=== PATIENT | male | born 1935 | race Caucasian/White ===

== ENCOUNTER 2017-11-02 14:44 | Emergency (ER) | payer MEDICARE, OTHER, SELFPAY ==
[2017-11-02 14:49] VITALS: BP 133/55; PULSE 70; RESP 16; TEMP 36.7; O2SAT 100
--- NOTE | 2017-11-02 15:00 | ED.UPPEXIN ---
HPI - Extremity Injury (Upper) <GONZALEZ Dubois - Last Filed: 11/02/17 22:31> General Chief Complaint: Extremity Injury, Upper Stated Complaint: SPLINTER IN FINGER Time Seen by Provider: 11/02/17 15:00 Source: patient Mode of arrival: ambulatory Limitations: no limitations History of Present Illness HPI narrative: Patient was brushing off a wooden step with his hand and states he got a splinter in his left pinky finger. He thinks his tetanus was about 10 years ago. He states he has full range of motion of his finger. He states he cannot take out the splinter by himself. Related Data Home Medications Medication Instructions Recorded Confirmed ASPIRIN (Aspirin EC) 81 mg PO Q DAY #0 09/05/11 diltiazem HCl 120 mg PO QDAY #0 09/05/11 colchicine 0.6 mg PO PRN #0 05/16/12 Previous Rx's Medication Instructions Recorded Loratadine (#ALLERGY RELIEF) 10 mg PO Q DAY #90 12/03/11 Allergies Allergy/AdvReac Type Severity Reaction Status Date / Time No Known Drug Allergies Allergy Verified 11/02/17 14:49 Review of Systems <GONZALEZ Dubois - Last Filed: 11/02/17 22:31> Review of Systems GENERAL: Denies chills, fatigue, malaise, fever, sweats. HEENT: Denies sinus pain, ear pain, sore throat, difficulty swallowing, dizziness. RESPIRATORY: Denies dyspnea, cough, wheezing, hemoptysis, sputum. CARDIOVASCULAR: Denies chest pain, palpitations, orthopnea, edema, GASTROINTESTINAL: Denies nausea, vomiting, abdominal pain, diarrhea, constipation, melena. : Denies dysuria, frequency, incontinence, hematuria, urinary retention. MUSCULOSKELETAL: denies weakness, joint pain, or bony pain SKIN: See HPI NEUROLOGIC: Denies weakness, headache, numbness, change in speech, confusion, seizures, incoordination. PSYCHIATRIC: No concerning psychosocial issues. 12 point review of systems is negative except for those stated above Exam <GONZALEZ Dubois - Last Filed: 11/02/17 22:31> Narrative Exam Narrative: GENERAL: This is a well-nourished patient in no distress. HEAD: Atraumatic. Normocephalic. EYES: Pupils equal round and reactive. Extraocular motions intact. No scleral icterus. No injection or drainage. ENT: Nose without bleeding, purulent drainage or septal hematoma. Throat without erythema, tonsillar hypertrophy or exudate. Uvula midline. Airway patent. NECK: Trachea midline. No JVD or lymphadenopathy. Supple, nontender, no meningeal signs. CARDIOVASCULAR: Regular rate and rhythm without murmurs, gallops, or rubs. RESPIRATORY: Clear to auscultation. Breath sounds equal bilaterally. No wheezes, rales, or rhonchi. GASTROINTESTINAL: Abdomen soft, non-tender, nondistended. No hepato-splenomegaly, or palpable masses. No guarding. NEURO: AOx3. SKIN: Noted 3 cm splinter in 5th digit of left hand. Located distal phalanx. Initial Vital Signs Initial Vital Signs: Vital Signs Temperature 98.1 F 11/02/17 14:49 Pulse Rate 70 11/02/17 14:49 Respiratory Rate 16 11/02/17 14:49 Blood Pressure 133/55 H 11/02/17 14:49 Pulse Oximetry 100 11/02/17 14:49 <Gautam Larose DO - Last Filed: 11/03/17 07:12> Initial Vital Signs Initial Vital Signs: Vital Signs Temperature 98.1 F 11/02/17 14:49 Pulse Rate 70 11/02/17 14:49 Respiratory Rate 16 11/02/17 14:49 Blood Pressure 133/55 H 11/02/17 14:49 Pulse Oximetry 100 11/02/17 14:49 Course <CLAIRE Dubois-BC - Last Filed: 11/02/17 22:31> Hospital Course: Patient presented with chief complaint of splinter and 5th left digit. His finger was numbed with lidocaine cream. A 3 mm splinter was removed with splinter forceps. Patient tolerated well. Discussed signs and symptoms of infection with patient. Patient declined x-ray. Patient had no questions or concerns upon discharge and had a full range of motion with no signs or symptoms of infection. Orders Ordered: Discontinued Medications Diphtheria/Tetanus/Acell Pertussis (Adacel) 0.5 ml IM .ONCE ONE Stop: 11/02/17 15:30 Last Admin: 11/02/17 15:10 Dose: 0.5 ml Tetanus/Diphtheria Toxoids (Td) 0.5 ml IM .ONCE ONE Stop: 11/02/17 15:02 Last Admin: 11/02/17 15:35 Dose: Reevaluation(s) Reevaluation #1: Prior to splinter removal, patient's skin was cleansed with chlorhexidine. Patient's wound was copiously irrigated with sterile water. It was dressed with bacitracin and a sterile dressing. Vital Signs - 8 hr 11/02/17 14:49 11/02/17 16:18 Temperature 98.1 F Pulse Rate 70 65 Respiratory Rate 16 16 Blood Pressure 133/55 H 126/75 H Pulse Oximetry 100 100 <Gautam Larose DO - Last Filed: 11/03/17 07:12> Orders Ordered: Discontinued Medications Diphtheria/Tetanus/Acell Pertussis (Adacel) 0.5 ml IM .ONCE ONE Stop: 11/02/17 15:30 Last Admin: 11/02/17 15:10 Dose: 0.5 ml Tetanus/Diphtheria Toxoids (Td) 0.5 ml IM .ONCE ONE Stop: 11/02/17 15:02 Last Admin: 11/02/17 15:35 Dose: Vital Signs - 8 hr 11/02/17 14:49 11/02/17 16:18 Temperature 98.1 F Pulse Rate 70 65 Respiratory Rate 16 16 Blood Pressure 133/55 H 126/75 H Pulse Oximetry 100 100 MDM - Extremity Injury (Upper) <CLAIRE Dubois-BC - Last Filed: 11/02/17 22:31> [facility] Narrative Medical decision making narrative: Patient presents with splinter. Splinter was removed without incident. Patient had full range of motion but denied x-ray to check for further foreign body. I discussed at length with patient to follow up if he has any signs or symptoms of infection or concerns regarding range of motion. Patient had no questions or concerns upon discharge. Discharge Plan Departure Patient Disposition: Home, Self-Care Clinical Impression: Splinter Discharge Date/Time: 11/02/17 16:19 Interventions: ED Discharge Assessment Last Done: 11/02/17 16:18 Instructions: Skin Wound, DI for Splinter Removal Activity Restrictions/Additional Instructions: Today is splinter was removed from your finger. Monitor the site for signs and symptoms of infection including redness, discharge, fevers, nausea, vomiting, diarrhea. Follow up with your primary care if you notice any of these. Keep the site clean, dry, intact and do not submerge your finger to dirty water until it is healed. Prescriptions: No Action ASPIRIN (Aspirin EC) 81 mg PO Q DAY Qty: 0 RF: 0 diltiazem HCl 180 MG capsule,extended release 24hr 120 mg PO QDAY Qty: 0 RF: 0 Loratadine (#ALLERGY RELIEF) 10 mg PO Q DAY Qty: 90 RF: 0 colchicine 0.6 MG tablet 0.6 mg PO PRN Qty: 0 RF: 0 Referrals: Gordy Shabazz MD [Primary Care Provider] - <Gautam Larose DO - Last Filed: 11/03/17 07:12> Cosign ED Attending Cosoralature Attestation: I was available for consultation during this patient's emergency department encounter
--- NOTE | 2017-11-02 15:04 | ED_ITS ---
HPI - Extremity Injury (Upper) <GONZALEZ Dubois - Last Filed: 11/02/17 22:31> General Chief Complaint: Extremity Injury, Upper Stated Complaint: SPLINTER IN FINGER Time Seen by Provider: 11/02/17 15:00 Source: patient Mode of arrival: ambulatory Limitations: no limitations History of Present Illness HPI narrative: Patient was brushing off a wooden step with his hand and states he got a splinter in his left pinky finger. He thinks his tetanus was about 10 years ago. He states he has full range of motion of his finger. He states he cannot take out the splinter by himself. Related Data Home Medications Medication Instructions Recorded Confirmed ASPIRIN (Aspirin EC) 81 mg PO Q DAY #0 09/05/11 diltiazem HCl 120 mg PO QDAY #0 09/05/11 colchicine 0.6 mg PO PRN #0 05/16/12 Previous Rx's Medication Instructions Recorded Loratadine (#ALLERGY RELIEF) 10 mg PO Q DAY #90 12/03/11 Allergies Allergy/AdvReac Type Severity Reaction Status Date / Time No Known Drug Allergies Allergy Verified 11/02/17 14:49 Review of Systems <GONZALEZ Dubois - Last Filed: 11/02/17 22:31> Review of Systems GENERAL: Denies chills, fatigue, malaise, fever, sweats. HEENT: Denies sinus pain, ear pain, sore throat, difficulty swallowing, dizziness. RESPIRATORY: Denies dyspnea, cough, wheezing, hemoptysis, sputum. CARDIOVASCULAR: Denies chest pain, palpitations, orthopnea, edema, GASTROINTESTINAL: Denies nausea, vomiting, abdominal pain, diarrhea, constipation, melena. : Denies dysuria, frequency, incontinence, hematuria, urinary retention. MUSCULOSKELETAL: denies weakness, joint pain, or bony pain SKIN: See HPI NEUROLOGIC: Denies weakness, headache, numbness, change in speech, confusion, seizures, incoordination. PSYCHIATRIC: No concerning psychosocial issues. 12 point review of systems is negative except for those stated above Exam <GONZALEZ Dubois - Last Filed: 11/02/17 22:31> Narrative Exam Narrative: GENERAL: This is a well-nourished patient in no distress. HEAD: Atraumatic. Normocephalic. EYES: Pupils equal round and reactive. Extraocular motions intact. No scleral icterus. No injection or drainage. ENT: Nose without bleeding, purulent drainage or septal hematoma. Throat without erythema, tonsillar hypertrophy or exudate. Uvula midline. Airway patent. NECK: Trachea midline. No JVD or lymphadenopathy. Supple, nontender, no meningeal signs. CARDIOVASCULAR: Regular rate and rhythm without murmurs, gallops, or rubs. RESPIRATORY: Clear to auscultation. Breath sounds equal bilaterally. No wheezes , rales, or rhonchi. GASTROINTESTINAL: Abdomen soft, non-tender, nondistended. No hepato-splenomegaly , or palpable masses. No guarding. NEURO: AOx3. SKIN: Noted 3 cm splinter in 5th digit of left hand. Located distal phalanx. Initial Vital Signs Initial Vital Signs: Vital Signs Temperature 98.1 F 11/02/17 14:49 Pulse Rate 70 11/02/17 14:49 Respiratory Rate 16 11/02/17 14:49 Blood Pressure 133/55 H 11/02/17 14:49 Pulse Oximetry 100 11/02/17 14:49 <Gautam Larose DO - Last Filed: 11/03/17 07:12> Initial Vital Signs Initial Vital Signs: Vital Signs Temperature 98.1 F 11/02/17 14:49 Pulse Rate 70 11/02/17 14:49 Respiratory Rate 16 11/02/17 14:49 Blood Pressure 133/55 H 11/02/17 14:49 Pulse Oximetry 100 11/02/17 14:49 Course <CLAIRE Dubois-BC - Last Filed: 11/02/17 22:31> Hospital Course: Patient presented with chief complaint of splinter and 5th left digit. His finger was numbed with lidocaine cream. A 3 mm splinter was removed with splinter forceps. Patient tolerated well. Discussed signs and symptoms of infection with patient. Patient declined x-ray. Patient had no questions or concerns upon discharge and had a full range of motion with no signs or symptoms of infection. Orders Ordered: Discontinued Medications Diphtheria/Tetanus/Acell Pertussis (Adacel) 0.5 ml IM .ONCE ONE Stop: 11/02/17 15:30 Last Admin: 11/02/17 15:10 Dose: 0.5 ml Tetanus/Diphtheria Toxoids (Td) 0.5 ml IM .ONCE ONE Stop: 11/02/17 15:02 Last Admin: 11/02/17 15:35 Dose: Reevaluation(s) Reevaluation #1: Prior to splinter removal, patient's skin was cleansed with chlorhexidine. Patient's wound was copiously irrigated with sterile water. It was dressed with bacitracin and a sterile dressing. Vital Signs - 8 hr 11/02/17 14:49 11/02/17 16:18 Temperature 98.1 F Pulse Rate 70 65 Respiratory Rate 16 16 Blood Pressure 133/55 H 126/75 H Pulse Oximetry 100 100 <Gautam Larose DO - Last Filed: 11/03/17 07:12> Orders Ordered: Discontinued Medications Diphtheria/Tetanus/Acell Pertussis (Adacel) 0.5 ml IM .ONCE ONE Stop: 11/02/17 15:30 Last Admin: 11/02/17 15:10 Dose: 0.5 ml Tetanus/Diphtheria Toxoids (Td) 0.5 ml IM .ONCE ONE Stop: 11/02/17 15:02 Last Admin: 11/02/17 15:35 Dose: Vital Signs - 8 hr 11/02/17 14:49 11/02/17 16:18 Temperature 98.1 F Pulse Rate 70 65 Respiratory Rate 16 16 Blood Pressure 133/55 H 126/75 H Pulse Oximetry 100 100 MDM - Extremity Injury (Upper) <CLAIRE Dubois-BC - Last Filed: 11/02/17 22:31> [facility] Narrative Medical decision making narrative: Patient presents with splinter. Splinter was removed without incident. Patient had full range of motion but denied x- ray to check for further foreign body. I discussed at length with patient to follow up if he has any signs or symptoms of infection or concerns regarding range of motion. Patient had no questions or concerns upon discharge. Discharge Plan Departure Patient Disposition: Home, Self-Care Clinical Impression: Splinter Discharge Date/Time: 11/02/17 16:19 Interventions: ED Discharge Assessment Last Done: 11/02/17 16:18 Instructions: Skin Wound, DI for Splinter Removal Activity Restrictions/Additional Instructions: Today is splinter was removed from your finger. Monitor the site for signs and symptoms of infection including redness, discharge, fevers, nausea, vomiting, diarrhea. Follow up with your primary care if you notice any of these. Keep the site clean, dry, intact and do not submerge your finger to dirty water until it is healed. Prescriptions: No Action ASPIRIN (Aspirin EC) 81 mg PO Q DAY Qty: 0 RF: 0 diltiazem HCl 180 MG capsule,extended release 24hr 120 mg PO QDAY Qty: 0 RF: 0 Loratadine (#ALLERGY RELIEF) 10 mg PO Q DAY Qty: 90 RF: 0 colchicine 0.6 MG tablet 0.6 mg PO PRN Qty: 0 RF: 0 Referrals: Gordy Shabazz MD [Primary Care Provider] - <Gautam Larose DO - Last Filed: 11/03/17 07:12> Cosign ED Attending Cosoralature Attestation: I was available for consultation during this patient's emergency department encounter
[2017-11-02] MEDS: TET,DIPH,PERTUSS(ACELL),VAC/PF 0.5 ML SYRINGE IM (15:10)
[2017-11-02 16:18] VITALS: BP 126/75; PULSE 65; RESP 16; O2SAT 100
== END 2017-11-02 16:19 | disposition home or self-care (01) ==
PROVIDERS: Emergency Provider Nurse Practitioner Family; Family Provider Internal Medicine; PCP Internal Medicine
DX: S60.459A Superficial foreign body of unspecified finger, initial encounter (principal); W26.9XXA Contact with unspecified sharp object(s), initial encounter
CPT/HCPCS: 90471; 99283; 90715

== ENCOUNTER → 2017-11-07 15:16 | Outpatient (CLI) | payer MEDICARE, OTHER, SELFPAY ==
[2017-11-07 16:30] LABS: Add Manual Diff / Slide Review NO; Basophils Percent Auto 0.2 % (0-2); Eosinophils Percent Auto 5.1 % (2-4); Hematocrit 40.8 % (41-53); Hemoglobin 13.9 g/dL (13.5-17.5); Lymphocytes Percent Auto 29.5 % (25-40); Mean Corpuscular HGB Conc 34.2 % (30-36); Mean Corpuscular Hemoglobin 32.8 PG (26-34); Mean Corpuscular Volume 96.1 fL (80-100); Neutrophils Absolute Auto 3700 /uL (3000-5900); Neutrophils Percent Auto 56.2 % (50-75); Platelet Count 213 X10^3/uL (150-400); Red Blood Cell Count 4.25 X10^6/uL (4.5-5.9); Red Cell Distribution Width 13.2 % (11.6-14.8); White Blood Cell Count 6.5 X10^3/uL (4.5-11.0)
[2017-11-07 16:35] LABS: Alanine Aminotransferase 28 IU/L (21-72); Albumin 4.2 g/dL (3.5-5.0); Albumin Globulin Ratio 1.4 (1.0-2.8); Alkaline Phosphatase 64 U/L (38-126); Aspartate Aminotransferase 21 IU/L (17-59); BUN Creatinine Ratio 23.6 (6-22); Bilirubin Total 0.9 mg/dL (0.2-1.3); Calcium 9.4 mg/dL (8.4-10.2); Cholesterol 117 mg/dL (140-199); Estimated Glomerular Filt Rate > 60.0 mL/min (>60); Globulin 3.1 g/dL (1.7-4.1); Glucose 83 mg/dL (80-110); HDL Cholesterol 71 mg/dL (40-60); HEMOLYSIS < 15 (0-50); LDL Cholesterol Calculated 28 mg/dL (<100); Potassium 4.8 mmol/L (3.4-5.1); Sodium 141 mmol/L (137-145); Total Protein 7.3 g/dL (6.3-8.2); Triglycerides 89 mg/dL (35-150)
[2017-11-13 15:17] LABS: Abnormal Protein Band 1 0.4 g/dL (NONE DETECTED); Albumin 4.2 g/dL (3.8-4.8); Alpha 1 Globulin 0.3 g/dL (0.2-0.3); Alpha 2 Globulin 0.6 g/dL (0.5-0.9); Beta 1 Globulin 0.3 g/dL (0.4-0.6); Gamma Globulin 1.3 g/dL (0.8-1.7)
== END ==
PROVIDERS: Family Provider Internal Medicine; PCP Internal Medicine; Visit Provider Internal Medicine Hematology & Oncology
DX: E78.00 Pure hypercholesterolemia, unspecified (principal); I10 Essential (primary) hypertension; I25.10 Atherosclerotic heart disease of native coronary artery without angina pectoris
CPT/HCPCS: 36415; 80053; 80061; 84155; 84165; 85025

== ENCOUNTER 2017-12-10 17:02 | Emergency (ER) | payer MEDICARE, OTHER, SELFPAY ==
[2017-12-10] VITALS (15 sets, daily range): BP systolic 152–196; BP diastolic 64–115; PULSE 76–101; RESP 11–24; TEMP 36.4; O2SAT 100; BMI 26.4
--- NOTE | 2017-12-10 17:04 | DI.RAD.S_ITS ---
PROCEDURE: XR SHOULDER LT MIN 2V INDICATIONS: Left shoulder deformity TECHNIQUE: 2 views of the shoulder were acquired. COMPARISON: , , SHOULDER MINIMUM 2VIEW RIGHT, 04/01/2007, 11:53. FINDINGS: Bones: Anterior shoulder dislocation noted. No definite or displaced fracture Soft tissues: No suspicious soft tissue calcifications. IMPRESSION: Anterior shoulder dislocation Dictated by: Albin Posada M.D. on 12/10/2017 at 17:49 Approved by: Albin Posada M.D. on 12/10/2017 at 17:50
[2017-12-10] MEDS: fentaNYL 100 MCG/2 ML INJ 50 MCG IV ×2 (17:16→17:37)
--- NOTE | 2017-12-10 17:30 | ED.UPPEXIN ---
HPI - Extremity Injury (Upper) General Chief Complaint: Extremity Injury, Upper Stated Complaint: GLF Time Seen by Provider: 12/10/17 17:04 Source: patient, family and EMS Mode of arrival: EMS Limitations: no limitations History of Present Illness HPI narrative: Two 2 for reports given 1 from the who states that the patient slipped and fell from the porch and in doing so grabbed something and pulled his left arm causing a deformity and pain. The other was from the paramedics stating that the patient tripped around the mailbox and grabbed to support himself and hurt his left arm. No reports of loss of consciousness. Patient states he did not hit his head. No other injuries reported from the event. Paramedics state that he received 6 mg morphine and round to the hospital. No prior shoulder dislocations Related Data Home Medications Medication Instructions Recorded Confirmed aspirin 81 mg PO DAILY #0 09/05/11 12/10/17 allopurinol 300 mg PO DAILY 12/10/17 12/10/17 atorvastatin 40 mg PO DAILY 12/10/17 12/10/17 diltiazem HCl [DILT-XR] 1 cap PO QAM 12/10/17 12/10/17 loratadine 10 mg PO DAILY 12/10/17 12/10/17 losartan 50 mg PO DAILY 12/10/17 12/10/17 terazosin 1 cap PO DAILY 12/10/17 12/10/17 zolpidem 5 mg PO BEDTIME 12/10/17 12/10/17 Previous Rx's Medication Instructions Recorded acetaminophen-codeine 1 tab PO Q4-6H PRN #14 tab 12/10/17 Allergies Allergy/AdvReac Type Severity Reaction Status Date / Time No Known Drug Allergies Allergy Verified 11/02/17 14:49 Review of Systems Constitutional Denies fever(s) Cardiovascular Denies chest pain and Denies dyspnea Respiratory Denies dyspnea Musculoskeletal Comments: Left shoulder deformity and pain Integumentary/Breasts Denies lesions and Denies rash Neurologic Comments: No numbness and tingling left upper extremity Hematologic/Lymphatic Denies easy bleeding and Denies easy bruising [facility] Surgical History Status post breast biopsy Exam Initial Vital Signs Initial Vital Signs: Vital Signs Temperature 97.5 F L 06/27/18 17:05 Pulse Rate 85 12/10/17 17:05 Respiratory Rate 24 12/10/17 17:05 Blood Pressure 185/70 H 12/10/17 17:05 Pulse Oximetry 100 12/10/17 17:05 Const General: cooperative, healthy appearing and No comfortable (Pain in left shoulder) [facility] Head: normal to inspection, normocephalic and atraumatic Ears: hearing grossly normal bilaterally Chest Chest: normal inspection of the chest and normal palpation of entire chest wall Resp Effort & Inspection: normal respiratory effort Auscultation: clear to auscultation bilaterally and no crackles Cardio Rate: regular rate Rhythm: regular rhythm Pulses: radial pulses present on the left Back/Spine/Pelvis Cervical Spine: No pain with cervical ROM, No cervical spinal tenderness and No step off deformity Skin Lesions: no lesions Rashes: no rashes Neuro Other: Sensation intact over the lateral deltoid and distal left upper extremity Extrem Other: Obvious deformity to left upper extremity Procedures Orthopedic Joint Reduction Joint #1: Time Out Performed: Yes Side: left Joint Reduction Location: shoulder Analgesia: procedural sedation Shoulder Technique Used (if applicable): scapula manipulation and Milch Technique used: direct manipulation Post-reduction neuro exam: intact and no change Post-reduction vascular: intact and no change Post Reduction X-Ray Obtained: Yes Post Reduction X-Ray Results: reduced Splint Applied: Yes (Sling) Patient Tolerated Procedure: Well and No complications Procedural Sedation Indication: fracture/dislocation reduction ASA Class: III Mallampati Airway Classification: Class II Preparation: ekg monitor tech applied, pulse oximeter, capnometry used and supplemental O2 applied Fentanyl: IV Fentanyl dose (mcg): 15 Midazolam: IV Midazolam dose (mg): 5 ED Sedation Level: Moderate (Concious) Patient Tolerated Procedure: Well and No complications Complications: none Course Orders Ordered: ED Orders 12/10/17 17:04 XR shoulder LT min 2V Stat 12/10/17 18:02 XR shoulder LT min 2V Stat Discontinued Medications Fentanyl (Sublimaze) 50 mcg IV NOW ONE Stop: 12/10/17 17:06 Last Admin: 12/10/17 17:16 Dose: 50 mcg Fentanyl (Sublimaze) 100 mcg IV NOW ONE Stop: 12/10/17 17:29 Last Admin: 12/10/17 17:34 Dose: 100 mcg Midazolam HCl (Versed) 3 mg IV NOW ONE Stop: 12/10/17 17:29 Last Admin: 12/10/17 17:34 Dose: 3 mg Vital Signs - 8 hr 12/10/17 17:05 12/10/17 17:38 12/10/17 17:46 Temperature 97.5 F L Pulse Rate 85 101 H 88 Respiratory Rate 24 20 15 Blood Pressure 185/70 H Blood Pressure [Right Arm] 196/77 H 184/115 H Pulse Oximetry 100 100 100 12/10/17 17:51 12/10/17 17:56 12/10/17 18:00 Temperature Pulse Rate 94 H 88 80 Respiratory Rate 17 15 19 Blood Pressure Blood Pressure [Right Arm] 187/81 H 185/82 H 180/65 H Pulse Oximetry 100 100 100 12/10/17 18:05 12/10/17 18:10 12/10/17 18:15 Temperature Pulse Rate 76 78 83 Respiratory Rate 11 L 17 21 Blood Pressure Blood Pressure [Right Arm] 155/65 H 160/69 H 165/81 H Pulse Oximetry 100 100 100 12/10/17 18:25 12/10/17 18:47 Temperature Pulse Rate 78 90 Respiratory Rate 12 16 Blood Pressure Blood Pressure [Right Arm] 171/73 H Pulse Oximetry 100 [facility] - Extremity Injury (Upper) Imaging Data Shoulder x-ray post reduction: Radiologist's impression: PROCEDURE: XR SHOULDER LT MIN 2V INDICATIONS: Post reduction TECHNIQUE: Single views of the shoulder were acquired. COMPARISON: [facility], XR SHOULDER LT MIN 2V, 12/10/2017, 17:20. FINDINGS: Bones: Improved alignment following reduction of anterior shoulder dislocation. No fracture is identified. Soft tissues: No suspicious soft tissue calcifications. IMPRESSION: Improved alignment, status post reduction of left shoulder dislocation. Dictated by: Albin Posada M.D. on 12/10/2017 at 18:34 Shoulder x-ray: Radiologist's impression: PROCEDURE: XR SHOULDER LT MIN 2V INDICATIONS: Left shoulder deformity TECHNIQUE: 2 views of the shoulder were acquired. COMPARISON: [facility], SHOULDER MINIMUM 2VIEW RIGHT, 04/01/2007, 11:53. FINDINGS: Bones: Anterior shoulder dislocation noted. No definite or displaced fracture Soft tissues: No suspicious soft tissue calcifications. IMPRESSION: Anterior shoulder dislocation Dictated by: Albin Posada M.D. on 12/10/2017 at 17:49 [facility] Narrative Medical decision making narrative: Patient was neurovascularly intact upon arrival. Had an obvious left shoulder deformity. X-ray show anterior dislocation without fractures. Patient was sedated with fentanyl and Versed as described above. Had no complications with sedation. Shoulder was reduced. Had some difficulty with reduction of the shoulder. No fractures on post reduction films. Patient with intact neurovascular status after reduction. Patient was placed in shoulder immobilizer. Patient is recovering. Care turned over to night provider to re-evaluate after recovered from sedation. Discharge Plan Departure Patient Disposition: Home, Self-Care Clinical Impression: Anterior dislocation of left shoulder Instructions: How to Use a Sling, Shoulder Dislocation Activity Restrictions/Additional Instructions: Contact the [facility] group at [phone] for a follow-up. Also contact your primary care doctor for follow-up. You can remove the sling to shower however I would wear it for the rest of the day even while sleeping into you follow-up with your primary doctor or Orthopedics. Return to the emergency department for any new or worsening symptoms. Prescriptions: New acetaminophen-codeine 300-15 mg tablet 1 tab PO Q4-6H PRN (Reason: pain) Qty: 14 RF: 0 No Action aspirin 81 mg Tablet,Delayed Release (Dr/Ec) 81 mg PO DAILY Qty: 0 RF: 0 losartan 50 mg tablet 50 mg PO DAILY RF: 0 atorvastatin 40 mg tablet 40 mg PO DAILY RF: 0 terazosin 2 mg capsule 1 cap PO DAILY RF: 0 diltiazem HCl [DILT-XR] 120 mg capsule,ext.rel 24h degradable 1 cap PO QAM RF: 0 allopurinol 300 mg tablet 300 mg PO DAILY RF: 0 zolpidem 5 mg tablet 5 mg PO BEDTIME RF: 0 loratadine 10 mg Tablet 10 mg PO DAILY RF: 0
--- NOTE | 2017-12-10 17:33 | ED_ITS ---
HPI - Extremity Injury (Upper) General Chief Complaint: Extremity Injury, Upper Stated Complaint: GLF Time Seen by Provider: 12/10/17 17:04 Source: patient, family and EMS Mode of arrival: EMS Limitations: no limitations History of Present Illness HPI narrative: Two 2 for reports given 1 from the who states that the patient slipped and fell from the porch and in doing so grabbed something and pulled his left arm causing a deformity and pain. The other was from the paramedics stating that the patient tripped around the mailbox and grabbed to support himself and hurt his left arm. No reports of loss of consciousness. Patient states he did not hit his head. No other injuries reported from the event. Paramedics state that he received 6 mg morphine and round to the hospital. No prior shoulder dislocations Related Data Home Medications Medication Instructions Recorded Confirmed aspirin 81 mg PO DAILY #0 09/05/11 12/10/17 allopurinol 300 mg PO DAILY 12/10/17 12/10/17 atorvastatin 40 mg PO DAILY 12/10/17 12/10/17 diltiazem HCl [DILT-XR] 1 cap PO QAM 12/10/17 12/10/17 loratadine 10 mg PO DAILY 12/10/17 12/10/17 losartan 50 mg PO DAILY 12/10/17 12/10/17 terazosin 1 cap PO DAILY 12/10/17 12/10/17 zolpidem 5 mg PO BEDTIME 12/10/17 12/10/17 Previous Rx's Medication Instructions Recorded acetaminophen-codeine 1 tab PO Q4-6H PRN #14 tab 12/10/17 Allergies Allergy/AdvReac Type Severity Reaction Status Date / Time No Known Drug Allergies Allergy Verified 11/02/17 14:49 Review of Systems Constitutional Denies fever(s) Cardiovascular Denies chest pain and Denies dyspnea Respiratory Denies dyspnea Musculoskeletal Comments: Left shoulder deformity and pain Integumentary/Breasts Denies lesions and Denies rash Neurologic Comments: No numbness and tingling left upper extremity Hematologic/Lymphatic Denies easy bleeding and Denies easy bruising [facility] Surgical History Status post breast biopsy Exam Initial Vital Signs Initial Vital Signs: Vital Signs Temperature 97.5 F L 06/27/18 17:05 Pulse Rate 85 12/10/17 17:05 Respiratory Rate 24 12/10/17 17:05 Blood Pressure 185/70 H 12/10/17 17:05 Pulse Oximetry 100 12/10/17 17:05 Const General: cooperative, healthy appearing and No comfortable (Pain in left shoulder) [facility] Head: normal to inspection, normocephalic and atraumatic Ears: hearing grossly normal bilaterally Chest Chest: normal inspection of the chest and normal palpation of entire chest wall Resp Effort & Inspection: normal respiratory effort Auscultation: clear to auscultation bilaterally and no crackles Cardio Rate: regular rate Rhythm: regular rhythm Pulses: radial pulses present on the left Back/Spine/Pelvis Cervical Spine: No pain with cervical ROM, No cervical spinal tenderness and No step off deformity Skin Lesions: no lesions Rashes: no rashes Neuro Other: Sensation intact over the lateral deltoid and distal left upper extremity Extrem Other: Obvious deformity to left upper extremity Procedures Orthopedic Joint Reduction Joint #1: Time Out Performed: Yes Side: left Joint Reduction Location: shoulder Analgesia: procedural sedation Shoulder Technique Used (if applicable): scapula manipulation and Milch Technique used: direct manipulation Post-reduction neuro exam: intact and no change Post-reduction vascular: intact and no change Post Reduction X-Ray Obtained: Yes Post Reduction X-Ray Results: reduced Splint Applied: Yes (Sling) Patient Tolerated Procedure: Well and No complications Procedural Sedation Indication: fracture/dislocation reduction ASA Class: III Mallampati Airway Classification: Class II Preparation: pvc monitor applied, pulse oximeter, capnometry used and supplemental O2 applied Fentanyl: IV Fentanyl dose (mcg): 15 Midazolam: IV Midazolam dose (mg): 5 ED Sedation Level: Moderate (Concious) Patient Tolerated Procedure: Well and No complications Complications: none Course Orders Ordered: ED Orders 12/10/17 17:04 XR shoulder LT min 2V Stat 12/10/17 18:02 XR shoulder LT min 2V Stat Discontinued Medications Fentanyl (Sublimaze) 50 mcg IV NOW ONE Stop: 12/10/17 17:06 Last Admin: 12/10/17 17:16 Dose: 50 mcg Fentanyl (Sublimaze) 100 mcg IV NOW ONE Stop: 12/10/17 17:29 Last Admin: 12/10/17 17:34 Dose: 100 mcg Midazolam HCl (Versed) 3 mg IV NOW ONE Stop: 12/10/17 17:29 Last Admin: 12/10/17 17:34 Dose: 3 mg Vital Signs - 8 hr 12/10/17 17:05 12/10/17 17:38 12/10/17 17:46 Temperature 97.5 F L Pulse Rate 85 101 H 88 Respiratory Rate 24 20 15 Blood Pressure 185/70 H Blood Pressure [Right Arm] 196/77 H 184/115 H Pulse Oximetry 100 100 100 12/10/17 17:51 12/10/17 17:56 12/10/17 18:00 Temperature Pulse Rate 94 H 88 80 Respiratory Rate 17 15 19 Blood Pressure Blood Pressure [Right Arm] 187/81 H 185/82 H 180/65 H Pulse Oximetry 100 100 100 12/10/17 18:05 12/10/17 18:10 12/10/17 18:15 Temperature Pulse Rate 76 78 83 Respiratory Rate 11 L 17 21 Blood Pressure Blood Pressure [Right Arm] 155/65 H 160/69 H 165/81 H Pulse Oximetry 100 100 100 12/10/17 18:25 12/10/17 18:47 Temperature Pulse Rate 78 90 Respiratory Rate 12 16 Blood Pressure Blood Pressure [Right Arm] 171/73 H Pulse Oximetry 100 [facility] - Extremity Injury (Upper) Imaging Data Shoulder x-ray post reduction: Radiologist's impression: PROCEDURE: XR SHOULDER LT MIN 2V INDICATIONS: Post reduction TECHNIQUE: Single views of the shoulder were acquired. COMPARISON: [facility], XR SHOULDER LT MIN 2V, 12/10/2017, 17:20. FINDINGS: Bones: Improved alignment following reduction of anterior shoulder dislocation. No fracture is identified. Soft tissues: No suspicious soft tissue calcifications. IMPRESSION: Improved alignment, status post reduction of left shoulder dislocation. Dictated by: Albin Posada M.D. on 12/10/2017 at 18:34 Shoulder x-ray: Radiologist's impression: PROCEDURE: XR SHOULDER LT MIN 2V INDICATIONS: Left shoulder deformity TECHNIQUE: 2 views of the shoulder were acquired. COMPARISON: [facility], SHOULDER MINIMUM 2VIEW RIGHT, 04/01/2007, 11: 53. FINDINGS: Bones: Anterior shoulder dislocation noted. No definite or displaced fracture Soft tissues: No suspicious soft tissue calcifications. IMPRESSION: Anterior shoulder dislocation Dictated by: Albin Posada M.D. on 12/10/2017 at 17:49 [facility] Narrative Medical decision making narrative: Patient was neurovascularly intact upon arrival. Had an obvious left shoulder deformity. X-ray show anterior dislocation without fractures. Patient was sedated with fentanyl and Versed as described above. Had no complications with sedation. Shoulder was reduced. Had some difficulty with reduction of the shoulder. No fractures on post reduction films. Patient with intact neurovascular status after reduction. Patient was placed in shoulder immobilizer. Patient is recovering. Care turned over to night provider to re-evaluate after recovered from sedation. Discharge Plan Departure Patient Disposition: Home, Self-Care Clinical Impression: Anterior dislocation of left shoulder Instructions: How to Use a Sling, Shoulder Dislocation Activity Restrictions/Additional Instructions: Contact the [facility] group at [phone] for a follow-up. Also contact your primary care doctor for follow-up. You can remove the sling to shower however I would wear it for the rest of the day even while sleeping into you follow-up with your primary doctor or Orthopedics. Return to the emergency department for any new or worsening symptoms. Prescriptions: New acetaminophen-codeine 300-15 mg tablet 1 tab PO Q4-6H PRN (Reason: pain) Qty: 14 RF: 0 No Action aspirin 81 mg Tablet,Delayed Release (Dr/Ec) 81 mg PO DAILY Qty: 0 RF: 0 losartan 50 mg tablet 50 mg PO DAILY RF: 0 atorvastatin 40 mg tablet 40 mg PO DAILY RF: 0 terazosin 2 mg capsule 1 cap PO DAILY RF: 0 diltiazem HCl [DILT-XR] 120 mg capsule,ext.rel 24h degradable 1 cap PO QAM RF: 0 allopurinol 300 mg tablet 300 mg PO DAILY RF: 0 zolpidem 5 mg tablet 5 mg PO BEDTIME RF: 0 loratadine 10 mg Tablet 10 mg PO DAILY RF: 0
[2017-12-10] MEDS: fentaNYL 100 MCG/2 ML INJ IV (17:34)
[2017-12-10] MEDS: MIDAZOLAM 2 MG/2 ML VIAL 3 MG IV (17:34)
[2017-12-10] MEDS: MIDAZOLAM 5 MG/ML VIAL 2 MG IV (17:37)
--- NOTE | 2017-12-10 18:02 | DI.RAD.S_ITS ---
PROCEDURE: XR SHOULDER LT MIN 2V INDICATIONS: Post reduction TECHNIQUE: Single views of the shoulder were acquired. COMPARISON: [facility], , XR SHOULDER LT MIN 2V, 12/10/2017, 17:20. FINDINGS: Bones: Improved alignment following reduction of anterior shoulder dislocation. No fracture is identified. Soft tissues: No suspicious soft tissue calcifications. IMPRESSION: Improved alignment, status post reduction of left shoulder dislocation. Dictated by: Albin Posada M.D. on 12/10/2017 at 18:34 Approved by: Albin Posada M.D. on 12/10/2017 at 18:34
--- NOTE | 2017-12-10 20:11 | PC.NURSE ---
Attempted to assist patient to bathroom, patient stated that he could not get out of bed. aware.
[2017-12-10] MEDS: HYDROCODONE/ACET 5/325 PREPACK 1 BOTTLE MISC (21:25)
== END 2017-12-10 21:45 | disposition home or self-care (01) ==
PROVIDERS: Emergency Provider Emergency Medicine; Family Provider Internal Medicine; PCP Internal Medicine
DX: S43.015A Anterior dislocation of left humerus, initial encounter (principal)
CPT/HCPCS: 23655; 73030; 94770; 96374; 96375; 99152; 99284; 99285; 99291; J2250; J3010

== ENCOUNTER → 2017-12-23 14:03 | Outpatient (CLI) | payer MEDICARE, OTHER, SELFPAY ==
--- NOTE | 2017-12-23 | DI.MRI.S_ITS ---
PROCEDURE: MR SHOULDER LT WO CON INDICATIONS: LEFT SHOULDER PAIN. ANTERIOR DISLOCATION OF LEFT HUMERUS TECHNIQUE: Noncontrast oblique coronal T2 fast spin echo with fat saturation, oblique sagittal T1 spin echo and T2 fast spin echo with fat saturation, axial T1 spin echo and T2 fast spin echo with fat saturation through the shoulder. COMPARISON: [facility], CR, XR SHOULDER LT MIN 2V, 12/10/2017, 17:20. [facility], CR, XR SHOULDER LT MIN 2V, 12/10/2017, 18:07. [facility], CR, XR SHOULDER 2+ VIEWS LEFT, 12/16/2017, 10:13. FINDINGS: Image quality: Excellent. Rotator cuff: There is massive tear of the supraspinatus and infraspinatus tendons with tendon retractions to the musculotendinous junction. The subscapularis tendon is thickened and irregular consistent with partial tear and tendinosis. No rotator muscle atrophy. Bones and bursae: Inferior glenoid fracture (see the next paragraph for detail). There is a small Hill-Sachs deformity of the humeral head. Moderate glenohumeral and acromioclavicular joint degeneration. The acromion demonstrates conventional anatomy, without an os acromiale. Moderate joint effusion is present. Capsule and soft tissues: There is tear of the anterior-inferior labrum with a large Bankart lesion. A slightly displaced fracture fragment is noted involving the inferior glenoid. The superior, middle and inferior glenohumeral ligaments are torn. There is degenerative tear involving the superior labrum. The long head of the biceps tendon demonstrates normal location with mild irregular secondary to tendinitis. IMPRESSION: 1. Massive rotator cuff tear involving the supraspinatus and infraspinatus tendons with tendon retraction. 2. Anterior inferior labral tear with a large Bankart lesion and a fracture fragment adjacent to the anterior inferior glenoid. 3. Small Hill-Sachs deformity. 4. Moderate joint effusion. Dictated by: Huy Lennon M.D. on 12/23/2017 at 16:30 Transcribed by: ROHAN on 12/23/2017 at 16:47 Approved by: Huy Lennon M.D. on 12/23/2017 at 17:29
== END ==
PROVIDERS: PCP Internal Medicine; Visit Provider Orthopaedic Surgery
DX: M75.122 Complete rotator cuff tear or rupture of left shoulder, not specified as traumatic (principal); S43.432A Superior glenoid labrum lesion of left shoulder, initial encounter; M25.412 Effusion, left shoulder
CPT/HCPCS: 73221

== ENCOUNTER → 2017-12-29 14:35 | Outpatient (CLI) | payer MEDICARE, OTHER, SELFPAY ==
[2017-12-29 15:05] LABS: Add Manual Diff / Slide Review NO; Basophils Percent Auto 0.5 % (0-2); Eosinophils Percent Auto 2.8 % (2-4); Hematocrit 39.4 % (41-53); Hemoglobin 13.1 g/dL (13.5-17.5); Lymphocytes Percent Auto 23.4 % (25-40); Mean Corpuscular HGB Conc 33.2 % (30-36); Mean Corpuscular Hemoglobin 32.6 PG (26-34); Monocytes Percent Auto 6.3 % (3-14); Neutrophils Absolute Auto 4400 /uL (3000-5900); Platelet Count 288 X10^3/uL (150-400); Red Blood Cell Count 4.03 X10^6/uL (4.5-5.9); Red Cell Distribution Width 13.1 % (11.6-14.8); White Blood Cell Count 6.5 X10^3/uL (4.5-11.0)
[2017-12-29 15:36] LABS: BUN Creatinine Ratio 16.4 (6-22); Blood Urea Nitrogen 18 mg/dL (9-20); Calcium 9.6 mg/dL (8.4-10.2); Carbon Dioxide 29 mmol/L (22-32); Chloride 101 mmol/L (98-107); Estimated Glomerular Filt Rate > 60.0 mL/min (>60); Glucose 96 mg/dL (80-110); HEMOLYSIS < 15 (0-50); Potassium 4.9 mmol/L (3.4-5.1); Sodium 140 mmol/L (137-145)
== END ==
PROVIDERS: PCP Internal Medicine; Visit Provider Orthopaedic Surgery
DX: Z01.812 Encounter for preprocedural laboratory examination (principal); Z01.818 Encounter for other preprocedural examination
CPT/HCPCS: 36415; 80048; 85025; 93005

== ENCOUNTER 2018-01-15 12:18 | Day surgery (SDC) | payer MEDICARE, OTHER, SELFPAY ==
[2018-01-15] VITALS (7 sets, daily range): BP systolic 134–147; BP diastolic 60–76; PULSE 72–77; RESP 10–20; TEMP 36–36.8; O2SAT 95–99; BMI 26.2
--- NOTE | 2018-01-15 13:03 | PM.PREOP ---
Pre-operative Note Interval Note Pre-op Check: Yes History & Physical Reviewed by Physician and Yes Exam Performed Changes: No
[2018-01-15] MEDS: LACTATED RINGERS 1,000 ML 42 ML IV ×2 (13:37→16:21)
[2018-01-15] MEDS: MIDAZOLAM 2 MG/2 ML VIAL IV (13:44)
--- NOTE | 2018-01-15 13:56 | SUR.PREOP ---
Block start time [1348] . Monitoring initiated and maintained throughout procedure. Oxygen and medications given per anesthesiologist instructions. Patient remained stable throughout procedure, no adverse reactions noted. Block end time []1352.
[2018-01-15] MEDS: CEFAZOLIN 2 GM/100 ML FROZ.PIGGY IV (14:03)
--- NOTE | 2018-01-15 14:36 | SUR.OPER ---
Lateral on padded OR bed with torres bag positioner, head on pillow, gel axillary roll in place, bottom leg bent with gel pad under knee to foot, upper leg straight and supported with pillows. Operative arm secured in shoulder positioning suspension device. non-operative arm secured on padded arm board. Safety belt at hip, tape over blanket securing lower legs.
[2018-01-15] MEDS: SODIUM CHLORIDE IRR (15:56)
[2018-01-15] MEDS: EPINEPHRINE IRR (15:56)
--- NOTE | 2018-01-15 16:21 | P.OP_ITS ---
Operative Date/Time/Diagnoses Date of procedure: 01/15/18 Time of procedure: 16:11 Pre-op diagnosis: Full-thickness rotator cuff tear left shoulder Status post left shoulder dislocation Post-op diagnosis: same Procedure & Clinicians Procedure: Arthroscopic rotator cuff repair left shoulder Repair supplementation with Mimedx EpiFix Same procedure as scheduled: Yes Indications: The patient presents today for rotator cuff repair. Patient sustained the tear after traumatic dislocation approximately 5 weeks ago. The nature of the procedure including the risks and benefits, alternatives, postoperative course and expected outcome were discussed and all questions answered. Consent was obtained. Operative site confirmed and marked. Surgeon: Choco Ellis Category Development Manager: Jorge Wasserman Anesthesia Type: General, Peripheral nerve block and Local Operative Notes Findings: Examination glenohumeral joint revealed the joint to be tight. There is mild chondromalacia and some degenerative type labral tearing. The biceps was intact. The patient had a full-thickness retracted rotator cuff tear involving the entire supraspinatus and good portion of the anterior infraspinatus tendon. However, the tear was mobile and could be repaired back to the tuberosity. A speed bridge technique was used with 4 Arthrex swivel lock anchors in 2 Arthrex FiberWire sutures. A nice repair was obtained without significant tension. The repair site was injected with Mimedx EpiFix for supplemental healing. There was a large anterior acromial spur which was removed with standard acromioplasty. The subacromial space was well decompressed at the end the procedure. Closure Type: primary Specimen(s): none sent Applied: device(s) (EpiFix Mimedx) and other Estimated Blood Loss (mL): 15 Blood products transfused: none Procedure in detail: The patient was taken the operative suite and placed under general anesthesia with a scalene block and given prophylactic antibodies prior to surgery. The patient was then positioned in the lateral decubitus position on a beanbag and with an axillary roll. The arm was suspended with 10 pounds of weight. The acromion and coracoid as well as the expected portal sites were all marked. The shoulder was then injected with 20 mL of 1% lidocaine with epinephrine. The arm was then prepped and draped in usual sterile fashion. The joint was then filled with 20 mL of saline through the proposed posterior portal site. The posterior portal was then established and the scope placed bluntly into the glenohumeral joint. An anterior portal was then established from an outside in technique with a spinal needle. The glenohumeral joint was then inspected (see findings above). The scope was then switched to the subacromial space. A standard bursectomy and anterior/lateral chondroplasty was performed with a shaver and bur. The subacromial space was well decompressed. The patient had a full-thickness retracted rotator cuff tear involving the entire supraspinatus and good portion of the anterior infraspinatus tendon. However, the tear was mobile and could be repaired back to the tuberosity. A speed bridge technique was used with 4 Arthrex swivel lock anchors in 2 Arthrex FiberWire sutures. A nice repair was obtained without significant tension. The repair site was injected with Mimedx EpiFix for supplemental healing. There was a large anterior acromial spur which was removed with standard acromioplasty. The subacromial space was well decompressed at the end the procedure. The arthroscopy was then completed and the shoulder drained. The portal sites were closed with interrupted 3-0 nylon suture. Subacromial space was filled with [20 mL of 0.5% ropivacaine and 4 of morphine]. Sterile gauze dressings were then applied. The shoulder was placed into a sling. The patient tolerated the procedure well and was returned recovery room in good condition. Complications: none Condition: stable Disposition: same day surgery Plan for aftercare: Shoulder mobilizer. No active shoulder range of motion for 6 weeks. Daily pendulum exercises as well as elbow and wrist range of motion. Physical therapy to start next week for passive range of motion. Clinic follow- up in 2 weeks.
--- NOTE | 2018-01-15 17:53 | SUR.PHASEII ---
Spent extra time with patient, spouse and son prior to discharge discussing block and use of sling, use of analgesic medications post op- don't mix Zolpidem & Oxycodone, use of ice & why, use of sling, activity, eating and resuming meds in the am. Onset of some shivering once ready to dress and after helping dress applied warm blankets for trip [place] car. Suggestion to son on how to make similar blanket at home if needed.
== END 2018-01-15 17:50 | disposition home or self-care (01) ==
PROVIDERS: PCP Internal Medicine; Visit Provider Orthopaedic Surgery
PROC: (CPT 29827; principal; 2018-01-15 13:45)
DX: M75.122 Complete rotator cuff tear or rupture of left shoulder, not specified as traumatic (principal); S43.015D Anterior dislocation of left humerus, subsequent encounter; M94.212 Chondromalacia, left shoulder; G89.18 Other acute postprocedural pain
CPT/HCPCS: 29827; 29826; 64415; J0171; J0690; J1100; J2250; J2405; J2704; J2795; J3010

== ENCOUNTER → 2018-02-25 15:59 | Outpatient (CLI) | payer MEDICARE, OTHER, SELFPAY ==
[2018-02-25 16:23] LABS: Add Manual Diff / Slide Review NO; Basophils Percent Auto 0.4 % (0-2); Eosinophils Percent Auto 3.3 % (2-4); Hematocrit 39.3 % (41-53); Hemoglobin 13.3 g/dL (13.5-17.5); Mean Corpuscular HGB Conc 33.9 % (30-36); Mean Corpuscular Hemoglobin 32.3 PG (26-34); Mean Corpuscular Volume 95.3 fL (80-100); Monocytes Percent Auto 7.4 % (3-14); Neutrophils Absolute Auto 4300 /uL (3000-5900); Neutrophils Percent Auto 61.9 % (50-75); Platelet Count 248 X10^3/uL (150-400); Red Blood Cell Count 4.12 X10^6/uL (4.5-5.9); Red Cell Distribution Width 13.8 % (11.6-14.8)
[2018-02-25 17:01] LABS: Alanine Aminotransferase 33 IU/L (21-72); Albumin 4.4 g/dL (3.5-5.0); Albumin Globulin Ratio 1.6 (1.0-2.8); Alkaline Phosphatase 73 U/L (38-126); Aspartate Aminotransferase 28 IU/L (17-59); Bilirubin Total 0.9 mg/dL (0.2-1.3); Blood Urea Nitrogen 18 mg/dL (9-20); Calcium 9.7 mg/dL (8.4-10.2); Carbon Dioxide 30 mmol/L (22-32); Chloride 103 mmol/L (98-107); Estimated Glomerular Filt Rate > 60.0 mL/min (>60); Globulin 2.7 g/dL (1.7-4.1); Glucose 98 mg/dL (80-110); HEMOLYSIS < 15 (0-50); Potassium 5.1 mmol/L (3.4-5.1); Sodium 142 mmol/L (137-145); Total Protein 7.1 g/dL (6.3-8.2)
[2018-02-25 17:31] LABS: Thyroid Stimulating Hormone 1.09 uIU/mL (0.47-4.68)
[2018-02-28 13:43] LABS: Abnormal Protein Band 1 0.5 g/dL (NONE DETECTED); Albumin 4.1 g/dL (3.8-4.8); Alpha 1 Globulin 0.3 g/dL (0.2-0.3); Alpha 2 Globulin 0.6 g/dL (0.5-0.9); Beta 1 Globulin 0.3 g/dL (0.4-0.6); Gamma Globulin 1.2 g/dL (0.8-1.7); Protein, Total 6.8 g/dL (6.1-8.1)
== END ==
PROVIDERS: Family Provider Internal Medicine Cardiovascular Disease; PCP Internal Medicine; Visit Provider Nurse Practitioner Gerontology
DX: I10 Essential (primary) hypertension (principal); D47.2 Monoclonal gammopathy
CPT/HCPCS: 36415; 80053; 84155; 84165; 84443; 85025

== ENCOUNTER 2018-03-11 15:26 | Oncology outpatient (ONC) | payer MEDICARE, OTHER, SELFPAY ==
[2018-03-11 16:06] VITALS: BP 124/60; PULSE 71; RESP 15; O2SAT 99
--- NOTE | 2018-03-11 16:17 | P.PNONC_ITS ---
PN -Subjective Interval history: Diagnosis: MGUS Previous treatment: None Interval history: Patient is an 82-year-old man who returns today for follow-up for history of monoclonal gammopathy. He was diagnosed initially in 2011. He is feeling generally well today. His biggest complaint has been shoulder pain. He did have some recent she surgery for a rotator cuff. He has been doing physical therapy twice a week. He has an appointment pending later this week with his surgeon. He denies any unusual bleeding or bruising. No shortness of breath or cough. Appetite and energy level have been stable. He has not noted any adenopathy. He denies any other changes in his health. His past medical history is otherwise notable for hypertension hypercholesterolemia. He had a recent rotator cuff repair. His medications include aspirin diltiazem loratadine allopurinol terazosin Ambien Lipitor and Cozaar. - Patient Self-Reported Symptoms SR Musculoskeletal issues: Joint pain or swelling Home Medications and Allergies Home Medications Medication Instructions Recorded Confirmed Type aspirin 81 mg PO DAILY #0 09/05/11 01/15/18 History allopurinol 300 mg PO DAILY 12/10/17 01/15/18 History atorvastatin 40 mg PO DAILY 12/10/17 01/15/18 History diltiazem HCl 1 cap PO QAM 12/10/17 01/15/18 History loratadine 10 mg PO DAILY 12/10/17 01/15/18 History losartan 50 mg PO DAILY 12/10/17 01/15/18 History zolpidem 5 mg PO BEDTIME 12/10/17 01/15/18 History cholecalciferol (vitamin D3) 2,000 unit PO DAILY 01/12/18 01/12/18 History [Vitamin D3] terazosin 2 mg PO BEDTIME 03/11/18 03/11/18 History zolpidem [Ambien] 5 mg PO BEDTIME PRN 03/11/18 03/11/18 History Allergies Allergy/AdvReac Type Severity Reaction Status Date / Time No Known Drug Allergies Allergy Verified 01/12/18 14:33 Exam Vital signs: Last Vital Signs Pulse 71 03/11/18 16:06 Resp 15 03/11/18 16:06 BP 124/60 03/11/18 16:06 Pulse Ox 99 03/11/18 16:06 - Constitutional positive no acute distress, positive average body habitus - Routine HEENT Exam Head: Present: normocephalic, atraumatic Eye: Present: EOMI, PERRL. Absent: conjunctival icterus, scleral injection ENT: Present: mucous membranes moist, oropharynx clear - Routine Neck Exam Present: supple. Absent: lymphadenopathy, thyromegaly - Routine Respiratory Exam Present: Clear to auscultation bilaterally. Absent: rales, wheezes - Routine Cardiovascular Exam Present: RRR, S1, S2. Absent: murmur - Routine Abdominal Exam Present: soft, normoactive bowel sounds. Absent: tenderness, organomegaly Palpation/Percussion: Absent: splenomegaly - Routine Extremities Exam Absent: cyanosis, clubbing, edema Comments: He has decreased range of motion in the left shoulder. - Routine Back/Spine Exam Back/Spine: Absent: paraspinal tenderness, vertebral tenderness - Routine Skin Exam Present: intact. Absent: petechiae, rash - Routine Neurological Exam Present: alert, oriented X3 - Routine Psychiatric Exam Present: normal affect, normal thought process Results - Labs CBC showed a white count of 7000 hemoglobin 13.3 hematocrit 39.3 platelets [id number] %period% creatinine was 1.0 calcium was 9.7. SPEP showed a paraprotein at 0.5 grams/deciliter. - Imaging Additional studies: Procedures Insertion of intraocular lens prosthesis at time of cataract extraction, one- stage (12/29/13) Other appendectomy (11/21/14) Phacoemulsification and aspiration of cataract (12/29/13) Assessment and Plan (1) MGUS (monoclonal gammopathy of unknown significance) Problem details: 82-year-old man with a history of MGUS. He has no evidence of progression. He has a very mild anemia that I think is probably related to his recent surgery. He will return to clinic here in 1 year for follow-up. Current visit: Yes Status: Acute
== END 2018-03-12 12:00 ==
PROVIDERS: Family Provider Internal Medicine Cardiovascular Disease; PCP Internal Medicine; Visit Provider Internal Medicine Hematology & Oncology
DX: Z79.82 Long term (current) use of aspirin (principal)
CPT/HCPCS: 99214

== ENCOUNTER → 2018-04-16 13:05 | Outpatient (CLI) | payer MEDICARE, OTHER, SELFPAY ==
--- NOTE | 2018-04-16 | DI.MRI.S_ITS ---
PROCEDURE: MR SHOULDER LT WO CON INDICATIONS: ROTATOR CUFF TEAR TECHNIQUE: Noncontrast oblique coronal T2 fast spin echo with fat saturation, oblique sagittal T1 spin echo and T2 fast spin echo with fat saturation, axial T1 spin echo and T2 fast spin echo with fat saturation through the shoulder. COMPARISON: [facility], MR, MR SHOULDER LT WO CON, 12/23/2017, 14:12. FINDINGS: Image quality: Excellent. Rotator cuff: Postsurgical changes are seen within the proximal humerus presumably related to previous rotator cuff repair. There is full thickness (presumed recurrent) large tear involving the supraspinatus and infraspinatus tendons measuring approximately 3.0 cm in the AP dimension as seen on sagittal image 16 series 10. This measures approximately 2.6 cm in the transverse dimension as seen on coronal image 11 series 8. Infraspinatus tendinopathy and interstitial tearing extends to the musculotendinous junction. Teres minor grossly intact. There is subscapularis tendinopathy and intrasubstance change. Borderline atrophy of the supraspinatus muscle. There is fatty infiltration of the infraspinatus muscle. Bones and bursae: No bone marrow contusions or fractures. No acromioclavicular joint degeneration. The acromion demonstrates conventional anatomy, without an os acromiale. Capsule and soft tissues: Superior labrum appears grossly intact. There is ill-defined irregularity in substance signal change involving the posterior labrum, presumably tear which is new since the prior study. There is also posterior subluxation of the humeral head relative to the glenoid. The long head of the biceps tendon demonstrates normal location and morphology. The rotator interval appears normal, without fibrosis. The coracohumeral ligament is normal in thickness. IMPRESSION: Presumed recurrent, large full thickness tear of the supraspinatus and infraspinatus muscles as above. Borderline atrophy of the supraspinatus muscle. Posterior labral tear which appears new since the prior study. There is associated posterior subluxation of the humeral head relative to the glenoid suggesting microinstability. Dictated by: Albin Posada M.D. on 04/16/2018 at 14:50 Approved by: Albin Posada M.D. on 04/16/2018 at 15:02
== END ==
PROVIDERS: Family Provider Internal Medicine Cardiovascular Disease; PCP Internal Medicine; Visit Provider Orthopaedic Surgery
DX: M75.122 Complete rotator cuff tear or rupture of left shoulder, not specified as traumatic (principal); S43.402A Unspecified sprain of left shoulder joint, initial encounter
CPT/HCPCS: 73221

== ENCOUNTER → 2018-05-19 09:52 | Outpatient (CLI) | payer MEDICARE, OTHER, SELFPAY ==
--- NOTE | 2018-05-19 | DI.US.S_ITS ---
PROCEDURE: US CAROTID DOPPLER BI INDICATIONS: BILATERAL CAROTID ARTERY DISEASE TECHNIQUE: Color and pulse Doppler interrogation was performed of both carotid systems, with image documentation and velocity measurements. COMPARISON: Formerly [facility], [place], CAROTID ARTERY DOPPLER BILAT, 01/19/2015, 11:34. FINDINGS: Stenosis calculations are based on SRU (Society of Radiologists in Ultrasound) criteria. Right side: Brachial blood pressure: 94/53 mm Hg. Common carotid artery peak systolic velocity: 102 cm/sec. Internal carotid artery peak systolic velocity: 99 cm/sec. Internal carotid artery end diastolic velocity: 21 cm/sec. External carotid artery peak systolic velocity: 104 cm/sec. ICA/CCA peak systolic ratio: 1.0. Tafoya scale imaging description: Mild plaque. Percent internal carotid artery stenosis: Left. Vertebral artery: Flow direction is antegrade. Left side: Brachial blood pressure: 95/57 mm Hg. Common carotid artery peak systolic velocity: 113 cm/sec. Internal carotid artery peak systolic velocity: 99 cm/sec. Internal carotid artery end diastolic velocity: 23 cm/sec. External carotid artery peak systolic velocity: 108 cm/sec. ICA/CCA peak systolic ratio: 0.9. Tafoya scale imaging description: Moderate scattered plaque. Percent internal carotid artery stenosis: Less than 50%. Vertebral artery: Flow direction is antegrade. IMPRESSION: Less than 50% bilateral internal carotid artery stenoses which is unchanged from prior exam. Dictated by: Gold Patterson [facility] Interpreted: Albin Posada MD on 05/19/2018 at 11:49 Approved by: Albin Posada M.D. on 05/19/2018 at 16:36
== END ==
PROVIDERS: PCP Internal Medicine; Visit Provider Internal Medicine Cardiovascular Disease
DX: I65.23 Occlusion and stenosis of bilateral carotid arteries (principal)
CPT/HCPCS: 93880

== ENCOUNTER → 2018-06-22 13:16 | Outpatient (CLI) | payer MEDICARE, OTHER, SELFPAY ==
[2018-06-22 14:31] LABS: Prostate Specific Antigen < 0.064 ng/mL (0.10-4.00)
== END ==
PROVIDERS: Family Provider Internal Medicine; PCP Internal Medicine; Visit Provider Urology
DX: Z12.5 Encounter for screening for malignant neoplasm of prostate (principal); R97.20 Elevated prostate specific antigen [PSA]
CPT/HCPCS: 36415; 84153

== ENCOUNTER → 2018-08-15 10:07 | Outpatient (CLI) | payer MEDICARE, OTHER, SELFPAY ==
[2018-08-15 11:12] LABS: BUN Creatinine Ratio 18.5 (6-22); Blood Urea Nitrogen 24 mg/dL (9-20); Calcium 9.7 mg/dL (8.4-10.2); Carbon Dioxide 29 mmol/L (22-32); Chloride 102 mmol/L (98-107); Estimated Glomerular Filt Rate 52.7 mL/min (>60); Glucose 82 mg/dL (80-110); HEMOLYSIS < 15 (0-50); Potassium 4.8 mmol/L (3.4-5.1); Sodium 139 mmol/L (137-145); Uric Acid 3.5 mg/dL (3.5-8.5)
== END ==
PROVIDERS: PCP Internal Medicine; Visit Provider Internal Medicine
DX: I25.10 Atherosclerotic heart disease of native coronary artery without angina pectoris (principal); M10.00 Idiopathic gout, unspecified site
CPT/HCPCS: 36415; 80048; 84550

== ENCOUNTER → 2019-01-19 09:17 | Outpatient (CLI) | payer MEDICARE, OTHER, SELFPAY ==
[2019-01-19 10:10] LABS: Add Manual Diff / Slide Review NO; Basophils Absolute Auto 0 /uL (0-100); Basophils Percent Auto 0.6 % (0-2); Eosinophils Absolute Auto 200 /uL (0-450); Eosinophils Percent Auto 4.5 % (2-4); Hematocrit 38.6 % (41-53); Lymphocytes Absolute Auto 1800 /uL (1100-4500); Mean Corpuscular HGB Conc 33.8 % (30-36); Mean Corpuscular Hemoglobin 32.7 PG (26-34); Mean Corpuscular Volume 96.6 fL (80-100); Monocytes Absolute Auto 400 /uL (0-900); Monocytes Percent Auto 6.7 % (3-14); Neutrophils Absolute Auto 2900 /uL (1500-7000); Neutrophils Percent Auto 54.2 % (50-75); Platelet Count 211 X10^3/uL (150-400); Red Blood Cell Count 3.99 X10^6/uL (4.5-5.9); Red Cell Distribution Width 13.6 % (11.6-14.8); White Blood Cell Count 5.3 X10^3/uL (4.5-11.0)
[2019-01-19 10:22] LABS: Hemoglobin A1C% w Est Avg Glu 4.8 % (4.0-6.0)
[2019-01-19 10:47] LABS: Alanine Aminotransferase 25 IU/L (21-72); Albumin 4.1 g/dL (3.5-5.0); Albumin Globulin Ratio 1.3 (1.0-2.8); Alkaline Phosphatase 82 U/L (38-126); Aspartate Aminotransferase 27 IU/L (17-59); Bilirubin Total 1.3 mg/dL (0.2-1.3); Blood Urea Nitrogen 24 mg/dL (9-20); Calcium 9.2 mg/dL (8.4-10.2); Carbon Dioxide 28 mmol/L (22-32); Chloride 104 mmol/L (98-107); Cholesterol 101 mg/dL (140-199); Estimated Glomerular Filt Rate 57.8 mL/min (>60); Globulin 3.1 g/dL (1.7-4.1); Glucose 83 mg/dL (80-110); HDL Cholesterol 48 mg/dL (40-60); HEMOLYSIS < 15 (0-50); LDL Cholesterol Calculated 38 mg/dL (<100); Potassium 4.2 mmol/L (3.4-5.1); Sodium 139 mmol/L (137-145); Total Protein 7.2 g/dL (6.3-8.2); Triglycerides 73 mg/dL (35-150)
[2019-01-19 11:11] LABS: Thyroid Stimulating Hormone 1.23 uIU/mL (0.47-4.68)
== END ==
PROVIDERS: PCP Internal Medicine; Visit Provider Internal Medicine Cardiovascular Disease
DX: I25.10 Atherosclerotic heart disease of native coronary artery without angina pectoris (principal); E78.5 Hyperlipidemia, unspecified; R63.4 Abnormal weight loss; R73.03 Prediabetes
CPT/HCPCS: 36415; 80053; 80061; 83036; 84443; 85025

== ENCOUNTER → 2019-01-28 16:56 | Outpatient (CLI) | payer MEDICARE, OTHER, SELFPAY ==
[2019-01-28 17:25] LABS: Add Manual Diff / Slide Review NO; Basophils Absolute Auto 0 /uL (0-100); Basophils Percent Auto 0.5 % (0-2); Eosinophils Absolute Auto 200 /uL (0-450); Hematocrit 36.5 % (41-53); Hemoglobin 12.2 g/dL (13.5-17.5); Lymphocytes Absolute Auto 2000 /uL (1100-4500); Lymphocytes Percent Auto 32.1 % (25-40); Mean Corpuscular HGB Conc 33.4 % (30-36); Mean Corpuscular Hemoglobin 32.6 PG (26-34); Mean Corpuscular Volume 97.7 fL (80-100); Monocytes Absolute Auto 400 /uL (0-900); Monocytes Percent Auto 6.3 % (3-14); Neutrophils Absolute Auto 3500 /uL (1500-7000); Neutrophils Percent Auto 58.1 % (50-75); Platelet Count 218 X10^3/uL (150-400); Red Blood Cell Count 3.73 X10^6/uL (4.5-5.9); Red Cell Distribution Width 13.8 % (11.6-14.8); White Blood Cell Count 6.1 X10^3/uL (4.5-11.0)
[2019-01-28 17:57] LABS: Alanine Aminotransferase 21 IU/L (21-72); Albumin 4.1 g/dL (3.5-5.0); Albumin Globulin Ratio 1.4 (1.0-2.8); Alkaline Phosphatase 72 U/L (38-126); Aspartate Aminotransferase 22 IU/L (17-59); BUN Creatinine Ratio 19.2 (6-22); Bilirubin Total 1.1 mg/dL (0.2-1.3); Blood Urea Nitrogen 23 mg/dL (9-20); Calcium 9.5 mg/dL (8.4-10.2); Carbon Dioxide 28 mmol/L (22-32); Chloride 101 mmol/L (98-107); Cholesterol 95 mg/dL (140-199); Estimated Glomerular Filt Rate 57.8 mL/min (>60); Glucose 86 mg/dL (80-110); HDL Cholesterol 53 mg/dL (40-60); HEMOLYSIS < 15 (0-50); LDL Cholesterol Calculated 33 mg/dL (<100); Potassium 4.6 mmol/L (3.4-5.1); Sodium 137 mmol/L (137-145); Total Protein 7.1 g/dL (6.3-8.2); Triglycerides 43 mg/dL (35-150)
== END ==
PROVIDERS: PCP Internal Medicine; Visit Provider Internal Medicine
DX: I10 Essential (primary) hypertension (principal); N18.9 Chronic kidney disease, unspecified; E78.00 Pure hypercholesterolemia, unspecified
CPT/HCPCS: 36415; 80053; 80061; 85025

== ENCOUNTER → 2019-02-01 16:28 | Outpatient (CLI) | payer MEDICARE, OTHER, SELFPAY ==
[2019-02-01 17:33] LABS: HEMOLYSIS < 15 (0-50); Iron 72 ug/dL (49-181); Uric Acid 3.5 mg/dL (3.5-8.5)
[2019-02-01 17:44] LABS: Percent Iron Saturation 29 % (20-50); Total Iron Binding Capacity 246 ug/dL (261-462); Transferrin 188 mg/dL (206-381)
[2019-02-01 18:06] LABS: Prostate Specific Antigen 0.066 ng/mL (0.10-4.00)
== END ==
PROVIDERS: PCP Internal Medicine; Visit Provider Internal Medicine
DX: M10.00 Idiopathic gout, unspecified site (principal); R63.4 Abnormal weight loss; C61 Malignant neoplasm of prostate; D64.9 Anemia, unspecified
CPT/HCPCS: 36415; 83540; 83550; 84153; 84550

== ENCOUNTER → 2019-02-02 13:19 | Outpatient (CLI) | payer MEDICARE, OTHER, SELFPAY ==
--- NOTE | 2019-02-02 14:08 | DI.CT.S_ITS ---
PROCEDURE: CT ABDOMEN PELVIS W CON INDICATIONS: abnormal weight loss TECHNIQUE: After the administration of oral and intravenous contrast, 5 mm thick sections acquired from the diaphragms to the symphysis. 5 mm thick coronal and sagittal reformats were performed. For radiation dose reduction, the following was used: automated exposure control, adjustment of mA and/or kV according to patient size. COMPARISON: [facility], CT, ABDOMEN/PELVIS WITH CONTRAST, 11/21/2014, 10:25. FINDINGS: Image quality: Excellent. ABDOMEN: Lung bases: Lung bases are clear. Heart size is normal. Solid organs: Hepatic steatosis. Possible subcentimeter flash filling hemangioma image 14 series 2 adjacent to the IVC, however technically indeterminate. Unclear if this is present on the prior study dated 11/21/14. Gallbladder contracted otherwise unremarkable. Biliary system is non-dilated. Pancreas enhances normally. Spleen is normal in size and enhancement. Left adrenal nodule measuring 3 cm grossly unchanged since 11/21/14. Right adrenal gland unremarkable. Kidneys are normal in size and enhancement, without hydronephrosis. 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 Peritoneum and bowel: Stomach, small bowel, and colon loops are normal in caliber and wall thickness. No free fluid or air. Moderate amount of diffuse stool. Nodes and vessels: No retroperitoneal or mesenteric adenopathy. Aorta and inferior vena cava are normal in caliber. Scattered vascular calcifications seen in the aorta. Miscellaneous: No ventral hernias. PELVIS: Genitourinary: Bladder decompressed otherwise unremarkable. Prostate brachytherapy seeds. Small fat-containing left inguinal hernia. Bones: No suspicious bony lesions. Multilevel spondylosis. No vertebral body compression fractures. IMPRESSION: Hepatic steatosis. Unchanged left adrenal nodule as above. No acute process. No specific evidence of malignancy identified. Small fat-containing left inguinal hernia. This appears decreased in size since the prior study. Dictated by: Albin Posada M.D. on 02/02/2019 at 17:38 Approved by: Albin Posada M.D. on 02/02/2019 at 18:30
== END ==
PROVIDERS: PCP Internal Medicine; Visit Provider Internal Medicine
DX: K76.0 Fatty (change of) liver, not elsewhere classified (principal); E27.9 Disorder of adrenal gland, unspecified; K40.90 Unilateral inguinal hernia, without obstruction or gangrene, not specified as recurrent
CPT/HCPCS: 74177; Q9967

== ENCOUNTER 2019-04-15 16:00 | Outpatient (RCR) | payer MEDICARE, OTHER, SELFPAY ==
--- NOTE | 2018-07-30 12:00 | PT.OIE ---
Current Diagnoses Stiffness of left shoulder, not elsewhere classified (07/30/18) Muscle weakness (generalized) (07/30/18) Unspecified rotator cuff tear or rupture of left shoulder, not specified as traumatic (07/30/18) Past Medical History (Last Updated 01/12/18 @ 14:56 by Karis Nielsen, RN) Allergic rhinitis (Acute) BPH (benign prostatic hyperplasia) (Acute) Dislocation of left shoulder joint (Acute) Gout (Acute) Hypercholesterolemia (Acute) Hypertension (Acute) Impaired vision (Acute) Left shoulder pain (Acute) MGUS (monoclonal gammopathy of unknown significance) (Acute) Myocardial infarction (Acute ~1992) Peripheral vascular disease (Acute) Prostate CA (Acute) Past Surgical History (Last Updated 01/12/18 @ 14:37 by Karis Nilesen, RN) History of appendectomy (Acute) History of breast biopsy (Acute) Status post bilateral cataract extraction (Acute) Status post breast biopsy Provider Visit Care Team Role Provider Type Gordy Shabazz MD Primary Care Provider Physician Specialty: Internal Medicine Address: [address] [place] [address], [facility] Email: Darius Henderson MD Attending Provider Non-Staff Specialty: Orthopedic Surgery Address: [address] [place] [address], [facility] Email: Physical Therapy Initial Evaluation PT-OP-A Visit Information Start: 07/30/18 13:32 Freq: Status: Active Protocol: Document 07/30/18 12:00 RCC (Rec: 07/31/18 09:38 [facility] [email or web address]) Out-Patient Physical Therapy Visit Information Visit Information Visit Type Initial Evaluation Visit Start Time 12:00 Visit Stop Time 12:45 Total Visit Minutes 45 Visit Number 1 Number of MERCHANDISE MANAGER Visits 0 Evaluation Information Evaluation Date 06/29/18 PT-OP-B Current Condition Start: 07/30/18 13:32 Freq: Status: Active Protocol: Document 07/30/18 12:00 RCC (Rec: 07/31/18 09:38 [facility] [id number]) Current Condition History of Current Condition Onset Date December 2017 Current Complaints L shoulder weakness, impaired ROM, pain History of Current Condition Pt is an 83 y/o male presenting to physical therapy with a c/o L shoulder pain, weakness, and limited ROM. Pt sustained infraspinatus and supraspinatus tears /sp traumatic dislocation in November/ December of 2017. He had arthroscopic surgery on 01/15/18 . MRI done in April of 2018 showed that the pt had full thickness tearing of supraspinatus and infraspinatus, as well as posterior labral tear. He was consulted for a TSA, but seeked a second opinion which suggested pain management and physical therapy. 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 He admits to being primarily a L sided sleeper until this L shoulder injury, now very uncomfortable sleeping on his back or his R side. Pt has not done any formal PT since re-tearing, but did participate in PT s/p rotator cuff surgery. He is R hand dominant. Prior Treatments and Tests MRI as noted above Treatment Goals Patient/Caregiver Goals improve ROM, strength, and decrease pain Current Functional Impairments (Reported) Functional Limitations- Other unable to perform any activities with arm away from body Personal Factors Other Personal Factors That May Effect blood condition which Therapy/Recovery requires annual follow up with oncology (denies any current CA of any kind, does have past h/o prostate CA 10 yrs ago), [place] 1992 PT-OP-C Subjective Start: 07/30/18 13:32 Freq: Status: Active Protocol: Document 07/30/18 12:00 [facility] (Rec: 07/31/18 09:38 [facility] [id number]) Patient Questionnaires Quick Dash- Upper Extremity Quick Dash UE Score 50 Quick Dash UE Impairment 40 to 59% Impaired (Score 40- 59) OP-PT Pain Assessment Location L shoulder Intensity 3 Scale Used Numeric (1 - 10) Home Pain Medication Use Pain Medications Used No PT-OP-F Manual Assessment Start: 07/30/18 13:32 Freq: Status: Active Protocol: Document 07/30/18 12:00 [facility] (Rec: 07/31/18 15:47 [facility] [email or web address]) Manual Assessments Soft Tissue Assessment Soft Tissue Mobility Assessment tenderness to palpation: L parascapular mm and posterior shoulder Joint Mobility Assessment Joint Mobility Assessment hypomobility: L shoulder with posterior and inferior glides PT-OP-K Range of Motion Start: 07/30/18 13:32 Freq: Status: Active Protocol: Document 07/30/18 12:00 RCC (Rec: 07/31/18 15:47 [facility] [email or web address]) Shoulder Goniometric Range of Motion Shoulder Measured in Degrees Right Active Testing Position Supine Flexion 170 Abduction 165 External Rotation at 90 degrees 75 Abduction Internal Rotation 80 Left Passive Testing Position Supine Flexion 95 Abduction 85 External Rotation at 0 degrees Abduction 22 Left Active Testing Position Supine Flexion 20 Abduction 35 External Rotation at 0 degrees Abduction 16 Internal Rotation 65 PT-OP-L Special Tests Start: 07/30/18 13:32 Freq: Status: Active Protocol: Document 07/30/18 12:00 RCC (Rec: 07/31/18 15:47 [facility] [email or web address]) Special Tests Shoulder Special Tests Apprehension Test Test Results negative Belly Press Test Results negative Lift-Off Rotator Cuff Test Results negative Load and Shift Test Results negative Other Special Tests Special Tests unable to assess further due to pain and limitations of ROM PT-OP-M Strength Start: 07/30/18 13:32 Freq: Status: Active Protocol: Document 07/30/18 12:00 RCC (Rec: 07/31/18 15:52 [facility] [email or web address]) Shoulder Strength Shoulder Manual Muscle Testing Left Flexion 2- Poor- Abduction (C5) 2- Poor- External Rotation 3 Fair Internal Rotation 4 Good Right Flexion 5 Normal Adduction 5 Normal External Rotation 5 Normal Internal Rotation 5 Normal Elbow/Forearm Strength Elbow and Forearm Manual Muscle Testing Left Flexion (C6) 4 Good Extension (C7) 4 Good Right Flexion (C6) 5 Normal Extension (C7) 5 Normal PT-OP-Q Treatments Start: 07/30/18 13:32 Freq: Status: Active Protocol: Document 07/30/18 12:00 RCC (Rec: 07/31/18 09:39 [facility] [email or web address]) Therapeutic Exercises Supine Exercises T-bar Supine Exercise Name flexion, abduction, ER Side bilateral Reps/Minutes 5 each Comments 5 sec hold Sitting Exercises scapular retraction Side bilateral Reps/Minutes x10 Comments tactile cuing for UT inhibition PT-OP-T Assessment and Plan Start: 07/30/18 13:32 Freq: Status: Active Protocol: Document 07/30/18 12:00 RCC (Rec: 08/02/18 12:36 [facility] [email or web address]) Physical Therapy Assessment Rehab Potential Rehabilitation Potential Good Evaluation Complexity Number of Personal Factors/Comorbidities 1-2 Number of Body Systems Impaired 3 Clinical Presentation at Evaluation Evolving Impairments Impairments Functional Activities Pain ROM Strength Goals pain Impairment rated 3/10 pain in L shoulder Care Home Goal (LTG) Pain rated 1/10 or less prior to d/c. LTG Duration 12 weeks Quick DASH Impairment Quick DASH impairment score of 50 Short Term Goal (STG) Quick DASH score of 40 or less . STG Duration 6 weeks Care Home Goal (LTG) Quick DASH score of 30 or less to demonstrate improvements with functional use of LUE with daily activities. LTG Duration 12 weeks weakness Impairment L UE weakness Short Term Goal (STG) L shoulder 3+/5 or greater with manual muscle testing with flexion, abduction, and ER. STG Duration 6 weeks Care Home Goal (LTG) L shoulder 4/5 or greater with manual muscle testing with flexion, abduction, ER and L elbow flexion and extension to 5/5 with manual muscle testing to demonstrate improved L shoulder stability. LTG Duration 12 weeks L shoulder ROM Impairment L shoulder ROM Short Term Goal (STG) L shoulder AROM: flexion to 90 deg, abduction to 90 deg, ER to 35 deg STG Duration 6 weeks Care Home Goal (LTG) L shoulder AROM: flexion to 150 deg, abduction to 150 deg, ER to 60 deg prior to d/c, with pt able reporting being able to perform light activities with LUE above 90 degree neutral position. LTG Duration 12 weeks Assessment Summary Assessment Pt presents with significantly impaired L shoulder ROM and strength, s/p rotator cuff tear. Pt did not tolerate special testing well, with inability to get ROM into appropriate positioning for true testing including the labrum. Pt has opted for non- surgical approach for recovery (this new tear is after previous rotator cuff repair), therefore, along with the amount of time since re-tear to this evaluation, it will require a prolonged amount of time in order for pt to regain functional independence and use of the LUE. Pt would greatly benefit from skilled physical therapy to progress his L UE strength, ROM, decrease pain and overall function including usage of the LUE away from his body. Physical Therapy Plan Frequency and Duration Frequency of Treatment 2x/Week Duration of Treatment 12 weeks Plan of Care Start Date 07/30/18 Plan of Care End Date 10/22/18 Therapeutic Interventions Therapeutic Interventions Aquatic Therapy Coordination Training Home Exercise Program Joint Mobilizations Manual Therapy Neuromuscular Re-education Patient/Caregiver Education Self-Care/Home Management Soft Tissue Mobilization Taping Therapeutic Activities Therapeutic Exercises Modalities Cold Pack/Ice Massage Electric Stimulation Hot Packs Ultrasound Next Visit Focus/Plan Next Note Type Treatment Note Next Visit Plan review HEP (T-bar ROM and scapular retraction), manual therapy- joint mobilizations, isometric L shoulder activities.
--- NOTE | 2018-08-03 15:31 | PT.OTN ---
Current Diagnoses Unspecified rotator cuff tear or rupture of left shoulder, not specified as traumatic (08/03/18) Physical Therapy Treatment Note PT-OP-A Visit Information Start: 07/30/18 13:32 Freq: Status: Active Protocol: Document 08/03/18 15:16 EA (Rec: 08/03/18 15:31 EA [id number]) Out-Patient Physical Therapy Visit Information Visit Information Visit Type Treatment Note Visit Start Time 14:30 Visit Stop Time 15:10 Total Visit Minutes 40 Visit Number 2 PT-OP-B Current Condition Start: 07/30/18 13:32 Freq: Status: Active Protocol: Document 07/30/18 12:00 RCC (Rec: 07/31/18 09:38 RCC [email or web address]) Current Condition History of Current Condition Onset Date December 2017 Current Complaints L shoulder weakness, impaired ROM, pain History of Current Condition Pt is an 83 y/o male presenting to physical therapy with a c/o L shoulder pain, weakness, and limited ROM. Pt sustained infraspinatus and supraspinatus tears /sp traumatic dislocation in December. He had arthroscopic surgery on 01/15/18 . MRI done in April of 2018 showed that the pt had full thickness tearing of supraspinatus and infraspinatus, as well as posterior labral tear. He was consulted for a TSA, but seeked a second opinion which suggested pain management and physical therapy. 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 He admits to being primarily a L sided sleeper until this L shoulder injury, now very uncomfortable sleeping on his back or his R side. Pt has not done any formal PT since re-tearing, but did participate in PT s/p rotator cuff surgery. He is R hand dominant. Prior Treatments and Tests MRI as noted above Treatment Goals Patient/Caregiver Goals improve ROM, strength, and decrease pain Current Functional Impairments (Reported) Functional Limitations- Other unable to perform any activities with arm away from body Personal Factors Other Personal Factors That May Effect blood condition which Therapy/Recovery requires annual follow up with oncology (denies any current CA of any kind, does have past h/o prostate CA 10 yrs ago), [place] 1992 PT-OP-C Subjective Start: 07/30/18 13:32 Freq: Status: Active Protocol: Document 08/03/18 15:16 EA (Rec: 08/03/18 15:31 EA [id number]) OP-PT Subjective Patient Comments Patient Comments Pt reports performed HEP; pain to left shoulder still limit range. PT-OP-F Manual Assessment Start: 07/30/18 13:32 Freq: Status: Active Protocol: Document 07/30/18 12:00 RCC (Rec: 07/31/18 15:47 RCC [email or web address]) Manual Assessments Soft Tissue Assessment Soft Tissue Mobility Assessment tenderness to palpation: L parascapular mm and posterior shoulder Joint Mobility Assessment Joint Mobility Assessment hypomobility: L shoulder with posterior and inferior glides PT-OP-K Range of Motion Start: 07/30/18 13:32 Freq: Status: Active Protocol: Document 07/30/18 12:00 RCC (Rec: 07/31/18 15:47 RCC [email or web address]) Shoulder Goniometric Range of Motion Shoulder Measured in Degrees Right Active Testing Position Supine Flexion 170 Abduction 165 External Rotation at 90 degrees 75 Abduction Internal Rotation 80 Left Passive Testing Position Supine Flexion 95 Abduction 85 External Rotation at 0 degrees Abduction 22 Left Active Testing Position Supine Flexion 20 Abduction 35 External Rotation at 0 degrees Abduction 16 Internal Rotation 65 PT-OP-L Special Tests Start: 07/30/18 13:32 Freq: Status: Active Protocol: Document 07/30/18 12:00 RCC (Rec: 07/31/18 15:47 RCC [email or web address]) Special Tests Shoulder Special Tests Apprehension Test Test Results negative Belly Press Test Results negative Lift-Off Rotator Cuff Test Results negative Load and Shift Test Results negative Other Special Tests Special Tests unable to assess further due to pain and limitations of ROM PT-OP-M Strength Start: 07/30/18 13:32 Freq: Status: Active Protocol: Document 07/30/18 12:00 RCC (Rec: 07/31/18 15:52 RCC [email or web address]) Shoulder Strength Shoulder Manual Muscle Testing Left Flexion 2- Poor- Abduction (C5) 2- Poor- External Rotation 3 Fair Internal Rotation 4 Good Right Flexion 5 Normal Adduction 5 Normal External Rotation 5 Normal Internal Rotation 5 Normal Elbow/Forearm Strength Elbow and Forearm Manual Muscle Testing Left Flexion (C6) 4 Good Extension (C7) 4 Good Right Flexion (C6) 5 Normal Extension (C7) 5 Normal PT-OP-Q Treatments Start: 07/30/18 13:32 Freq: Status: Active Protocol: Document 08/03/18 15:16 EA (Rec: 08/03/18 15:31 EA [id number]) Therapeutic Exercises Supine Exercises 1 Supine Exercise Name PNF: contract-relax Passive stretch to ABD/ER/IR Reps/Minutes x 5 sh x 10 reps each T-bar Supine Exercise Name flexion, abduction, ER Side bilateral Reps/Minutes 5 each Comments 5 sec hold Sitting Exercises 1 Sitting Exercise Name Gisela: Flex/ABD pain free range Reps/Minutes x 5SH x 10 reps each scapular retraction Side bilateral Reps/Minutes x10 Comments tactile cuing for UT inhibition Standing Exercises 1 Standing Exercise Name Pendulum Reps/Minutes x 20 reps each direction Comments uses wrist weights Manual Therapy Treatment Soft Tissue Mobilization 1 Body Location left deltoid/scapular Mobilization Type Rolling Sustained Pressure Body Position Supine Joint Mobilizations 1 Joint GH Direction Post/inf Grade II Body Position Supine Reps/Duration x 10 mins Self-Care/Home Management Treatment Education Patient Education Home Exercise Program Joint Protection Pain Management PT-OP-T Assessment and Plan Start: 07/30/18 13:32 Freq: Status: Active Protocol: Document 08/03/18 15:16 EA (Rec: 08/03/18 15:31 EA [id number]) Physical Therapy Assessment Assessment Summary Assessment Noted tightness, guarding, LOM toward ABD/ER/IR which capsular pattern. Patient advise to perform pulleys and pendulum exercises. Physical Therapy Plan Next Visit Focus/Plan Next Note Type Treatment Note Next Visit Plan Consider Deep heating first prior to mobilization and exercises.
--- NOTE | 2018-08-05 17:02 | PT.OTN ---
Current Diagnoses Unspecified rotator cuff tear or rupture of left shoulder, not specified as traumatic (08/05/18) Physical Therapy Treatment Note PT-OP-A Visit Information Start: 07/30/18 13:32 Freq: Status: Active Protocol: Document 08/05/18 14:27 EA (Rec: 08/05/18 14:33 EA [id number]) Out-Patient Physical Therapy Visit Information Visit Information Visit Type Treatment Note Visit Start Time 14:30 Visit Stop Time 15:10 Total Visit Minutes 55 Visit Number 2 PT-OP-B Current Condition Start: 07/30/18 13:32 Freq: Status: Active Protocol: Document 07/30/18 12:00 RCC (Rec: 07/31/18 09:38 RCC [email or web address]) Current Condition History of Current Condition Onset Date December 2017 Current Complaints L shoulder weakness, impaired ROM, pain History of Current Condition Pt is an 83 y/o male presenting to physical therapy with a c/o L shoulder pain, weakness, and limited ROM. Pt sustained infraspinatus and supraspinatus tears /sp traumatic dislocation in December. He had arthroscopic surgery on 01/15/18 . MRI done in April of 2018 showed that the pt had full thickness tearing of supraspinatus and infraspinatus, as well as posterior labral tear. He was consulted for a TSA, but seeked a second opinion which suggested pain management and physical therapy. 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 He admits to being primarily a L sided sleeper until this L shoulder injury, now very uncomfortable sleeping on his back or his R side. Pt has not done any formal PT since re-tearing, but did participate in PT s/p rotator cuff surgery. He is R hand dominant. Prior Treatments and Tests MRI as noted above Treatment Goals Patient/Caregiver Goals improve ROM, strength, and decrease pain Current Functional Impairments (Reported) Functional Limitations- Other unable to perform any activities with arm away from body Personal Factors Other Personal Factors That May Effect blood condition which Therapy/Recovery requires annual follow up with oncology (denies any current CA of any kind, does have past h/o prostate CA 10 yrs ago), [place] 1992 PT-OP-C Subjective Start: 07/30/18 13:32 Freq: Status: Active Protocol: Document 08/05/18 14:27 EA (Rec: 08/05/18 14:33 EA [id number]) OP-PT Subjective Patient Comments Patient Comments Pt reports he has been using wrist weight for pendulum exercises and feels works well to his shoulder. PT-OP-F Manual Assessment Start: 07/30/18 13:32 Freq: Status: Active Protocol: Document 07/30/18 12:00 RCC (Rec: 07/31/18 15:47 RCC [email or web address]) Manual Assessments Soft Tissue Assessment Soft Tissue Mobility Assessment tenderness to palpation: L parascapular mm and posterior shoulder Joint Mobility Assessment Joint Mobility Assessment hypomobility: L shoulder with posterior and inferior glides PT-OP-K Range of Motion Start: 07/30/18 13:32 Freq: Status: Active Protocol: Document 07/30/18 12:00 RCC (Rec: 07/31/18 15:47 RCC [email or web address]) Shoulder Goniometric Range of Motion Shoulder Measured in Degrees Right Active Testing Position Supine Flexion 170 Abduction 165 External Rotation at 90 degrees 75 Abduction Internal Rotation 80 Left Passive Testing Position Supine Flexion 95 Abduction 85 External Rotation at 0 degrees Abduction 22 Left Active Testing Position Supine Flexion 20 Abduction 35 External Rotation at 0 degrees Abduction 16 Internal Rotation 65 PT-OP-L Special Tests Start: 07/30/18 13:32 Freq: Status: Active Protocol: Document 07/30/18 12:00 RCC (Rec: 07/31/18 15:47 RCC [email or web address]) Special Tests Shoulder Special Tests Apprehension Test Test Results negative Belly Press Test Results negative Lift-Off Rotator Cuff Test Results negative Load and Shift Test Results negative Other Special Tests Special Tests unable to assess further due to pain and limitations of ROM PT-OP-M Strength Start: 07/30/18 13:32 Freq: Status: Active Protocol: Document 07/30/18 12:00 RCC (Rec: 07/31/18 15:52 RCC [email or web address]) Shoulder Strength Shoulder Manual Muscle Testing Left Flexion 2- Poor- Abduction (C5) 2- Poor- External Rotation 3 Fair Internal Rotation 4 Good Right Flexion 5 Normal Adduction 5 Normal External Rotation 5 Normal Internal Rotation 5 Normal Elbow/Forearm Strength Elbow and Forearm Manual Muscle Testing Left Flexion (C6) 4 Good Extension (C7) 4 Good Right Flexion (C6) 5 Normal Extension (C7) 5 Normal PT-OP-Q Treatments Start: 07/30/18 13:32 Freq: Status: Active Protocol: Document 08/05/18 14:27 EA (Rec: 08/05/18 14:33 EA [id number]) Therapeutic Exercises Supine Exercises 2 Supine Exercise Name T-bars flexion, ABD, rotation, press Reps/Minutes x 12 reps each 1 Supine Exercise Name PNF: contract-relax Passive stretch to ABD/ER/IR Reps/Minutes x 5 sh x 10 reps each T-bar Supine Exercise Name flexion, abduction, ER Side bilateral Reps/Minutes 5 each Comments 5 sec hold Sitting Exercises 1 Sitting Exercise Name Gisela: Flex/ABD pain free range Reps/Minutes x 5SH x 10 reps each Manual Therapy Treatment Soft Tissue Mobilization 1 Body Location left deltoid/scapular Mobilization Type Rolling Sustained Pressure Body Position Supine Joint Mobilizations 1 Joint GH Direction Post/inf Grade II Body Position Supine Reps/Duration x 10 mins PT-OP-R Modalities Start: 07/30/18 13:32 Freq: Status: Active Protocol: Document 08/05/18 14:27 EA (Rec: 08/05/18 14:33 EA [id number]) Ultrasound Therapy Treatment Left Anterior Shoulder Patient Position Supine Frequency Setting (mHz) 1 Intensity Setting (w/cm2) 1.2 PT-OP-T Assessment and Plan Start: 07/30/18 13:32 Freq: Status: Active Protocol: Document 08/05/18 14:27 EA (Rec: 08/05/18 14:33 EA [id number]) Physical Therapy Assessment Assessment Summary Assessment Tolerated treatment well today with less discomfort with same range as the last time. Physical Therapy Plan Next Visit Focus/Plan Next Note Type Treatment Note Next Visit Plan Start with arm cycle for warm up
--- NOTE | 2018-08-10 17:59 | PT.OTN ---
Current Diagnoses Unspecified rotator cuff tear or rupture of left shoulder, not specified as traumatic (08/10/18) Physical Therapy Treatment Note PT-OP-A Visit Information Start: 07/30/18 13:32 Freq: Status: Active Protocol: Document 08/10/18 16:46 EA (Rec: 08/10/18 16:49 EA [id number]) Out-Patient Physical Therapy Visit Information Visit Information Visit Type Treatment Note Visit Start Time 14:30 Visit Stop Time 15:10 Total Visit Minutes 55 Visit Number 4 PT-OP-B Current Condition Start: 07/30/18 13:32 Freq: Status: Active Protocol: Document 07/30/18 12:00 RCC (Rec: 07/31/18 09:38 RCC [email or web address]) Current Condition History of Current Condition Onset Date December 2017 Current Complaints L shoulder weakness, impaired ROM, pain History of Current Condition Pt is an 83 y/o male presenting to physical therapy with a c/o L shoulder pain, weakness, and limited ROM. Pt sustained infraspinatus and supraspinatus tears /sp traumatic dislocation in December. He had arthroscopic surgery on 01/15/18 . MRI done in April of 2018 showed that the pt had full thickness tearing of supraspinatus and infraspinatus, as well as posterior labral tear. He was consulted for a TSA, but seeked a second opinion which suggested pain management and physical therapy. 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 He admits to being primarily a L sided sleeper until this L shoulder injury, now very uncomfortable sleeping on his back or his R side. Pt has not done any formal PT since re-tearing, but did participate in PT s/p rotator cuff surgery. He is R hand dominant. Prior Treatments and Tests MRI as noted above Treatment Goals Patient/Caregiver Goals improve ROM, strength, and decrease pain Current Functional Impairments (Reported) Functional Limitations- Other unable to perform any activities with arm away from body Personal Factors Other Personal Factors That May Effect blood condition which Therapy/Recovery requires annual follow up with oncology (denies any current CA of any kind, does have past h/o prostate CA 10 yrs ago), [place] 1992 PT-OP-C Subjective Start: 07/30/18 13:32 Freq: Status: Active Protocol: Document 08/10/18 16:46 EA (Rec: 08/10/18 16:49 EA [id number]) OP-PT Subjective Patient Comments Patient Comments Pt reports he has been doing HEP regulalry. PT-OP-F Manual Assessment Start: 07/30/18 13:32 Freq: Status: Active Protocol: Document 07/30/18 12:00 RCC (Rec: 07/31/18 15:47 RCC [email or web address]) Manual Assessments Soft Tissue Assessment Soft Tissue Mobility Assessment tenderness to palpation: L parascapular mm and posterior shoulder Joint Mobility Assessment Joint Mobility Assessment hypomobility: L shoulder with posterior and inferior glides PT-OP-K Range of Motion Start: 07/30/18 13:32 Freq: Status: Active Protocol: Document 07/30/18 12:00 RCC (Rec: 07/31/18 15:47 RCC [email or web address]) Shoulder Goniometric Range of Motion Shoulder Measured in Degrees Right Active Testing Position Supine Flexion 170 Abduction 165 External Rotation at 90 degrees 75 Abduction Internal Rotation 80 Left Passive Testing Position Supine Flexion 95 Abduction 85 External Rotation at 0 degrees Abduction 22 Left Active Testing Position Supine Flexion 20 Abduction 35 External Rotation at 0 degrees Abduction 16 Internal Rotation 65 PT-OP-L Special Tests Start: 07/30/18 13:32 Freq: Status: Active Protocol: Document 07/30/18 12:00 RCC (Rec: 07/31/18 15:47 RCC [email or web address]) Special Tests Shoulder Special Tests Apprehension Test Test Results negative Belly Press Test Results negative Lift-Off Rotator Cuff Test Results negative Load and Shift Test Results negative Other Special Tests Special Tests unable to assess further due to pain and limitations of ROM PT-OP-M Strength Start: 07/30/18 13:32 Freq: Status: Active Protocol: Document 07/30/18 12:00 RCC (Rec: 07/31/18 15:52 RCC [email or web address]) Shoulder Strength Shoulder Manual Muscle Testing Left Flexion 2- Poor- Abduction (C5) 2- Poor- External Rotation 3 Fair Internal Rotation 4 Good Right Flexion 5 Normal Adduction 5 Normal External Rotation 5 Normal Internal Rotation 5 Normal Elbow/Forearm Strength Elbow and Forearm Manual Muscle Testing Left Flexion (C6) 4 Good Extension (C7) 4 Good Right Flexion (C6) 5 Normal Extension (C7) 5 Normal PT-OP-Q Treatments Start: 07/30/18 13:32 Freq: Status: Active Protocol: Document 08/10/18 16:46 EA (Rec: 08/10/18 16:49 EA [id number]) Therapeutic Exercises Supine Exercises 2 Supine Exercise Name T-bars flexion, ABD, rotation, press Reps/Minutes x 12 reps each 1 Supine Exercise Name PNF: contract-relax Passive stretch to ABD/ER/IR Reps/Minutes x 5 sh x 10 reps each Sitting Exercises 1 Sitting Exercise Name Gisela: Flex/ABD pain free range Reps/Minutes x 5SH x 10 reps each Standing Exercises 1 Standing Exercise Name Pendulum Reps/Minutes x 20 reps each direction Comments uses wrist weights PT-OP-R Modalities Start: 07/30/18 13:32 Freq: Status: Active Protocol: Document 08/10/18 16:46 EA (Rec: 08/10/18 16:49 EA [id number]) Hot Pack/Cold Pack Treatment Cold Pack Location left shoulder Patient Position Hooklying Treatment Duration (minutes) 10 Patient Tolerance Good Ultrasound Therapy Treatment Left Anterior Shoulder Patient Position Supine Frequency Setting (mHz) 1 Intensity Setting (w/cm2) 1.2 PT-OP-T Assessment and Plan Start: 07/30/18 13:32 Freq: Status: Active Protocol: Document 08/10/18 16:46 EA (Rec: 08/10/18 16:49 EA [id number]) Physical Therapy Assessment Assessment Summary Assessment Improved shoulder ROM range at this time with less discomfort and less muscle guarding. Physical Therapy Plan Next Visit Focus/Plan Next Note Type Treatment Note Next Visit Plan Start with cycle recumbent
--- NOTE | 2018-08-12 16:44 | PT.OTN ---
Current Diagnoses Unspecified rotator cuff tear or rupture of left shoulder, not specified as traumatic (08/12/18) Physical Therapy Treatment Note PT-OP-A Visit Information Start: 07/30/18 13:32 Freq: Status: Active Protocol: Document 08/12/18 16:01 EA (Rec: 08/12/18 16:02 EA [id number]) Out-Patient Physical Therapy Visit Information Visit Information Visit Type Treatment Note Visit Start Time 14:30 Visit Stop Time 15:10 Total Visit Minutes 53 Visit Number 5 PT-OP-B Current Condition Start: 07/30/18 13:32 Freq: Status: Active Protocol: Document 07/30/18 12:00 RCC (Rec: 07/31/18 09:38 RCC [email or web address]) Current Condition History of Current Condition Onset Date December 2017 Current Complaints L shoulder weakness, impaired ROM, pain History of Current Condition Pt is an 83 y/o male presenting to physical therapy with a c/o L shoulder pain, weakness, and limited ROM. Pt sustained infraspinatus and supraspinatus tears /sp traumatic dislocation in December. He had arthroscopic surgery on 01/15/18 . MRI done in April of 2018 showed that the pt had full thickness tearing of supraspinatus and infraspinatus, as well as posterior labral tear. He was consulted for a TSA, but seeked a second opinion which suggested pain management and physical therapy. 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 He admits to being primarily a L sided sleeper until this L shoulder injury, now very uncomfortable sleeping on his back or his R side. Pt has not done any formal PT since re-tearing, but did participate in PT s/p rotator cuff surgery. He is R hand dominant. Prior Treatments and Tests MRI as noted above Treatment Goals Patient/Caregiver Goals improve ROM, strength, and decrease pain Current Functional Impairments (Reported) Functional Limitations- Other unable to perform any activities with arm away from body Personal Factors Other Personal Factors That May Effect blood condition which Therapy/Recovery requires annual follow up with oncology (denies any current CA of any kind, does have past h/o prostate CA 10 yrs ago), [place] 1992 PT-OP-C Subjective Start: 07/30/18 13:32 Freq: Status: Active Protocol: Document 08/12/18 16:01 EA (Rec: 08/12/18 16:02 EA [email or web address]) OP-PT Subjective Patient Comments Patient Comments Pt reports compliant with HEP; states pain is much improving . PT-OP-F Manual Assessment Start: 07/30/18 13:32 Freq: Status: Active Protocol: Document 07/30/18 12:00 RCC (Rec: 07/31/18 15:47 RCC [email or web address]) Manual Assessments Soft Tissue Assessment Soft Tissue Mobility Assessment tenderness to palpation: L parascapular mm and posterior shoulder Joint Mobility Assessment Joint Mobility Assessment hypomobility: L shoulder with posterior and inferior glides PT-OP-K Range of Motion Start: 07/30/18 13:32 Freq: Status: Active Protocol: Document 07/30/18 12:00 RCC (Rec: 07/31/18 15:47 RCC [email or web address]) Shoulder Goniometric Range of Motion Shoulder Measured in Degrees Right Active Testing Position Supine Flexion 170 Abduction 165 External Rotation at 90 degrees 75 Abduction Internal Rotation 80 Left Passive Testing Position Supine Flexion 95 Abduction 85 External Rotation at 0 degrees Abduction 22 Left Active Testing Position Supine Flexion 20 Abduction 35 External Rotation at 0 degrees Abduction 16 Internal Rotation 65 PT-OP-L Special Tests Start: 07/30/18 13:32 Freq: Status: Active Protocol: Document 07/30/18 12:00 RCC (Rec: 07/31/18 15:47 RCC [email or web address]) Special Tests Shoulder Special Tests Apprehension Test Test Results negative Belly Press Test Results negative Lift-Off Rotator Cuff Test Results negative Load and Shift Test Results negative Other Special Tests Special Tests unable to assess further due to pain and limitations of ROM PT-OP-M Strength Start: 07/30/18 13:32 Freq: Status: Active Protocol: Document 07/30/18 12:00 RCC (Rec: 07/31/18 15:52 RCC [email or web address]) Shoulder Strength Shoulder Manual Muscle Testing Left Flexion 2- Poor- Abduction (C5) 2- Poor- External Rotation 3 Fair Internal Rotation 4 Good Right Flexion 5 Normal Adduction 5 Normal External Rotation 5 Normal Internal Rotation 5 Normal Elbow/Forearm Strength Elbow and Forearm Manual Muscle Testing Left Flexion (C6) 4 Good Extension (C7) 4 Good Right Flexion (C6) 5 Normal Extension (C7) 5 Normal PT-OP-Q Treatments Start: 07/30/18 13:32 Freq: Status: Active Protocol: Document 08/12/18 16:01 EA (Rec: 08/12/18 16:02 EA [id number]) Cardio Equipment Upper Body Ergometer (UBE) Duration (Minutes) 6 Seat Position 12 Height 2.5 Therapeutic Exercises Supine Exercises 2 Supine Exercise Name T-bars flexion, ABD, rotation, press Reps/Minutes x 12 reps each 1 Supine Exercise Name PNF: contract-relax Passive stretch to ABD/ER/IR Reps/Minutes x 5 sh x 10 reps each T-bar Supine Exercise Name flexion, abduction, ER Side bilateral Reps/Minutes 5 each Comments 5 sec hold Sitting Exercises 1 Sitting Exercise Name Gisela: Flex/ABD pain free range Reps/Minutes x 5SH x 10 reps each scapular retraction Side bilateral Reps/Minutes x10 Comments tactile cuing for UT inhibition Standing Exercises 1 Standing Exercise Name Pendulum Reps/Minutes x 20 reps each direction Comments uses wrist weights PT-OP-R Modalities Start: 07/30/18 13:32 Freq: Status: Active Protocol: Document 08/12/18 16:01 EA (Rec: 08/12/18 16:02 EA [id number]) Hot Pack/Cold Pack Treatment Cold Pack Location left shoulder Patient Position Hooklying Treatment Duration (minutes) 10 Patient Tolerance Good PT-OP-T Assessment and Plan Start: 07/30/18 13:32 Freq: Status: Active Protocol: Document 08/12/18 16:43 EA (Rec: 08/12/18 16:44 EA [id number]) Physical Therapy Assessment Assessment Summary Assessment Improved range with less discomfort at this time. Patient cont. to progress Physical Therapy Plan Next Visit Focus/Plan Next Note Type Treatment Note Next Visit Plan Begin strengthening to available range
--- NOTE | 2018-08-17 16:43 | PT.OTN ---
Current Diagnoses Unspecified rotator cuff tear or rupture of left shoulder, not specified as traumatic (08/17/18) Physical Therapy Treatment Note PT-OP-A Visit Information Start: 07/30/18 13:32 Freq: Status: Active Protocol: Document 08/17/18 16:42 EA (Rec: 08/17/18 16:43 EA [id number]) Out-Patient Physical Therapy Visit Information Visit Information Visit Type Treatment Note Visit Start Time 15:15 Visit Stop Time 16:03 Total Visit Minutes 48 Visit Number 6 PT-OP-B Current Condition Start: 07/30/18 13:32 Freq: Status: Active Protocol: Document 07/30/18 12:00 RCC (Rec: 07/31/18 09:38 RCC [email or web address]) Current Condition History of Current Condition Onset Date December 2017 Current Complaints L shoulder weakness, impaired ROM, pain History of Current Condition Pt is an 83 y/o male presenting to physical therapy with a c/o L shoulder pain, weakness, and limited ROM. Pt sustained infraspinatus and supraspinatus tears /sp traumatic dislocation in December. He had arthroscopic surgery on 01/15/18 . MRI done in April of 2018 showed that the pt had full thickness tearing of supraspinatus and infraspinatus, as well as posterior labral tear. He was consulted for a TSA, but seeked a second opinion which suggested pain management and physical therapy. 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 He admits to being primarily a L sided sleeper until this L shoulder injury, now very uncomfortable sleeping on his back or his R side. Pt has not done any formal PT since re-tearing, but did participate in PT s/p rotator cuff surgery. He is R hand dominant. Prior Treatments and Tests MRI as noted above Treatment Goals Patient/Caregiver Goals improve ROM, strength, and decrease pain Current Functional Impairments (Reported) Functional Limitations- Other unable to perform any activities with arm away from body Personal Factors Other Personal Factors That May Effect blood condition which Therapy/Recovery requires annual follow up with oncology (denies any current CA of any kind, does have past h/o prostate CA 10 yrs ago), [place] 1992 PT-OP-C Subjective Start: 07/30/18 13:32 Freq: Status: Active Protocol: Document 08/17/18 16:35 EA (Rec: 08/17/18 16:42 EA [id number]) OP-PT Subjective Patient Comments Patient Comments Pt reports unable to perform HEp in the few days due to busy schedule PT-OP-F Manual Assessment Start: 07/30/18 13:32 Freq: Status: Active Protocol: Document 07/30/18 12:00 RCC (Rec: 07/31/18 15:47 RCC [email or web address]) Manual Assessments Soft Tissue Assessment Soft Tissue Mobility Assessment tenderness to palpation: L parascapular mm and posterior shoulder Joint Mobility Assessment Joint Mobility Assessment hypomobility: L shoulder with posterior and inferior glides PT-OP-K Range of Motion Start: 07/30/18 13:32 Freq: Status: Active Protocol: Document 07/30/18 12:00 RCC (Rec: 07/31/18 15:47 RCC [email or web address]) Shoulder Goniometric Range of Motion Shoulder Measured in Degrees Right Active Testing Position Supine Flexion 170 Abduction 165 External Rotation at 90 degrees 75 Abduction Internal Rotation 80 Left Passive Testing Position Supine Flexion 95 Abduction 85 External Rotation at 0 degrees Abduction 22 Left Active Testing Position Supine Flexion 20 Abduction 35 External Rotation at 0 degrees Abduction 16 Internal Rotation 65 PT-OP-L Special Tests Start: 07/30/18 13:32 Freq: Status: Active Protocol: Document 07/30/18 12:00 RCC (Rec: 07/31/18 15:47 RCC [email or web address]) Special Tests Shoulder Special Tests Apprehension Test Test Results negative Belly Press Test Results negative Lift-Off Rotator Cuff Test Results negative Load and Shift Test Results negative Other Special Tests Special Tests unable to assess further due to pain and limitations of ROM PT-OP-M Strength Start: 07/30/18 13:32 Freq: Status: Active Protocol: Document 07/30/18 12:00 RCC (Rec: 07/31/18 15:52 RCC [email or web address]) Shoulder Strength Shoulder Manual Muscle Testing Left Flexion 2- Poor- Abduction (C5) 2- Poor- External Rotation 3 Fair Internal Rotation 4 Good Right Flexion 5 Normal Adduction 5 Normal External Rotation 5 Normal Internal Rotation 5 Normal Elbow/Forearm Strength Elbow and Forearm Manual Muscle Testing Left Flexion (C6) 4 Good Extension (C7) 4 Good Right Flexion (C6) 5 Normal Extension (C7) 5 Normal PT-OP-Q Treatments Start: 07/30/18 13:32 Freq: Status: Active Protocol: Document 08/17/18 16:35 EA (Rec: 08/17/18 16:42 EA [id number]) Cardio Equipment Upper Body Ergometer (UBE) Duration (Minutes) 6 Seat Position 12 Height 3.0 Therapeutic Exercises Supine Exercises 2 Supine Exercise Name T-bars flexion, ABD, rotation, press Reps/Minutes x 12 reps each 1 Supine Exercise Name PNF: contract-relax Passive stretch to ABD/ER/IR Reps/Minutes x 5 sh x 10 reps each T-bar Supine Exercise Name flexion, abduction, ER Side bilateral Reps/Minutes 5 each Comments 5 sec hold Sitting Exercises 1 Sitting Exercise Name Gisela: Flex/ABD pain free range Reps/Minutes x 5SH x 10 reps each scapular retraction Side bilateral Reps/Minutes x10 Comments tactile cuing for UT inhibition Standing Exercises 2 Standing Exercise Name T-bar shoulder ext Resistance 2lbs Reps/Minutes x 15 reps x 2 1 Standing Exercise Name Pendulum Reps/Minutes x 20 reps each direction Comments uses wrist weights Manual Therapy Treatment Soft Tissue Mobilization 1 Body Location left deltoid/scapular Mobilization Type Rolling Sustained Pressure Body Position Supine Joint Mobilizations 1 Joint GH Direction Post/inf Grade II Body Position Supine Reps/Duration x 10 mins Manual Techniques 1 Type Gentle passive stretch: flexion/ABD/ER Reps/Duration x 20SH x 3 reps Comments Pain free range/prior to pain PT-OP-R Modalities Start: 07/30/18 13:32 Freq: Status: Active Protocol: Document 08/17/18 16:35 EA (Rec: 08/17/18 16:42 EA [id number]) Hot Pack/Cold Pack Treatment Hot Pack Location left shoulder Patient Position Hooklying Treatment Duration (minutes) 10 Patient Tolerance Good PT-OP-T Assessment and Plan Start: 07/30/18 13:32 Freq: Status: Active Protocol: Document 08/17/18 16:35 EA (Rec: 08/17/18 16:42 EA [id number]) Physical Therapy Assessment Assessment Summary Assessment Tolerated treatment well with still noted discomfort ER more than flexion. Physical Therapy Plan Next Visit Focus/Plan Next Note Type Treatment Note Next Visit Plan Begin strengthening to available range
--- NOTE | 2018-08-19 16:51 | PT.OTN ---
Current Diagnoses Unspecified rotator cuff tear or rupture of left shoulder, not specified as traumatic (08/19/18) Physical Therapy Treatment Note PT-OP-A Visit Information Start: 07/30/18 13:32 Freq: Status: Active Protocol: Document 08/19/18 15:13 EA (Rec: 08/19/18 15:17 EA [id number]) Out-Patient Physical Therapy Visit Information Visit Information Visit Type Treatment Note Visit Start Time 14:30 Visit Stop Time 15:10 Total Visit Minutes 53 Visit Number 5 PT-OP-B Current Condition Start: 07/30/18 13:32 Freq: Status: Active Protocol: Document 07/30/18 12:00 RCC (Rec: 07/31/18 09:38 RCC [email or web address]) Current Condition History of Current Condition Onset Date December 2017 Current Complaints L shoulder weakness, impaired ROM, pain History of Current Condition Pt is an 83 y/o male presenting to physical therapy with a c/o L shoulder pain, weakness, and limited ROM. Pt sustained infraspinatus and supraspinatus tears /sp traumatic dislocation in December. He had arthroscopic surgery on 01/15/18 . MRI done in April of 2018 showed that the pt had full thickness tearing of supraspinatus and infraspinatus, as well as posterior labral tear. He was consulted for a TSA, but seeked a second opinion which suggested pain management and physical therapy. 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 He admits to being primarily a L sided sleeper until this L shoulder injury, now very uncomfortable sleeping on his back or his R side. Pt has not done any formal PT since re-tearing, but did participate in PT s/p rotator cuff surgery. He is R hand dominant. Prior Treatments and Tests MRI as noted above Treatment Goals Patient/Caregiver Goals improve ROM, strength, and decrease pain Current Functional Impairments (Reported) Functional Limitations- Other unable to perform any activities with arm away from body Personal Factors Other Personal Factors That May Effect blood condition which Therapy/Recovery requires annual follow up with oncology (denies any current CA of any kind, does have past h/o prostate CA 10 yrs ago), [place] 1992 PT-OP-C Subjective Start: 07/30/18 13:32 Freq: Status: Active Protocol: Document 08/19/18 15:13 EA (Rec: 08/19/18 15:17 EA [id number]) OP-PT Subjective Patient Comments Patient Comments Pt reports compliant with HEP at this week. Patient Reported Progress Improving PT-OP-F Manual Assessment Start: 07/30/18 13:32 Freq: Status: Active Protocol: Document 07/30/18 12:00 RCC (Rec: 07/31/18 15:47 RCC [email or web address]) Manual Assessments Soft Tissue Assessment Soft Tissue Mobility Assessment tenderness to palpation: L parascapular mm and posterior shoulder Joint Mobility Assessment Joint Mobility Assessment hypomobility: L shoulder with posterior and inferior glides PT-OP-K Range of Motion Start: 07/30/18 13:32 Freq: Status: Active Protocol: Document 07/30/18 12:00 RCC (Rec: 07/31/18 15:47 RCC [email or web address]) Shoulder Goniometric Range of Motion Shoulder Measured in Degrees Right Active Testing Position Supine Flexion 170 Abduction 165 External Rotation at 90 degrees 75 Abduction Internal Rotation 80 Left Passive Testing Position Supine Flexion 95 Abduction 85 External Rotation at 0 degrees Abduction 22 Left Active Testing Position Supine Flexion 20 Abduction 35 External Rotation at 0 degrees Abduction 16 Internal Rotation 65 PT-OP-L Special Tests Start: 07/30/18 13:32 Freq: Status: Active Protocol: Document 07/30/18 12:00 RCC (Rec: 07/31/18 15:47 RCC [email or web address]) Special Tests Shoulder Special Tests Apprehension Test Test Results negative Belly Press Test Results negative Lift-Off Rotator Cuff Test Results negative Load and Shift Test Results negative Other Special Tests Special Tests unable to assess further due to pain and limitations of ROM PT-OP-M Strength Start: 07/30/18 13:32 Freq: Status: Active Protocol: Document 07/30/18 12:00 RCC (Rec: 07/31/18 15:52 RCC [email or web address]) Shoulder Strength Shoulder Manual Muscle Testing Left Flexion 2- Poor- Abduction (C5) 2- Poor- External Rotation 3 Fair Internal Rotation 4 Good Right Flexion 5 Normal Adduction 5 Normal External Rotation 5 Normal Internal Rotation 5 Normal Elbow/Forearm Strength Elbow and Forearm Manual Muscle Testing Left Flexion (C6) 4 Good Extension (C7) 4 Good Right Flexion (C6) 5 Normal Extension (C7) 5 Normal PT-OP-Q Treatments Start: 07/30/18 13:32 Freq: Status: Active Protocol: Document 08/19/18 15:13 EA (Rec: 08/19/18 15:17 EA [id number]) Cardio Equipment Upper Body Ergometer (UBE) Duration (Minutes) 6 Seat Position 12 Height 3.0-3.7 Therapeutic Exercises Supine Exercises 2 Supine Exercise Name T-bars flexion, ABD, rotation, press Reps/Minutes x 12 reps each 1 Supine Exercise Name PNF: contract-relax Passive stretch to ABD/ER/IR Reps/Minutes x 5 sh x 10 reps each T-bar Supine Exercise Name flexion, abduction, ER Side bilateral Reps/Minutes 5 each Comments 5 sec hold Sitting Exercises 1 Sitting Exercise Name Gisela: Flex/ABD pain free range Reps/Minutes x 5SH x 10 reps each scapular retraction Sitting Exercise Name Prone Side bilateral Reps/Minutes x10 x 2 Comments tactile cuing for UT inhibition Standing Exercises 2 Standing Exercise Name T-bar shoulder ext Resistance 2lbs Reps/Minutes x 15 reps x 2 1 Standing Exercise Name Pendulum Reps/Minutes x 20 reps each direction Comments uses wrist weights Manual Therapy Treatment Soft Tissue Mobilization 1 Body Location left deltoid/scapular Mobilization Type Rolling Sustained Pressure Body Position Supine Joint Mobilizations 1 Joint GH Direction Post/inf Grade II Body Position Supine Reps/Duration x 10 mins Manual Techniques 1 Type Gentle passive stretch: flexion/ABD/ER Reps/Duration x 20SH x 3 reps Comments Pain free range/prior to pain PT-OP-R Modalities Start: 07/30/18 13:32 Freq: Status: Active Protocol: Document 08/17/18 16:35 EA (Rec: 08/17/18 16:42 EA [id number]) Hot Pack/Cold Pack Treatment Hot Pack Location left shoulder Patient Position Hooklying Treatment Duration (minutes) 10 Patient Tolerance Good Cold Pack Location left shoulder Patient Position Hooklying Treatment Duration (minutes) 10 Patient Tolerance Good PT-OP-T Assessment and Plan Start: 07/30/18 13:32 Freq: Status: Active Protocol: Document 08/19/18 15:13 EA (Rec: 08/19/18 15:17 EA [id number]) Physical Therapy Assessment Assessment Summary Assessment Improved shoulder scaption and flexion AROM noted at this time. Patient is progressing . Physical Therapy Plan Next Visit Focus/Plan Next Note Type Treatment Note Next Visit Plan Begin strengthening to available range
--- NOTE | 2018-08-24 16:11 | PT.OTN ---
Current Diagnoses Unspecified rotator cuff tear or rupture of left shoulder, not specified as traumatic (08/24/18) Physical Therapy Treatment Note PT-OP-A Visit Information Start: 07/30/18 13:32 Freq: Status: Active Protocol: Document 08/24/18 14:36 EA (Rec: 08/24/18 14:38 EA [id number]) Out-Patient Physical Therapy Visit Information Visit Information Visit Type Treatment Note Visit Start Time 14:30 Visit Stop Time 15:10 Total Visit Minutes 53 Visit Number 6 PT-OP-B Current Condition Start: 07/30/18 13:32 Freq: Status: Active Protocol: Document 07/30/18 12:00 RCC (Rec: 07/31/18 09:38 RCC [email or web address]) Current Condition History of Current Condition Onset Date December 2017 Current Complaints L shoulder weakness, impaired ROM, pain History of Current Condition Pt is an 83 y/o male presenting to physical therapy with a c/o L shoulder pain, weakness, and limited ROM. Pt sustained infraspinatus and supraspinatus tears /sp traumatic dislocation in December. He had arthroscopic surgery on 01/15/18 . MRI done in April of 2018 showed that the pt had full thickness tearing of supraspinatus and infraspinatus, as well as posterior labral tear. He was consulted for a TSA, but seeked a second opinion which suggested pain management and physical therapy. 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 He admits to being primarily a L sided sleeper until this L shoulder injury, now very uncomfortable sleeping on his back or his R side. Pt has not done any formal PT since re-tearing, but did participate in PT s/p rotator cuff surgery. He is R hand dominant. Prior Treatments and Tests MRI as noted above Treatment Goals Patient/Caregiver Goals improve ROM, strength, and decrease pain Current Functional Impairments (Reported) Functional Limitations- Other unable to perform any activities with arm away from body Personal Factors Other Personal Factors That May Effect blood condition which Therapy/Recovery requires annual follow up with oncology (denies any current CA of any kind, does have past h/o prostate CA 10 yrs ago), [place] 1992 PT-OP-C Subjective Start: 07/30/18 13:32 Freq: Status: Active Protocol: Document 08/24/18 14:36 EA (Rec: 08/24/18 14:38 EA [id number]) OP-PT Subjective Patient Comments Patient Comments Pt reports lateral arm quite hurts; states feels there is lump. PT-OP-F Manual Assessment Start: 07/30/18 13:32 Freq: Status: Active Protocol: Document 07/30/18 12:00 RCC (Rec: 07/31/18 15:47 RCC [email or web address]) Manual Assessments Soft Tissue Assessment Soft Tissue Mobility Assessment tenderness to palpation: L parascapular mm and posterior shoulder Joint Mobility Assessment Joint Mobility Assessment hypomobility: L shoulder with posterior and inferior glides PT-OP-K Range of Motion Start: 07/30/18 13:32 Freq: Status: Active Protocol: Document 07/30/18 12:00 RCC (Rec: 07/31/18 15:47 RCC [email or web address]) Shoulder Goniometric Range of Motion Shoulder Measured in Degrees Right Active Testing Position Supine Flexion 170 Abduction 165 External Rotation at 90 degrees 75 Abduction Internal Rotation 80 Left Passive Testing Position Supine Flexion 95 Abduction 85 External Rotation at 0 degrees Abduction 22 Left Active Testing Position Supine Flexion 20 Abduction 35 External Rotation at 0 degrees Abduction 16 Internal Rotation 65 PT-OP-L Special Tests Start: 07/30/18 13:32 Freq: Status: Active Protocol: Document 07/30/18 12:00 RCC (Rec: 07/31/18 15:47 RCC [email or web address]) Special Tests Shoulder Special Tests Apprehension Test Test Results negative Belly Press Test Results negative Lift-Off Rotator Cuff Test Results negative Load and Shift Test Results negative Other Special Tests Special Tests unable to assess further due to pain and limitations of ROM PT-OP-M Strength Start: 07/30/18 13:32 Freq: Status: Active Protocol: Document 07/30/18 12:00 RCC (Rec: 07/31/18 15:52 RCC [email or web address]) Shoulder Strength Shoulder Manual Muscle Testing Left Flexion 2- Poor- Abduction (C5) 2- Poor- External Rotation 3 Fair Internal Rotation 4 Good Right Flexion 5 Normal Adduction 5 Normal External Rotation 5 Normal Internal Rotation 5 Normal Elbow/Forearm Strength Elbow and Forearm Manual Muscle Testing Left Flexion (C6) 4 Good Extension (C7) 4 Good Right Flexion (C6) 5 Normal Extension (C7) 5 Normal PT-OP-Q Treatments Start: 07/30/18 13:32 Freq: Status: Active Protocol: Document 08/24/18 14:36 EA (Rec: 08/24/18 14:38 EA [id number]) Cardio Equipment Upper Body Ergometer (UBE) Duration (Minutes) 6 Seat Position 12 Height 3.0-3.7 Therapeutic Exercises Supine Exercises 3 Supine Exercise Name Multi-angle isomet Side left Resistance manual Reps/Minutes x 5SH x 5 reps each direction Comments Pain free range 2 Supine Exercise Name T-bars flexion, ABD, rotation, press Reps/Minutes x 12 reps each 1 Supine Exercise Name PNF: contract-relax Passive stretch to ABD/ER/IR Reps/Minutes x 5 sh x 10 reps each T-bar Supine Exercise Name flexion, abduction, ER Side bilateral Reps/Minutes 5 each Comments 5 sec hold Sitting Exercises 1 Sitting Exercise Name Gislea: Flex/ABD pain free range Reps/Minutes x 5SH x 10 reps each Standing Exercises 3 Standing Exercise Name Wall T-bar shoulder press Resistance 2 lbs Reps/Minutes x 10 reps x 2 Comments pain free range and no shoulder elevation 2 Standing Exercise Name T-bar shoulder ext Resistance 2lbs Reps/Minutes x 15 reps x 2 Manual Therapy Treatment Soft Tissue Mobilization 2 Body Location Left mid lateral FRA Intensity/Depth Superficial Body Position Sitting Comments Effleurage to gentle kneading 1 Body Location left deltoid/scapular Mobilization Type Rolling Sustained Pressure Body Position Supine Joint Mobilizations 1 Joint GH Direction Post/inf Grade II Body Position Supine Reps/Duration x 10 mins Manual Techniques 1 Type Gentle passive stretch: flexion/ABD/ER Reps/Duration x 20SH x 3 reps Comments Pain free range/prior to pain PT-OP-R Modalities Start: 07/30/18 13:32 Freq: Status: Active Protocol: Document 08/24/18 15:13 EA (Rec: 08/24/18 15:15 EA [id number]) Hot Pack/Cold Pack Treatment Hot Pack Location left shoulder Patient Position Hooklying Treatment Duration (minutes) 10 Patient Tolerance Good PT-OP-T Assessment and Plan Start: 07/30/18 13:32 Freq: Status: Active Protocol: Document 08/24/18 15:13 EA (Rec: 08/24/18 15:15 EA [id number]) Physical Therapy Assessment Assessment Summary Assessment Quick assessment performed to mid lateral FRA and reveals no provocation with muscular contx but tender to touch and lump is palpated; manual therapy lessen tenderness. Advised patient to seek his physician for further evaluation. Physical Therapy Plan Next Visit Focus/Plan Next Note Type Treatment Note Next Visit Plan Follow up with mid lateral FRA tenderness.
--- NOTE | 2018-08-26 16:08 | PT.OTN ---
Current Diagnoses Unspecified rotator cuff tear or rupture of left shoulder, not specified as traumatic (08/26/18) Physical Therapy Treatment Note PT-OP-A Visit Information Start: 07/30/18 13:32 Freq: Status: Active Protocol: Document 08/26/18 15:53 EA (Rec: 08/26/18 16:03 EA [id number]) Out-Patient Physical Therapy Visit Information Visit Information Visit Type Treatment Note Visit Start Time 14:30 Visit Stop Time 15:20 Total Visit Minutes 50 Visit Number 9 PT-OP-B Current Condition Start: 07/30/18 13:32 Freq: Status: Active Protocol: Document 07/30/18 12:00 RCC (Rec: 07/31/18 09:38 RCC [email or web address]) Current Condition History of Current Condition Onset Date December 2017 Current Complaints L shoulder weakness, impaired ROM, pain History of Current Condition Pt is an 83 y/o male presenting to physical therapy with a c/o L shoulder pain, weakness, and limited ROM. Pt sustained infraspinatus and supraspinatus tears /sp traumatic dislocation in December. He had arthroscopic surgery on 01/15/18 . MRI done in April of 2018 showed that the pt had full thickness tearing of supraspinatus and infraspinatus, as well as posterior labral tear. He was consulted for a TSA, but seeked a second opinion which suggested pain management and physical therapy. 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 He admits to being primarily a L sided sleeper until this L shoulder injury, now very uncomfortable sleeping on his back or his R side. Pt has not done any formal PT since re-tearing, but did participate in PT s/p rotator cuff surgery. He is R hand dominant. Prior Treatments and Tests MRI as noted above Treatment Goals Patient/Caregiver Goals improve ROM, strength, and decrease pain Current Functional Impairments (Reported) Functional Limitations- Other unable to perform any activities with arm away from body Personal Factors Other Personal Factors That May Effect blood condition which Therapy/Recovery requires annual follow up with oncology (denies any current CA of any kind, does have past h/o prostate CA 10 yrs ago), [place] 1992 PT-OP-C Subjective Start: 07/30/18 13:32 Freq: Status: Active Protocol: Document 08/26/18 15:53 EA (Rec: 08/26/18 16:03 EA [id number]) OP-PT Subjective Patient Comments Patient Comments Patient reports mid lateral pain is improving well; states arm function still diffculty though have seen ROM improvemnt. Pt feels arm still weak. PT-OP-F Manual Assessment Start: 07/30/18 13:32 Freq: Status: Active Protocol: Document 07/30/18 12:00 RCC (Rec: 07/31/18 15:47 RCC [email or web address]) Manual Assessments Soft Tissue Assessment Soft Tissue Mobility Assessment tenderness to palpation: L parascapular mm and posterior shoulder Joint Mobility Assessment Joint Mobility Assessment hypomobility: L shoulder with posterior and inferior glides PT-OP-K Range of Motion Start: 07/30/18 13:32 Freq: Status: Active Protocol: Document 07/30/18 12:00 RCC (Rec: 07/31/18 15:47 RCC [email or web address]) Shoulder Goniometric Range of Motion Shoulder Measured in Degrees Right Active Testing Position Supine Flexion 170 Abduction 165 External Rotation at 90 degrees 75 Abduction Internal Rotation 80 Left Passive Testing Position Supine Flexion 95 Abduction 85 External Rotation at 0 degrees Abduction 22 Left Active Testing Position Supine Flexion 20 Abduction 35 External Rotation at 0 degrees Abduction 16 Internal Rotation 65 PT-OP-L Special Tests Start: 07/30/18 13:32 Freq: Status: Active Protocol: Document 07/30/18 12:00 RCC (Rec: 07/31/18 15:47 RCC [email or web address]) Special Tests Shoulder Special Tests Apprehension Test Test Results negative Belly Press Test Results negative Lift-Off Rotator Cuff Test Results negative Load and Shift Test Results negative Other Special Tests Special Tests unable to assess further due to pain and limitations of ROM PT-OP-M Strength Start: 07/30/18 13:32 Freq: Status: Active Protocol: Document 07/30/18 12:00 RCC (Rec: 07/31/18 15:52 RCC [email or web address]) Shoulder Strength Shoulder Manual Muscle Testing Left Flexion 2- Poor- Abduction (C5) 2- Poor- External Rotation 3 Fair Internal Rotation 4 Good Right Flexion 5 Normal Adduction 5 Normal External Rotation 5 Normal Internal Rotation 5 Normal Elbow/Forearm Strength Elbow and Forearm Manual Muscle Testing Left Flexion (C6) 4 Good Extension (C7) 4 Good Right Flexion (C6) 5 Normal Extension (C7) 5 Normal PT-OP-Q Treatments Start: 07/30/18 13:32 Freq: Status: Active Protocol: Document 08/26/18 15:53 EA (Rec: 08/26/18 16:03 EA [id number]) Cardio Equipment Upper Body Ergometer (UBE) Duration (Minutes) 6 Seat Position 12 Height 3.0-3.7 Other unable to tolerate more than 4 height Therapeutic Exercises Sidelying Exercises 3 Sidelying Exercise Name ssacp retraction Reps/Minutes x 10 reps Comments AAROM 2 Sidelying Exercise Name ER Reps/Minutes x 15 reps 1 Sidelying Exercise Name shoulder abduction Reps/Minutes x 12 reps Comments AAROM Sitting Exercises 1 Sitting Exercise Name Gisela: Flex/ABD pain free range Reps/Minutes x 5SH x 10 reps each scapular retraction Sitting Exercise Name Prone Side bilateral Reps/Minutes x10 x 2 Comments tactile cuing for UT inhibition Standing Exercises 3 Standing Exercise Name Wall T-bar shoulder press Resistance 2 lbs Reps/Minutes x 10 reps x 2 Comments pain free range and no shoulder elevation 2 Standing Exercise Name T-bar shoulder ext Resistance 2lbs Reps/Minutes x 15 reps x 2 Manual Therapy Treatment Soft Tissue Mobilization 1 Body Location left deltoid/scapular Mobilization Type Rolling Sustained Pressure Body Position Supine Joint Mobilizations 1 Joint GH Direction Post/inf Grade II Body Position Supine Reps/Duration x 10 mins Manual Techniques 1 Type Gentle passive stretch: flexion/ABD/ER Reps/Duration x 20SH x 3 reps Comments Pain free range/prior to pain PT-OP-R Modalities Start: 07/30/18 13:32 Freq: Status: Active Protocol: Document 08/26/18 15:53 EA (Rec: 08/26/18 16:03 EA [id number]) Hot Pack/Cold Pack Treatment Hot Pack Location left shoulder Patient Position Hooklying Treatment Duration (minutes) 10 Patient Tolerance Good PT-OP-T Assessment and Plan Start: 07/30/18 13:32 Freq: Status: Active Protocol: Document 08/26/18 15:53 EA (Rec: 08/26/18 16:03 EA [id number]) Physical Therapy Assessment Assessment Summary Assessment Weakness to deltoid and scapular retractors still evident but much improved since eval. Patient received new HEP and understands safety . Physical Therapy Plan Next Visit Focus/Plan Next Note Type Treatment Note
--- NOTE | 2018-08-31 15:29 | PT.OTN ---
Current Diagnoses Unspecified rotator cuff tear or rupture of left shoulder, not specified as traumatic (08/31/18) Physical Therapy Treatment Note PT-OP-A Visit Information Start: 07/30/18 13:32 Freq: Status: Active Protocol: Document 08/31/18 15:18 EA (Rec: 08/31/18 15:27 EA [id number]) Out-Patient Physical Therapy Visit Information Visit Information Visit Type Treatment Note Visit Start Time 14:30 Visit Stop Time 15:20 Total Visit Minutes 50 Visit Number 10 PT-OP-B Current Condition Start: 07/30/18 13:32 Freq: Status: Active Protocol: Document 07/30/18 12:00 RCC (Rec: 07/31/18 09:38 RCC [email or web address]) Current Condition History of Current Condition Onset Date December 2017 Current Complaints L shoulder weakness, impaired ROM, pain History of Current Condition Pt is an 83 y/o male presenting to physical therapy with a c/o L shoulder pain, weakness, and limited ROM. Pt sustained infraspinatus and supraspinatus tears /sp traumatic dislocation in December. He had arthroscopic surgery on 01/15/18 . MRI done in April of 2018 showed that the pt had full thickness tearing of supraspinatus and infraspinatus, as well as posterior labral tear. He was consulted for a TSA, but seeked a second opinion which suggested pain management and physical therapy. 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 He admits to being primarily a L sided sleeper until this L shoulder injury, now very uncomfortable sleeping on his back or his R side. Pt has not done any formal PT since re-tearing, but did participate in PT s/p rotator cuff surgery. He is R hand dominant. Prior Treatments and Tests MRI as noted above Treatment Goals Patient/Caregiver Goals improve ROM, strength, and decrease pain Current Functional Impairments (Reported) Functional Limitations- Other unable to perform any activities with arm away from body Personal Factors Other Personal Factors That May Effect blood condition which Therapy/Recovery requires annual follow up with oncology (denies any current CA of any kind, does have past h/o prostate CA 10 yrs ago), [place] 1992 PT-OP-C Subjective Start: 07/30/18 13:32 Freq: Status: Active Protocol: Document 08/31/18 15:18 EA (Rec: 08/31/18 15:27 EA [id number]) OP-PT Subjective Patient Comments Patient Comments Pt reports complaint with HEP; states pian is less but mobility still hard; patient states he still does not want to have a shoulder replacement . PT-OP-F Manual Assessment Start: 07/30/18 13:32 Freq: Status: Active Protocol: Document 07/30/18 12:00 RCC (Rec: 07/31/18 15:47 RCC [email or web address]) Manual Assessments Soft Tissue Assessment Soft Tissue Mobility Assessment tenderness to palpation: L parascapular mm and posterior shoulder Joint Mobility Assessment Joint Mobility Assessment hypomobility: L shoulder with posterior and inferior glides PT-OP-K Range of Motion Start: 07/30/18 13:32 Freq: Status: Active Protocol: Document 07/30/18 12:00 RCC (Rec: 07/31/18 15:47 RCC [email or web address]) Shoulder Goniometric Range of Motion Shoulder Measured in Degrees Right Active Testing Position Supine Flexion 170 Abduction 165 External Rotation at 90 degrees 75 Abduction Internal Rotation 80 Left Passive Testing Position Supine Flexion 95 Abduction 85 External Rotation at 0 degrees Abduction 22 Left Active Testing Position Supine Flexion 20 Abduction 35 External Rotation at 0 degrees Abduction 16 Internal Rotation 65 PT-OP-L Special Tests Start: 07/30/18 13:32 Freq: Status: Active Protocol: Document 07/30/18 12:00 RCC (Rec: 07/31/18 15:47 RCC [email or web address]) Special Tests Shoulder Special Tests Apprehension Test Test Results negative Belly Press Test Results negative Lift-Off Rotator Cuff Test Results negative Load and Shift Test Results negative Other Special Tests Special Tests unable to assess further due to pain and limitations of ROM PT-OP-M Strength Start: 07/30/18 13:32 Freq: Status: Active Protocol: Document 07/30/18 12:00 RCC (Rec: 07/31/18 15:52 RCC [email or web address]) Shoulder Strength Shoulder Manual Muscle Testing Left Flexion 2- Poor- Abduction (C5) 2- Poor- External Rotation 3 Fair Internal Rotation 4 Good Right Flexion 5 Normal Adduction 5 Normal External Rotation 5 Normal Internal Rotation 5 Normal Elbow/Forearm Strength Elbow and Forearm Manual Muscle Testing Left Flexion (C6) 4 Good Extension (C7) 4 Good Right Flexion (C6) 5 Normal Extension (C7) 5 Normal PT-OP-Q Treatments Start: 07/30/18 13:32 Freq: Status: Active Protocol: Document 08/31/18 15:18 EA (Rec: 08/31/18 15:27 EA [id number]) Cardio Equipment Upper Body Ergometer (UBE) Duration (Minutes) 6 Seat Position 12 Height 3.0-3.7 Other unable to tolerate more than 4 height Therapeutic Exercises Prone Exercises 3 Prone Exercise Name Shoulder ABD at available rannge Reps/Minutes x 10 reps x 2 2 Prone Exercise Name Shoulder ext w/ palms facing down Reps/Minutes x 15 reps 1 Prone Exercise Name Retraction: multiple angle Reps/Minutes x 10 reps each angle Sidelying Exercises 3 Sidelying Exercise Name scap retraction Reps/Minutes x 10 reps Comments AAROM 2 Sidelying Exercise Name ER Resistance gentle manual resistance Reps/Minutes x 15 reps 1 Sidelying Exercise Name shoulder abduction Reps/Minutes x 12 reps Comments AAROM, Isolate supra and deltoid only Sitting Exercises 1 Sitting Exercise Name Gisela: Flex/ABD pain free range Reps/Minutes x 5SH x 10 reps each Standing Exercises 3 Standing Exercise Name Wall T-bar shoulder press Resistance 2 lbs Reps/Minutes x 10 reps x 2 Comments pain free range and no shoulder elevation Manual Therapy Treatment Joint Mobilizations 1 Joint GH Direction Post/inf Grade II Body Position Supine Reps/Duration x 10 mins Manual Techniques 1 Type Gentle passive stretch: flexion/ABD/ER Reps/Duration x 20SH x 3 reps Comments PNF: Pain free range/prior to pain, increased ROM PT-OP-R Modalities Start: 07/30/18 13:32 Freq: Status: Active Protocol: Document 08/31/18 15:18 EA (Rec: 08/31/18 15:27 EA [id number]) Hot Pack/Cold Pack Treatment Cold Pack Location left shoulder Patient Position Hooklying Treatment Duration (minutes) 10 Patient Tolerance Good PT-OP-T Assessment and Plan Start: 07/30/18 13:32 Freq: Status: Active Protocol: Document 08/31/18 15:18 EA (Rec: 08/31/18 15:27 EA [id number]) Physical Therapy Assessment Assessment Summary Assessment Tolerated treatment well; slight increased AAROM in abduction, but still requires manual stabilization as scap elevation compensate with the strength lost. Physical Therapy Plan Next Visit Focus/Plan Next Note Type Treatment Note Next Visit Plan Increased PNF focus on ROM
--- NOTE | 2018-09-02 17:33 | PT.OTN ---
Current Diagnoses Unspecified rotator cuff tear or rupture of left shoulder, not specified as traumatic (09/02/18) Physical Therapy Treatment Note PT-OP-A Visit Information Start: 07/30/18 13:32 Freq: Status: Active Protocol: Document 09/02/18 17:24 EA (Rec: 09/02/18 17:32 EA [id number]) Out-Patient Physical Therapy Visit Information Visit Information Visit Type Treatment Note Visit Start Time 14:30 Visit Stop Time 15:20 Total Visit Minutes 50 Visit Number 11 PT-OP-B Current Condition Start: 07/30/18 13:32 Freq: Status: Active Protocol: Document 07/30/18 12:00 RCC (Rec: 07/31/18 09:38 RCC [email or web address]) Current Condition History of Current Condition Onset Date December 2017 Current Complaints L shoulder weakness, impaired ROM, pain History of Current Condition Pt is an 83 y/o male presenting to physical therapy with a c/o L shoulder pain, weakness, and limited ROM. Pt sustained infraspinatus and supraspinatus tears /sp traumatic dislocation in December. He had arthroscopic surgery on 01/15/18 . MRI done in April of 2018 showed that the pt had full thickness tearing of supraspinatus and infraspinatus, as well as posterior labral tear. He was consulted for a TSA, but seeked a second opinion which suggested pain management and physical therapy. 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 He admits to being primarily a L sided sleeper until this L shoulder injury, now very uncomfortable sleeping on his back or his R side. Pt has not done any formal PT since re-tearing, but did participate in PT s/p rotator cuff surgery. He is R hand dominant. Prior Treatments and Tests MRI as noted above Treatment Goals Patient/Caregiver Goals improve ROM, strength, and decrease pain Current Functional Impairments (Reported) Functional Limitations- Other unable to perform any activities with arm away from body Personal Factors Other Personal Factors That May Effect blood condition which Therapy/Recovery requires annual follow up with oncology (denies any current CA of any kind, does have past h/o prostate CA 10 yrs ago), [place] 1992 PT-OP-C Subjective Start: 07/30/18 13:32 Freq: Status: Active Protocol: Document 09/02/18 17:24 EA (Rec: 09/02/18 17:32 EA [id number]) OP-PT Subjective Patient Comments Patient Comments Pt reports Pt reports compliant with HEP; states pain is quite less but still stiff and weak. PT-OP-F Manual Assessment Start: 07/30/18 13:32 Freq: Status: Active Protocol: Document 07/30/18 12:00 RCC (Rec: 07/31/18 15:47 RCC [email or web address]) Manual Assessments Soft Tissue Assessment Soft Tissue Mobility Assessment tenderness to palpation: L parascapular mm and posterior shoulder Joint Mobility Assessment Joint Mobility Assessment hypomobility: L shoulder with posterior and inferior glides PT-OP-K Range of Motion Start: 07/30/18 13:32 Freq: Status: Active Protocol: Document 07/30/18 12:00 RCC (Rec: 07/31/18 15:47 RCC [email or web address]) Shoulder Goniometric Range of Motion Shoulder Measured in Degrees Right Active Testing Position Supine Flexion 170 Abduction 165 External Rotation at 90 degrees 75 Abduction Internal Rotation 80 Left Passive Testing Position Supine Flexion 95 Abduction 85 External Rotation at 0 degrees Abduction 22 Left Active Testing Position Supine Flexion 20 Abduction 35 External Rotation at 0 degrees Abduction 16 Internal Rotation 65 PT-OP-L Special Tests Start: 07/30/18 13:32 Freq: Status: Active Protocol: Document 07/30/18 12:00 RCC (Rec: 07/31/18 15:47 RCC [email or web address]) Special Tests Shoulder Special Tests Apprehension Test Test Results negative Belly Press Test Results negative Lift-Off Rotator Cuff Test Results negative Load and Shift Test Results negative Other Special Tests Special Tests unable to assess further due to pain and limitations of ROM PT-OP-M Strength Start: 07/30/18 13:32 Freq: Status: Active Protocol: Document 07/30/18 12:00 RCC (Rec: 07/31/18 15:52 RCC [email or web address]) Shoulder Strength Shoulder Manual Muscle Testing Left Flexion 2- Poor- Abduction (C5) 2- Poor- External Rotation 3 Fair Internal Rotation 4 Good Right Flexion 5 Normal Adduction 5 Normal External Rotation 5 Normal Internal Rotation 5 Normal Elbow/Forearm Strength Elbow and Forearm Manual Muscle Testing Left Flexion (C6) 4 Good Extension (C7) 4 Good Right Flexion (C6) 5 Normal Extension (C7) 5 Normal PT-OP-Q Treatments Start: 07/30/18 13:32 Freq: Status: Active Protocol: Document 09/02/18 17:24 EA (Rec: 09/02/18 17:32 EA [id number]) Cardio Equipment Upper Body Ergometer (UBE) Duration (Minutes) 6 Seat Position 12 Height 3.0-3.8 Other unable to tolerate more than 4 height Therapeutic Exercises Supine Exercises 3 Supine Exercise Name Multi-angle isomet Side left Resistance manual Reps/Minutes x 5SH x 5 reps each direction Comments Pain free range 2 Supine Exercise Name T-bars flexion, ABD, rotation, press Reps/Minutes x 12 reps each 1 Supine Exercise Name D1, D2 Resistance manual Reps/Minutes x 10 reps each x 2 sets T-bar Supine Exercise Name flexion, abduction, ER Side bilateral Reps/Minutes 5 each Comments 5 sec hold Prone Exercises 3 Prone Exercise Name Shoulder ABD at available rannge Reps/Minutes x 10 reps x 2 2 Prone Exercise Name Shoulder ext w/ palms facing down Reps/Minutes x 15 reps 1 Prone Exercise Name Retraction: multiple angle Reps/Minutes x 10 reps each angle Sidelying Exercises 3 Sidelying Exercise Name scap retraction Reps/Minutes x 10 reps Comments AAROM 2 Sidelying Exercise Name ER Resistance gentle manual resistance Reps/Minutes x 15 reps 1 Sidelying Exercise Name shoulder abduction Reps/Minutes x 12 reps Comments AAROM, Isolate supra and deltoid only Sitting Exercises 1 Sitting Exercise Name Gisela: Flex/ABD pain free range Reps/Minutes x 5SH x 10 reps each scapular retraction Sitting Exercise Name Prone Side bilateral Reps/Minutes x10 x 2 Comments tactile cuing for UT inhibition Manual Therapy Treatment Joint Mobilizations 1 Joint GH Direction Post/inf Grade II Body Position Supine Reps/Duration x 10 mins Manual Techniques 1 Type Gentle passive stretch: flexion/ABD/ER Reps/Duration x 20SH x 3 reps Comments PNF: Pain free range/prior to pain, increased ROM PT-OP-R Modalities Start: 07/30/18 13:32 Freq: Status: Active Protocol: Document 09/02/18 17:24 EA (Rec: 09/02/18 17:32 EA [id number]) Hot Pack/Cold Pack Treatment Hot Pack Location left shoulder Patient Position Hooklying Treatment Duration (minutes) 10 Patient Tolerance Good PT-OP-T Assessment and Plan Start: 07/30/18 13:32 Freq: Status: Active Protocol: Document 09/02/18 17:24 EA (Rec: 09/02/18 17:32 EA [id number]) Physical Therapy Assessment Assessment Summary Assessment Very minimal increased in shoulder ABD in supine with slight decreased of guarding noted at this time. Substitution with shoulder movement in gravity resisted still evident. Physical Therapy Plan Next Visit Focus/Plan Next Note Type Treatment Note Next Visit Plan Increased PNF focus on ROM and strength
--- NOTE | 2018-09-07 16:02 | PT.OTN ---
Current Diagnoses Unspecified rotator cuff tear or rupture of left shoulder, not specified as traumatic (09/07/18) Physical Therapy Treatment Note PT-OP-A Visit Information Start: 07/30/18 13:32 Freq: Status: Active Protocol: Document 09/07/18 15:57 EA (Rec: 09/07/18 16:01 EA [id number]) Out-Patient Physical Therapy Visit Information Visit Information Visit Type Treatment Note Visit Start Time 14:30 Visit Stop Time 15:20 Total Visit Minutes 48 Visit Number 12 PT-OP-B Current Condition Start: 07/30/18 13:32 Freq: Status: Active Protocol: Document 07/30/18 12:00 RCC (Rec: 07/31/18 09:38 RCC [email or web address]) Current Condition History of Current Condition Onset Date December 2017 Current Complaints L shoulder weakness, impaired ROM, pain History of Current Condition Pt is an 83 y/o male presenting to physical therapy with a c/o L shoulder pain, weakness, and limited ROM. Pt sustained infraspinatus and supraspinatus tears /sp traumatic dislocation in December. He had arthroscopic surgery on 01/15/18 . MRI done in April of 2018 showed that the pt had full thickness tearing of supraspinatus and infraspinatus, as well as posterior labral tear. He was consulted for a TSA, but seeked a second opinion which suggested pain management and physical therapy. 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 He admits to being primarily a L sided sleeper until this L shoulder injury, now very uncomfortable sleeping on his back or his R side. Pt has not done any formal PT since re-tearing, but did participate in PT s/p rotator cuff surgery. He is R hand dominant. Prior Treatments and Tests MRI as noted above Treatment Goals Patient/Caregiver Goals improve ROM, strength, and decrease pain Current Functional Impairments (Reported) Functional Limitations- Other unable to perform any activities with arm away from body Personal Factors Other Personal Factors That May Effect blood condition which Therapy/Recovery requires annual follow up with oncology (denies any current CA of any kind, does have past h/o prostate CA 10 yrs ago), [place] 1992 PT-OP-C Subjective Start: 07/30/18 13:32 Freq: Status: Active Protocol: Document 09/07/18 16:01 EA (Rec: 09/07/18 16:02 EA [id number]) OP-PT Subjective Patient Comments Patient Comments Pt reports left shoulder feels improving and pain is much less at this time. Patient Reported Progress Improving PT-OP-F Manual Assessment Start: 07/30/18 13:32 Freq: Status: Active Protocol: Document 07/30/18 12:00 RCC (Rec: 07/31/18 15:47 RCC [email or web address]) Manual Assessments Soft Tissue Assessment Soft Tissue Mobility Assessment tenderness to palpation: L parascapular mm and posterior shoulder Joint Mobility Assessment Joint Mobility Assessment hypomobility: L shoulder with posterior and inferior glides PT-OP-K Range of Motion Start: 07/30/18 13:32 Freq: Status: Active Protocol: Document 07/30/18 12:00 RCC (Rec: 07/31/18 15:47 RCC [email or web address]) Shoulder Goniometric Range of Motion Shoulder Measured in Degrees Right Active Testing Position Supine Flexion 170 Abduction 165 External Rotation at 90 degrees 75 Abduction Internal Rotation 80 Left Passive Testing Position Supine Flexion 95 Abduction 85 External Rotation at 0 degrees Abduction 22 Left Active Testing Position Supine Flexion 20 Abduction 35 External Rotation at 0 degrees Abduction 16 Internal Rotation 65 PT-OP-L Special Tests Start: 07/30/18 13:32 Freq: Status: Active Protocol: Document 07/30/18 12:00 RCC (Rec: 07/31/18 15:47 RCC [email or web address]) Special Tests Shoulder Special Tests Apprehension Test Test Results negative Belly Press Test Results negative Lift-Off Rotator Cuff Test Results negative Load and Shift Test Results negative Other Special Tests Special Tests unable to assess further due to pain and limitations of ROM PT-OP-M Strength Start: 07/30/18 13:32 Freq: Status: Active Protocol: Document 07/30/18 12:00 RCC (Rec: 07/31/18 15:52 RCC [email or web address]) Shoulder Strength Shoulder Manual Muscle Testing Left Flexion 2- Poor- Abduction (C5) 2- Poor- External Rotation 3 Fair Internal Rotation 4 Good Right Flexion 5 Normal Adduction 5 Normal External Rotation 5 Normal Internal Rotation 5 Normal Elbow/Forearm Strength Elbow and Forearm Manual Muscle Testing Left Flexion (C6) 4 Good Extension (C7) 4 Good Right Flexion (C6) 5 Normal Extension (C7) 5 Normal PT-OP-Q Treatments Start: 07/30/18 13:32 Freq: Status: Active Protocol: Document 09/07/18 15:57 EA (Rec: 09/07/18 16:01 EA [id number]) Cardio Equipment Upper Body Ergometer (UBE) Duration (Minutes) 6 Seat Position 12 Height 4.0 Other unable to tolerate more than 4 height Therapeutic Exercises Supine Exercises 3 Supine Exercise Name Multi-angle isomet Side left Resistance manual Reps/Minutes x 5SH x 5 reps each direction Comments Pain free range 2 Supine Exercise Name T-bars flexion, ABD, rotation, press Reps/Minutes x 12 reps each 1 Supine Exercise Name D1, D2 Resistance manual/mod intensity Reps/Minutes x 10 reps each x 2 sets T-bar Supine Exercise Name flexion, abduction, ER Side bilateral Reps/Minutes 5 each Comments 5 sec hold Sidelying Exercises 3 Sidelying Exercise Name scap retraction Reps/Minutes x 10 reps Comments AAROM 2 Sidelying Exercise Name ER Resistance gentle manual resistance Reps/Minutes x 15 reps 1 Sidelying Exercise Name shoulder abduction Reps/Minutes x 12 reps Comments AAROM, Isolate supra and deltoid only Manual Therapy Treatment Joint Mobilizations 1 Joint GH Direction Post/inf Grade II Body Position Supine Reps/Duration x 10 mins Manual Techniques 1 Type Gentle passive stretch: flexion/ABD/ER Reps/Duration x 20SH x 3 reps Comments PNF: Pain free range/prior to pain, increased ROM PT-OP-R Modalities Start: 07/30/18 13:32 Freq: Status: Active Protocol: Document 09/07/18 15:57 EA (Rec: 09/07/18 16:01 EA [id number]) Hot Pack/Cold Pack Treatment Cold Pack Location left shoulder Patient Position Hooklying Treatment Duration (minutes) 8 Patient Tolerance Good PT-OP-T Assessment and Plan Start: 07/30/18 13:32 Freq: Status: Active Protocol: Document 09/07/18 15:57 EA (Rec: 09/07/18 16:01 EA [id number]) Physical Therapy Assessment Assessment Summary Assessment Patient has improved AROM but very slight in strength. Physical Therapy Plan Next Visit Focus/Plan Next Note Type Treatment Note Next Visit Plan Increased PNF focus on ROM and strength
--- NOTE | 2018-09-09 15:53 | PT.OTN ---
Current Diagnoses Unspecified rotator cuff tear or rupture of left shoulder, not specified as traumatic (09/09/18) Physical Therapy Treatment Note PT-OP-A Visit Information Start: 07/30/18 13:32 Freq: Status: Active Protocol: Document 09/09/18 14:37 EA (Rec: 09/09/18 14:39 EA [id number]) Out-Patient Physical Therapy Visit Information Visit Information Visit Type Treatment Note Visit Start Time 14:30 Visit Stop Time 15:20 Total Visit Minutes 48 Visit Number 13 PT-OP-B Current Condition Start: 07/30/18 13:32 Freq: Status: Active Protocol: Document 07/30/18 12:00 RCC (Rec: 07/31/18 09:38 RCC [email or web address]) Current Condition History of Current Condition Onset Date December 2017 Current Complaints L shoulder weakness, impaired ROM, pain History of Current Condition Pt is an 83 y/o male presenting to physical therapy with a c/o L shoulder pain, weakness, and limited ROM. Pt sustained infraspinatus and supraspinatus tears /sp traumatic dislocation in December. He had arthroscopic surgery on 01/15/18 . MRI done in April of 2018 showed that the pt had full thickness tearing of supraspinatus and infraspinatus, as well as posterior labral tear. He was consulted for a TSA, but seeked a second opinion which suggested pain management and physical therapy. 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 He admits to being primarily a L sided sleeper until this L shoulder injury, now very uncomfortable sleeping on his back or his R side. Pt has not done any formal PT since re-tearing, but did participate in PT s/p rotator cuff surgery. He is R hand dominant. Prior Treatments and Tests MRI as noted above Treatment Goals Patient/Caregiver Goals improve ROM, strength, and decrease pain Current Functional Impairments (Reported) Functional Limitations- Other unable to perform any activities with arm away from body Personal Factors Other Personal Factors That May Effect blood condition which Therapy/Recovery requires annual follow up with oncology (denies any current CA of any kind, does have past h/o prostate CA 10 yrs ago), [place] 1992 PT-OP-C Subjective Start: 07/30/18 13:32 Freq: Status: Active Protocol: Document 09/09/18 14:37 EA (Rec: 09/09/18 14:39 EA [id number]) OP-PT Subjective Patient Comments Patient Comments Pt reports shoisaiahkder feeling muchj better but still weak and tight. PT-OP-F Manual Assessment Start: 07/30/18 13:32 Freq: Status: Active Protocol: Document 07/30/18 12:00 RCC (Rec: 07/31/18 15:47 RCC [email or web address]) Manual Assessments Soft Tissue Assessment Soft Tissue Mobility Assessment tenderness to palpation: L parascapular mm and posterior shoulder Joint Mobility Assessment Joint Mobility Assessment hypomobility: L shoulder with posterior and inferior glides PT-OP-K Range of Motion Start: 07/30/18 13:32 Freq: Status: Active Protocol: Document 07/30/18 12:00 RCC (Rec: 07/31/18 15:47 RCC [email or web address]) Shoulder Goniometric Range of Motion Shoulder Measured in Degrees Right Active Testing Position Supine Flexion 170 Abduction 165 External Rotation at 90 degrees 75 Abduction Internal Rotation 80 Left Passive Testing Position Supine Flexion 95 Abduction 85 External Rotation at 0 degrees Abduction 22 Left Active Testing Position Supine Flexion 20 Abduction 35 External Rotation at 0 degrees Abduction 16 Internal Rotation 65 PT-OP-L Special Tests Start: 07/30/18 13:32 Freq: Status: Active Protocol: Document 07/30/18 12:00 RCC (Rec: 07/31/18 15:47 RCC [email or web address]) Special Tests Shoulder Special Tests Apprehension Test Test Results negative Belly Press Test Results negative Lift-Off Rotator Cuff Test Results negative Load and Shift Test Results negative Other Special Tests Special Tests unable to assess further due to pain and limitations of ROM PT-OP-M Strength Start: 07/30/18 13:32 Freq: Status: Active Protocol: Document 07/30/18 12:00 RCC (Rec: 07/31/18 15:52 RCC [email or web address]) Shoulder Strength Shoulder Manual Muscle Testing Left Flexion 2- Poor- Abduction (C5) 2- Poor- External Rotation 3 Fair Internal Rotation 4 Good Right Flexion 5 Normal Adduction 5 Normal External Rotation 5 Normal Internal Rotation 5 Normal Elbow/Forearm Strength Elbow and Forearm Manual Muscle Testing Left Flexion (C6) 4 Good Extension (C7) 4 Good Right Flexion (C6) 5 Normal Extension (C7) 5 Normal PT-OP-Q Treatments Start: 07/30/18 13:32 Freq: Status: Active Protocol: Document 09/09/18 15:51 EA (Rec: 09/09/18 15:52 EA [id number]) Manual Therapy Treatment Soft Tissue Mobilization 2 Body Location Left mid lateral FRA Intensity/Depth Superficial Body Position Sitting Comments Effleurage to gentle kneading 1 Body Location left deltoid/scapular Mobilization Type Myofascial Release Rolling Sustained Pressure Body Position Supine Joint Mobilizations 1 Joint GH Direction Post/inf Grade II Body Position Supine Reps/Duration x 10 mins Manual Techniques 1 Type Gentle passive stretch: flexion/ABD/ER Reps/Duration x 20SH x 3 reps Comments PNF: Pain free range/prior to pain, increased ROM with manual resistance PT-OP-R Modalities Start: 07/30/18 13:32 Freq: Status: Active Protocol: Document 09/09/18 15:52 EA (Rec: 09/09/18 15:52 EA [id number]) Hot Pack/Cold Pack Treatment Hot Pack Location left shoulder Patient Position Hooklying Treatment Duration (minutes) 10 Patient Tolerance Good PT-OP-T Assessment and Plan Start: 07/30/18 13:32 Freq: Status: Active Protocol: Document 09/09/18 15:51 EA (Rec: 09/09/18 15:52 EA [id number]) Physical Therapy Assessment Assessment Summary Assessment Pt has improved strength noted with SL exercises. Pt is progressing well. Physical Therapy Plan Next Visit Focus/Plan Next Note Type Treatment Note
--- NOTE | 2018-09-16 13:06 | PT.OTN ---
Current Diagnoses Unspecified rotator cuff tear or rupture of left shoulder, not specified as traumatic (09/16/18) Physical Therapy Treatment Note PT-OP-A Visit Information Start: 07/30/18 13:32 Freq: Status: Active Protocol: Document 09/16/18 12:59 EA (Rec: 09/16/18 13:06 EA [id number]) Out-Patient Physical Therapy Visit Information Visit Information Visit Type Treatment Note Visit Start Time 12:15 Visit Stop Time 13:05 Total Visit Minutes 50 Visit Number 14 PT-OP-B Current Condition Start: 07/30/18 13:32 Freq: Status: Active Protocol: Document 07/30/18 12:00 RCC (Rec: 07/31/18 09:38 RCC [email or web address]) Current Condition History of Current Condition Onset Date December 2017 Current Complaints L shoulder weakness, impaired ROM, pain History of Current Condition Pt is an 83 y/o male presenting to physical therapy with a c/o L shoulder pain, weakness, and limited ROM. Pt sustained infraspinatus and supraspinatus tears /sp traumatic dislocation in December. He had arthroscopic surgery on 01/15/18 . MRI done in April of 2018 showed that the pt had full thickness tearing of supraspinatus and infraspinatus, as well as posterior labral tear. He was consulted for a TSA, but seeked a second opinion which suggested pain management and physical therapy. 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 He admits to being primarily a L sided sleeper until this L shoulder injury, now very uncomfortable sleeping on his back or his R side. Pt has not done any formal PT since re-tearing, but did participate in PT s/p rotator cuff surgery. He is R hand dominant. Prior Treatments and Tests MRI as noted above Treatment Goals Patient/Caregiver Goals improve ROM, strength, and decrease pain Current Functional Impairments (Reported) Functional Limitations- Other unable to perform any activities with arm away from body Personal Factors Other Personal Factors That May Effect blood condition which Therapy/Recovery requires annual follow up with oncology (denies any current CA of any kind, does have past h/o prostate CA 10 yrs ago), [place] 1992 PT-OP-C Subjective Start: 07/30/18 13:32 Freq: Status: Active Protocol: Document 09/16/18 12:59 EA (Rec: 09/16/18 13:06 EA [id number]) OP-PT Subjective Patient Comments Patient Comments States no pain but tight. Patient reports unable to remember sched last Friday. PT-OP-F Manual Assessment Start: 07/30/18 13:32 Freq: Status: Active Protocol: Document 07/30/18 12:00 RCC (Rec: 07/31/18 15:47 RCC [email or web address]) Manual Assessments Soft Tissue Assessment Soft Tissue Mobility Assessment tenderness to palpation: L parascapular mm and posterior shoulder Joint Mobility Assessment Joint Mobility Assessment hypomobility: L shoulder with posterior and inferior glides PT-OP-K Range of Motion Start: 07/30/18 13:32 Freq: Status: Active Protocol: Document 07/30/18 12:00 RCC (Rec: 07/31/18 15:47 RCC [email or web address]) Shoulder Goniometric Range of Motion Shoulder Measured in Degrees Right Active Testing Position Supine Flexion 170 Abduction 165 External Rotation at 90 degrees 75 Abduction Internal Rotation 80 Left Passive Testing Position Supine Flexion 95 Abduction 85 External Rotation at 0 degrees Abduction 22 Left Active Testing Position Supine Flexion 20 Abduction 35 External Rotation at 0 degrees Abduction 16 Internal Rotation 65 PT-OP-L Special Tests Start: 07/30/18 13:32 Freq: Status: Active Protocol: Document 07/30/18 12:00 RCC (Rec: 07/31/18 15:47 RCC [email or web address]) Special Tests Shoulder Special Tests Apprehension Test Test Results negative Belly Press Test Results negative Lift-Off Rotator Cuff Test Results negative Load and Shift Test Results negative Other Special Tests Special Tests unable to assess further due to pain and limitations of ROM PT-OP-M Strength Start: 07/30/18 13:32 Freq: Status: Active Protocol: Document 07/30/18 12:00 RCC (Rec: 07/31/18 15:52 RCC [email or web address]) Shoulder Strength Shoulder Manual Muscle Testing Left Flexion 2- Poor- Abduction (C5) 2- Poor- External Rotation 3 Fair Internal Rotation 4 Good Right Flexion 5 Normal Adduction 5 Normal External Rotation 5 Normal Internal Rotation 5 Normal Elbow/Forearm Strength Elbow and Forearm Manual Muscle Testing Left Flexion (C6) 4 Good Extension (C7) 4 Good Right Flexion (C6) 5 Normal Extension (C7) 5 Normal PT-OP-Q Treatments Start: 07/30/18 13:32 Freq: Status: Active Protocol: Document 09/16/18 12:59 EA (Rec: 09/16/18 13:06 EA [id number]) Cardio Equipment Upper Body Ergometer (UBE) Duration (Minutes) 6 Seat Position 12 Height 4.8 Other unable to tolerate more than 4 height Therapeutic Exercises Supine Exercises 3 Supine Exercise Name Multi-angle isomet Side left Resistance manual Reps/Minutes x 5SH x 5 reps each direction Comments Pain free range 2 Supine Exercise Name T-bars flexion, ABD, rotation, press Reps/Minutes x 12 reps each 1 Supine Exercise Name D1, D2 Resistance manual/mod intensity Reps/Minutes x 10 reps each x 2 sets T-bar Supine Exercise Name flexion, abduction, ER Side bilateral Reps/Minutes 5 each Comments 5 sec hold Sidelying Exercises 3 Sidelying Exercise Name scap retraction Reps/Minutes x 10 reps Comments AAROM 2 Sidelying Exercise Name ER Resistance gentle manual resistance Reps/Minutes x 15 reps 1 Sidelying Exercise Name shoulder abduction Reps/Minutes x 12 reps Comments AAROM, Isolate supra and deltoid only Standing Exercises 3 Standing Exercise Name Wall T-bar shoulder press Resistance 2 lbs Reps/Minutes x 10 reps x 2 Comments pain free range and no shoulder elevation 2 Standing Exercise Name T-bar shoulder ext Resistance 2lbs Reps/Minutes x 15 reps x 2 Manual Therapy Treatment Soft Tissue Mobilization 1 Body Location left deltoid/scapular Mobilization Type Myofascial Release Rolling Sustained Pressure Body Position Supine Joint Mobilizations 1 Joint GH Direction Post/inf Grade II Body Position Supine Reps/Duration x 10 mins Manual Techniques 1 Type Gentle passive stretch: flexion/ABD/ER Reps/Duration x 20SH x 3 reps Comments PNF: Pain free range/prior to pain, increased ROM with manual resistance PT-OP-R Modalities Start: 07/30/18 13:32 Freq: Status: Active Protocol: Document 09/16/18 12:59 EA (Rec: 09/16/18 13:06 EA [id number]) Hot Pack/Cold Pack Treatment Cold Pack Location left shoulder Patient Position Hooklying Treatment Duration (minutes) 10 Patient Tolerance Good PT-OP-T Assessment and Plan Start: 07/30/18 13:32 Freq: Status: Active Protocol: Document 04/03/19 12:59 EA (Rec: 09/16/18 13:06 EA [id number]) Physical Therapy Assessment Assessment Summary Assessment Much improved shoulder flexion/abduction noted after manual joint mobilization; muscle guarding cont. to show improvement. Physical Therapy Plan Next Visit Focus/Plan Next Note Type Treatment Note Next Visit Plan Cont joint mob and manual resistance exercises
--- NOTE | 2018-09-21 13:33 | PT.OTN ---
Current Diagnoses Unspecified rotator cuff tear or rupture of left shoulder, not specified as traumatic (09/21/18) Physical Therapy Treatment Note PT-OP-A Visit Information Start: 07/30/18 13:32 Freq: Status: Active Protocol: Document 09/21/18 13:25 EA (Rec: 09/21/18 13:33 EA [id number]) Out-Patient Physical Therapy Visit Information Visit Information Visit Type Treatment Note Visit Start Time 12:15 Visit Stop Time 13:05 Total Visit Minutes 49 Visit Number 15 PT-OP-B Current Condition Start: 07/30/18 13:32 Freq: Status: Active Protocol: Document 07/30/18 12:00 RCC (Rec: 07/31/18 09:38 RCC [email or web address]) Current Condition History of Current Condition Onset Date December 2017 Current Complaints L shoulder weakness, impaired ROM, pain History of Current Condition Pt is an 83 y/o male presenting to physical therapy with a c/o L shoulder pain, weakness, and limited ROM. Pt sustained infraspinatus and supraspinatus tears /sp traumatic dislocation in December. He had arthroscopic surgery on 01/15/18 . MRI done in April of 2018 showed that the pt had full thickness tearing of supraspinatus and infraspinatus, as well as posterior labral tear. He was consulted for a TSA, but seeked a second opinion which suggested pain management and physical therapy. 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 He admits to being primarily a L sided sleeper until this L shoulder injury, now very uncomfortable sleeping on his back or his R side. Pt has not done any formal PT since re-tearing, but did participate in PT s/p rotator cuff surgery. He is R hand dominant. Prior Treatments and Tests MRI as noted above Treatment Goals Patient/Caregiver Goals improve ROM, strength, and decrease pain Current Functional Impairments (Reported) Functional Limitations- Other unable to perform any activities with arm away from body Personal Factors Other Personal Factors That May Effect blood condition which Therapy/Recovery requires annual follow up with oncology (denies any current CA of any kind, does have past h/o prostate CA 10 yrs ago), [place] 1992 PT-OP-C Subjective Start: 07/30/18 13:32 Freq: Status: Active Protocol: Document 09/21/18 13:25 EA (Rec: 09/21/18 13:33 EA [id number]) OP-PT Subjective Patient Comments Patient Comments Pt reports compliant with HEP. PT-OP-F Manual Assessment Start: 07/30/18 13:32 Freq: Status: Active Protocol: Document 07/30/18 12:00 RCC (Rec: 07/31/18 15:47 RCC [email or web address]) Manual Assessments Soft Tissue Assessment Soft Tissue Mobility Assessment tenderness to palpation: L parascapular mm and posterior shoulder Joint Mobility Assessment Joint Mobility Assessment hypomobility: L shoulder with posterior and inferior glides PT-OP-K Range of Motion Start: 07/30/18 13:32 Freq: Status: Active Protocol: Document 07/30/18 12:00 RCC (Rec: 07/31/18 15:47 RCC [email or web address]) Shoulder Goniometric Range of Motion Shoulder Measured in Degrees Right Active Testing Position Supine Flexion 170 Abduction 165 External Rotation at 90 degrees 75 Abduction Internal Rotation 80 Left Passive Testing Position Supine Flexion 95 Abduction 85 External Rotation at 0 degrees Abduction 22 Left Active Testing Position Supine Flexion 20 Abduction 35 External Rotation at 0 degrees Abduction 16 Internal Rotation 65 PT-OP-L Special Tests Start: 07/30/18 13:32 Freq: Status: Active Protocol: Document 07/30/18 12:00 RCC (Rec: 07/31/18 15:47 RCC [email or web address]) Special Tests Shoulder Special Tests Apprehension Test Test Results negative Belly Press Test Results negative Lift-Off Rotator Cuff Test Results negative Load and Shift Test Results negative Other Special Tests Special Tests unable to assess further due to pain and limitations of ROM PT-OP-M Strength Start: 07/30/18 13:32 Freq: Status: Active Protocol: Document 07/30/18 12:00 RCC (Rec: 07/31/18 15:52 RCC [email or web address]) Shoulder Strength Shoulder Manual Muscle Testing Left Flexion 2- Poor- Abduction (C5) 2- Poor- External Rotation 3 Fair Internal Rotation 4 Good Right Flexion 5 Normal Adduction 5 Normal External Rotation 5 Normal Internal Rotation 5 Normal Elbow/Forearm Strength Elbow and Forearm Manual Muscle Testing Left Flexion (C6) 4 Good Extension (C7) 4 Good Right Flexion (C6) 5 Normal Extension (C7) 5 Normal PT-OP-Q Treatments Start: 02/14/19 13:32 Freq: Status: Active Protocol: Document 09/21/18 13:25 EA (Rec: 09/21/18 13:33 EA [id number]) Cardio Equipment Upper Body Ergometer (UBE) Duration (Minutes) 6 Seat Position 12 Height 4.8 Other unabel to tolerate > 4.8 height Gym Equipment Cable Column (Body Solid) Rows Resistance 20# Reps/Time x 15 reps Therapeutic Exercises Supine Exercises 3 Supine Exercise Name Multi-angle isomet Side left Resistance manual Reps/Minutes x 5SH x 5 reps each direction Comments Pain free range 2 Supine Exercise Name T-bars flexion, ABD, rotation, press Reps/Minutes x 12 reps each 1 Supine Exercise Name D1, D2 Resistance manual/mod intensity Reps/Minutes x 10 reps each x 2 sets T-bar Supine Exercise Name flexion, abduction, ER Side bilateral Reps/Minutes 5 each Comments 5 sec hold Sidelying Exercises 3 Sidelying Exercise Name scap retraction Reps/Minutes x 10 reps Comments AAROM 2 Sidelying Exercise Name ER Resistance gentle manual resistance Reps/Minutes x 15 reps 1 Sidelying Exercise Name shoulder abduction Reps/Minutes x 12 reps Comments AAROM, Isolate supra and deltoid only Sitting Exercises 1 Sitting Exercise Name Biceps flexion Resistance 4 lbs Reps/Minutes x15 reps Standing Exercises 2 Standing Exercise Name T-bar shoulder ext Resistance 2lbs Reps/Minutes x 15 reps x 2 1 Standing Exercise Name Pendulum: flex/Ext., clock and couter clock Reps/Minutes x 5 mins Manual Therapy Treatment Soft Tissue Mobilization 2 Body Location Left mid lateral FRA Intensity/Depth Superficial Body Position Sitting Comments Effleurage to gentle kneading Joint Mobilizations 1 Joint GH Direction Post/inf Grade II Body Position Supine Reps/Duration x 10 mins Manual Techniques 1 Type Gentle passive stretch: flexion/ABD/ER Reps/Duration x 20SH x 3 reps Comments PNF: Pain free range/prior to pain, increased ROM with manual resistance PT-OP-R Modalities Start: 07/30/18 13:32 Freq: Status: Active Protocol: Document 09/21/18 13:25 EA (Rec: 09/21/18 13:33 EA [id number]) Hot Pack/Cold Pack Treatment Cold Pack Location left shoulder Patient Position Hooklying Treatment Duration (minutes) 10 Patient Tolerance Good PT-OP-T Assessment and Plan Start: 07/30/18 13:32 Freq: Status: Active Protocol: Document 09/21/18 13:25 EA (Rec: 09/21/18 13:33 EA [email or web address]) Physical Therapy Assessment Assessment Summary Assessment Patient continued to showed ROM improvement but very slow strength. Advised patient to comply with HEP. Physical Therapy Plan Next Visit Focus/Plan Next Note Type Treatment Note Next Visit Plan Cont joint mob and manual resistance exercises
--- NOTE | 2018-09-23 15:38 | PT.OTN ---
Current Diagnoses Unspecified rotator cuff tear or rupture of left shoulder, not specified as traumatic (09/23/18) Physical Therapy Treatment Note PT-OP-A Visit Information Start: 07/30/18 13:32 Freq: Status: Active Protocol: Document 09/23/18 12:57 EA (Rec: 09/23/18 13:02 EA [id number]) Out-Patient Physical Therapy Visit Information Visit Information Visit Type Treatment Note Visit Start Time 12:15 Visit Stop Time 13:05 Total Visit Minutes 48 Visit Number 16 PT-OP-B Current Condition Start: 07/30/18 13:32 Freq: Status: Active Protocol: Document 07/30/18 12:00 RCC (Rec: 07/31/18 09:38 RCC [email or web address]) Current Condition History of Current Condition Onset Date December 2017 Current Complaints L shoulder weakness, impaired ROM, pain History of Current Condition Pt is an 83 y/o male presenting to physical therapy with a c/o L shoulder pain, weakness, and limited ROM. Pt sustained infraspinatus and supraspinatus tears /sp traumatic dislocation in December. He had arthroscopic surgery on 01/15/18 . MRI done in April of 2018 showed that the pt had full thickness tearing of supraspinatus and infraspinatus, as well as posterior labral tear. He was consulted for a TSA, but seeked a second opinion which suggested pain management and physical therapy. 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 He admits to being primarily a L sided sleeper until this L shoulder injury, now very uncomfortable sleeping on his back or his R side. Pt has not done any formal PT since re-tearing, but did participate in PT s/p rotator cuff surgery. He is R hand dominant. Prior Treatments and Tests MRI as noted above Treatment Goals Patient/Caregiver Goals improve ROM, strength, and decrease pain Current Functional Impairments (Reported) Functional Limitations- Other unable to perform any activities with arm away from body Personal Factors Other Personal Factors That May Effect blood condition which Therapy/Recovery requires annual follow up with oncology (denies any current CA of any kind, does have past h/o prostate CA 10 yrs ago), [place] 1992 PT-OP-C Subjective Start: 07/30/18 13:32 Freq: Status: Active Protocol: Document 09/23/18 12:57 EA (Rec: 09/23/18 13:02 EA [id number]) OP-PT Subjective Patient Comments Patient Comments Pt reports pain is getting less and less; states weakness still evident. PT-OP-F Manual Assessment Start: 07/30/18 13:32 Freq: Status: Active Protocol: Document 07/30/18 12:00 RCC (Rec: 07/31/18 15:47 RCC [email or web address]) Manual Assessments Soft Tissue Assessment Soft Tissue Mobility Assessment tenderness to palpation: L parascapular mm and posterior shoulder Joint Mobility Assessment Joint Mobility Assessment hypomobility: L shoulder with posterior and inferior glides PT-OP-K Range of Motion Start: 07/30/18 13:32 Freq: Status: Active Protocol: Document 07/30/18 12:00 RCC (Rec: 07/31/18 15:47 RCC [email or web address]) Shoulder Goniometric Range of Motion Shoulder Measured in Degrees Right Active Testing Position Supine Flexion 170 Abduction 165 External Rotation at 90 degrees 75 Abduction Internal Rotation 80 Left Passive Testing Position Supine Flexion 95 Abduction 85 External Rotation at 0 degrees Abduction 22 Left Active Testing Position Supine Flexion 20 Abduction 35 External Rotation at 0 degrees Abduction 16 Internal Rotation 65 PT-OP-L Special Tests Start: 07/30/18 13:32 Freq: Status: Active Protocol: Document 07/30/18 12:00 RCC (Rec: 07/31/18 15:47 RCC [email or web address]) Special Tests Shoulder Special Tests Apprehension Test Test Results negative Belly Press Test Results negative Lift-Off Rotator Cuff Test Results negative Load and Shift Test Results negative Other Special Tests Special Tests unable to assess further due to pain and limitations of ROM PT-OP-M Strength Start: 07/30/18 13:32 Freq: Status: Active Protocol: Document 07/30/18 12:00 RCC (Rec: 07/31/18 15:52 RCC [email or web address]) Shoulder Strength Shoulder Manual Muscle Testing Left Flexion 2- Poor- Abduction (C5) 2- Poor- External Rotation 3 Fair Internal Rotation 4 Good Right Flexion 5 Normal Adduction 5 Normal External Rotation 5 Normal Internal Rotation 5 Normal Elbow/Forearm Strength Elbow and Forearm Manual Muscle Testing Left Flexion (C6) 4 Good Extension (C7) 4 Good Right Flexion (C6) 5 Normal Extension (C7) 5 Normal PT-OP-Q Treatments Start: 07/30/18 13:32 Freq: Status: Active Protocol: Document 09/23/18 12:57 EA (Rec: 09/23/18 13:02 EA [id number]) Cardio Equipment Upper Body Ergometer (UBE) Duration (Minutes) 5 Seat Position 12 Height 4.8 Other unabel to tolerate > 4.8 height Gym Equipment Cable Column (Body Solid) Rows Resistance 20-30# Reps/Time x 15 repsx2 Therapeutic Exercises Supine Exercises 3 Supine Exercise Name Multi-angle isomet Side left Resistance manual Reps/Minutes x 5SH x 5 reps each direction Comments Pain free range 2 Supine Exercise Name T-bars flexion,rotation, press Resistance 2 lbs Reps/Minutes x 12 reps eachx2 1 Supine Exercise Name D1, D2 Resistance manual/mod intensity Reps/Minutes x 10 reps each x 2 sets T-bar Supine Exercise Name flexion, abduction, ER Side bilateral Reps/Minutes 5 each Comments 5 sec hold Sidelying Exercises 3 Sidelying Exercise Name scap retraction Reps/Minutes x 10 reps Comments AAROM 2 Sidelying Exercise Name ER Resistance gentle manual resistance Reps/Minutes x 15 reps 1 Sidelying Exercise Name shoulder abduction Reps/Minutes x 12 reps Comments AAROM, Isolate supra and deltoid only Standing Exercises 4 Standing Exercise Name Bod blade in low arm position Reps/Minutes x 3 mins 2 Standing Exercise Name T-bar shoulder ext Resistance 2lbs Reps/Minutes x 15 reps x 2 1 Standing Exercise Name Pendulum: flex/Ext., clock and couter clock Reps/Minutes x 5 mins Manual Therapy Treatment Joint Mobilizations 1 Joint GH Direction Post/inf Grade II Body Position Supine Reps/Duration x 10 mins Manual Techniques 1 Type Gentle passive stretch: flexion/ABD/ER Reps/Duration x 20SH x 3 reps Comments PNF: Pain free range/prior to pain, increased ROM with manual resistance PT-OP-R Modalities Start: 07/30/18 13:32 Freq: Status: Active Protocol: Document 09/23/18 12:57 EA (Rec: 09/23/18 13:02 EA [id number]) Hot Pack/Cold Pack Treatment Cold Pack Location left shoulder Patient Position Hooklying Treatment Duration (minutes) 10 Patient Tolerance Good PT-OP-T Assessment and Plan Start: 07/30/18 13:32 Freq: Status: Active Protocol: Document 09/23/18 12:57 EA (Rec: 09/23/18 13:02 EA [id number]) Physical Therapy Assessment Assessment Summary Assessment Improved PNF control; patient is low progressing; however, abduction still weak at this time. Physical Therapy Plan Next Visit Focus/Plan Next Note Type Treatment Note Next Visit Plan Cont joint mob and manual resistance exercises
--- NOTE | 2018-09-28 14:06 | PT.OTN ---
Current Diagnoses Unspecified rotator cuff tear or rupture of left shoulder, not specified as traumatic (09/28/18) Physical Therapy Treatment Note PT-OP-A Visit Information Start: 07/30/18 13:32 Freq: Status: Active Protocol: Document 09/28/18 13:00 EA (Rec: 09/28/18 13:45 EA [id number]) Out-Patient Physical Therapy Visit Information Visit Information Visit Type Treatment Note Visit Start Time 12:15 Visit Stop Time 13:05 Total Visit Minutes 48 Visit Number 17 PT-OP-B Current Condition Start: 07/30/18 13:32 Freq: Status: Active Protocol: Document 07/30/18 12:00 RCC (Rec: 07/31/18 09:38 RCC [email or web address]) Current Condition History of Current Condition Onset Date December 2017 Current Complaints L shoulder weakness, impaired ROM, pain History of Current Condition Pt is an 83 y/o male presenting to physical therapy with a c/o L shoulder pain, weakness, and limited ROM. Pt sustained infraspinatus and supraspinatus tears /sp traumatic dislocation in December. He had arthroscopic surgery on 01/15/18 . MRI done in April of 2018 showed that the pt had full thickness tearing of supraspinatus and infraspinatus, as well as posterior labral tear. He was consulted for a TSA, but seeked a second opinion which suggested pain management and physical therapy. 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 He admits to being primarily a L sided sleeper until this L shoulder injury, now very uncomfortable sleeping on his back or his R side. Pt has not done any formal PT since re-tearing, but did participate in PT s/p rotator cuff surgery. He is R hand dominant. Prior Treatments and Tests MRI as noted above Treatment Goals Patient/Caregiver Goals improve ROM, strength, and decrease pain Current Functional Impairments (Reported) Functional Limitations- Other unable to perform any activities with arm away from body Personal Factors Other Personal Factors That May Effect blood condition which Therapy/Recovery requires annual follow up with oncology (denies any current CA of any kind, does have past h/o prostate CA 10 yrs ago), [place] 1992 PT-OP-C Subjective Start: 07/30/18 13:32 Freq: Status: Active Protocol: Document 09/28/18 13:00 EA (Rec: 09/28/18 13:45 EA [id number]) OP-PT Subjective Patient Comments Patient Comments Pt reports compliant with HEP; states he feels improving. PT-OP-F Manual Assessment Start: 07/30/18 13:32 Freq: Status: Active Protocol: Document 07/30/18 12:00 RCC (Rec: 07/31/18 15:47 RCC [email or web address]) Manual Assessments Soft Tissue Assessment Soft Tissue Mobility Assessment tenderness to palpation: L parascapular mm and posterior shoulder Joint Mobility Assessment Joint Mobility Assessment hypomobility: L shoulder with posterior and inferior glides PT-OP-K Range of Motion Start: 07/30/18 13:32 Freq: Status: Active Protocol: Document 07/30/18 12:00 RCC (Rec: 07/31/18 15:47 RCC [email or web address]) Shoulder Goniometric Range of Motion Shoulder Measured in Degrees Right Active Testing Position Supine Flexion 170 Abduction 165 External Rotation at 90 degrees 75 Abduction Internal Rotation 80 Left Passive Testing Position Supine Flexion 95 Abduction 85 External Rotation at 0 degrees Abduction 22 Left Active Testing Position Supine Flexion 20 Abduction 35 External Rotation at 0 degrees Abduction 16 Internal Rotation 65 PT-OP-L Special Tests Start: 07/30/18 13:32 Freq: Status: Active Protocol: Document 07/30/18 12:00 RCC (Rec: 07/31/18 15:47 RCC [email or web address]) Special Tests Shoulder Special Tests Apprehension Test Test Results negative Belly Press Test Results negative Lift-Off Rotator Cuff Test Results negative Load and Shift Test Results negative Other Special Tests Special Tests unable to assess further due to pain and limitations of ROM PT-OP-M Strength Start: 07/30/18 13:32 Freq: Status: Active Protocol: Document 07/30/18 12:00 RCC (Rec: 07/31/18 15:52 RCC [email or web address]) Shoulder Strength Shoulder Manual Muscle Testing Left Flexion 2- Poor- Abduction (C5) 2- Poor- External Rotation 3 Fair Internal Rotation 4 Good Right Flexion 5 Normal Adduction 5 Normal External Rotation 5 Normal Internal Rotation 5 Normal Elbow/Forearm Strength Elbow and Forearm Manual Muscle Testing Left Flexion (C6) 4 Good Extension (C7) 4 Good Right Flexion (C6) 5 Normal Extension (C7) 5 Normal PT-OP-Q Treatments Start: 07/30/18 13:32 Freq: Status: Active Protocol: Document 09/28/18 13:00 EA (Rec: 09/28/18 13:45 EA [id number]) Cardio Equipment Upper Body Ergometer (UBE) Duration (Minutes) 5 Seat Position 12 Height 5.5 Gym Equipment Cable Column (Body Solid) Rows Resistance 20-30# Reps/Time x 15 repsx2 Therapeutic Exercises Supine Exercises 3 Supine Exercise Name Multi-angle isomet Side left Resistance manual Reps/Minutes x 5SH x 5 reps each direction Comments HOBelev at 45 deg 2 Comments HOB elev at 45 deg 1 Supine Exercise Name D1, D2 Resistance manual/mod intensity Reps/Minutes x 10 reps each x 2 sets Comments HEB elev 45deg T-bar Supine Exercise Name flexion, abduction, ER Side bilateral Reps/Minutes 5 each Comments 5 sec hold Sidelying Exercises 3 Sidelying Exercise Name scap retraction Reps/Minutes x 10 reps Comments AAROM 2 Sidelying Exercise Name ER Resistance gentle manual resistance Reps/Minutes x 15 reps 1 Sidelying Exercise Name shoulder abduction Reps/Minutes x 12 reps Comments AAROM, Isolate supra and deltoid only Sitting Exercises 1 Sitting Exercise Name Biceps flexion Resistance 4-7 lbs Reps/Minutes x10 reps x 2 Standing Exercises 4 Standing Exercise Name Bod blade in low arm position Reps/Minutes x 3 mins 2 Standing Exercise Name T-bar shoulder ext Resistance 4lbs Reps/Minutes x 15 reps x 2 1 Standing Exercise Name Pendulum: flex/Ext., clock and couter clock Reps/Minutes x 5 mins Manual Therapy Treatment Joint Mobilizations 1 Joint GH Direction Post/inf Grade II Body Position Supine Reps/Duration x 10 mins Manual Techniques 1 Type Gentle passive stretch: flexion/ABD/ER Reps/Duration x 20SH x 3 reps Comments PNF: Pain free range/prior to pain, increased ROM with manual resistance PT-OP-R Modalities Start: 07/30/18 13:32 Freq: Status: Active Protocol: Document 09/28/18 13:46 EA (Rec: 09/28/18 13:46 EA [id number]) Hot Pack/Cold Pack Treatment Cold Pack Location left shoulder Patient Position Hooklying Treatment Duration (minutes) 10 Patient Tolerance Good PT-OP-T Assessment and Plan Start: 07/30/18 13:32 Freq: Status: Active Protocol: Document 09/28/18 13:00 EA (Rec: 09/28/18 13:45 EA [id number]) Physical Therapy Assessment Assessment Summary Assessment Pt exhibit AROm shoulder flexion to 0-60 deg which a great improvement at this time . Eng range stretch is much tolerable at this time. Patient is progress well. Physical Therapy Plan Next Visit Focus/Plan Next Note Type Treatment Note Next Visit Plan Cont joint mob and manual resistance exercises. Slowly elev HOB in supine exercises.
--- NOTE | 2018-09-30 14:31 | PT.OTN ---
Current Diagnoses Unspecified rotator cuff tear or rupture of left shoulder, not specified as traumatic (09/30/18) Physical Therapy Treatment Note PT-OP-A Visit Information Start: 07/30/18 13:32 Freq: Status: Active Protocol: Document 09/30/18 13:42 EA (Rec: 09/30/18 13:46 EA [id number]) Out-Patient Physical Therapy Visit Information Visit Information Visit Type Treatment Note Visit Start Time 12:15 Visit Stop Time 13:05 Total Visit Minutes 50 Visit Number 18 PT-OP-B Current Condition Start: 07/30/18 13:32 Freq: Status: Active Protocol: Document 07/30/18 12:00 RCC (Rec: 07/31/18 09:38 RCC [email or web address]) Current Condition History of Current Condition Onset Date December 2017 Current Complaints L shoulder weakness, impaired ROM, pain History of Current Condition Pt is an 83 y/o male presenting to physical therapy with a c/o L shoulder pain, weakness, and limited ROM. Pt sustained infraspinatus and supraspinatus tears /sp traumatic dislocation in December. He had arthroscopic surgery on 01/15/18 . MRI done in April of 2018 showed that the pt had full thickness tearing of supraspinatus and infraspinatus, as well as posterior labral tear. He was consulted for a TSA, but seeked a second opinion which suggested pain management and physical therapy. 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 He admits to being primarily a L sided sleeper until this L shoulder injury, now very uncomfortable sleeping on his back or his R side. Pt has not done any formal PT since re-tearing, but did participate in PT s/p rotator cuff surgery. He is R hand dominant. Prior Treatments and Tests MRI as noted above Treatment Goals Patient/Caregiver Goals improve ROM, strength, and decrease pain Current Functional Impairments (Reported) Functional Limitations- Other unable to perform any activities with arm away from body Personal Factors Other Personal Factors That May Effect blood condition which Therapy/Recovery requires annual follow up with oncology (denies any current CA of any kind, does have past h/o prostate CA 10 yrs ago), [place] 1992 PT-OP-C Subjective Start: 07/30/18 13:32 Freq: Status: Active Protocol: Document 09/30/18 13:42 EA (Rec: 09/30/18 13:46 EA [id number]) OP-PT Subjective Patient Comments Patient Comments Pt denies pain but mostly weakness and stiffness. PT-OP-F Manual Assessment Start: 07/30/18 13:32 Freq: Status: Active Protocol: Document 07/30/18 12:00 RCC (Rec: 07/31/18 15:47 RCC [email or web address]) Manual Assessments Soft Tissue Assessment Soft Tissue Mobility Assessment tenderness to palpation: L parascapular mm and posterior shoulder Joint Mobility Assessment Joint Mobility Assessment hypomobility: L shoulder with posterior and inferior glides PT-OP-K Range of Motion Start: 07/30/18 13:32 Freq: Status: Active Protocol: Document 07/30/18 12:00 RCC (Rec: 07/31/18 15:47 RCC [email or web address]) Shoulder Goniometric Range of Motion Shoulder Measured in Degrees Right Active Testing Position Supine Flexion 170 Abduction 165 External Rotation at 90 degrees 75 Abduction Internal Rotation 80 Left Passive Testing Position Supine Flexion 95 Abduction 85 External Rotation at 0 degrees Abduction 22 Left Active Testing Position Supine Flexion 20 Abduction 35 External Rotation at 0 degrees Abduction 16 Internal Rotation 65 PT-OP-L Special Tests Start: 07/30/18 13:32 Freq: Status: Active Protocol: Document 07/30/18 12:00 RCC (Rec: 07/31/18 15:47 RCC [email or web address]) Special Tests Shoulder Special Tests Apprehension Test Test Results negative Belly Press Test Results negative Lift-Off Rotator Cuff Test Results negative Load and Shift Test Results negative Other Special Tests Special Tests unable to assess further due to pain and limitations of ROM PT-OP-M Strength Start: 07/30/18 13:32 Freq: Status: Active Protocol: Document 07/30/18 12:00 RCC (Rec: 07/31/18 15:52 RCC [email or web address]) Shoulder Strength Shoulder Manual Muscle Testing Left Flexion 2- Poor- Abduction (C5) 2- Poor- External Rotation 3 Fair Internal Rotation 4 Good Right Flexion 5 Normal Adduction 5 Normal External Rotation 5 Normal Internal Rotation 5 Normal Elbow/Forearm Strength Elbow and Forearm Manual Muscle Testing Left Flexion (C6) 4 Good Extension (C7) 4 Good Right Flexion (C6) 5 Normal Extension (C7) 5 Normal PT-OP-Q Treatments Start: 07/30/18 13:32 Freq: Status: Active Protocol: Document 09/30/18 13:42 EA (Rec: 09/30/18 13:46 EA [id number]) Cardio Equipment Upper Body Ergometer (UBE) Duration (Minutes) 5 Seat Position 12 Height 4 Other unable to tolerate > 4 height Gym Equipment Cable Column (Body Solid) Rows Resistance 20-30# Reps/Time x 15 repsx2 Therapeutic Exercises Supine Exercises 3 Supine Exercise Name Multi-angle triceps press Side left Resistance 2-4 lbs Reps/Minutes x 5SH x 5 reps each direction Comments HOBelev at 45 deg 2 Supine Exercise Name T-bars flexion,rotation, press Resistance 2 lbs Reps/Minutes x 12 reps eachx2 1 Supine Exercise Name D1, D2 Resistance manual/mod intensity Reps/Minutes x 10 reps each x 2 sets Comments HEB elev 45deg T-bar Supine Exercise Name flexion, abduction, ER Side bilateral Reps/Minutes 5 each Comments 5 sec hold Sidelying Exercises 3 Sidelying Exercise Name scap retraction Reps/Minutes x 10 reps Comments AAROM 2 Sidelying Exercise Name ER Resistance gentle manual resistance Reps/Minutes x 15 reps 1 Sidelying Exercise Name shoulder abduction Reps/Minutes x 12 reps Comments AAROM, Isolate supra and deltoid only Standing Exercises 4 Standing Exercise Name Bod blade in low arm position Reps/Minutes x 3 mins 2 Standing Exercise Name T-bar shoulder ext Resistance 4lbs Reps/Minutes x 15 reps x 2 1 Standing Exercise Name Pendulum: flex/Ext., clock and couter clock Reps/Minutes x 5 mins Manual Therapy Treatment Joint Mobilizations 1 Joint GH Direction Post/inf Grade II Body Position Supine Reps/Duration x 10 mins Manual Techniques 1 Type Gentle passive stretch: flexion/ABD/ER Reps/Duration x 20SH x 3 reps Comments PNF: Pain free range/prior to pain, increased ROM with manual resistance PT-OP-R Modalities Start: 07/30/18 13:32 Freq: Status: Active Protocol: Document 09/28/18 13:46 EA (Rec: 09/28/18 13:46 EA [id number]) Hot Pack/Cold Pack Treatment Cold Pack Location left shoulder Patient Position Hooklying Treatment Duration (minutes) 10 Patient Tolerance Good PT-OP-T Assessment and Plan Start: 07/30/18 13:32 Freq: Status: Active Protocol: Document 09/30/18 13:42 EA (Rec: 09/30/18 13:46 EA [id number]) Physical Therapy Assessment Assessment Summary Assessment Improved strength at this time with good stability. Physical Therapy Plan Next Visit Focus/Plan Next Note Type Treatment Note Next Visit Plan Cont joint mob and manual resistance exercises. Slowly elev HOB in supine exercises.
--- NOTE | 2018-10-05 13:08 | PT.OTN ---
Current Diagnoses Unspecified rotator cuff tear or rupture of left shoulder, not specified as traumatic (10/05/18) Physical Therapy Treatment Note PT-OP-A Visit Information Start: 07/30/18 13:32 Freq: Status: Active Protocol: Document 10/05/18 12:59 EA (Rec: 10/05/18 13:06 EA [id number]) Out-Patient Physical Therapy Visit Information Visit Information Visit Type Treatment Note Visit Start Time 12:15 Visit Stop Time 13:05 Total Visit Minutes 48 Visit Number 19 PT-OP-B Current Condition Start: 07/30/18 13:32 Freq: Status: Active Protocol: Document 07/30/18 12:00 RCC (Rec: 07/31/18 09:38 RCC [email or web address]) Current Condition History of Current Condition Onset Date December 2017 Current Complaints L shoulder weakness, impaired ROM, pain History of Current Condition Pt is an 83 y/o male presenting to physical therapy with a c/o L shoulder pain, weakness, and limited ROM. Pt sustained infraspinatus and supraspinatus tears /sp traumatic dislocation in December. He had arthroscopic surgery on 01/15/18 . MRI done in April of 2018 showed that the pt had full thickness tearing of supraspinatus and infraspinatus, as well as posterior labral tear. He was consulted for a TSA, but seeked a second opinion which suggested pain management and physical therapy. 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 He admits to being primarily a L sided sleeper until this L shoulder injury, now very uncomfortable sleeping on his back or his R side. Pt has not done any formal PT since re-tearing, but did participate in PT s/p rotator cuff surgery. He is R hand dominant. Prior Treatments and Tests MRI as noted above Treatment Goals Patient/Caregiver Goals improve ROM, strength, and decrease pain Current Functional Impairments (Reported) Functional Limitations- Other unable to perform any activities with arm away from body Personal Factors Other Personal Factors That May Effect blood condition which Therapy/Recovery requires annual follow up with oncology (denies any current CA of any kind, does have past h/o prostate CA 10 yrs ago), [place] 1992 PT-OP-C Subjective Start: 07/30/18 13:32 Freq: Status: Active Protocol: Document 10/05/18 12:59 EA (Rec: 10/05/18 13:06 EA [id number]) OP-PT Subjective Patient Comments Patient Comments Pt reports compliant with HEP. PT-OP-F Manual Assessment Start: 07/30/18 13:32 Freq: Status: Active Protocol: Document 07/30/18 12:00 RCC (Rec: 07/31/18 15:47 RCC [email or web address]) Manual Assessments Soft Tissue Assessment Soft Tissue Mobility Assessment tenderness to palpation: L parascapular mm and posterior shoulder Joint Mobility Assessment Joint Mobility Assessment hypomobility: L shoulder with posterior and inferior glides PT-OP-K Range of Motion Start: 07/30/18 13:32 Freq: Status: Active Protocol: Document 07/30/18 12:00 RCC (Rec: 07/31/18 15:47 RCC [email or web address]) Shoulder Goniometric Range of Motion Shoulder Measured in Degrees Right Active Testing Position Supine Flexion 170 Abduction 165 External Rotation at 90 degrees 75 Abduction Internal Rotation 80 Left Passive Testing Position Supine Flexion 95 Abduction 85 External Rotation at 0 degrees Abduction 22 Left Active Testing Position Supine Flexion 20 Abduction 35 External Rotation at 0 degrees Abduction 16 Internal Rotation 65 PT-OP-L Special Tests Start: 07/30/18 13:32 Freq: Status: Active Protocol: Document 07/30/18 12:00 RCC (Rec: 07/31/18 15:47 RCC [email or web address]) Special Tests Shoulder Special Tests Apprehension Test Test Results negative Belly Press Test Results negative Lift-Off Rotator Cuff Test Results negative Load and Shift Test Results negative Other Special Tests Special Tests unable to assess further due to pain and limitations of ROM PT-OP-M Strength Start: 07/30/18 13:32 Freq: Status: Active Protocol: Document 07/30/18 12:00 RCC (Rec: 07/31/18 15:52 RCC [email or web address]) Shoulder Strength Shoulder Manual Muscle Testing Left Flexion 2- Poor- Abduction (C5) 2- Poor- External Rotation 3 Fair Internal Rotation 4 Good Right Flexion 5 Normal Adduction 5 Normal External Rotation 5 Normal Internal Rotation 5 Normal Elbow/Forearm Strength Elbow and Forearm Manual Muscle Testing Left Flexion (C6) 4 Good Extension (C7) 4 Good Right Flexion (C6) 5 Normal Extension (C7) 5 Normal PT-OP-Q Treatments Start: 07/30/18 13:32 Freq: Status: Active Protocol: Document 10/05/18 12:59 EA (Rec: 10/05/18 13:06 EA [id number]) Cardio Equipment Upper Body Ergometer (UBE) Duration (Minutes) 5 Seat Position 12 Height 4 Other Fwd/Bwd Gym Equipment Cable Column (Body Solid) Rows Details Stab shoulder blade Resistance 20-30# Reps/Time x 15 repsx2 Therapeutic Exercises Supine Exercises 3 Supine Exercise Name Multi-angle triceps press Side left Resistance 2-4 lbs Reps/Minutes x 5SH x 5 reps each direction Comments HOBelev at 45 deg 2 Supine Exercise Name T-bars flexion,rotation, press Resistance 2 lbs Reps/Minutes x 12 reps eachx2 1 Supine Exercise Name D1, D2 Resistance manual/mod intensity Reps/Minutes x 10 reps each x 2 sets Comments HEB elev 45deg Sidelying Exercises 3 Sidelying Exercise Name scap retraction Reps/Minutes x 10 reps Comments AAROM 2 Sidelying Exercise Name ER Resistance gentle manual resistance Reps/Minutes x 15 reps 1 Sidelying Exercise Name shoulder abduction Reps/Minutes x 12 reps Comments AAROM, Isolate supra and deltoid only Sitting Exercises 1 Sitting Exercise Name chest level table cone stocking: multi angle Reps/Minutes X 12 cones x 4 rounds Comments AAROM Standing Exercises 4 Standing Exercise Name Body blade in low arm position Reps/Minutes x 3 mins 2 Standing Exercise Name T-bar shoulder ext Resistance 4-5lbs Reps/Minutes x 15 reps x 2 Manual Therapy Treatment Joint Mobilizations 1 Joint GH Direction Post/inf Grade II Body Position Supine Reps/Duration x 10 mins Manual Techniques 2 Type Multi angle isometrics: shoulder flexors/abd/ER/IR, Horiz ABD/ADD Reps/Duration x 3SH x 4 reps each 1 Type Gentle passive stretch: flexion/ABD/ER Reps/Duration x 20SH x 3 reps Comments PNF: Pain free range/prior to pain, increased ROM with manual resistance PT-OP-R Modalities Start: 07/30/18 13:32 Freq: Status: Active Protocol: Document 10/05/18 13:07 EA (Rec: 10/05/18 13:07 EA [id number]) Hot Pack/Cold Pack Treatment Cold Pack Location left shoulder Patient Position Hooklying Treatment Duration (minutes) 10 Patient Tolerance Good PT-OP-T Assessment and Plan Start: 07/30/18 13:32 Freq: Status: Active Protocol: Document 10/05/18 12:59 EA (Rec: 10/05/18 13:06 EA [id number]) Physical Therapy Assessment Assessment Summary Assessment Improved functional cone exercises but requires rests once fatigue. Physical Therapy Plan Next Visit Focus/Plan Next Note Type Treatment Note Next Visit Plan Cont joint mob and manual resistance exercises. Cont. Cone/functional exercises
--- NOTE | 2018-10-07 13:20 | PT.OTN ---
Current Diagnoses Unspecified rotator cuff tear or rupture of left shoulder, not specified as traumatic (10/07/18) Physical Therapy Treatment Note PT-OP-A Visit Information Start: 07/30/18 13:32 Freq: Status: Active Protocol: Document 10/07/18 13:12 EA (Rec: 10/07/18 13:19 EA [id number]) Out-Patient Physical Therapy Visit Information Visit Information Visit Type Treatment Note Visit Start Time 12:15 Visit Stop Time 13:05 Total Visit Minutes 50 Visit Number 20 PT-OP-B Current Condition Start: 07/30/18 13:32 Freq: Status: Active Protocol: Document 07/30/18 12:00 RCC (Rec: 07/31/18 09:38 RCC [email or web address]) Current Condition History of Current Condition Onset Date December 2017 Current Complaints L shoulder weakness, impaired ROM, pain History of Current Condition Pt is an 83 y/o male presenting to physical therapy with a c/o L shoulder pain, weakness, and limited ROM. Pt sustained infraspinatus and supraspinatus tears /sp traumatic dislocation in December. He had arthroscopic surgery on 01/15/18 . MRI done in April of 2018 showed that the pt had full thickness tearing of supraspinatus and infraspinatus, as well as posterior labral tear. He was consulted for a TSA, but seeked a second opinion which suggested pain management and physical therapy. 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 He admits to being primarily a L sided sleeper until this L shoulder injury, now very uncomfortable sleeping on his back or his R side. Pt has not done any formal PT since re-tearing, but did participate in PT s/p rotator cuff surgery. He is R hand dominant. Prior Treatments and Tests MRI as noted above Treatment Goals Patient/Caregiver Goals improve ROM, strength, and decrease pain Current Functional Impairments (Reported) Functional Limitations- Other unable to perform any activities with arm away from body Personal Factors Other Personal Factors That May Effect blood condition which Therapy/Recovery requires annual follow up with oncology (denies any current CA of any kind, does have past h/o prostate CA 10 yrs ago), [place] 1992 PT-OP-C Subjective Start: 07/30/18 13:32 Freq: Status: Active Protocol: Document 10/07/18 13:12 EA (Rec: 10/07/18 13:19 EA [id number]) OP-PT Subjective Patient Comments Patient Comments I have been doing my home exercises regularly. PT-OP-F Manual Assessment Start: 07/30/18 13:32 Freq: Status: Active Protocol: Document 07/30/18 12:00 RCC (Rec: 07/31/18 15:47 RCC [email or web address]) Manual Assessments Soft Tissue Assessment Soft Tissue Mobility Assessment tenderness to palpation: L parascapular mm and posterior shoulder Joint Mobility Assessment Joint Mobility Assessment hypomobility: L shoulder with posterior and inferior glides PT-OP-K Range of Motion Start: 07/30/18 13:32 Freq: Status: Active Protocol: Document 07/30/18 12:00 RCC (Rec: 07/31/18 15:47 RCC [email or web address]) Shoulder Goniometric Range of Motion Shoulder Measured in Degrees Right Active Testing Position Supine Flexion 170 Abduction 165 External Rotation at 90 degrees 75 Abduction Internal Rotation 80 Left Passive Testing Position Supine Flexion 95 Abduction 85 External Rotation at 0 degrees Abduction 22 Left Active Testing Position Supine Flexion 20 Abduction 35 External Rotation at 0 degrees Abduction 16 Internal Rotation 65 PT-OP-L Special Tests Start: 07/30/18 13:32 Freq: Status: Active Protocol: Document 07/30/18 12:00 RCC (Rec: 07/31/18 15:47 RCC [email or web address]) Special Tests Shoulder Special Tests Apprehension Test Test Results negative Belly Press Test Results negative Lift-Off Rotator Cuff Test Results negative Load and Shift Test Results negative Other Special Tests Special Tests unable to assess further due to pain and limitations of ROM PT-OP-M Strength Start: 07/30/18 13:32 Freq: Status: Active Protocol: Document 07/30/18 12:00 RCC (Rec: 07/31/18 15:52 RCC [email or web address]) Shoulder Strength Shoulder Manual Muscle Testing Left Flexion 2- Poor- Abduction (C5) 2- Poor- External Rotation 3 Fair Internal Rotation 4 Good Right Flexion 5 Normal Adduction 5 Normal External Rotation 5 Normal Internal Rotation 5 Normal Elbow/Forearm Strength Elbow and Forearm Manual Muscle Testing Left Flexion (C6) 4 Good Extension (C7) 4 Good Right Flexion (C6) 5 Normal Extension (C7) 5 Normal PT-OP-Q Treatments Start: 07/30/18 13:32 Freq: Status: Active Protocol: Document 10/07/18 13:12 EA (Rec: 10/07/18 13:19 EA [id number]) Cardio Equipment Upper Body Ergometer (UBE) Duration (Minutes) 5 Seat Position 12 Height 4 Other Fwd/Bwd Gym Equipment Cable Column (Body Solid) Other- 1 Details cable tri-press Resistance 10# Reps/Time x12 reps x 2 Rows Details Stab shoulder blade Resistance 20-30# Reps/Time x 15 repsx2 Therapeutic Exercises Supine Exercises 2 Supine Exercise Name T-bars flexion,rotation, press Resistance 2 lbs Reps/Minutes x 12 reps eachx2 1 Supine Exercise Name D1, D2 Resistance manual/mod intensity Reps/Minutes x 10 reps each x 2 sets Comments HEB elev 45deg Sidelying Exercises 4 Sidelying Exercise Name Horiz ABD at 45-90 deg keely Equipment Used x 10 reps Comments AAROM/ Hold 3 Sidelying Exercise Name scap retraction Reps/Minutes x 10 reps Comments AAROM 2 Sidelying Exercise Name ER Resistance gentle manual resistance Reps/Minutes x 15 reps 1 Sidelying Exercise Name shoulder abduction Reps/Minutes x 12 reps Comments AAROM, Isolate supra and deltoid only Sitting Exercises 1 Sitting Exercise Name chest level table cone stocking: multi angle Reps/Minutes X 12 cones x 4 rounds Comments AAROM scapular retraction Sitting Exercise Name Biceps curl Resistance 3-6 lbs Reps/Minutes x 10 x 3 sets Standing Exercises 4 Standing Exercise Name Body blade in low /mid arm position Reps/Minutes x 3 mins 2 Standing Exercise Name T-bar shoulder ext Resistance 4-5lbs Reps/Minutes x 15 reps x 2 Manual Therapy Treatment Manual Techniques 2 Type Multi angle isometrics: shoulder flexors/abd/ER/IR, Horiz ABD/ADD Reps/Duration x 3SH x 4 reps each 1 Type Gentle passive stretch: flexion/ABD/ER Reps/Duration x 20SH x 3 reps Comments PNF: Pain free range/prior to pain, increased ROM with manual resistance PT-OP-R Modalities Start: 07/30/18 13:32 Freq: Status: Active Protocol: Document 10/07/18 13:19 EA (Rec: 10/07/18 13:20 EA [id number]) Hot Pack/Cold Pack Treatment Cold Pack Location left shoulder Patient Position Hooklying Treatment Duration (minutes) 10 Patient Tolerance Good PT-OP-T Assessment and Plan Start: 07/30/18 13:32 Freq: Status: Active Protocol: Document 10/07/18 13:12 EA (Rec: 10/07/18 13:19 EA [id number]) Physical Therapy Assessment Assessment Summary Assessment Pt tolerated treatment; noted isolated muscle fatigue with repetitions. Patient cont. to show functional shoulder mobility improvement. Physical Therapy Plan Next Visit Focus/Plan Next Note Type Treatment Note Next Visit Plan Cont joint mob and manual resistance exercises. Cont. Cone/functional exercises
--- NOTE | 2018-10-12 13:07 | PT.OTN ---
Current Diagnoses Unspecified rotator cuff tear or rupture of left shoulder, not specified as traumatic (10/12/18) Physical Therapy Treatment Note PT-OP-A Visit Information Start: 07/30/18 13:32 Freq: Status: Active Protocol: Document 10/12/18 12:23 EA (Rec: 10/12/18 12:25 EA [id number]) Out-Patient Physical Therapy Visit Information Visit Information Visit Type Treatment Note Visit Start Time 12:15 Visit Stop Time 13:00 Total Visit Minutes 37 Visit Number 21 PT-OP-B Current Condition Start: 07/30/18 13:32 Freq: Status: Active Protocol: Document 07/30/18 12:00 RCC (Rec: 07/31/18 09:38 RCC [email or web address]) Current Condition History of Current Condition Onset Date December 2017 Current Complaints L shoulder weakness, impaired ROM, pain History of Current Condition Pt is an 83 y/o male presenting to physical therapy with a c/o L shoulder pain, weakness, and limited ROM. Pt sustained infraspinatus and supraspinatus tears /sp traumatic dislocation in December. He had arthroscopic surgery on 01/15/18 . MRI done in April of 2018 showed that the pt had full thickness tearing of supraspinatus and infraspinatus, as well as posterior labral tear. He was consulted for a TSA, but seeked a second opinion which suggested pain management and physical therapy. 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 He admits to being primarily a L sided sleeper until this L shoulder injury, now very uncomfortable sleeping on his back or his R side. Pt has not done any formal PT since re-tearing, but did participate in PT s/p rotator cuff surgery. He is R hand dominant. Prior Treatments and Tests MRI as noted above Treatment Goals Patient/Caregiver Goals improve ROM, strength, and decrease pain Current Functional Impairments (Reported) Functional Limitations- Other unable to perform any activities with arm away from body Personal Factors Other Personal Factors That May Effect blood condition which Therapy/Recovery requires annual follow up with oncology (denies any current CA of any kind, does have past h/o prostate CA 10 yrs ago), [place] 1992 PT-OP-C Subjective Start: 07/30/18 13:32 Freq: Status: Active Protocol: Document 10/12/18 12:23 EA (Rec: 10/12/18 12:25 EA [id number]) OP-PT Subjective Patient Comments Patient Comments Pt reports he did some of his shoulder exercises prior to coming in here. PT-OP-F Manual Assessment Start: 07/30/18 13:32 Freq: Status: Active Protocol: Document 07/30/18 12:00 RCC (Rec: 07/31/18 15:47 RCC [email or web address]) Manual Assessments Soft Tissue Assessment Soft Tissue Mobility Assessment tenderness to palpation: L parascapular mm and posterior shoulder Joint Mobility Assessment Joint Mobility Assessment hypomobility: L shoulder with posterior and inferior glides PT-OP-K Range of Motion Start: 07/30/18 13:32 Freq: Status: Active Protocol: Document 07/30/18 12:00 RCC (Rec: 07/31/18 15:47 RCC [email or web address]) Shoulder Goniometric Range of Motion Shoulder Measured in Degrees Right Active Testing Position Supine Flexion 170 Abduction 165 External Rotation at 90 degrees 75 Abduction Internal Rotation 80 Left Passive Testing Position Supine Flexion 95 Abduction 85 External Rotation at 0 degrees Abduction 22 Left Active Testing Position Supine Flexion 20 Abduction 35 External Rotation at 0 degrees Abduction 16 Internal Rotation 65 PT-OP-L Special Tests Start: 07/30/18 13:32 Freq: Status: Active Protocol: Document 07/30/18 12:00 RCC (Rec: 07/31/18 15:47 RCC [email or web address]) Special Tests Shoulder Special Tests Apprehension Test Test Results negative Belly Press Test Results negative Lift-Off Rotator Cuff Test Results negative Load and Shift Test Results negative Other Special Tests Special Tests unable to assess further due to pain and limitations of ROM PT-OP-M Strength Start: 07/30/18 13:32 Freq: Status: Active Protocol: Document 07/30/18 12:00 RCC (Rec: 07/31/18 15:52 RCC [email or web address]) Shoulder Strength Shoulder Manual Muscle Testing Left Flexion 2- Poor- Abduction (C5) 2- Poor- External Rotation 3 Fair Internal Rotation 4 Good Right Flexion 5 Normal Adduction 5 Normal External Rotation 5 Normal Internal Rotation 5 Normal Elbow/Forearm Strength Elbow and Forearm Manual Muscle Testing Left Flexion (C6) 4 Good Extension (C7) 4 Good Right Flexion (C6) 5 Normal Extension (C7) 5 Normal PT-OP-Q Treatments Start: 07/30/18 13:32 Freq: Status: Active Protocol: Document 10/12/18 12:23 EA (Rec: 10/12/18 12:25 EA [id number]) Cardio Equipment Upper Body Ergometer (UBE) Duration (Minutes) 5 Seat Position 12 Height 4 Other Fwd/Bwd Gym Equipment Cable Column (Body Solid) Other- 1 Details cable tri-press Resistance 10# Reps/Time x12 reps x 2 Rows Details Stab shoulder blade Resistance 20-30# Reps/Time x 15 repsx2 Therapeutic Exercises Supine Exercises 3 Supine Exercise Name AROM: shoulder ABD to Hori ADD Side bilateral Reps/Minutes x 12 reps 2 Supine Exercise Name T-bars flexion,rotation, press Resistance 2 lbs Reps/Minutes x 12 reps eachx2 1 Supine Exercise Name D1, D2 Resistance manual/mod intensity Reps/Minutes x 10 reps each x 2 sets Comments HEB elev 45deg T-bar Supine Exercise Name flexion, abduction, ER Side bilateral Reps/Minutes 5 each Comments 5 sec hold Sidelying Exercises 4 Sidelying Exercise Name Horiz ABD at 45-90 deg keely Equipment Used x 10 reps Comments AAROM/ Hold 3 Sidelying Exercise Name scap retraction Reps/Minutes x 10 reps Comments AAROM 2 Sidelying Exercise Name ER Resistance gentle manual resistance Reps/Minutes x 15 reps 1 Sidelying Exercise Name shoulder abduction Reps/Minutes x 12 reps Comments AAROM, Isolate supra and deltoid only Sitting Exercises 1 Sitting Exercise Name Biceps flexion Resistance 4-7 lbs Reps/Minutes x10 reps x 2 Comments with ER at end range extension Standing Exercises 2 Standing Exercise Name T-bar shoulder ext Resistance 4-5lbs Reps/Minutes x 15 reps x 2 Manual Therapy Treatment Joint Mobilizations 1 Joint GH Direction Post/inf Grade II Body Position Supine Reps/Duration x 10 mins Comments II-III Manual Techniques 2 Type Multi angle isometrics: shoulder flexors/abd/ER/IR, Horiz ABD/ADD Reps/Duration x 3SH x 4 reps each 1 Type Gentle passive stretch: flexion/ABD/ER Reps/Duration x 20SH x 3 reps Comments PNF: Pain free range/prior to pain, increased ROM with manual resistance PT-OP-R Modalities Start: 07/30/18 13:32 Freq: Status: Active Protocol: Document 10/12/18 13:05 EA (Rec: 10/12/18 13:06 EA [id number]) Hot Pack/Cold Pack Treatment Cold Pack Location left shoulder Patient Position Hooklying Treatment Duration (minutes) 10 Patient Tolerance Good PT-OP-T Assessment and Plan Start: 07/30/18 13:32 Freq: Status: Active Protocol: Document 10/12/18 13:05 LEONELA (Rec: 10/12/18 13:06 EA [id number]) Physical Therapy Assessment Assessment Summary Assessment Improved shoulder ABD in supine and DI F/E. ROM still limited at this time. Patient continue to progress slowly. Physical Therapy Plan Next Visit Focus/Plan Next Note Type Treatment Note Next Visit Plan Cont joint mob and manual resistance exercises. Cont. Cone/functional exercises
--- NOTE | 2018-10-14 14:31 | PT.OTN ---
Current Diagnoses Unspecified rotator cuff tear or rupture of left shoulder, not specified as traumatic (10/14/18) Physical Therapy Treatment Note PT-OP-A Visit Information Start: 07/30/18 13:32 Freq: Status: Active Protocol: Document 10/14/18 12:58 EA (Rec: 10/14/18 13:02 EA [id number]) Out-Patient Physical Therapy Visit Information Visit Information Visit Type Treatment Note Visit Start Time 12:15 Visit Stop Time 13:00 Total Visit Minutes 48 Visit Number 22 PT-OP-B Current Condition Start: 07/30/18 13:32 Freq: Status: Active Protocol: Document 07/30/18 12:00 RCC (Rec: 07/31/18 09:38 RCC [email or web address]) Current Condition History of Current Condition Onset Date December 2017 Current Complaints L shoulder weakness, impaired ROM, pain History of Current Condition Pt is an 83 y/o male presenting to physical therapy with a c/o L shoulder pain, weakness, and limited ROM. Pt sustained infraspinatus and supraspinatus tears /sp traumatic dislocation in December. He had arthroscopic surgery on 01/15/18 . MRI done in April of 2018 showed that the pt had full thickness tearing of supraspinatus and infraspinatus, as well as posterior labral tear. He was consulted for a TSA, but seeked a second opinion which suggested pain management and physical therapy. 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 He admits to being primarily a L sided sleeper until this L shoulder injury, now very uncomfortable sleeping on his back or his R side. Pt has not done any formal PT since re-tearing, but did participate in PT s/p rotator cuff surgery. He is R hand dominant. Prior Treatments and Tests MRI as noted above Treatment Goals Patient/Caregiver Goals improve ROM, strength, and decrease pain Current Functional Impairments (Reported) Functional Limitations- Other unable to perform any activities with arm away from body Personal Factors Other Personal Factors That May Effect blood condition which Therapy/Recovery requires annual follow up with oncology (denies any current CA of any kind, does have past h/o prostate CA 10 yrs ago), [place] 1992 PT-OP-C Subjective Start: 07/30/18 13:32 Freq: Status: Active Protocol: Document 10/14/18 12:58 EA (Rec: 10/14/18 13:02 EA [id number]) OP-PT Subjective Patient Comments Patient Comments Pt reports compliant with HEP; denies pain at night; states feels stiff and weak shoulder joint. PT-OP-F Manual Assessment Start: 07/30/18 13:32 Freq: Status: Active Protocol: Document 07/30/18 12:00 RCC (Rec: 07/31/18 15:47 RCC [email or web address]) Manual Assessments Soft Tissue Assessment Soft Tissue Mobility Assessment tenderness to palpation: L parascapular mm and posterior shoulder Joint Mobility Assessment Joint Mobility Assessment hypomobility: L shoulder with posterior and inferior glides PT-OP-K Range of Motion Start: 07/30/18 13:32 Freq: Status: Active Protocol: Document 07/30/18 12:00 RCC (Rec: 07/31/18 15:47 RCC [email or web address]) Shoulder Goniometric Range of Motion Shoulder Measured in Degrees Right Active Testing Position Supine Flexion 170 Abduction 165 External Rotation at 90 degrees 75 Abduction Internal Rotation 80 Left Passive Testing Position Supine Flexion 95 Abduction 85 External Rotation at 0 degrees Abduction 22 Left Active Testing Position Supine Flexion 20 Abduction 35 External Rotation at 0 degrees Abduction 16 Internal Rotation 65 PT-OP-L Special Tests Start: 07/30/18 13:32 Freq: Status: Active Protocol: Document 07/30/18 12:00 RCC (Rec: 07/31/18 15:47 RCC [email or web address]) Special Tests Shoulder Special Tests Apprehension Test Test Results negative Belly Press Test Results negative Lift-Off Rotator Cuff Test Results negative Load and Shift Test Results negative Other Special Tests Special Tests unable to assess further due to pain and limitations of ROM PT-OP-M Strength Start: 07/30/18 13:32 Freq: Status: Active Protocol: Document 07/30/18 12:00 RCC (Rec: 07/31/18 15:52 RCC [email or web address]) Shoulder Strength Shoulder Manual Muscle Testing Left Flexion 2- Poor- Abduction (C5) 2- Poor- External Rotation 3 Fair Internal Rotation 4 Good Right Flexion 5 Normal Adduction 5 Normal External Rotation 5 Normal Internal Rotation 5 Normal Elbow/Forearm Strength Elbow and Forearm Manual Muscle Testing Left Flexion (C6) 4 Good Extension (C7) 4 Good Right Flexion (C6) 5 Normal Extension (C7) 5 Normal PT-OP-Q Treatments Start: 07/30/18 13:32 Freq: Status: Active Protocol: Document 10/14/18 13:04 EA (Rec: 10/14/18 13:07 EA [id number]) Cardio Equipment Upper Body Ergometer (UBE) Duration (Minutes) 5 Seat Position 12 Height 4 Other Fwd/Bwd Gym Equipment Cable Column (Body Solid) Other- 1 Details cable tri-press Resistance 10# Reps/Time x12 reps x 2 Rows Details Adjustable cable: mid and low row (single arm) Resistance 20-30# Reps/Time x 15 repsx2 Therapeutic Exercises Supine Exercises 3 Supine Exercise Name AROM: shoulder ABD to Hori ADD Side bilateral Reps/Minutes x 12 reps x 2 sets 2 Supine Exercise Name T-bar press Resistance 4-8 lbs Reps/Minutes x 12 reps x 2 sets 1 Supine Exercise Name D1, D2 Resistance manual/mod intensity Reps/Minutes x 10 reps each x 2 sets Comments HEB elev 45deg Sidelying Exercises 4 Sidelying Exercise Name Horiz ABD at 45-90 deg keely Equipment Used x 10 reps Comments AAROM/ Hold 3 Sidelying Exercise Name scap retraction Reps/Minutes x 10 reps Comments AAROM 2 Sidelying Exercise Name ER Resistance gentle manual resistance Reps/Minutes x 15 reps Sitting Exercises 1 Sitting Exercise Name Biceps flexion Resistance 4-7 lbs Reps/Minutes x10 reps x 2 Comments with ER at end range extension Standing Exercises 4 Standing Exercise Name Body blade in low /mid arm position Reps/Minutes x 3 mins 2 Standing Exercise Name T-bar shoulder ext Resistance 4-8lbs Reps/Minutes x 15 reps x 2 Manual Therapy Treatment Joint Mobilizations 1 Joint GH Direction Post/inf Grade II Body Position Supine Reps/Duration x 10 mins Comments II-III PT-OP-R Modalities Start: 07/30/18 13:32 Freq: Status: Active Protocol: Document 10/14/18 12:58 EA (Rec: 10/14/18 13:02 EA [id number]) Hot Pack/Cold Pack Treatment Cold Pack Location left shoulder Patient Position Hooklying Treatment Duration (minutes) 10 Patient Tolerance Good PT-OP-T Assessment and Plan Start: 07/30/18 13:32 Freq: Status: Active Protocol: Document 10/14/18 12:58 EA (Rec: 10/14/18 13:02 LEONELA [id number]) Physical Therapy Assessment Assessment Summary Assessment Improved supine flexion with gentle passive stretch at end range. D1 -D2 flexion/Ext direction with manual resistance shows good improvement as well. Physical Therapy Plan Next Visit Focus/Plan Next Note Type Treatment Note Next Visit Plan Cont joint mob and manual resistance exercises. Cont. Cone/functional exercises
--- NOTE | 2018-10-19 13:39 | PT.OTN ---
Current Diagnoses Unspecified rotator cuff tear or rupture of left shoulder, not specified as traumatic (10/19/18) Physical Therapy Treatment Note PT-OP-A Visit Information Start: 07/30/18 13:32 Freq: Status: Active Protocol: Document 10/19/18 12:45 LRN (Rec: 10/19/18 13:38 LRN [id number]) Out-Patient Physical Therapy Visit Information Visit Information Visit Type Treatment Note Visit Start Time 12:45 Visit Stop Time 13:40 Total Visit Minutes 55 Visit Number 23 Evaluation Information Evaluation Date 06/29/18 PT-OP-B Current Condition Start: 07/30/18 13:32 Freq: Status: Active Protocol: Document 07/30/18 12:00 RCC (Rec: 07/31/18 09:38 RCC [email or web address]) Current Condition History of Current Condition Onset Date December 2017 Current Complaints L shoulder weakness, impaired ROM, pain History of Current Condition Pt is an 83 y/o male presenting to physical therapy with a c/o L shoulder pain, weakness, and limited ROM. Pt sustained infraspinatus and supraspinatus tears /sp traumatic dislocation in December. He had arthroscopic surgery on 01/15/18 . MRI done in April of 2018 showed that the pt had full thickness tearing of supraspinatus and infraspinatus, as well as posterior labral tear. He was consulted for a TSA, but seeked a second opinion which suggested pain management and physical therapy. 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 He admits to being primarily a L sided sleeper until this L shoulder injury, now very uncomfortable sleeping on his back or his R side. Pt has not done any formal PT since re-tearing, but did participate in PT s/p rotator cuff surgery. He is R hand dominant. Prior Treatments and Tests MRI as noted above Treatment Goals Patient/Caregiver Goals improve ROM, strength, and decrease pain Current Functional Impairments (Reported) Functional Limitations- Other unable to perform any activities with arm away from body Personal Factors Other Personal Factors That May Effect blood condition which Therapy/Recovery requires annual follow up with oncology (denies any current CA of any kind, does have past h/o prostate CA 10 yrs ago), [place] 1992 PT-OP-C Subjective Start: 07/30/18 13:32 Freq: Status: Active Protocol: Document 10/19/18 12:45 LRN (Rec: 10/19/18 13:38 LRN [id number]) OP-PT Subjective Patient Comments Patient Comments Slow progress. PT-OP-F Manual Assessment Start: 07/30/18 13:32 Freq: Status: Active Protocol: Document 07/30/18 12:00 RCC (Rec: 07/31/18 15:47 RCC [email or web address]) Manual Assessments Soft Tissue Assessment Soft Tissue Mobility Assessment tenderness to palpation: L parascapular mm and posterior shoulder Joint Mobility Assessment Joint Mobility Assessment hypomobility: L shoulder with posterior and inferior glides PT-OP-K Range of Motion Start: 07/30/18 13:32 Freq: Status: Active Protocol: Document 07/30/18 12:00 RCC (Rec: 07/31/18 15:47 RCC [email or web address]) Shoulder Goniometric Range of Motion Shoulder Measured in Degrees Right Active Testing Position Supine Flexion 170 Abduction 165 External Rotation at 90 degrees 75 Abduction Internal Rotation 80 Left Passive Testing Position Supine Flexion 95 Abduction 85 External Rotation at 0 degrees Abduction 22 Left Active Testing Position Supine Flexion 20 Abduction 35 External Rotation at 0 degrees Abduction 16 Internal Rotation 65 PT-OP-L Special Tests Start: 07/30/18 13:32 Freq: Status: Active Protocol: Document 07/30/18 12:00 RCC (Rec: 07/31/18 15:47 RCC [email or web address]) Special Tests Shoulder Special Tests Apprehension Test Test Results negative Belly Press Test Results negative Lift-Off Rotator Cuff Test Results negative Load and Shift Test Results negative Other Special Tests Special Tests unable to assess further due to pain and limitations of ROM PT-OP-M Strength Start: 07/30/18 13:32 Freq: Status: Active Protocol: Document 07/30/18 12:00 RCC (Rec: 07/31/18 15:52 RCC [email or web address]) Shoulder Strength Shoulder Manual Muscle Testing Left Flexion 2- Poor- Abduction (C5) 2- Poor- External Rotation 3 Fair Internal Rotation 4 Good Right Flexion 5 Normal Adduction 5 Normal External Rotation 5 Normal Internal Rotation 5 Normal Elbow/Forearm Strength Elbow and Forearm Manual Muscle Testing Left Flexion (C6) 4 Good Extension (C7) 4 Good Right Flexion (C6) 5 Normal Extension (C7) 5 Normal PT-OP-Q Treatments Start: 07/30/18 13:32 Freq: Status: Active Protocol: Document 10/19/18 12:45 LRN (Rec: 10/19/18 13:38 LRN [id number]) Cardio Equipment Upper Body Ergometer (UBE) Duration (Minutes) 5 Seat Position 12 Height 4 changed to [address] for pain relief Other Fwd/Bwd Gym Equipment Cable Column (Body Solid) Rows Details Adjustable cable: mid and low row (single arm) Resistance 20# Reps/Time x 15 repsx2 Therapeutic Exercises Supine Exercises Prolonged stretch L shoulder Supine Exercise Name Flex, ER, Horiz ADD Side left Reps/Minutes 10' 3 Supine Exercise Name AROM: shoulder ABD to Hori ADD Side bilateral Reps/Minutes x 12 reps x 2 sets 1 Supine Exercise Name D1, D2 Resistance manual/mod intensity Reps/Minutes x 10 reps each x 2 sets T-bar Supine Exercise Name flexion, abduction, ER Side bilateral Reps/Minutes 5 each Comments 5 sec hold Manual Therapy Treatment Soft Tissue Mobilization 1 Body Location left deltoid/scapular Joint Mobilizations 1 Joint GH Direction Post/inf Grade II Body Position Supine Reps/Duration x 10 mins Comments II-III Manual Techniques 1 Type Gentle passive stretch: flexion/ABD/ER Reps/Duration x 20SH x 3 reps Comments PNF: Pain free range/prior to pain, increased ROM with manual resistance Self-Care/Home Management Treatment Education Patient Education Home Exercise Program Pain Management Other Education I/S pt in prolong hold stretching and use of crotherapy after ex. I/S pt to use Codman's for pain relief. PT-OP-R Modalities Start: 07/30/18 13:32 Freq: Status: Active Protocol: Document 10/19/18 12:45 LRN (Rec: 10/19/18 13:38 LRN [id number]) Hot Pack/Cold Pack Treatment Cold Pack Location left shoulder Patient Position Hooklying Treatment Duration (minutes) 10 Patient Tolerance Good PT-OP-T Assessment and Plan Start: 07/30/18 13:32 Freq: Status: Active Protocol: Document 10/19/18 12:45 LRN (Rec: 10/19/18 13:38 LRN [id number]) Physical Therapy Assessment Assessment Summary Assessment Pt with symptoms of frozen shoulder with very restricted L GHJ mobility. Very tight Pec Minor/Major ms. Physical Therapy Plan Frequency and Duration Frequency of Treatment 2x/Week Duration of Treatment 12 weeks Plan of Care Start Date 07/30/18 Plan of Care End Date 10/22/18 Next Visit Focus/Plan Next Visit Plan Cont joint mob and L shoulder ROM. Manual resistance exercises, for focus on Deltoid and lat dorsi strengthening. Hx of tear in supraspinatus. Cont. Cone/ functional exercises
--- NOTE | 2018-10-21 17:22 | PT.OTN ---
Current Diagnoses Unspecified rotator cuff tear or rupture of left shoulder, not specified as traumatic (10/21/18) Physical Therapy Treatment Note PT-OP-A Visit Information Start: 07/30/18 13:32 Freq: Status: Active Protocol: Document 10/21/18 17:03 EA (Rec: 10/21/18 17:22 EA [id number]) Out-Patient Physical Therapy Visit Information Visit Information Visit Type Treatment Note Visit Start Time 16:00 Visit Stop Time 16:48 Total Visit Minutes 48 Visit Number 24 PT-OP-B Current Condition Start: 07/30/18 13:32 Freq: Status: Active Protocol: Document 07/30/18 12:00 RCC (Rec: 07/31/18 09:38 RCC [email or web address]) Current Condition History of Current Condition Onset Date December 2017 Current Complaints L shoulder weakness, impaired ROM, pain History of Current Condition Pt is an 83 y/o male presenting to physical therapy with a c/o L shoulder pain, weakness, and limited ROM. Pt sustained infraspinatus and supraspinatus tears /sp traumatic dislocation in December. He had arthroscopic surgery on 01/15/18 . MRI done in April of 2018 showed that the pt had full thickness tearing of supraspinatus and infraspinatus, as well as posterior labral tear. He was consulted for a TSA, but seeked a second opinion which suggested pain management and physical therapy. 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 He admits to being primarily a L sided sleeper until this L shoulder injury, now very uncomfortable sleeping on his back or his R side. Pt has not done any formal PT since re-tearing, but did participate in PT s/p rotator cuff surgery. He is R hand dominant. Prior Treatments and Tests MRI as noted above Treatment Goals Patient/Caregiver Goals improve ROM, strength, and decrease pain Current Functional Impairments (Reported) Functional Limitations- Other unable to perform any activities with arm away from body Personal Factors Other Personal Factors That May Effect blood condition which Therapy/Recovery requires annual follow up with oncology (denies any current CA of any kind, does have past h/o prostate CA 10 yrs ago), [place] 1992 PT-OP-C Subjective Start: 07/30/18 13:32 Freq: Status: Active Protocol: Document 10/21/18 17:03 EA (Rec: 10/21/18 17:22 EA [id number]) OP-PT Subjective Patient Comments Patient Comments Pt reports difficulty reaching up; states stiff and weak. PT-OP-F Manual Assessment Start: 07/30/18 13:32 Freq: Status: Active Protocol: Document 07/30/18 12:00 RCC (Rec: 07/31/18 15:47 RCC [email or web address]) Manual Assessments Soft Tissue Assessment Soft Tissue Mobility Assessment tenderness to palpation: L parascapular mm and posterior shoulder Joint Mobility Assessment Joint Mobility Assessment hypomobility: L shoulder with posterior and inferior glides PT-OP-K Range of Motion Start: 07/30/18 13:32 Freq: Status: Active Protocol: Document 10/21/18 17:03 EA (Rec: 10/21/18 17:22 EA [id number]) Shoulder Goniometric Range of Motion Shoulder Measured in Degrees Right Active Testing Position Supine Flexion 170 Abduction 165 External Rotation at 90 degrees 75 Abduction Internal Rotation 80 Left Passive Testing Position Supine Flexion 120 Abduction 110 External Rotation at 0 degrees Abduction 40 Left Active Testing Position Supine Flexion 100 Abduction 90 External Rotation at 0 degrees Abduction 40 Internal Rotation 65 PT-OP-L Special Tests Start: 07/30/18 13:32 Freq: Status: Active Protocol: Document 07/30/18 12:00 RCC (Rec: 07/31/18 15:47 RCC [email or web address]) Special Tests Shoulder Special Tests Apprehension Test Test Results negative Belly Press Test Results negative Lift-Off Rotator Cuff Test Results negative Load and Shift Test Results negative Other Special Tests Special Tests unable to assess further due to pain and limitations of ROM PT-OP-M Strength Start: 07/30/18 13:32 Freq: Status: Active Protocol: Document 07/30/18 12:00 RCC (Rec: 07/31/18 15:52 RCC [email or web address]) Shoulder Strength Shoulder Manual Muscle Testing Left Flexion 2- Poor- Abduction (C5) 2- Poor- External Rotation 3 Fair Internal Rotation 4 Good Right Flexion 5 Normal Adduction 5 Normal External Rotation 5 Normal Internal Rotation 5 Normal Elbow/Forearm Strength Elbow and Forearm Manual Muscle Testing Left Flexion (C6) 4 Good Extension (C7) 4 Good Right Flexion (C6) 5 Normal Extension (C7) 5 Normal PT-OP-Q Treatments Start: 07/30/18 13:32 Freq: Status: Active Protocol: Document 10/21/18 17:03 EA (Rec: 10/21/18 17:22 EA [id number]) Cardio Equipment Upper Body Ergometer (UBE) Duration (Minutes) 6 Seat Position 12 Height 3.5-4.5-5.5 change every two mins Other fwd/bwd Therapeutic Exercises Sitting Exercises 2 Sitting Exercise Name D1, D2 F/E Reps/Minutes to fatigue x 3 sets each with rest in between Comments active assistibve with concentric and active with exccentric Standing Exercises 6 Standing Exercise Name Wall slider: flexion Reps/Minutes to fatigue x 5 sets Comments AAROM to near end range flexion 5 Standing Exercise Name Table slider: flexion and scaption Reps/Minutes x 15 reps x 2 sets each Comments stretch at endrange 2 Standing Exercise Name T-bar shoulder ext Resistance 4-8lbs Reps/Minutes x 15 reps x 2 Manual Therapy Treatment Joint Mobilizations 1 Joint GH Direction Post/inf Grade II Body Position Supine Reps/Duration x 10 mins Comments II-III Manual Techniques 2 Type Multi angle isometrics: shoulder flexors/abd/ER/IR, Horiz ABD/ADD Reps/Duration x 3SH x 4 reps each 1 Type Gentle passive stretch: flexion/ABD/ER Reps/Duration x 20SH x 3 reps Comments PNF: Pain free range/prior to pain, increased ROM with manual resistance PT-OP-R Modalities Start: 07/30/18 13:32 Freq: Status: Active Protocol: Document 10/21/18 17:03 EA (Rec: 10/21/18 17:22 EA [id number]) Hot Pack/Cold Pack Treatment Cold Pack Location left shoulder Patient Position Hooklying Treatment Duration (minutes) 10 Patient Tolerance Good PT-OP-T Assessment and Plan Start: 07/30/18 13:32 Freq: Status: Active Protocol: Document 10/21/18 17:03 EA (Rec: 10/21/18 17:22 EA [id number]) Physical Therapy Assessment Impairments Impairments Functional Activities Pain ROM Strength Goals pain Impairment rated 3/10 pain in L shoulder Alf Goal (LTG) Pain rated 1/10 or less prior to d/c. LTG Duration 8 weeks (Improving 2/10 at end range) Quick DASH Impairment Quick DASH impairment score of 50 Short Term Goal (STG) Quick DASH score of 40 or less . STG Duration 6 weeks Alf Goal (LTG) Quick DASH score of 30 or less to demonstrate improvements with functional use of LUE with daily activities. LTG Duration 8 weeks (Improving) weakness Impairment L UE weakness Short Term Goal (STG) L shoulder 3+/5 or greater with manual muscle testing with flexion, abduction, and ER. STG Duration 6 weeks Alf Goal (LTG) L shoulder 4/5 or greater with manual muscle testing with flexion, ER and L elbow flexion and extension to 5/5 with manual muscle testing to demonstrate improved L shoulder stability. LTG Duration 8 weeks (Improving with shoulder; elbow and hand is near to full) L shoulder ROM Impairment L shoulder ROM Short Term Goal (STG) L shoulder AROM: flexion to 90 deg, abduction to 90 deg, ER to 35 deg STG Duration 6 weeks [place] Goal (LTG) L shoulder AROM: flexion to 150 deg, abduction to 150 deg, ER to 60 deg prior to d/c, with pt able reporting being able to perform light activities with LUE above 90 degree neutral position. LTG Duration 8 wks (Progressing well) Progress Towards Goals Progress Towards Goals Slow Progress due to Activity Tolerance Assessment Summary Assessment Pt exhibits improvement to left shoulder AROM in supine and minimal in sitting due to lack od shoulder control/ stability and weakness. Patient demonstrates improved AAROM in sitting in diagonal pattern with very less pain at this time. Overall patient is slowly progressing steadily and will continue to benefit with skilled PT. Physical Therapy Plan Frequency and Duration Frequency of Treatment 2x/Week Duration of Treatment 8 wks Plan of Care Start Date 10/21/18 Plan of Care End Date 12/16/18 Therapeutic Interventions Therapeutic Interventions Aquatic Therapy Coordination Training Home Exercise Program Joint Mobilizations Manual Therapy Neuromuscular Re-education Patient/Caregiver Education Self-Care/Home Management Soft Tissue Mobilization Taping Therapeutic Activities Therapeutic Exercises Modalities Cold Pack/Ice Massage Electric Stimulation Hot Packs Ultrasound Next Visit Focus/Plan Next Note Type Treatment Note Next Visit Plan cont with AAROM,PNF in sitting position.
--- NOTE | 2018-10-21 17:22 | PT.OPPOC ---
Current Diagnoses Unspecified rotator cuff tear or rupture of left shoulder, not specified as traumatic (10/21/18) Provider Visit Care Team Role Provider Type Gordy Shabazz MD Primary Care Provider Physician Specialty: Internal Medicine Address: [address] [place] [address], [id number] Email: Darius Henderson MD Attending Provider Non-Staff Specialty: Orthopedic Surgery Address: [address] [place] [address], [id number] Email: Plan Of Care PT-OP-T Assessment and Plan Start: 07/30/18 13:32 Freq: Status: Active Protocol: Document 10/21/18 17:03 LEONELA (Rec: 10/21/18 17:22 EA [id number]) Physical Therapy Assessment Impairments Impairments Functional Activities Pain ROM Strength Goals pain Impairment rated 3/10 pain in L shoulder [facility] Goal (LTG) Pain rated 1/10 or less prior to d/c. LTG Duration 8 weeks (Improving 2/10 at end range) Quick DASH Impairment Quick DASH impairment score of 50 Short Term Goal (STG) Quick DASH score of 40 or less . STG Duration 6 weeks Leather Cartridge Belt Maker Goal (LTG) Quick DASH score of 30 or less to demonstrate improvements with functional use of LUE with daily activities. LTG Duration 8 weeks (Improving) weakness Impairment L UE weakness Short Term Goal (STG) L shoulder 3+/5 or greater with manual muscle testing with flexion, abduction, and ER. STG Duration 6 weeks [facility] Goal (LTG) L shoulder 4/5 or greater with manual muscle testing with flexion, ER and L elbow flexion and extension to 5/5 with manual muscle testing to demonstrate improved L shoulder stability. LTG Duration 8 weeks (Improving with shoulder; elbow and hand is near to full) L shoulder ROM Impairment L shoulder ROM Short Term Goal (STG) L shoulder AROM: flexion to 90 deg, abduction to 90 deg, ER to 35 deg STG Duration 6 weeks [facility] Goal (LTG) L shoulder AROM: flexion to 150 deg, abduction to 150 deg, ER to 60 deg prior to d/c, with pt able reporting being able to perform light activities with LUE above 90 degree neutral position. LTG Duration 8 wks (Progressing well) Progress Towards Goals Progress Towards Goals Slow Progress due to Activity Tolerance Assessment Summary Assessment Pt exhibits improvement to left shoulder AROM in supine and minimal in sitting due to lack od shoulder control/ stability and weakness. Patient demonstrates improved AAROM in sitting in diagonal pattern with very less pain at this time. Overall patient is slowly progressing steadily and will continue to benefit with skilled PT. Physical Therapy Plan Frequency and Duration Frequency of Treatment 2x/Week Duration of Treatment 8 wks Plan of Care Start Date 10/21/18 Plan of Care End Date 12/16/18 Therapeutic Interventions Therapeutic Interventions Aquatic Therapy Coordination Training Home Exercise Program Joint Mobilizations Manual Therapy Neuromuscular Re-education Patient/Caregiver Education Self-Care/Home Management Soft Tissue Mobilization Taping Therapeutic Activities Therapeutic Exercises Modalities Cold Pack/Ice Massage Electric Stimulation Hot Packs Ultrasound Next Visit Focus/Plan Next Note Type Treatment Note Next Visit Plan cont with AAROM,PNF in sitting position. Plan of Care Dates Plan of Care Start Date 10/21/18 Plan of Care End Date 12/16/18 Please Sign and Return: I have reviewed this Plan of Care and certify that the skilled therapy services above are required to meet the patient?s needs. Physician Signature Date Printed Name and Credentials Clinical Instructor Signature Printed Name and Credentials
--- NOTE | 2018-10-26 14:33 | PT.OTN ---
Current Diagnoses Unspecified rotator cuff tear or rupture of left shoulder, not specified as traumatic (10/26/18) Physical Therapy Treatment Note PT-OP-A Visit Information Start: 07/30/18 13:32 Freq: Status: Active Protocol: Document 10/26/18 12:48 LRN (Rec: 10/26/18 13:33 LRN [id number]) Out-Patient Physical Therapy Visit Information Visit Information Visit Type Treatment Note Visit Start Time 12:48 Visit Stop Time 13:36 Total Visit Minutes 48 Visit Number 25 Evaluation Information Evaluation Date 06/29/18 PT-OP-B Current Condition Start: 07/30/18 13:32 Freq: Status: Active Protocol: Document 07/30/18 12:00 RCC (Rec: 07/31/18 09:38 RCC [email or web address]) Current Condition History of Current Condition Onset Date December 2017 Current Complaints L shoulder weakness, impaired ROM, pain History of Current Condition Pt is an 83 y/o male presenting to physical therapy with a c/o L shoulder pain, weakness, and limited ROM. Pt sustained infraspinatus and supraspinatus tears /sp traumatic dislocation in December. He had arthroscopic surgery on 01/15/18 . MRI done in April of 2018 showed that the pt had full thickness tearing of supraspinatus and infraspinatus, as well as posterior labral tear. He was consulted for a TSA, but seeked a second opinion which suggested pain management and physical therapy. 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 He admits to being primarily a L sided sleeper until this L shoulder injury, now very uncomfortable sleeping on his back or his R side. Pt has not done any formal PT since re-tearing, but did participate in PT s/p rotator cuff surgery. He is R hand dominant. Prior Treatments and Tests MRI as noted above Treatment Goals Patient/Caregiver Goals improve ROM, strength, and decrease pain Current Functional Impairments (Reported) Functional Limitations- Other unable to perform any activities with arm away from body Personal Factors Other Personal Factors That May Effect blood condition which Therapy/Recovery requires annual follow up with oncology (denies any current CA of any kind, does have past h/o prostate CA 10 yrs ago), [place] 1992 PT-OP-C Subjective Start: 07/30/18 13:32 Freq: Status: Active Protocol: Document 10/26/18 12:48 LRN (Rec: 10/26/18 13:33 LRN [id number]) OP-PT Subjective Patient Comments Patient Comments Thinks he is improving. Can raise his arm (with elbow bent ) almost to 90 deg's without pain. PT-OP-F Manual Assessment Start: 07/30/18 13:32 Freq: Status: Active Protocol: Document 07/30/18 12:00 RCC (Rec: 07/31/18 15:47 RCC [email or web address]) Manual Assessments Soft Tissue Assessment Soft Tissue Mobility Assessment tenderness to palpation: L parascapular mm and posterior shoulder Joint Mobility Assessment Joint Mobility Assessment hypomobility: L shoulder with posterior and inferior glides PT-OP-K Range of Motion Start: 07/30/18 13:32 Freq: Status: Active Protocol: Document 10/21/18 17:03 EA (Rec: 10/21/18 17:22 EA [id number]) Shoulder Goniometric Range of Motion Shoulder Measured in Degrees Right Active Testing Position Supine Flexion 170 Abduction 165 External Rotation at 90 degrees 75 Abduction Internal Rotation 80 Left Passive Testing Position Supine Flexion 120 Abduction 110 External Rotation at 0 degrees Abduction 40 Left Active Testing Position Supine Flexion 100 Abduction 90 External Rotation at 0 degrees Abduction 40 Internal Rotation 65 PT-OP-L Special Tests Start: 07/30/18 13:32 Freq: Status: Active Protocol: Document 07/30/18 12:00 RCC (Rec: 07/31/18 15:47 RCC [email or web address]) Special Tests Shoulder Special Tests Apprehension Test Test Results negative Belly Press Test Results negative Lift-Off Rotator Cuff Test Results negative Load and Shift Test Results negative Other Special Tests Special Tests unable to assess further due to pain and limitations of ROM PT-OP-M Strength Start: 07/30/18 13:32 Freq: Status: Active Protocol: Document 07/30/18 12:00 RCC (Rec: 07/31/18 15:52 RCC [email or web address]) Shoulder Strength Shoulder Manual Muscle Testing Left Flexion 2- Poor- Abduction (C5) 2- Poor- External Rotation 3 Fair Internal Rotation 4 Good Right Flexion 5 Normal Adduction 5 Normal External Rotation 5 Normal Internal Rotation 5 Normal Elbow/Forearm Strength Elbow and Forearm Manual Muscle Testing Left Flexion (C6) 4 Good Extension (C7) 4 Good Right Flexion (C6) 5 Normal Extension (C7) 5 Normal PT-OP-Q Treatments Start: 07/30/18 13:32 Freq: Status: Active Protocol: Document 10/26/18 12:48 LRN (Rec: 10/26/18 13:33 LRN [id number]) Cardio Equipment Upper Body Ergometer (UBE) Duration (Minutes) 7 Seat Position 12 Height 3.5-4.5-5.5 change every two mins Other fwd/bwd Therapeutic Exercises Supine Exercises Prolonged stretch L shoulder Supine Exercise Name Flex, ER, Horiz ADD Side left Reps/Minutes 8' 2 Supine Exercise Name Active L shoulder protraction Reps/Minutes 10 x Sitting Exercises 2 Sitting Exercise Name D1, D2 F/E Reps/Minutes to fatigue x 3 sets each with rest in between Comments active assistibve with concentric and active with exccentric scapular retraction Sitting Exercise Name Scapular depression/retraction Side bilateral Reps/Minutes 10 x Standing Exercises Lat Pull Down Standing Exercise Name Lat Pull Down with back to T- Band attached above head Side bilateral Resistance Lev 2 T-Band Reps/Minutes 10x 6 Standing Exercise Name Wall slider: flexion Reps/Minutes to fatigue x 5 sets Comments AAROM to near end range flexion 5 Standing Exercise Name Table slider: flexion and scaption Reps/Minutes x 15 reps x 2 sets each Comments stretch at endrange Manual Therapy Treatment Joint Mobilizations 1 Joint GH Direction Post/inf Grade II Body Position Supine Reps/Duration x 10 mins Comments II-III Manual Techniques 2 Type Multi angle isometrics: shoulder flexors/abd/ER/IR, Horiz ABD/ADD Reps/Duration x 3SH x 4 reps each 1 Type Gentle passive stretch: flexion/ABD/ER Reps/Duration x 20SH x 3 reps Comments PNF: Pain free range/prior to pain, increased ROM with manual resistance Self-Care/Home Management Treatment Education Patient Education Home Exercise Program Pain Management Activities Self-Care/Home Management Activities Issued White strap for T-Band. Pt I/S to do lat pull down at home. PT-OP-R Modalities Start: 07/30/18 13:32 Freq: Status: Active Protocol: Document 10/26/18 12:48 LRN (Rec: 10/26/18 13:33 LRN [id number]) Hot Pack/Cold Pack Treatment Cold Pack Location left shoulder Patient Position Hooklying Treatment Duration (minutes) 10 Patient Tolerance Good PT-OP-T Assessment and Plan Start: 07/30/18 13:32 Freq: Status: Active Protocol: Document 10/26/18 12:48 LRN (Rec: 10/26/18 13:33 LRN [id number]) Physical Therapy Assessment Assessment Summary Assessment Pt is stoic during treatments. He has poor scapular control in sitting with shoulder ROM; therefore further scapular stabilization strengthening is appropriate. Physical Therapy Plan Frequency and Duration Frequency of Treatment 2x/Week Duration of Treatment 8 wks Plan of Care Start Date 10/21/18 Plan of Care End Date 12/16/18 Next Visit Focus/Plan Next Note Type Treatment Note Next Visit Plan cont with RIMA LUJAN, scapular stabilization training in sitting position.
--- NOTE | 2018-10-28 12:03 | PT.OTN ---
Current Diagnoses Unspecified rotator cuff tear or rupture of left shoulder, not specified as traumatic (10/28/18) Physical Therapy Treatment Note PT-OP-A Visit Information Start: 07/30/18 13:32 Freq: Status: Active Protocol: Document 10/28/18 12:03 RCC (Rec: 10/28/18 13:04 RCC [email or web address]) Out-Patient Physical Therapy Visit Information Visit Information Visit Type Treatment Note Visit Start Time 12:03 Visit Stop Time 12:53 Total Visit Minutes 50 Visit Number 26 Number of COMBAT RIFLE CREWMEMBER Visits 0 Evaluation Information Evaluation Date 06/29/18 PT-OP-B Current Condition Start: 07/30/18 13:32 Freq: Status: Active Protocol: Document 07/30/18 12:00 RCC (Rec: 07/31/18 09:38 RCC [email or web address]) Current Condition History of Current Condition Onset Date December 2017 Current Complaints L shoulder weakness, impaired ROM, pain History of Current Condition Pt is an 83 y/o male presenting to physical therapy with a c/o L shoulder pain, weakness, and limited ROM. Pt sustained infraspinatus and supraspinatus tears /sp traumatic dislocation in December. He had arthroscopic surgery on 01/15/18 . MRI done in April of 2018 showed that the pt had full thickness tearing of supraspinatus and infraspinatus, as well as posterior labral tear. He was consulted for a TSA, but seeked a second opinion which suggested pain management and physical therapy. 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 He admits to being primarily a L sided sleeper until this L shoulder injury, now very uncomfortable sleeping on his back or his R side. Pt has not done any formal PT since re-tearing, but did participate in PT s/p rotator cuff surgery. He is R hand dominant. Prior Treatments and Tests MRI as noted above Treatment Goals Patient/Caregiver Goals improve ROM, strength, and decrease pain Current Functional Impairments (Reported) Functional Limitations- Other unable to perform any activities with arm away from body Personal Factors Other Personal Factors That May Effect blood condition which Therapy/Recovery requires annual follow up with oncology (denies any current CA of any kind, does have past h/o prostate CA 10 yrs ago), [place] 1992 PT-OP-C Subjective Start: 07/30/18 13:32 Freq: Status: Active Protocol: Document 10/28/18 12:03 RCC (Rec: 10/28/18 13:04 RCC [email or web address]) OP-PT Subjective Patient Comments Patient Comments Pt reports that he still feels like he is lacking significant function in the L arm due to not being able to reach to the side or above 90 degrees. PT-OP-F Manual Assessment Start: 07/30/18 13:32 Freq: Status: Active Protocol: Document 07/30/18 12:00 RCC (Rec: 07/31/18 15:47 RCC [email or web address]) Manual Assessments Soft Tissue Assessment Soft Tissue Mobility Assessment tenderness to palpation: L parascapular mm and posterior shoulder Joint Mobility Assessment Joint Mobility Assessment hypomobility: L shoulder with posterior and inferior glides PT-OP-K Range of Motion Start: 07/30/18 13:32 Freq: Status: Active Protocol: Document 10/21/18 17:03 EA (Rec: 10/21/18 17:22 EA [id number]) Shoulder Goniometric Range of Motion Shoulder Measured in Degrees Right Active Testing Position Supine Flexion 170 Abduction 165 External Rotation at 90 degrees 75 Abduction Internal Rotation 80 Left Passive Testing Position Supine Flexion 120 Abduction 110 External Rotation at 0 degrees Abduction 40 Left Active Testing Position Supine Flexion 100 Abduction 90 External Rotation at 0 degrees Abduction 40 Internal Rotation 65 PT-OP-L Special Tests Start: 07/30/18 13:32 Freq: Status: Active Protocol: Document 07/30/18 12:00 RCC (Rec: 07/31/18 15:47 RCC [email or web address]) Special Tests Shoulder Special Tests Apprehension Test Test Results negative Belly Press Test Results negative Lift-Off Rotator Cuff Test Results negative Load and Shift Test Results negative Other Special Tests Special Tests unable to assess further due to pain and limitations of ROM PT-OP-M Strength Start: 07/30/18 13:32 Freq: Status: Active Protocol: Document 07/30/18 12:00 RCC (Rec: 07/31/18 15:52 RCC [email or web address]) Shoulder Strength Shoulder Manual Muscle Testing Left Flexion 2- Poor- Abduction (C5) 2- Poor- External Rotation 3 Fair Internal Rotation 4 Good Right Flexion 5 Normal Adduction 5 Normal External Rotation 5 Normal Internal Rotation 5 Normal Elbow/Forearm Strength Elbow and Forearm Manual Muscle Testing Left Flexion (C6) 4 Good Extension (C7) 4 Good Right Flexion (C6) 5 Normal Extension (C7) 5 Normal PT-OP-Q Treatments Start: 07/30/18 13:32 Freq: Status: Active Protocol: Document 10/28/18 12:03 RCC (Rec: 10/28/18 13:04 RCC [email or web address]) Cardio Equipment Upper Body Ergometer (UBE) Duration (Minutes) 6 Seat Position 12 Height 4-5.5 change every min Other fwd/bwd Therapeutic Exercises Supine Exercises Prolonged stretch L shoulder Supine Exercise Name Flex, ER, Horiz ADD Side left Reps/Minutes 8' Sitting Exercises shoulder flexion Side left Resistance L1 Reps/Minutes x3 Comments discontinued d/t shoulder pain shoulder isometrics Sitting Exercise Name flexion, IR, ER Side left Reps/Minutes x10 Comments 5 sec hold @ variety of angles as tolerated Standing Exercises shoulder abduction Standing Exercise Name isometric Side left Reps/Minutes x10 Comments 5 sec hold; arm at 0 and 30 deg abduction Manual Therapy Treatment Joint Mobilizations 1 Joint GH Direction Post/inf Grade II Body Position Supine Reps/Duration x 10 mins Comments II-III Manual Techniques 1 Type Gentle passive stretch: flexion/ABD/ER Reps/Duration x 20SH x 3 reps Comments PNF: Pain free range/prior to pain, increased ROM with manual resistance PT-OP-R Modalities Start: 07/30/18 13:32 Freq: Status: Active Protocol: Document 10/28/18 12:03 [facility] (Rec: 10/28/18 13:04 [facility] [email or web address]) Hot Pack/Cold Pack Treatment Cold Pack Location left shoulder Patient Position Sitting Treatment Duration (minutes) 10 Patient Tolerance Good PT-OP-T Assessment and Plan Start: 07/30/18 13:32 Freq: Status: Active Protocol: Document 10/28/18 12:03 [facility] (Rec: 10/28/18 13:04 [facility] [email or web address]) Physical Therapy Assessment Assessment Summary Assessment Pt unable to tolerate resistance with shoulder flexion in seated position, which was performed at pt's request to attempt to use a band at home. Discussed with pt about doing isometrics initially at home, which was added to his HEP (pt tolerated isometrics well without c/o pain, just fatigue) and to hold-off on resistance band training this week due to weakness and potential for regression with function due to increased pain. Physical Therapy Plan Frequency and Duration Frequency of Treatment 2x/Week Duration of Treatment 8 wks Plan of Care Start Date 10/21/18 Plan of Care End Date 12/16/18 Next Visit Focus/Plan Next Note Type Treatment Note Next Visit Plan assess tolerance to isometric L shoulder activities, cont to progress AAROM and scapular stabilization.
--- NOTE | 2018-11-02 14:03 | PT.OTN ---
Current Diagnoses Unspecified rotator cuff tear or rupture of left shoulder, not specified as traumatic (11/02/18) Physical Therapy Treatment Note PT-OP-A Visit Information Start: 07/30/18 13:32 Freq: Status: Active Protocol: Document 11/02/18 12:49 LRN (Rec: 11/02/18 13:34 LRN [id number]) Out-Patient Physical Therapy Visit Information Visit Information Visit Type Treatment Note Visit Start Time 12:49 Visit Stop Time 13:32 Total Visit Minutes 57 Visit Number 27 Number of AUTOMOTIVE TECHNOLOGY INSTRUCTOR Visits 0 Evaluation Information Evaluation Date 06/29/18 PT-OP-B Current Condition Start: 07/30/18 13:32 Freq: Status: Active Protocol: Document 07/30/18 12:00 RCC (Rec: 07/31/18 09:38 RCC [email or web address]) Current Condition History of Current Condition Onset Date December 2017 Current Complaints L shoulder weakness, impaired ROM, pain History of Current Condition Pt is an 83 y/o male presenting to physical therapy with a c/o L shoulder pain, weakness, and limited ROM. Pt sustained infraspinatus and supraspinatus tears /sp traumatic dislocation in December. He had arthroscopic surgery on 01/15/18 . MRI done in April of 2018 showed that the pt had full thickness tearing of supraspinatus and infraspinatus, as well as posterior labral tear. He was consulted for a TSA, but seeked a second opinion which suggested pain management and physical therapy. 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 He admits to being primarily a L sided sleeper until this L shoulder injury, now very uncomfortable sleeping on his back or his R side. Pt has not done any formal PT since re-tearing, but did participate in PT s/p rotator cuff surgery. He is R hand dominant. Prior Treatments and Tests MRI as noted above Treatment Goals Patient/Caregiver Goals improve ROM, strength, and decrease pain Current Functional Impairments (Reported) Functional Limitations- Other unable to perform any activities with arm away from body Personal Factors Other Personal Factors That May Effect blood condition which Therapy/Recovery requires annual follow up with oncology (denies any current CA of any kind, does have past h/o prostate CA 10 yrs ago), [place] 1993 PT-OP-C Subjective Start: 07/30/18 13:32 Freq: Status: Active Protocol: Document 11/02/18 12:49 LRN (Rec: 11/02/18 13:34 LRN [id number]) OP-PT Subjective Patient Comments Patient Comments States he can lift a little higher and is using his L arm more. States he is unable to get in with any therapist for the next 10 days. Patient Questionnaires Quick Dash- Upper Extremity Quick Dash UE Score 34.09 Quick Dash UE Impairment 20 to 39% Impaired (Score 20- 39) PT-OP-F Manual Assessment Start: 07/30/18 13:32 Freq: Status: Active Protocol: Document 07/30/18 12:00 RCC (Rec: 07/31/18 15:47 RCC [email or web address]) Manual Assessments Soft Tissue Assessment Soft Tissue Mobility Assessment tenderness to palpation: L parascapular mm and posterior shoulder Joint Mobility Assessment Joint Mobility Assessment hypomobility: L shoulder with posterior and inferior glides PT-OP-K Range of Motion Start: 07/30/18 13:32 Freq: Status: Active Protocol: Document 10/21/18 17:03 EA (Rec: 10/21/18 17:22 EA [id number]) Shoulder Goniometric Range of Motion Shoulder Measured in Degrees Right Active Testing Position Supine Flexion 170 Abduction 165 External Rotation at 90 degrees 75 Abduction Internal Rotation 80 Left Passive Testing Position Supine Flexion 120 Abduction 110 External Rotation at 0 degrees Abduction 40 Left Active Testing Position Supine Flexion 100 Abduction 90 External Rotation at 0 degrees Abduction 40 Internal Rotation 65 PT-OP-L Special Tests Start: 07/30/18 13:32 Freq: Status: Active Protocol: Document 07/30/18 12:00 RCC (Rec: 07/31/18 15:47 RCC [email or web address]) Special Tests Shoulder Special Tests Apprehension Test Test Results negative Belly Press Test Results negative Lift-Off Rotator Cuff Test Results negative Load and Shift Test Results negative Other Special Tests Special Tests unable to assess further due to pain and limitations of ROM PT-OP-M Strength Start: 07/30/18 13:32 Freq: Status: Active Protocol: Document 07/30/18 12:00 RCC (Rec: 07/31/18 15:52 RCC [email or web address]) Shoulder Strength Shoulder Manual Muscle Testing Left Flexion 2- Poor- Abduction (C5) 2- Poor- External Rotation 3 Fair Internal Rotation 4 Good Right Flexion 5 Normal Adduction 5 Normal External Rotation 5 Normal Internal Rotation 5 Normal Elbow/Forearm Strength Elbow and Forearm Manual Muscle Testing Left Flexion (C6) 4 Good Extension (C7) 4 Good Right Flexion (C6) 5 Normal Extension (C7) 5 Normal PT-OP-Q Treatments Start: 07/30/18 13:32 Freq: Status: Active Protocol: Document 11/02/18 12:49 LRN (Rec: 11/02/18 13:34 LRN [id number]) Cardio Equipment Upper Body Ergometer (UBE) Duration (Minutes) 6 RPM 70 Seat Position 14 Height 4-5.5 change every min Other fwd/bwd. Total of 6.5 minutes of exercise. Therapeutic Exercises Supine Exercises Rhythmic stabilization with pt at 90 deg's flex Supine Exercise Name Rhythmic stab for flex/ext/ horiz AB & AD/diagonals Side left Reps/Minutes 3' Comments Poor stabilization unless slowly transitioning position of pressure Lat Pull Down Supine Exercise Name Lat pull down Side bilateral Resistance Lev2 T Band, 2# Reps/Minutes 20x Prolonged stretch L shoulder Supine Exercise Name Flex, ER, Horiz ADD Side left Reps/Minutes 8' 2 Supine Exercise Name Active L shoulder protraction Reps/Minutes 10 x T-bar Supine Exercise Name flexion Side left Reps/Minutes 10x Comments 5 sec hold Sitting Exercises shoulder flexion Sitting Exercise Name Flex with cane Side left Resistance Cane to assist end range Reps/Minutes 10x scapular retraction Sitting Exercise Name Row Side bilateral Resistance L 2 T-Band Reps/Minutes 15x Self-Care/Home Management Treatment Education Patient Education Home Exercise Program Activities Self-Care/Home Management Activities Issued L1 T-Band, issued & reviewed T-Band overdoor for shoulder lat pull down and in side of door for row. PT-OP-R Modalities Start: 07/30/18 13:32 Freq: Status: Active Protocol: Document 11/02/18 12:49 LRN (Rec: 11/02/18 13:34 LRN [id number]) Hot Pack/Cold Pack Treatment Cold Pack Location left shoulder Patient Position Sitting Treatment Duration (minutes) 10 Patient Tolerance Good PT-OP-T Assessment and Plan Start: 07/30/18 13:32 Freq: Status: Active Protocol: Document 11/02/18 12:49 LRN (Rec: 11/02/18 13:34 LRN [id number]) Physical Therapy Assessment Assessment Summary Assessment Pt has good tolerance to ex. AB passively appears ~110 deg' s, flex/ER is limited in mobility. Weakness of scapular stabilizers and isometric holding of L arm is present. Pain with use of infraspinatus and supraspinatus. UE QuickDASH score of 34.09. Physical Therapy Plan Frequency and Duration Frequency of Treatment 2x/Week Duration of Treatment 8 wks Plan of Care Start Date 10/21/18 Plan of Care End Date 12/16/18 Next Visit Focus/Plan Next Note Type Treatment Note Next Visit Plan Cont to progress AAROM, PNF, and scapular stabilization in sit and stand.
--- NOTE | 2018-11-04 17:35 | PT.OTN ---
Current Diagnoses Unspecified rotator cuff tear or rupture of left shoulder, not specified as traumatic (11/04/18) Physical Therapy Treatment Note PT-OP-A Visit Information Start: 07/30/18 13:32 Freq: Status: Active Protocol: Document 11/04/18 13:44 EA (Rec: 11/04/18 13:49 EA [id number]) Out-Patient Physical Therapy Visit Information Visit Information Visit Type Treatment Note Visit Start Time 13:00 Visit Stop Time 13:45 Total Visit Minutes 48 Visit Number 29 PT-OP-B Current Condition Start: 07/30/18 13:32 Freq: Status: Active Protocol: Document 07/30/18 12:00 RCC (Rec: 07/31/18 09:38 RCC [email or web address]) Current Condition History of Current Condition Onset Date December 2017 Current Complaints L shoulder weakness, impaired ROM, pain History of Current Condition Pt is an 83 y/o male presenting to physical therapy with a c/o L shoulder pain, weakness, and limited ROM. Pt sustained infraspinatus and supraspinatus tears /sp traumatic dislocation in December. He had arthroscopic surgery on 01/15/18 . MRI done in April of 2018 showed that the pt had full thickness tearing of supraspinatus and infraspinatus, as well as posterior labral tear. He was consulted for a TSA, but seeked a second opinion which suggested pain management and physical therapy. 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 He admits to being primarily a L sided sleeper until this L shoulder injury, now very uncomfortable sleeping on his back or his R side. Pt has not done any formal PT since re-tearing, but did participate in PT s/p rotator cuff surgery. He is R hand dominant. Prior Treatments and Tests MRI as noted above Treatment Goals Patient/Caregiver Goals improve ROM, strength, and decrease pain Current Functional Impairments (Reported) Functional Limitations- Other unable to perform any activities with arm away from body Personal Factors Other Personal Factors That May Effect blood condition which Therapy/Recovery requires annual follow up with oncology (denies any current CA of any kind, does have past h/o prostate CA 10 yrs ago), [place] 1992 PT-OP-C Subjective Start: 07/30/18 13:32 Freq: Status: Active Protocol: Document 11/04/18 13:44 EA (Rec: 11/04/18 13:49 EA [id number]) OP-PT Subjective Patient Comments Patient Comments Pt reports not much any changes with strength; states pain is not the problem anymore. PT-OP-F Manual Assessment Start: 07/30/18 13:32 Freq: Status: Active Protocol: Document 07/30/18 12:00 RCC (Rec: 07/31/18 15:47 RCC [email or web address]) Manual Assessments Soft Tissue Assessment Soft Tissue Mobility Assessment tenderness to palpation: L parascapular mm and posterior shoulder Joint Mobility Assessment Joint Mobility Assessment hypomobility: L shoulder with posterior and inferior glides PT-OP-K Range of Motion Start: 07/30/18 13:32 Freq: Status: Active Protocol: Document 10/21/18 17:03 EA (Rec: 10/21/18 17:22 EA [id number]) Shoulder Goniometric Range of Motion Shoulder Measured in Degrees Right Active Testing Position Supine Flexion 170 Abduction 165 External Rotation at 90 degrees 75 Abduction Internal Rotation 80 Left Passive Testing Position Supine Flexion 120 Abduction 110 External Rotation at 0 degrees Abduction 40 Left Active Testing Position Supine Flexion 100 Abduction 90 External Rotation at 0 degrees Abduction 40 Internal Rotation 65 PT-OP-L Special Tests Start: 07/30/18 13:32 Freq: Status: Active Protocol: Document 07/30/18 12:00 RCC (Rec: 07/31/18 15:47 RCC [email or web address]) Special Tests Shoulder Special Tests Apprehension Test Test Results negative Belly Press Test Results negative Lift-Off Rotator Cuff Test Results negative Load and Shift Test Results negative Other Special Tests Special Tests unable to assess further due to pain and limitations of ROM PT-OP-M Strength Start: 07/30/18 13:32 Freq: Status: Active Protocol: Document 07/30/18 12:00 RCC (Rec: 07/31/18 15:52 RCC [email or web address]) Shoulder Strength Shoulder Manual Muscle Testing Left Flexion 2- Poor- Abduction (C5) 2- Poor- External Rotation 3 Fair Internal Rotation 4 Good Right Flexion 5 Normal Adduction 5 Normal External Rotation 5 Normal Internal Rotation 5 Normal Elbow/Forearm Strength Elbow and Forearm Manual Muscle Testing Left Flexion (C6) 4 Good Extension (C7) 4 Good Right Flexion (C6) 5 Normal Extension (C7) 5 Normal PT-OP-Q Treatments Start: 07/30/18 13:32 Freq: Status: Active Protocol: Document 11/04/18 13:44 EA (Rec: 11/04/18 13:49 EA [id number]) Cardio Equipment Upper Body Ergometer (UBE) Duration (Minutes) 6 RPM 70 Seat Position 11 Height 4-5.5 change every min Other fwd/bwd. Total of 6.5 minutes of exercise. Therapeutic Exercises Supine Exercises Lat Pull Down Supine Exercise Name Lat pull down Side bilateral Resistance Lev2 T Band, 2# Reps/Minutes 20x Sidelying Exercises 4 Sidelying Exercise Name Horiz ABD at 45-90 deg keely Equipment Used x 10 reps Comments AAROM/ Hold 3 Sidelying Exercise Name scap retraction Reps/Minutes x 10 reps Comments AAROM 2 Sidelying Exercise Name ER Resistance gentle manual resistance Reps/Minutes x 15 reps Sitting Exercises 3 Sitting Exercise Name shoulder jose: flexion with no help during eccentric contraction Reps/Minutes to fatigue shoulder isometrics Sitting Exercise Name flexion, IR, ER Side left Reps/Minutes x10 Comments 5 sec hold @ variety of angles as tolerated 2 Sitting Exercise Name D1, D2 F/E Reps/Minutes to fatigue x 3 sets each with rest in between Comments active assistibve with concentric and active with exccentric 1 Sitting Exercise Name AAROM to concentric flexion; active to eccentric Reps/Minutes to fatigue Standing Exercises Lat Pull Down Standing Exercise Name Lat Pull Down with back to T- Band attached above head Side bilateral Resistance Lev 2 T-Band Reps/Minutes 10x 6 Standing Exercise Name Wall slider: flexion Reps/Minutes to fatigue x 5 sets Comments AAROM to near end range flexion 5 Standing Exercise Name Table slider: flexion and scaption Reps/Minutes x 15 reps x 2 sets each Comments stretch at endrange 2 Standing Exercise Name T-bar shoulder ext Resistance 4-8lbs Reps/Minutes x 15 reps x 2 PT-OP-R Modalities Start: 07/30/18 13:32 Freq: Status: Active Protocol: Document 11/04/18 13:53 EA (Rec: 11/04/18 13:53 EA [id number]) Hot Pack/Cold Pack Treatment Cold Pack Location left shoulder Patient Position Sitting Treatment Duration (minutes) 10 Patient Tolerance Good PT-OP-T Assessment and Plan Start: 07/30/18 13:32 Freq: Status: Active Protocol: Document 11/04/18 13:44 EA (Rec: 11/04/18 13:49 EA [id number]) Physical Therapy Assessment Assessment Summary Assessment Pt exhibits lacked of 5 degrees to table shoulder flexion with slider. Patient is currently able to control eccentric flexion with jose suggesting improvement of shoulder strength. Physical Therapy Plan Next Visit Focus/Plan Next Note Type Treatment Note Next Visit Plan Cont to progress AAROM, PNF, and scapular stabilization in sit and stand.
--- NOTE | 2018-11-10 15:15 | PT.OTN ---
Current Diagnoses Unspecified rotator cuff tear or rupture of left shoulder, not specified as traumatic (11/10/18) Physical Therapy Treatment Note PT-OP-A Visit Information Start: 07/30/18 13:32 Freq: Status: Active Protocol: Document 11/10/18 15:15 DLM (Rec: 11/10/18 16:24 DLM [id number]) Out-Patient Physical Therapy Visit Information Visit Information Visit Type Treatment Note Visit Start Time 13:15 Visit Stop Time 14:05 Total Visit Minutes 49 Visit Number 30 Number of INFECTION CONTROL NURSE Visits 0 Evaluation Information Evaluation Date 06/29/18 PT-OP-B Current Condition Start: 07/30/18 13:32 Freq: Status: Active Protocol: Document 07/30/18 12:00 RCC (Rec: 07/31/18 09:38 RCC [email or web address]) Current Condition History of Current Condition Onset Date December 2017 Current Complaints L shoulder weakness, impaired ROM, pain History of Current Condition Pt is an 83 y/o male presenting to physical therapy with a c/o L shoulder pain, weakness, and limited ROM. Pt sustained infraspinatus and supraspinatus tears /sp traumatic dislocation in December. He had arthroscopic surgery on 01/15/18 . MRI done in April of 2018 showed that the pt had full thickness tearing of supraspinatus and infraspinatus, as well as posterior labral tear. He was consulted for a TSA, but seeked a second opinion which suggested pain management and physical therapy. 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 He admits to being primarily a L sided sleeper until this L shoulder injury, now very uncomfortable sleeping on his back or his R side. Pt has not done any formal PT since re-tearing, but did participate in PT s/p rotator cuff surgery. He is R hand dominant. Prior Treatments and Tests MRI as noted above Treatment Goals Patient/Caregiver Goals improve ROM, strength, and decrease pain Current Functional Impairments (Reported) Functional Limitations- Other unable to perform any activities with arm away from body Personal Factors Other Personal Factors That May Effect blood condition which Therapy/Recovery requires annual follow up with oncology (denies any current CA of any kind, does have past h/o prostate CA 10 yrs ago), [place] 1993 PT-OP-C Subjective Start: 07/30/18 13:32 Freq: Status: Active Protocol: Document 11/10/18 15:15 DLM (Rec: 11/10/18 16:24 DLM [id number]) OP-PT Subjective Patient Comments Patient Comments He does not have much pain. He c/o stiffness that makes it hard to use his arm. He tries at home to reach up in the cabinet. Patient Reported Progress Same PT-OP-F Manual Assessment Start: 07/30/18 13:32 Freq: Status: Active Protocol: Document 07/30/18 12:00 RCC (Rec: 07/31/18 15:47 RCC [email or web address]) Manual Assessments Soft Tissue Assessment Soft Tissue Mobility Assessment tenderness to palpation: L parascapular mm and posterior shoulder Joint Mobility Assessment Joint Mobility Assessment hypomobility: L shoulder with posterior and inferior glides PT-OP-K Range of Motion Start: 07/30/18 13:32 Freq: Status: Active Protocol: Document 10/21/18 17:03 EA (Rec: 10/21/18 17:22 EA [id number]) Shoulder Goniometric Range of Motion Shoulder Measured in Degrees Right Active Testing Position Supine Flexion 170 Abduction 165 External Rotation at 90 degrees 75 Abduction Internal Rotation 80 Left Passive Testing Position Supine Flexion 120 Abduction 110 External Rotation at 0 degrees Abduction 40 Left Active Testing Position Supine Flexion 100 Abduction 90 External Rotation at 0 degrees Abduction 40 Internal Rotation 65 PT-OP-L Special Tests Start: 07/30/18 13:32 Freq: Status: Active Protocol: Document 07/30/18 12:00 RCC (Rec: 07/31/18 15:47 RCC [email or web address]) Special Tests Shoulder Special Tests Apprehension Test Test Results negative Belly Press Test Results negative Lift-Off Rotator Cuff Test Results negative Load and Shift Test Results negative Other Special Tests Special Tests unable to assess further due to pain and limitations of ROM PT-OP-M Strength Start: 07/30/18 13:32 Freq: Status: Active Protocol: Document 07/30/18 12:00 RCC (Rec: 07/31/18 15:52 RCC [email or web address]) Shoulder Strength Shoulder Manual Muscle Testing Left Flexion 2- Poor- Abduction (C5) 2- Poor- External Rotation 3 Fair Internal Rotation 4 Good Right Flexion 5 Normal Adduction 5 Normal External Rotation 5 Normal Internal Rotation 5 Normal Elbow/Forearm Strength Elbow and Forearm Manual Muscle Testing Left Flexion (C6) 4 Good Extension (C7) 4 Good Right Flexion (C6) 5 Normal Extension (C7) 5 Normal PT-OP-Q Treatments Start: 07/30/18 13:32 Freq: Status: Active Protocol: Document 11/10/18 15:15 DLM (Rec: 11/10/18 16:24 DLM [id number]) Cardio Equipment Upper Body Ergometer (UBE) Duration (Minutes) 6 RPM 70 Seat Position 14 Height 4-5.5, progressive change Other forward/backward Therapeutic Exercises Supine Exercises Prolonged stretch L shoulder Supine Exercise Name Flex, ER, Horiz ADD Side left 3 Supine Exercise Name Internal rotation/ER Side left Resistance 1# Reps/Minutes x 10 reps Comments end range ER stretch 1 Supine Exercise Name Shoulder flexion Side left Resistance active Reps/Minutes x 10 reps Sidelying Exercises 4 Sidelying Exercise Name Horiz ABD at 45-90 deg keely Equipment Used x 10 reps Comments AAROM/ Hold 3 Sidelying Exercise Name scap retraction Reps/Minutes x 10 reps 2 Sidelying Exercise Name External Rotation Reps/Minutes x 15 reps Sitting Exercises 3 Sitting Exercise Name flexion and abduction Side left Equipment Used pulleys Reps/Minutes x 20 reps each 2 Sitting Exercise Name D1, D2 F/E Side left Reps/Minutes x 10 reps each Comments supine today Standing Exercises Lat Pull Down Standing Exercise Name Lat Pull Down with back to T- Band attached above head Side bilateral Resistance Lev 2 T-Band Reps/Minutes x 10 reps 4 Standing Exercise Name shoulder ER Side bilateral Comments back to wall Manual Therapy Treatment Soft Tissue Mobilization 2 Body Location pectoralis Mobilization Type Cross-Friction Strumming Sustained Pressure Intensity/Depth Moderate Body Position Supine 1 Body Location posterior shoulder Mobilization Type Cross-Friction Strumming Sustained Pressure Intensity/Depth Moderate Body Position Supine Joint Mobilizations 1 Joint GH Direction Post/inf Grade II Body Position Supine Reps/Duration x 10 mins Comments II-III PT-OP-R Modalities Start: 07/30/18 13:32 Freq: Status: Active Protocol: Document 11/10/18 15:15 DLM (Rec: 11/10/18 16:24 DLM [id number]) Hot Pack/Cold Pack Treatment Cold Pack Location left shoulder Patient Position Hooklying Treatment Duration (minutes) 10 Patient Tolerance Good PT-OP-T Assessment and Plan Start: 07/30/18 13:32 Freq: Status: Active Protocol: Document 11/10/18 15:15 DLM (Rec: 11/10/18 16:24 DLM [id number]) Physical Therapy Assessment Assessment Summary Assessment He reports his shoulder is about he same. He tolerates his exercises well with reports of fatigue at end of treatment session. He describes limited use of his left shoulder at home. His joint tightness improved with mobilizations. His ROM gradually improves with reps of his exercises. Physical Therapy Plan Frequency and Duration Frequency of Treatment 2x/Week Duration of Treatment 8 wks Plan of Care Start Date 10/21/18 Plan of Care End Date 12/16/18 Next Visit Focus/Plan Next Note Type Treatment Note Next Visit Plan Cont to progress AAROM, PNF, and scapular stabilization in sit and stand.
--- NOTE | 2018-11-12 16:30 | PT.OTN ---
Current Diagnoses Unspecified rotator cuff tear or rupture of left shoulder, not specified as traumatic (11/12/18) Physical Therapy Treatment Note PT-OP-A Visit Information Start: 07/30/18 13:32 Freq: Status: Active Protocol: Document 11/12/18 16:20 EA (Rec: 11/12/18 16:30 EA [id number]) Out-Patient Physical Therapy Visit Information Visit Information Visit Type Treatment Note Visit Start Time 15:15 Visit Stop Time 16:00 Total Visit Minutes 48 Visit Number 31 PT-OP-B Current Condition Start: 07/30/18 13:32 Freq: Status: Active Protocol: Document 07/30/18 12:00 RCC (Rec: 07/31/18 09:38 RCC [email or web address]) Current Condition History of Current Condition Onset Date December 2017 Current Complaints L shoulder weakness, impaired ROM, pain History of Current Condition Pt is an 83 y/o male presenting to physical therapy with a c/o L shoulder pain, weakness, and limited ROM. Pt sustained infraspinatus and supraspinatus tears /sp traumatic dislocation in December. He had arthroscopic surgery on 01/15/18 . MRI done in April of 2018 showed that the pt had full thickness tearing of supraspinatus and infraspinatus, as well as posterior labral tear. He was consulted for a TSA, but seeked a second opinion which suggested pain management and physical therapy. 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 He admits to being primarily a L sided sleeper until this L shoulder injury, now very uncomfortable sleeping on his back or his R side. Pt has not done any formal PT since re-tearing, but did participate in PT s/p rotator cuff surgery. He is R hand dominant. Prior Treatments and Tests MRI as noted above Treatment Goals Patient/Caregiver Goals improve ROM, strength, and decrease pain Current Functional Impairments (Reported) Functional Limitations- Other unable to perform any activities with arm away from body Personal Factors Other Personal Factors That May Effect blood condition which Therapy/Recovery requires annual follow up with oncology (denies any current CA of any kind, does have past h/o prostate CA 10 yrs ago), [place] 1992 PT-OP-C Subjective Start: 07/30/18 13:32 Freq: Status: Active Protocol: Document 11/12/18 16:20 EA (Rec: 11/12/18 16:30 EA [id number]) OP-PT Subjective Patient Comments Patient Comments Pt reports I feel I am using my shoulder more than three months ago. I dont how do you measure my progress but I am progressing slow but steady . PT-OP-F Manual Assessment Start: 07/30/18 13:32 Freq: Status: Active Protocol: Document 07/30/18 12:00 RCC (Rec: 07/31/18 15:47 RCC [email or web address]) Manual Assessments Soft Tissue Assessment Soft Tissue Mobility Assessment tenderness to palpation: L parascapular mm and posterior shoulder Joint Mobility Assessment Joint Mobility Assessment hypomobility: L shoulder with posterior and inferior glides PT-OP-K Range of Motion Start: 07/30/18 13:32 Freq: Status: Active Protocol: Document 10/21/18 17:03 EA (Rec: 10/21/18 17:22 EA [id number]) Shoulder Goniometric Range of Motion Shoulder Measured in Degrees Right Active Testing Position Supine Flexion 170 Abduction 165 External Rotation at 90 degrees 75 Abduction Internal Rotation 80 Left Passive Testing Position Supine Flexion 120 Abduction 110 External Rotation at 0 degrees Abduction 40 Left Active Testing Position Supine Flexion 100 Abduction 90 External Rotation at 0 degrees Abduction 40 Internal Rotation 65 PT-OP-L Special Tests Start: 07/30/18 13:32 Freq: Status: Active Protocol: Document 07/30/18 12:00 RCC (Rec: 07/31/18 15:47 RCC [email or web address]) Special Tests Shoulder Special Tests Apprehension Test Test Results negative Belly Press Test Results negative Lift-Off Rotator Cuff Test Results negative Load and Shift Test Results negative Other Special Tests Special Tests unable to assess further due to pain and limitations of ROM PT-OP-M Strength Start: 07/30/18 13:32 Freq: Status: Active Protocol: Document 07/30/18 12:00 RCC (Rec: 07/31/18 15:52 RCC [email or web address]) Shoulder Strength Shoulder Manual Muscle Testing Left Flexion 2- Poor- Abduction (C5) 2- Poor- External Rotation 3 Fair Internal Rotation 4 Good Right Flexion 5 Normal Adduction 5 Normal External Rotation 5 Normal Internal Rotation 5 Normal Elbow/Forearm Strength Elbow and Forearm Manual Muscle Testing Left Flexion (C6) 4 Good Extension (C7) 4 Good Right Flexion (C6) 5 Normal Extension (C7) 5 Normal PT-OP-Q Treatments Start: 07/30/18 13:32 Freq: Status: Active Protocol: Document 11/12/18 16:20 EA (Rec: 11/12/18 16:30 EA [id number]) Cardio Equipment Upper Body Ergometer (UBE) Duration (Minutes) 6 RPM 70 Seat Position 14 Height 4-5.5, progressive change Other forward/backward Gym Equipment Cable Column (Body Solid) Rows Details Adjustable cable: mid and low row (single arm) Resistance 20-30# Reps/Time x 15 repsx2 Therapeutic Exercises Supine Exercises 1 Supine Exercise Name Shoulder flexion Side left Resistance active Reps/Minutes x 10 reps Sidelying Exercises 4 Sidelying Exercise Name Horiz ABD at 45-90 deg keely Equipment Used x 10 reps 3 Sidelying Exercise Name scap retraction Reps/Minutes x 10 reps 2 Sidelying Exercise Name External Rotation Reps/Minutes x 15 reps 1 Sidelying Exercise Name shoulder abduction Reps/Minutes x 12 reps Sitting Exercises 3 Sitting Exercise Name flexion and abduction Side left Equipment Used pulleys Reps/Minutes x 20 reps each 2 Sitting Exercise Name D1, D2 F/E Side left Reps/Minutes x 10 reps each Comments supine/sitting 1 Sitting Exercise Name AAROM to concentric flexion; active to eccentric Reps/Minutes to fatigue Standing Exercises 5 Standing Exercise Name Table slider: flexion and scaption Reps/Minutes x 15 reps x 2 sets each Comments stretch at endrange 2 Standing Exercise Name T-bar shoulder ext Resistance 4-8lbs Reps/Minutes x 15 reps x 2 PT-OP-R Modalities Start: 07/30/18 13:32 Freq: Status: Active Protocol: Document 11/12/18 16:20 EA (Rec: 11/12/18 16:30 EA [id number]) Hot Pack/Cold Pack Treatment Cold Pack Location left shoulder Patient Position Hooklying Treatment Duration (minutes) 10 Patient Tolerance Good PT-OP-T Assessment and Plan Start: 07/30/18 13:32 Freq: Status: Active Protocol: Document 11/12/18 16:20 EA (Rec: 11/12/18 16:30 EA [id number]) Physical Therapy Assessment Assessment Summary Assessment Noted improved diagonal pattern AROM in sitting and SL shoulder ABD/Scap/ and scap ADD. Progress noted at this time. Physical Therapy Plan Next Visit Focus/Plan Next Note Type Treatment Note Next Visit Plan Cont to progress AAROM, PNF, and scapular stabilization in sit and stand.
--- NOTE | 2018-11-16 16:49 | PT.OTN ---
Current Diagnoses Unspecified rotator cuff tear or rupture of left shoulder, not specified as traumatic (11/16/18) Physical Therapy Treatment Note PT-OP-A Visit Information Start: 07/30/18 13:32 Freq: Status: Active Protocol: Document 11/16/18 13:43 EA (Rec: 11/16/18 13:48 EA [id number]) Out-Patient Physical Therapy Visit Information Visit Information Visit Type Treatment Note Visit Start Time 13:00 Visit Stop Time 13:45 Total Visit Minutes 48 Visit Number 29 PT-OP-B Current Condition Start: 07/30/18 13:32 Freq: Status: Active Protocol: Document 07/30/18 12:00 RCC (Rec: 07/31/18 09:38 RCC [email or web address]) Current Condition History of Current Condition Onset Date December 2017 Current Complaints L shoulder weakness, impaired ROM, pain History of Current Condition Pt is an 83 y/o male presenting to physical therapy with a c/o L shoulder pain, weakness, and limited ROM. Pt sustained infraspinatus and supraspinatus tears /sp traumatic dislocation in December. He had arthroscopic surgery on 01/15/18 . MRI done in April of 2018 showed that the pt had full thickness tearing of supraspinatus and infraspinatus, as well as posterior labral tear. He was consulted for a TSA, but seeked a second opinion which suggested pain management and physical therapy. 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 He admits to being primarily a L sided sleeper until this L shoulder injury, now very uncomfortable sleeping on his back or his R side. Pt has not done any formal PT since re-tearing, but did participate in PT s/p rotator cuff surgery. He is R hand dominant. Prior Treatments and Tests MRI as noted above Treatment Goals Patient/Caregiver Goals improve ROM, strength, and decrease pain Current Functional Impairments (Reported) Functional Limitations- Other unable to perform any activities with arm away from body Personal Factors Other Personal Factors That May Effect blood condition which Therapy/Recovery requires annual follow up with oncology (denies any current CA of any kind, does have past h/o prostate CA 10 yrs ago), [place] 1992 PT-OP-C Subjective Start: 07/30/18 13:32 Freq: Status: Active Protocol: Document 11/16/18 13:43 EA (Rec: 11/16/18 13:48 EA [id number]) OP-PT Subjective Patient Comments Patient Comments Pt reports unable to perform some of the recommended HEP. PT-OP-F Manual Assessment Start: 07/30/18 13:32 Freq: Status: Active Protocol: Document 07/30/18 12:00 RCC (Rec: 07/31/18 15:47 RCC [email or web address]) Manual Assessments Soft Tissue Assessment Soft Tissue Mobility Assessment tenderness to palpation: L parascapular mm and posterior shoulder Joint Mobility Assessment Joint Mobility Assessment hypomobility: L shoulder with posterior and inferior glides PT-OP-K Range of Motion Start: 07/30/18 13:32 Freq: Status: Active Protocol: Document 10/21/18 17:03 EA (Rec: 10/21/18 17:22 EA [id number]) Shoulder Goniometric Range of Motion Shoulder Measured in Degrees Right Active Testing Position Supine Flexion 170 Abduction 165 External Rotation at 90 degrees 75 Abduction Internal Rotation 80 Left Passive Testing Position Supine Flexion 120 Abduction 110 External Rotation at 0 degrees Abduction 40 Left Active Testing Position Supine Flexion 100 Abduction 90 External Rotation at 0 degrees Abduction 40 Internal Rotation 65 PT-OP-L Special Tests Start: 07/30/18 13:32 Freq: Status: Active Protocol: Document 07/30/18 12:00 RCC (Rec: 07/31/18 15:47 RCC [email or web address]) Special Tests Shoulder Special Tests Apprehension Test Test Results negative Belly Press Test Results negative Lift-Off Rotator Cuff Test Results negative Load and Shift Test Results negative Other Special Tests Special Tests unable to assess further due to pain and limitations of ROM PT-OP-M Strength Start: 07/30/18 13:32 Freq: Status: Active Protocol: Document 07/30/18 12:00 RCC (Rec: 07/31/18 15:52 RCC [email or web address]) Shoulder Strength Shoulder Manual Muscle Testing Left Flexion 2- Poor- Abduction (C5) 2- Poor- External Rotation 3 Fair Internal Rotation 4 Good Right Flexion 5 Normal Adduction 5 Normal External Rotation 5 Normal Internal Rotation 5 Normal Elbow/Forearm Strength Elbow and Forearm Manual Muscle Testing Left Flexion (C6) 4 Good Extension (C7) 4 Good Right Flexion (C6) 5 Normal Extension (C7) 5 Normal PT-OP-Q Treatments Start: 07/30/18 13:32 Freq: Status: Active Protocol: Document 11/16/18 13:43 EA (Rec: 11/16/18 13:48 EA [id number]) Cardio Equipment Upper Body Ergometer (UBE) Duration (Minutes) 6 RPM 70 Seat Position 14 Height 4-5.5, progressive change Other forward/backward Gym Equipment Cable Column (Body Solid) Rows Details Adjustable cable: mid and low row (single arm) Resistance 20-30# Reps/Time x 15 repsx2 Therapeutic Exercises Supine Exercises Prolonged stretch L shoulder Supine Exercise Name Flex, ER, Horiz ADD Side left 1 Supine Exercise Name Shoulder flexion Side left Resistance active Reps/Minutes x 10 reps T-bar Supine Exercise Name flexion-ABD Side left Reps/Minutes 10x Sidelying Exercises 4 Sidelying Exercise Name Horiz ABD at 45-90 deg keely Equipment Used x 10 reps 3 Sidelying Exercise Name scap retraction Reps/Minutes x 10 reps 2 Sidelying Exercise Name External Rotation Resistance 1# Reps/Minutes x 15 reps 1 Sidelying Exercise Name shoulder abduction Reps/Minutes x 12 reps Comments x 3 SH Sitting Exercises 3 Sitting Exercise Name flexion and abduction Side left Equipment Used pulleys Reps/Minutes x 20 reps each Comments eccentric contx to left 2 Sitting Exercise Name D1, D2 F/E Side left Reps/Minutes x 10 reps each Comments supine/sitting 1 Sitting Exercise Name AAROM to concentric flexion; active to eccentric Reps/Minutes to fatigue Standing Exercises 5 Standing Exercise Name Table slider: flexion and scaption Reps/Minutes x 15 reps x 2 sets each Comments stretch at endrange 2 Standing Exercise Name T-bar shoulder ext Resistance 4-8lbs Reps/Minutes x 15 reps x 2 PT-OP-R Modalities Start: 07/30/18 13:32 Freq: Status: Active Protocol: Document 11/16/18 13:43 EA (Rec: 11/16/18 13:48 EA [id number]) Hot Pack/Cold Pack Treatment Cold Pack Location left shoulder Patient Position Hooklying Treatment Duration (minutes) 10 Patient Tolerance Good PT-OP-T Assessment and Plan Start: 07/30/18 13:32 Freq: Status: Active Protocol: Document 11/16/18 13:43 EA (Rec: 11/16/18 13:48 EA [id number]) Physical Therapy Assessment Assessment Summary Assessment Tolerated treatment well. Physical Therapy Plan Next Visit Focus/Plan Next Note Type Treatment Note Next Visit Plan Cont to progress AAROM, PNF, and scapular stabilization in sit and stand.
--- NOTE | 2018-11-19 16:13 | PT.OTN ---
Current Diagnoses Unspecified rotator cuff tear or rupture of left shoulder, not specified as traumatic (11/19/18) Physical Therapy Treatment Note PT-OP-A Visit Information Start: 07/30/18 13:32 Freq: Status: Active Protocol: Document 11/19/18 16:06 EA (Rec: 11/19/18 16:12 EA [id number]) Out-Patient Physical Therapy Visit Information Visit Information Visit Type Treatment Note Visit Start Time 14:30 Visit Stop Time 15:15 Total Visit Minutes 48 Visit Number 33 PT-OP-B Current Condition Start: 07/30/18 13:32 Freq: Status: Active Protocol: Document 07/30/18 12:00 RCC (Rec: 07/31/18 09:38 RCC [email or web address]) Current Condition History of Current Condition Onset Date December 2017 Current Complaints L shoulder weakness, impaired ROM, pain History of Current Condition Pt is an 83 y/o male presenting to physical therapy with a c/o L shoulder pain, weakness, and limited ROM. Pt sustained infraspinatus and supraspinatus tears /sp traumatic dislocation in December. He had arthroscopic surgery on 01/15/18 . MRI done in April of 2018 showed that the pt had full thickness tearing of supraspinatus and infraspinatus, as well as posterior labral tear. He was consulted for a TSA, but seeked a second opinion which suggested pain management and physical therapy. 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 He admits to being primarily a L sided sleeper until this L shoulder injury, now very uncomfortable sleeping on his back or his R side. Pt has not done any formal PT since re-tearing, but did participate in PT s/p rotator cuff surgery. He is R hand dominant. Prior Treatments and Tests MRI as noted above Treatment Goals Patient/Caregiver Goals improve ROM, strength, and decrease pain Current Functional Impairments (Reported) Functional Limitations- Other unable to perform any activities with arm away from body Personal Factors Other Personal Factors That May Effect blood condition which Therapy/Recovery requires annual follow up with oncology (denies any current CA of any kind, does have past h/o prostate CA 10 yrs ago), [place] 1992 PT-OP-C Subjective Start: 07/30/18 13:32 Freq: Status: Active Protocol: Document 11/19/18 16:06 EA (Rec: 11/19/18 16:12 EA [id number]) OP-PT Subjective Patient Comments Patient Comments Pt reports compliant with HEP; states left shoulder is stiff but less pain. PT-OP-F Manual Assessment Start: 07/30/18 13:32 Freq: Status: Active Protocol: Document 07/30/18 12:00 RCC (Rec: 07/31/18 15:47 RCC [email or web address]) Manual Assessments Soft Tissue Assessment Soft Tissue Mobility Assessment tenderness to palpation: L parascapular mm and posterior shoulder Joint Mobility Assessment Joint Mobility Assessment hypomobility: L shoulder with posterior and inferior glides PT-OP-K Range of Motion Start: 07/30/18 13:32 Freq: Status: Active Protocol: Document 10/21/18 17:03 EA (Rec: 10/21/18 17:22 EA [id number]) Shoulder Goniometric Range of Motion Shoulder Measured in Degrees Right Active Testing Position Supine Flexion 170 Abduction 165 External Rotation at 90 degrees 75 Abduction Internal Rotation 80 Left Passive Testing Position Supine Flexion 120 Abduction 110 External Rotation at 0 degrees Abduction 40 Left Active Testing Position Supine Flexion 100 Abduction 90 External Rotation at 0 degrees Abduction 40 Internal Rotation 65 PT-OP-L Special Tests Start: 07/30/18 13:32 Freq: Status: Active Protocol: Document 07/30/18 12:00 RCC (Rec: 07/31/18 15:47 RCC [email or web address]) Special Tests Shoulder Special Tests Apprehension Test Test Results negative Belly Press Test Results negative Lift-Off Rotator Cuff Test Results negative Load and Shift Test Results negative Other Special Tests Special Tests unable to assess further due to pain and limitations of ROM PT-OP-M Strength Start: 07/30/18 13:32 Freq: Status: Active Protocol: Document 07/30/18 12:00 RCC (Rec: 07/31/18 15:52 RCC [email or web address]) Shoulder Strength Shoulder Manual Muscle Testing Left Flexion 2- Poor- Abduction (C5) 2- Poor- External Rotation 3 Fair Internal Rotation 4 Good Right Flexion 5 Normal Adduction 5 Normal External Rotation 5 Normal Internal Rotation 5 Normal Elbow/Forearm Strength Elbow and Forearm Manual Muscle Testing Left Flexion (C6) 4 Good Extension (C7) 4 Good Right Flexion (C6) 5 Normal Extension (C7) 5 Normal PT-OP-Q Treatments Start: 07/30/18 13:32 Freq: Status: Active Protocol: Document 11/19/18 16:06 EA (Rec: 11/19/18 16:12 EA [id number]) Cardio Equipment Upper Body Ergometer (UBE) Duration (Minutes) 6 RPM 70 Seat Position 14 Height 4-5.5, progressive change Other forward/backward Gym Equipment Cable Column (Body Solid) Rows Details Adjustable cable: mid and low row (single arm) Resistance 20-30# Reps/Time x 15 repsx2 Therapeutic Exercises Supine Exercises 1 Supine Exercise Name Shoulder flexion Side left Resistance active Reps/Minutes x 10 reps Sidelying Exercises 4 Sidelying Exercise Name Horiz ABD at 45-90 deg keely Equipment Used x 10 reps 3 Sidelying Exercise Name scap retraction Reps/Minutes x 10 reps 2 Sidelying Exercise Name External Rotation Resistance 1# Reps/Minutes x 15 reps 1 Sidelying Exercise Name shoulder abduction Reps/Minutes x 12 reps Comments x 3 SH Sitting Exercises 3 Sitting Exercise Name flexion and abduction Side left Equipment Used pulleys Reps/Minutes x 20 reps each Comments eccentric contx to left 2 Sitting Exercise Name D1, D2 F/E Side left Reps/Minutes x 10 reps each Comments supine/sitting Standing Exercises 5 Standing Exercise Name Table slider: flexion and scaption Reps/Minutes x 15 reps x 2 sets each Comments stretch at endrange 2 Standing Exercise Name T-bar shoulder ext Resistance 4 lbs Reps/Minutes x 15 reps x 2 PT-OP-R Modalities Start: 07/30/18 13:32 Freq: Status: Active Protocol: Document 11/19/18 16:12 EA (Rec: 11/19/18 16:12 EA [id number]) Hot Pack/Cold Pack Treatment Cold Pack Location left shoulder Patient Position Hooklying Treatment Duration (minutes) 10 Patient Tolerance Good PT-OP-T Assessment and Plan Start: 07/30/18 13:32 Freq: Status: Active Protocol: Document 11/19/18 16:06 EA (Rec: 11/19/18 16:12 EA [id number]) Physical Therapy Assessment Assessment Summary Assessment Patient has improved PNF range in supine than in sitting. Cont. supine PNF with manual resistance then progress to incline supine position. Physical Therapy Plan Next Visit Focus/Plan Next Note Type Treatment Note
--- NOTE | 2018-11-24 17:11 | PT.OTN ---
Current Diagnoses Unspecified rotator cuff tear or rupture of left shoulder, not specified as traumatic (11/24/18) Physical Therapy Treatment Note PT-OP-A Visit Information Start: 07/30/18 13:32 Freq: Status: Active Protocol: Document 11/24/18 16:00 HH (Rec: 11/24/18 17:11 HH [email or web address]) Out-Patient Physical Therapy Visit Information Visit Information Visit Type Treatment Note Visit Start Time 16:00 Visit Stop Time 16:45 Total Visit Minutes 45 Visit Number 34 PT-OP-B Current Condition Start: 07/30/18 13:32 Freq: Status: Active Protocol: Document 07/30/18 12:00 RCC (Rec: 07/31/18 09:38 RCC [email or web address]) Current Condition History of Current Condition Onset Date December 2017 Current Complaints L shoulder weakness, impaired ROM, pain History of Current Condition Pt is an 83 y/o male presenting to physical therapy with a c/o L shoulder pain, weakness, and limited ROM. Pt sustained infraspinatus and supraspinatus tears /sp traumatic dislocation in December. He had arthroscopic surgery on 01/15/18 . MRI done in April of 2018 showed that the pt had full thickness tearing of supraspinatus and infraspinatus, as well as posterior labral tear. He was consulted for a TSA, but seeked a second opinion which suggested pain management and physical therapy. 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 He admits to being primarily a L sided sleeper until this L shoulder injury, now very uncomfortable sleeping on his back or his R side. Pt has not done any formal PT since re-tearing, but did participate in PT s/p rotator cuff surgery. He is R hand dominant. Prior Treatments and Tests MRI as noted above Treatment Goals Patient/Caregiver Goals improve ROM, strength, and decrease pain Current Functional Impairments (Reported) Functional Limitations- Other unable to perform any activities with arm away from body Personal Factors Other Personal Factors That May Effect blood condition which Therapy/Recovery requires annual follow up with oncology (denies any current CA of any kind, does have past h/o prostate CA 10 yrs ago), [place] 1992 PT-OP-C Subjective Start: 07/30/18 13:32 Freq: Status: Active Protocol: Document 11/24/18 16:00 HH (Rec: 11/24/18 17:11 HH [email or web address]) OP-PT Subjective Patient Comments Patient Comments cont c/o stiffness > pain. Cont to follow HEP with table slides and assisted wall slide PT-OP-F Manual Assessment Start: 07/30/18 13:32 Freq: Status: Active Protocol: Document 07/30/18 12:00 RCC (Rec: 07/31/18 15:47 RCC [email or web address]) Manual Assessments Soft Tissue Assessment Soft Tissue Mobility Assessment tenderness to palpation: L parascapular mm and posterior shoulder Joint Mobility Assessment Joint Mobility Assessment hypomobility: L shoulder with posterior and inferior glides PT-OP-K Range of Motion Start: 07/30/18 13:32 Freq: Status: Active Protocol: Document 10/21/18 17:03 EA (Rec: 10/21/18 17:22 EA [id number]) Shoulder Goniometric Range of Motion Shoulder Measured in Degrees Right Active Testing Position Supine Flexion 170 Abduction 165 External Rotation at 90 degrees 75 Abduction Internal Rotation 80 Left Passive Testing Position Supine Flexion 120 Abduction 110 External Rotation at 0 degrees Abduction 40 Left Active Testing Position Supine Flexion 100 Abduction 90 External Rotation at 0 degrees Abduction 40 Internal Rotation 65 PT-OP-L Special Tests Start: 07/30/18 13:32 Freq: Status: Active Protocol: Document 07/30/18 12:00 RCC (Rec: 07/31/18 15:47 RCC [email or web address]) Special Tests Shoulder Special Tests Apprehension Test Test Results negative Belly Press Test Results negative Lift-Off Rotator Cuff Test Results negative Load and Shift Test Results negative Other Special Tests Special Tests unable to assess further due to pain and limitations of ROM PT-OP-M Strength Start: 07/30/18 13:32 Freq: Status: Active Protocol: Document 07/30/18 12:00 RCC (Rec: 07/31/18 15:52 RCC [email or web address]) Shoulder Strength Shoulder Manual Muscle Testing Left Flexion 2- Poor- Abduction (C5) 2- Poor- External Rotation 3 Fair Internal Rotation 4 Good Right Flexion 5 Normal Adduction 5 Normal External Rotation 5 Normal Internal Rotation 5 Normal Elbow/Forearm Strength Elbow and Forearm Manual Muscle Testing Left Flexion (C6) 4 Good Extension (C7) 4 Good Right Flexion (C6) 5 Normal Extension (C7) 5 Normal PT-OP-Q Treatments Start: 07/30/18 13:32 Freq: Status: Active Protocol: Document 11/24/18 16:00 HH (Rec: 11/24/18 17:11 HH [email or web address]) Therapeutic Exercises Supine Exercises GH extension Side left Reps/Minutes 10 x 2 Comments PT assistance on end range stretch Sidelying Exercises 3 Sidelying Exercise Name scap retraction Reps/Minutes x 10 reps 2 Sidelying Exercise Name External Rotation Reps/Minutes 10 reps Comments with MET 1 Sidelying Exercise Name shoulder abduction Reps/Minutes x 12 reps Comments x 3 SH Sitting Exercises 3 Sitting Exercise Name flexion and abduction Side left Equipment Used pulleys Reps/Minutes x 20 reps each Comments eccentric contx to left shoulder isometrics Sitting Exercise Name isometrics at mid range of flexion and abd Side left Equipment Used belt Comments with belt on L trap to inhibit activation 2 Sitting Exercise Name D1, D2 F/E Side left Reps/Minutes x 10 reps each Comments supine/sitting Manual Therapy Treatment Joint Mobilizations scap upward rotation Joint L scap Direction upward rotation Grade II Body Position Sitting Reps/Duration x 5 mins Comments along with shoulder flex and abd 1 Joint GH Direction Post/inf Grade II Body Position Sitting Reps/Duration x 10 mins Comments II-III with belt on top of trap to inhibit activation. PT-OP-R Modalities Start: 07/30/18 13:32 Freq: Status: Active Protocol: Document 11/19/18 16:12 EA (Rec: 11/19/18 16:12 EA [id number]) Hot Pack/Cold Pack Treatment Cold Pack Location left shoulder Patient Position Hooklying Treatment Duration (minutes) 10 Patient Tolerance Good PT-OP-T Assessment and Plan Start: 07/30/18 13:32 Freq: Status: Active Protocol: Document 11/24/18 16:00 HH (Rec: 11/24/18 17:11 HH [email or web address]) Physical Therapy Assessment Assessment Summary Assessment Pt was able to reach 100-110 with AAROM/PROM for supine/SL shoulder flexion without pain. Focused on L upper trap inhibition with belt today. Pt maikel tx well w/o c/o increase discomfort. Physical Therapy Plan Next Visit Focus/Plan Next Note Type Treatment Note Next Visit Plan Cont to progress AAROM, PNF, and scapular stabilization in sit and stand.
--- NOTE | 2018-11-27 12:02 | PT.OTN ---
Current Diagnoses Unspecified rotator cuff tear or rupture of left shoulder, not specified as traumatic (11/27/18) Physical Therapy Treatment Note PT-OP-A Visit Information Start: 07/30/18 13:32 Freq: Status: Active Protocol: Document 11/27/18 12:02 RCC (Rec: 11/27/18 13:03 RCC [email or web address]) Out-Patient Physical Therapy Visit Information Visit Information Visit Type Treatment Note Visit Start Time 12:02 Visit Stop Time 12:52 Total Visit Minutes 50 Visit Number 35 Number of [employer] Visits 0 PT-OP-B Current Condition Start: 07/30/18 13:32 Freq: Status: Active Protocol: Document 07/30/18 12:00 RCC (Rec: 07/31/18 09:38 RCC [email or web address]) Current Condition History of Current Condition Onset Date December 2017 Current Complaints L shoulder weakness, impaired ROM, pain History of Current Condition Pt is an 83 y/o male presenting to physical therapy with a c/o L shoulder pain, weakness, and limited ROM. Pt sustained infraspinatus and supraspinatus tears /sp traumatic dislocation in December. He had arthroscopic surgery on 01/15/18 . MRI done in April of 2018 showed that the pt had full thickness tearing of supraspinatus and infraspinatus, as well as posterior labral tear. He was consulted for a TSA, but seeked a second opinion which suggested pain management and physical therapy. 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 He admits to being primarily a L sided sleeper until this L shoulder injury, now very uncomfortable sleeping on his back or his R side. Pt has not done any formal PT since re-tearing, but did participate in PT s/p rotator cuff surgery. He is R hand dominant. Prior Treatments and Tests MRI as noted above Treatment Goals Patient/Caregiver Goals improve ROM, strength, and decrease pain Current Functional Impairments (Reported) Functional Limitations- Other unable to perform any activities with arm away from body Personal Factors Other Personal Factors That May Effect blood condition which Therapy/Recovery requires annual follow up with oncology (denies any current CA of any kind, does have past h/o prostate CA 10 yrs ago), [place] 1992 PT-OP-C Subjective Start: 07/30/18 13:32 Freq: Status: Active Protocol: Document 11/27/18 12:02 RCC (Rec: 11/27/18 13:03 RCC [email or web address]) OP-PT Subjective Patient Comments Patient Comments Pt states he is making progress, but continues to be slow. He did some of his HEP this morning already. PT-OP-F Manual Assessment Start: 07/30/18 13:32 Freq: Status: Active Protocol: Document 07/30/18 12:00 RCC (Rec: 07/31/18 15:47 RCC [email or web address]) Manual Assessments Soft Tissue Assessment Soft Tissue Mobility Assessment tenderness to palpation: L parascapular mm and posterior shoulder Joint Mobility Assessment Joint Mobility Assessment hypomobility: L shoulder with posterior and inferior glides PT-OP-K Range of Motion Start: 07/30/18 13:32 Freq: Status: Active Protocol: Document 10/21/18 17:03 EA (Rec: 10/21/18 17:22 EA [id number]) Shoulder Goniometric Range of Motion Shoulder Measured in Degrees Right Active Testing Position Supine Flexion 170 Abduction 165 External Rotation at 90 degrees 75 Abduction Internal Rotation 80 Left Passive Testing Position Supine Flexion 120 Abduction 110 External Rotation at 0 degrees Abduction 40 Left Active Testing Position Supine Flexion 100 Abduction 90 External Rotation at 0 degrees Abduction 40 Internal Rotation 65 PT-OP-L Special Tests Start: 07/30/18 13:32 Freq: Status: Active Protocol: Document 07/30/18 12:00 RCC (Rec: 07/31/18 15:47 RCC [email or web address]) Special Tests Shoulder Special Tests Apprehension Test Test Results negative Belly Press Test Results negative Lift-Off Rotator Cuff Test Results negative Load and Shift Test Results negative Other Special Tests Special Tests unable to assess further due to pain and limitations of ROM PT-OP-M Strength Start: 07/30/18 13:32 Freq: Status: Active Protocol: Document 07/30/18 12:00 RCC (Rec: 07/31/18 15:52 RCC [email or web address]) Shoulder Strength Shoulder Manual Muscle Testing Left Flexion 2- Poor- Abduction (C5) 2- Poor- External Rotation 3 Fair Internal Rotation 4 Good Right Flexion 5 Normal Adduction 5 Normal External Rotation 5 Normal Internal Rotation 5 Normal Elbow/Forearm Strength Elbow and Forearm Manual Muscle Testing Left Flexion (C6) 4 Good Extension (C7) 4 Good Right Flexion (C6) 5 Normal Extension (C7) 5 Normal PT-OP-Q Treatments Start: 07/30/18 13:32 Freq: Status: Active Protocol: Document 11/27/18 12:02 RCC (Rec: 11/27/18 13:03 RCC [email or web address]) Cardio Equipment Upper Body Ergometer (UBE) Duration (Minutes) 6 RPM 70 Seat Position 14 Height 5 Other forward/backward Therapeutic Exercises Supine Exercises GH extension Side left Reps/Minutes 10 x 2 Comments PT assistance on end range stretch Sidelying Exercises 2 Sidelying Exercise Name External Rotation Resistance 1 lb Reps/Minutes 10 reps 1 Sidelying Exercise Name shoulder abduction Reps/Minutes x 12 reps Comments x 3 SH Sitting Exercises 3 Sitting Exercise Name flexion and abduction Side left Equipment Used pulleys Reps/Minutes x 20 reps each Comments eccentric contx to left 2 Sitting Exercise Name D1, D2 F/E Side left Reps/Minutes x 10 reps each Comments supine Standing Exercises body blade Side left Resistance yellow Comments IR/ER, abd/add, flex/ext with arm @ side Manual Therapy Treatment Joint Mobilizations scap upward rotation Joint L scap Direction upward rotation Grade II Body Position Sitting Reps/Duration x 5 mins Comments along with shoulder flex and abd 1 Joint GH Direction Post/inf Grade II Body Position Sitting Reps/Duration x 10 mins Comments II-III PT-OP-R Modalities Start: 07/30/18 13:32 Freq: Status: Active Protocol: Document 11/27/18 12:02 [facility] (Rec: 11/27/18 13:03 [facility] [email or web address]) Hot Pack/Cold Pack Treatment Cold Pack Location left shoulder Patient Position Hooklying Treatment Duration (minutes) 10 Patient Tolerance Good PT-OP-T Assessment and Plan Start: 07/30/18 13:32 Freq: Status: Active Protocol: Document 11/27/18 12:02 [facility] (Rec: 11/27/18 13:03 RCC [email or web address]) Physical Therapy Assessment Assessment Summary Assessment Pt requires assistance with SL abduction at 40 degress, but able to perform the rest of motion actively from 75 degrees and up to 100 degrees. Pt continues to be most limited by fatigue of the L shoulder mm. Physical Therapy Plan Next Visit Focus/Plan Next Note Type Treatment Note Next Visit Plan Cont to progress AAROM, PNF, and scapular stabilization in sit and stand.
--- NOTE | 2018-12-01 11:32 | PT.OTN ---
Current Diagnoses Unspecified rotator cuff tear or rupture of left shoulder, not specified as traumatic (12/01/18) Physical Therapy Treatment Note PT-OP-A Visit Information Start: 07/30/18 13:32 Freq: Status: Active Protocol: Document 12/01/18 11:23 SA (Rec: 12/01/18 11:32 SA [email or web address]) Out-Patient Physical Therapy Visit Information Visit Information Visit Type Treatment Note Visit Start Time 10:30 Visit Stop Time 11:48 Total Visit Minutes 48 Visit Number 36 Number of [employer] Visits 1 PT-OP-B Current Condition Start: 07/30/18 13:32 Freq: Status: Active Protocol: Document 07/30/18 12:00 RCC (Rec: 07/31/18 09:38 RCC [email or web address]) Current Condition History of Current Condition Onset Date December 2017 Current Complaints L shoulder weakness, impaired ROM, pain History of Current Condition Pt is an 83 y/o male presenting to physical therapy with a c/o L shoulder pain, weakness, and limited ROM. Pt sustained infraspinatus and supraspinatus tears /sp traumatic dislocation in December. He had arthroscopic surgery on 01/15/18 . MRI done in April of 2018 showed that the pt had full thickness tearing of supraspinatus and infraspinatus, as well as posterior labral tear. He was consulted for a TSA, but seeked a second opinion which suggested pain management and physical therapy. 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 He admits to being primarily a L sided sleeper until this L shoulder injury, now very uncomfortable sleeping on his back or his R side. Pt has not done any formal PT since re-tearing, but did participate in PT s/p rotator cuff surgery. He is R hand dominant. Prior Treatments and Tests MRI as noted above Treatment Goals Patient/Caregiver Goals improve ROM, strength, and decrease pain Current Functional Impairments (Reported) Functional Limitations- Other unable to perform any activities with arm away from body Personal Factors Other Personal Factors That May Effect blood condition which Therapy/Recovery requires annual follow up with oncology (denies any current CA of any kind, does have past h/o prostate CA 10 yrs ago), [place] 1992 PT-OP-C Subjective Start: 07/30/18 13:32 Freq: Status: Active Protocol: Document 12/01/18 11:23 SA (Rec: 12/01/18 11:32 SA [email or web address]) OP-PT Subjective Patient Comments Patient Comments Pt reports he is about the same as last visit but notes a significant improvement over the last few months. PT-OP-F Manual Assessment Start: 07/30/18 13:32 Freq: Status: Active Protocol: Document 07/30/18 12:00 RCC (Rec: 07/31/18 15:47 RCC [email or web address]) Manual Assessments Soft Tissue Assessment Soft Tissue Mobility Assessment tenderness to palpation: L parascapular mm and posterior shoulder Joint Mobility Assessment Joint Mobility Assessment hypomobility: L shoulder with posterior and inferior glides PT-OP-K Range of Motion Start: 07/30/18 13:32 Freq: Status: Active Protocol: Document 10/21/18 17:03 EA (Rec: 10/21/18 17:22 EA [id number]) Shoulder Goniometric Range of Motion Shoulder Right Active Testing Position Supine Flexion 170 Abduction 165 External Rotation at 90 degrees 75 Abduction Internal Rotation 80 Left Passive Testing Position Supine Flexion 120 Abduction 110 External Rotation at 0 degrees Abduction 40 Left Active Testing Position Supine Flexion 100 Abduction 90 External Rotation at 0 degrees Abduction 40 Internal Rotation 65 PT-OP-L Special Tests Start: 07/30/18 13:32 Freq: Status: Active Protocol: Document 07/30/18 12:00 RCC (Rec: 07/31/18 15:47 RCC [email or web address]) Special Tests Shoulder Special Tests Apprehension Test Test Results negative Belly Press Test Results negative Lift-Off Rotator Cuff Test Results negative Load and Shift Test Results negative Other Special Tests Special Tests unable to assess further due to pain and limitations of ROM PT-OP-M Strength Start: 07/30/18 13:32 Freq: Status: Active Protocol: Document 07/30/18 12:00 RCC (Rec: 07/31/18 15:52 RCC [email or web address]) Shoulder Strength Shoulder Manual Muscle Testing Left Flexion 2- Poor- Abduction (C5) 2- Poor- External Rotation 3 Fair Internal Rotation 4 Good Right Flexion 5 Normal Adduction 5 Normal External Rotation 5 Normal Internal Rotation 5 Normal Elbow/Forearm Strength Elbow and Forearm Manual Muscle Testing Left Flexion (C6) 4 Good Extension (C7) 4 Good Right Flexion (C6) 5 Normal Extension (C7) 5 Normal PT-OP-Q Treatments Start: 07/30/18 13:32 Freq: Status: Active Protocol: Document 12/01/18 11:23 SA (Rec: 12/01/18 11:32 SA [email or web address]) Cardio Equipment Upper Body Ergometer (UBE) Duration (Minutes) 6 RPM 70 Seat Position 14 Height 5 Other forward/backward Therapeutic Exercises Supine Exercises GH extension Side left Reps/Minutes 10 x 2 Comments PT assistance on end range stretch Sidelying Exercises 4 Sidelying Exercise Name Horiz ABD at 45-90 deg keely Equipment Used x 10 reps 3 Sidelying Exercise Name scap retraction Reps/Minutes x 10 reps 2 Sidelying Exercise Name External Rotation Resistance 1 lb Reps/Minutes 10 reps 1 Sidelying Exercise Name shoulder abduction Reps/Minutes x 12 reps Comments x 3 SH Sitting Exercises 3 Sitting Exercise Name flexion and abduction Side left Equipment Used pulleys Reps/Minutes 2 min Comments eccentric contx to left 2 Sitting Exercise Name D1, D2 F/E Side left Reps/Minutes x 10 reps each Comments supine Manual Therapy Treatment Joint Mobilizations scap upward rotation Joint L scap Direction upward rotation Grade II Body Position Sitting Reps/Duration x 5 mins Comments along with shoulder flex and abd 1 Joint GH Direction Post/inf Grade II Body Position Sitting Reps/Duration x 10 mins Comments II-III PT-OP-R Modalities Start: 07/30/18 13:32 Freq: Status: Active Protocol: Document 12/01/18 11:23 SA (Rec: 12/01/18 11:32 [email or web address]) Hot Pack/Cold Pack Treatment Cold Pack Location left shoulder Patient Position Hooklying Treatment Duration (minutes) 10 Patient Tolerance Good PT-OP-T Assessment and Plan Start: 07/30/18 13:32 Freq: Status: Active Protocol: Document 12/01/18 11:23 SA (Rec: 12/01/18 11:32 [email or web address]) Physical Therapy Assessment Assessment Summary Assessment Fatigue limits pt with flexion and PNF patterns especially, tolerating manual therapy well . Physical Therapy Plan Next Visit Focus/Plan Next Note Type Treatment Note Next Visit Plan Cont to progress AAROM, PNF, and scapular stabilization in sit and stand.
--- NOTE | 2018-12-04 14:30 | PT.OTN ---
Current Diagnoses Unspecified rotator cuff tear or rupture of left shoulder, not specified as traumatic (12/04/18) Physical Therapy Treatment Note PT-OP-A Visit Information Start: 07/30/18 13:32 Freq: Status: Active Protocol: Document 12/04/18 14:30 DLM (Rec: 12/04/18 18:45 DLM [email or web address]) Out-Patient Physical Therapy Visit Information Visit Information Visit Type Treatment Note Visit Start Time 14:30 Visit Stop Time 15:25 Total Visit Minutes 55 Visit Number 37 Number of SKID WRAPPER Visits 0 Evaluation Information Evaluation Date 06/29/18 PT-OP-B Current Condition Start: 07/30/18 13:32 Freq: Status: Active Protocol: Document 07/30/18 12:00 RCC (Rec: 07/31/18 09:38 RCC [email or web address]) Current Condition History of Current Condition Onset Date December 2017 Current Complaints L shoulder weakness, impaired ROM, pain History of Current Condition Pt is an 83 y/o male presenting to physical therapy with a c/o L shoulder pain, weakness, and limited ROM. Pt sustained infraspinatus and supraspinatus tears /sp traumatic dislocation in December. He had arthroscopic surgery on 01/15/18 . MRI done in April of 2018 showed that the pt had full thickness tearing of supraspinatus and infraspinatus, as well as posterior labral tear. He was consulted for a TSA, but seeked a second opinion which suggested pain management and physical therapy. 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 He admits to being primarily a L sided sleeper until this L shoulder injury, now very uncomfortable sleeping on his back or his R side. Pt has not done any formal PT since re-tearing, but did participate in PT s/p rotator cuff surgery. He is R hand dominant. Prior Treatments and Tests MRI as noted above Treatment Goals Patient/Caregiver Goals improve ROM, strength, and decrease pain Current Functional Impairments (Reported) Functional Limitations- Other unable to perform any activities with arm away from body Personal Factors Other Personal Factors That May Effect blood condition which Therapy/Recovery requires annual follow up with oncology (denies any current CA of any kind, does have past h/o prostate CA 10 yrs ago), [place] 1992 PT-OP-C Subjective Start: 07/30/18 13:32 Freq: Status: Active Protocol: Document 12/04/18 14:30 DLM (Rec: 12/04/18 18:45 DLM [email or web address]) OP-PT Subjective Patient Comments Patient Comments He reports no pain in shoulder but it is weak. PT-OP-F Manual Assessment Start: 07/30/18 13:32 Freq: Status: Active Protocol: Document 07/30/18 12:00 RCC (Rec: 07/31/18 15:47 RCC [email or web address]) Manual Assessments Soft Tissue Assessment Soft Tissue Mobility Assessment tenderness to palpation: L parascapular mm and posterior shoulder Joint Mobility Assessment Joint Mobility Assessment hypomobility: L shoulder with posterior and inferior glides PT-OP-K Range of Motion Start: 07/30/18 13:32 Freq: Status: Active Protocol: Document 10/21/18 17:03 EA (Rec: 10/21/18 17:22 EA [id number]) Shoulder Goniometric Range of Motion Shoulder Right Active Testing Position Supine Flexion 170 Abduction 165 External Rotation at 90 degrees 75 Abduction Internal Rotation 80 Left Passive Testing Position Supine Flexion 120 Abduction 110 External Rotation at 0 degrees Abduction 40 Left Active Testing Position Supine Flexion 100 Abduction 90 External Rotation at 0 degrees Abduction 40 Internal Rotation 65 PT-OP-L Special Tests Start: 07/30/18 13:32 Freq: Status: Active Protocol: Document 07/30/18 12:00 RCC (Rec: 07/31/18 15:47 RCC [email or web address]) Special Tests Shoulder Special Tests Apprehension Test Test Results negative Belly Press Test Results negative Lift-Off Rotator Cuff Test Results negative Load and Shift Test Results negative Other Special Tests Special Tests unable to assess further due to pain and limitations of ROM PT-OP-M Strength Start: 07/30/18 13:32 Freq: Status: Active Protocol: Document 07/30/18 12:00 RCC (Rec: 07/31/18 15:52 RCC [email or web address]) Shoulder Strength Shoulder Manual Muscle Testing Left Flexion 2- Poor- Abduction (C5) 2- Poor- External Rotation 3 Fair Internal Rotation 4 Good Right Flexion 5 Normal Adduction 5 Normal External Rotation 5 Normal Internal Rotation 5 Normal Elbow/Forearm Strength Elbow and Forearm Manual Muscle Testing Left Flexion (C6) 4 Good Extension (C7) 4 Good Right Flexion (C6) 5 Normal Extension (C7) 5 Normal PT-OP-Q Treatments Start: 07/30/18 13:32 Freq: Status: Active Protocol: Document 12/04/18 14:30 DLM (Rec: 12/04/18 18:45 DLM [email or web address]) Cardio Equipment Upper Body Ergometer (UBE) Duration (Minutes) 6 RPM 70 Seat Position 14 Height 5 Other forward/backward Therapeutic Exercises Sidelying Exercises 4 Sidelying Exercise Name Horiz ABD at 80 deg keely Equipment Used x 10 reps 3 Sidelying Exercise Name scap retraction Reps/Minutes x 10 reps 2 Sidelying Exercise Name External Rotation Resistance 1 lb Reps/Minutes 10 reps 1 Sidelying Exercise Name shoulder abduction Reps/Minutes x 12 reps Comments scaption with assist to manage impingement symptoms Sitting Exercises 3 Sitting Exercise Name flexion and abduction Side left Equipment Used pulleys Reps/Minutes 20 reps each Comments eccentric contx to left Manual Therapy Treatment Soft Tissue Mobilization 2 Body Location pectoralis Mobilization Type Cross-Friction Strumming Sustained Pressure Intensity/Depth Moderate Body Position Supine Joint Mobilizations 1 Joint GH Direction Post/inf Grade II Body Position Supine Comments II-III PT-OP-R Modalities Start: 07/30/18 13:32 Freq: Status: Active Protocol: Document 12/04/18 14:30 DLM (Rec: 12/04/18 18:45 DLM [email or web address]) Hot Pack/Cold Pack Treatment Cold Pack Location left shoulder Patient Position Hooklying Treatment Duration (minutes) 10 Patient Tolerance Good Comments at end of treatment PT-OP-T Assessment and Plan Start: 07/30/18 13:32 Freq: Status: Active Protocol: Document 12/04/18 14:30 DLM (Rec: 12/04/18 18:45 DLM [email or web address]) Physical Therapy Assessment Goals pain Impairment rated 3/10 pain in L shoulder Custodial Goal (LTG) Pain rated 1/10 or less prior to d/c. LTG Duration 8 weeks (Improving 2/10 at end range) Quick DASH Impairment Quick DASH impairment score of 50 Short Term Goal (STG) Quick DASH score of 40 or less . STG Duration 6 weeks Cellar Supervisor Goal (LTG) Quick DASH score of 30 or less to demonstrate improvements with functional use of LUE with daily activities. LTG Duration 8 weeks (Improving) weakness Impairment L UE weakness Short Term Goal (STG) L shoulder 3+/5 or greater with manual muscle testing with flexion, abduction, and ER. STG Duration 6 weeks Cellar Supervisor Goal (LTG) L shoulder 4/5 or greater with manual muscle testing with flexion, ER and L elbow flexion and extension to 5/5 with manual muscle testing to demonstrate improved L shoulder stability. LTG Duration 8 weeks (Improving with shoulder; elbow and hand is near to full) L shoulder ROM Impairment L shoulder ROM Short Term Goal (STG) L shoulder AROM: flexion to 90 deg, abduction to 90 deg, ER to 35 deg STG Duration 6 weeks Custodial Goal (LTG) L shoulder AROM: flexion to 150 deg, abduction to 150 deg, ER to 60 deg prior to d/c, with pt able reporting being able to perform light activities with LUE above 90 degree neutral position. LTG Duration 8 wks (Progressing well) Assessment Summary Assessment He reports good tolerance of exercises this visit. Good pain control per pt. Inferior GH glides are still decreased. He shows good effort with exercises. Physical Therapy Plan Frequency and Duration Frequency of Treatment 2x/Week Duration of Treatment 8 wks Plan of Care Start Date 10/21/18 Plan of Care End Date 12/16/18 Therapeutic Interventions Therapeutic Interventions Aquatic Therapy Coordination Training Home Exercise Program Joint Mobilizations Manual Therapy Neuromuscular Re-education Patient/Caregiver Education Self-Care/Home Management Soft Tissue Mobilization Taping Therapeutic Activities Therapeutic Exercises Modalities Cold Pack/Ice Massage Electric Stimulation Hot Packs Ultrasound Next Visit Focus/Plan Next Note Type Treatment Note Next Visit Plan progress functional shoulder elevation for reaching up
--- NOTE | 2018-12-07 15:16 | PT.OTN ---
Current Diagnoses Unspecified rotator cuff tear or rupture of left shoulder, not specified as traumatic (12/07/18) Physical Therapy Treatment Note PT-OP-A Visit Information Start: 07/30/18 13:32 Freq: Status: Active Protocol: Document 12/07/18 13:04 EA (Rec: 12/07/18 13:06 EA [id number]) Out-Patient Physical Therapy Visit Information Visit Information Visit Type Treatment Note Total Visit Minutes 50 Visit Number 38 PT-OP-B Current Condition Start: 07/30/18 13:32 Freq: Status: Active Protocol: Document 07/30/18 12:00 RCC (Rec: 07/31/18 09:38 RCC [email or web address]) Current Condition History of Current Condition Onset Date December 2017 Current Complaints L shoulder weakness, impaired ROM, pain History of Current Condition Pt is an 83 y/o male presenting to physical therapy with a c/o L shoulder pain, weakness, and limited ROM. Pt sustained infraspinatus and supraspinatus tears /sp traumatic dislocation in December. He had arthroscopic surgery on 01/15/18 . MRI done in April of 2018 showed that the pt had full thickness tearing of supraspinatus and infraspinatus, as well as posterior labral tear. He was consulted for a TSA, but seeked a second opinion which suggested pain management and physical therapy. 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 He admits to being primarily a L sided sleeper until this L shoulder injury, now very uncomfortable sleeping on his back or his R side. Pt has not done any formal PT since re-tearing, but did participate in PT s/p rotator cuff surgery. He is R hand dominant. Prior Treatments and Tests MRI as noted above Treatment Goals Patient/Caregiver Goals improve ROM, strength, and decrease pain Current Functional Impairments (Reported) Functional Limitations- Other unable to perform any activities with arm away from body Personal Factors Other Personal Factors That May Effect blood condition which Therapy/Recovery requires annual follow up with oncology (denies any current CA of any kind, does have past h/o prostate CA 10 yrs ago), [place] 1992 PT-OP-C Subjective Start: 07/30/18 13:32 Freq: Status: Active Protocol: Document 12/07/18 13:04 EA (Rec: 12/07/18 13:06 EA [id number]) OP-PT Subjective Patient Comments Patient Comments A little functional use progress at this time. PT-OP-F Manual Assessment Start: 07/30/18 13:32 Freq: Status: Active Protocol: Document 07/30/18 12:00 RCC (Rec: 07/31/18 15:47 RCC [email or web address]) Manual Assessments Soft Tissue Assessment Soft Tissue Mobility Assessment tenderness to palpation: L parascapular mm and posterior shoulder Joint Mobility Assessment Joint Mobility Assessment hypomobility: L shoulder with posterior and inferior glides PT-OP-K Range of Motion Start: 07/30/18 13:32 Freq: Status: Active Protocol: Document 10/21/18 17:03 EA (Rec: 10/21/18 17:22 EA [id number]) Shoulder Goniometric Range of Motion Shoulder Right Active Testing Position Supine Flexion 170 Abduction 165 External Rotation at 90 degrees 75 Abduction Internal Rotation 80 Left Passive Testing Position Supine Flexion 120 Abduction 110 External Rotation at 0 degrees Abduction 40 Left Active Testing Position Supine Flexion 100 Abduction 90 External Rotation at 0 degrees Abduction 40 Internal Rotation 65 PT-OP-L Special Tests Start: 07/30/18 13:32 Freq: Status: Active Protocol: Document 07/30/18 12:00 RCC (Rec: 07/31/18 15:47 RCC [email or web address]) Special Tests Shoulder Special Tests Apprehension Test Test Results negative Belly Press Test Results negative Lift-Off Rotator Cuff Test Results negative Load and Shift Test Results negative Other Special Tests Special Tests unable to assess further due to pain and limitations of ROM PT-OP-M Strength Start: 07/30/18 13:32 Freq: Status: Active Protocol: Document 07/30/18 12:00 RCC (Rec: 07/31/18 15:52 RCC [email or web address]) Shoulder Strength Shoulder Manual Muscle Testing Left Flexion 2- Poor- Abduction (C5) 2- Poor- External Rotation 3 Fair Internal Rotation 4 Good Right Flexion 5 Normal Adduction 5 Normal External Rotation 5 Normal Internal Rotation 5 Normal Elbow/Forearm Strength Elbow and Forearm Manual Muscle Testing Left Flexion (C6) 4 Good Extension (C7) 4 Good Right Flexion (C6) 5 Normal Extension (C7) 5 Normal PT-OP-Q Treatments Start: 07/30/18 13:32 Freq: Status: Active Protocol: Document 12/07/18 13:04 LEONELA (Rec: 12/07/18 13:06 EA [id number]) Cardio Equipment Upper Body Ergometer (UBE) Duration (Minutes) 6 RPM 70 Height 5.5 Other fwd/bwd Therapeutic Exercises Supine Exercises T-bar Supine Exercise Name T-bar chest press Side bilateral Resistance 4-8# Reps/Minutes 12 reps x 2 Prone Exercises 2 Prone Exercise Name Shoulder ext w/ palms facing down Reps/Minutes x 15 reps Sidelying Exercises 4 Sidelying Exercise Name Horiz ABD at 80 deg keely Equipment Used x 10 reps 3 Sidelying Exercise Name scap retraction Reps/Minutes x 10 reps 2 Sidelying Exercise Name External Rotation Resistance 1 lb Reps/Minutes 10 reps 1 Sidelying Exercise Name shoulder abduction Reps/Minutes x 12 reps Comments scaption with assist to manage impingement symptoms Sitting Exercises 2 Sitting Exercise Name D1, D2 F/E Side left Equipment Used manual Reps/Minutes x 10 reps each Comments supine Standing Exercises body blade Side left Resistance yellow Comments IR/ER, abd/add, flex/ext with arm @ side Lat Pull Down Standing Exercise Name Lat Pull Down with back to T- Band attached above head Side bilateral Resistance Lev 2 T-Band Reps/Minutes x 10 reps 6 Standing Exercise Name Wall slider: flexion Reps/Minutes to fatigue x 5 sets Comments AAROM to near end range flexion 5 Standing Exercise Name Table slider: flexion and scaption Reps/Minutes x 15 reps x 2 sets each Comments stretch at endrange 4 Standing Exercise Name shoulder ER Side bilateral Comments back to wall 3 Standing Exercise Name Wall T-bar shoulder press Resistance 2 lbs Reps/Minutes x 10 reps x 2 Comments pain free range and no shoulder elevation 2 Standing Exercise Name T-bar shoulder ext Resistance 4-6 lbs Reps/Minutes x 15 reps x 2 Manual Therapy Treatment Joint Mobilizations 1 Joint GH Direction Post/inf Grade II Body Position Sitting Reps/Duration x 10 mins Comments II-III Manual Techniques 2 Type Multi angle isometrics: shoulder flexors/abd/ER/IR, Horiz ABD/ADD Reps/Duration x 3SH x 4 reps each 1 Type Gentle passive stretch: flexion/ABD/ER Reps/Duration x 20SH x 3 reps Comments PNF: Pain free range/prior to pain, increased ROM with manual resistance PT-OP-R Modalities Start: 07/30/18 13:32 Freq: Status: Active Protocol: Document 12/07/18 13:44 EA (Rec: 12/07/18 13:44 EA [id number]) Hot Pack/Cold Pack Treatment Cold Pack Location left shoulder Patient Position Hooklying Treatment Duration (minutes) 10 Patient Tolerance Good Comments at end of treatment PT-OP-T Assessment and Plan Start: 07/30/18 13:32 Freq: Status: Active Protocol: Document 12/07/18 13:44 EA (Rec: 12/07/18 13:46 EA [id number]) Physical Therapy Assessment Assessment Summary Assessment Noted improved standing wall flexion range with slight assist at end range. Overall patient is progressing toward functional mobility. Physical Therapy Plan Next Visit Focus/Plan Next Note Type Treatment Note Next Visit Plan progress functional shoulder elevation for reaching up
--- NOTE | 2018-12-09 14:19 | PT.OTN ---
Current Diagnoses Unspecified rotator cuff tear or rupture of left shoulder, not specified as traumatic (12/09/18) Physical Therapy Treatment Note PT-OP-A Visit Information Start: 07/30/18 13:32 Freq: Status: Active Protocol: Document 12/09/18 13:43 EA (Rec: 12/09/18 13:48 EA [id number]) Out-Patient Physical Therapy Visit Information Visit Information Visit Type Treatment Note Visit Start Time 13:00 Visit Stop Time 13:45 Total Visit Minutes 48 Visit Number 39 PT-OP-B Current Condition Start: 07/30/18 13:32 Freq: Status: Active Protocol: Document 07/30/18 12:00 RCC (Rec: 07/31/18 09:38 RCC [email or web address]) Current Condition History of Current Condition Onset Date December 2017 Current Complaints L shoulder weakness, impaired ROM, pain History of Current Condition Pt is an 83 y/o male presenting to physical therapy with a c/o L shoulder pain, weakness, and limited ROM. Pt sustained infraspinatus and supraspinatus tears /sp traumatic dislocation in December. He had arthroscopic surgery on 01/15/18 . MRI done in April of 2018 showed that the pt had full thickness tearing of supraspinatus and infraspinatus, as well as posterior labral tear. He was consulted for a TSA, but seeked a second opinion which suggested pain management and physical therapy. 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 He admits to being primarily a L sided sleeper until this L shoulder injury, now very uncomfortable sleeping on his back or his R side. Pt has not done any formal PT since re-tearing, but did participate in PT s/p rotator cuff surgery. He is R hand dominant. Prior Treatments and Tests MRI as noted above Treatment Goals Patient/Caregiver Goals improve ROM, strength, and decrease pain Current Functional Impairments (Reported) Functional Limitations- Other unable to perform any activities with arm away from body Personal Factors Other Personal Factors That May Effect blood condition which Therapy/Recovery requires annual follow up with oncology (denies any current CA of any kind, does have past h/o prostate CA 10 yrs ago), [place] 1992 PT-OP-C Subjective Start: 07/30/18 13:32 Freq: Status: Active Protocol: Document 12/09/18 13:43 EA (Rec: 12/09/18 13:48 EA [id number]) OP-PT Subjective Patient Comments Patient Comments Pt reports uses left arm lifting and carrying with no discomfort noted. PT-OP-F Manual Assessment Start: 07/30/18 13:32 Freq: Status: Active Protocol: Document 07/30/18 12:00 RCC (Rec: 07/31/18 15:47 RCC [email or web address]) Manual Assessments Soft Tissue Assessment Soft Tissue Mobility Assessment tenderness to palpation: L parascapular mm and posterior shoulder Joint Mobility Assessment Joint Mobility Assessment hypomobility: L shoulder with posterior and inferior glides PT-OP-K Range of Motion Start: 07/30/18 13:32 Freq: Status: Active Protocol: Document 10/21/18 17:03 EA (Rec: 10/21/18 17:22 EA [id number]) Shoulder Goniometric Range of Motion Shoulder Right Active Testing Position Supine Flexion 170 Abduction 165 External Rotation at 90 degrees 75 Abduction Internal Rotation 80 Left Passive Testing Position Supine Flexion 120 Abduction 110 External Rotation at 0 degrees Abduction 40 Left Active Testing Position Supine Flexion 100 Abduction 90 External Rotation at 0 degrees Abduction 40 Internal Rotation 65 PT-OP-L Special Tests Start: 07/30/18 13:32 Freq: Status: Active Protocol: Document 07/30/18 12:00 RCC (Rec: 07/31/18 15:47 RCC [email or web address]) Special Tests Shoulder Special Tests Apprehension Test Test Results negative Belly Press Test Results negative Lift-Off Rotator Cuff Test Results negative Load and Shift Test Results negative Other Special Tests Special Tests unable to assess further due to pain and limitations of ROM PT-OP-M Strength Start: 07/30/18 13:32 Freq: Status: Active Protocol: Document 07/30/18 12:00 RCC (Rec: 07/31/18 15:52 RCC [email or web address]) Shoulder Strength Shoulder Manual Muscle Testing Left Flexion 2- Poor- Abduction (C5) 2- Poor- External Rotation 3 Fair Internal Rotation 4 Good Right Flexion 5 Normal Adduction 5 Normal External Rotation 5 Normal Internal Rotation 5 Normal Elbow/Forearm Strength Elbow and Forearm Manual Muscle Testing Left Flexion (C6) 4 Good Extension (C7) 4 Good Right Flexion (C6) 5 Normal Extension (C7) 5 Normal PT-OP-Q Treatments Start: 07/30/18 13:32 Freq: Status: Active Protocol: Document 12/09/18 13:43 EA (Rec: 12/09/18 13:48 EA [id number]) Cardio Equipment Upper Body Ergometer (UBE) Duration (Minutes) 6 RPM 70 Height 5.5 Other fwd/bwd Gym Equipment Cable Column (Body Solid) Other- 1 Details cable tri-press Resistance 10-30# Reps/Time x12 reps x 2 Therapeutic Exercises Supine Exercises GH extension Side left Reps/Minutes 10 x 2 Comments PT assistance on end range stretch Rhythmic stabilization with pt at 90 deg's flex Supine Exercise Name Rhythmic stab for flex/ext/ horiz AB & AD/diagonals Side left Reps/Minutes 3' Comments Poor stabilization unless slowly transitioning position of pressure Lat Pull Down Supine Exercise Name Lat pull down Side bilateral Resistance Lev2 T Band, 2# Reps/Minutes 20x Prolonged stretch L shoulder Supine Exercise Name Flex, ER, Horiz ADD Side left 3 Supine Exercise Name Internal rotation/ER Side left Resistance 1# Reps/Minutes x 10 reps Comments end range ER stretch 2 Supine Exercise Name Active L shoulder protraction Reps/Minutes 10 x 1 Supine Exercise Name Shoulder flexion Side left Resistance active Reps/Minutes x 10 reps T-bar Supine Exercise Name T-bar chest press Side bilateral Resistance 4-8# Reps/Minutes 12 reps x 2 Sidelying Exercises 4 Sidelying Exercise Name Horiz ABD at 80 deg keely Equipment Used x 10 reps 2 Sidelying Exercise Name External Rotation Resistance 1 lb Reps/Minutes 10 reps 1 Sidelying Exercise Name shoulder abduction Reps/Minutes x 12 reps Comments scaption with assist to manage impingement symptoms Sitting Exercises 4 Sitting Exercise Name above shoulder level cone stacking Reps/Minutes x 5 mins 2 Sitting Exercise Name D1, D2 F/E Side left Equipment Used manual Reps/Minutes x 10 reps each Comments supine Standing Exercises 5 Standing Exercise Name Table slider: flexion and scaption Reps/Minutes x 15 reps x 2 sets each Comments stretch at endrange 4 Standing Exercise Name shoulder ER Side bilateral Comments back to wall 3 Standing Exercise Name Wall T-bar shoulder press Resistance 2 lbs Reps/Minutes x 10 reps x 2 Comments pain free range and no shoulder elevation 2 Standing Exercise Name T-bar shoulder ext Resistance 4-6 lbs Reps/Minutes x 15 reps x 2 PT-OP-R Modalities Start: 07/30/18 13:32 Freq: Status: Active Protocol: Document 12/09/18 13:43 EA (Rec: 12/09/18 13:48 EA [id number]) Hot Pack/Cold Pack Treatment Cold Pack Location left shoulder Patient Position Hooklying Treatment Duration (minutes) 10 Patient Tolerance Good Comments at end of treatment PT-OP-T Assessment and Plan Start: 07/30/18 13:32 Freq: Status: Active Protocol: Document 12/09/18 13:43 EA (Rec: 12/09/18 13:48 EA [id number]) Physical Therapy Assessment Assessment Summary Assessment Tolerated treatment with improved functional mobility noted at this time. Physical Therapy Plan Next Visit Focus/Plan Next Note Type Re-Evaluation
--- NOTE | 2018-12-14 15:11 | PT.OTN ---
Current Diagnoses Unspecified rotator cuff tear or rupture of left shoulder, not specified as traumatic (12/14/18) Physical Therapy Treatment Note PT-OP-A Visit Information Start: 07/30/18 13:32 Freq: Status: Active Protocol: Document 12/14/18 14:37 EA (Rec: 12/14/18 14:38 EA [id number]) Out-Patient Physical Therapy Visit Information Visit Information Visit Type Treatment Note Visit Start Time 13:00 Visit Stop Time 13:45 Total Visit Minutes 48 Visit Number 40 PT-OP-B Current Condition Start: 07/30/18 13:32 Freq: Status: Active Protocol: Document 07/30/18 12:00 RCC (Rec: 07/31/18 09:38 RCC [id number]) Current Condition History of Current Condition Onset Date December 2017 Current Complaints L shoulder weakness, impaired ROM, pain History of Current Condition Pt is an 83 y/o male presenting to physical therapy with a c/o L shoulder pain, weakness, and limited ROM. Pt sustained infraspinatus and supraspinatus tears /sp traumatic dislocation in December. He had arthroscopic surgery on 01/15/18 . MRI done in April of 2018 showed that the pt had full thickness tearing of supraspinatus and infraspinatus, as well as posterior labral tear. He was consulted for a TSA, but seeked a second opinion which suggested pain management and physical therapy. 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 He admits to being primarily a L sided sleeper until this L shoulder injury, now very uncomfortable sleeping on his back or his R side. Pt has not done any formal PT since re-tearing, but did participate in PT s/p rotator cuff surgery. He is R hand dominant. Prior Treatments and Tests MRI as noted above Treatment Goals Patient/Caregiver Goals improve ROM, strength, and decrease pain Current Functional Impairments (Reported) Functional Limitations- Other unable to perform any activities with arm away from body Personal Factors Other Personal Factors That May Effect blood condition which Therapy/Recovery requires annual follow up with oncology (denies any current CA of any kind, does have past h/o prostate CA 10 yrs ago), [place] 1992 PT-OP-C Subjective Start: 07/30/18 13:32 Freq: Status: Active Protocol: Document 12/14/18 14:37 EA (Rec: 12/14/18 14:38 EA [id number]) OP-PT Subjective Patient Comments Patient Comments Pt reports compliant with HEP; states feels that he is improving. PT-OP-F Manual Assessment Start: 07/30/18 13:32 Freq: Status: Active Protocol: Document 07/30/18 12:00 RCC (Rec: 07/31/18 15:47 RCC [email or web address]) Manual Assessments Soft Tissue Assessment Soft Tissue Mobility Assessment tenderness to palpation: L parascapular mm and posterior shoulder Joint Mobility Assessment Joint Mobility Assessment hypomobility: L shoulder with posterior and inferior glides PT-OP-K Range of Motion Start: 07/30/18 13:32 Freq: Status: Active Protocol: Document 10/21/18 17:03 EA (Rec: 10/21/18 17:22 EA [id number]) Shoulder Goniometric Range of Motion Shoulder Right Active Testing Position Supine Flexion 170 Abduction 165 External Rotation at 90 degrees 75 Abduction Internal Rotation 80 Left Passive Testing Position Supine Flexion 120 Abduction 110 External Rotation at 0 degrees Abduction 40 Left Active Testing Position Supine Flexion 100 Abduction 90 External Rotation at 0 degrees Abduction 40 Internal Rotation 65 PT-OP-L Special Tests Start: 07/30/18 13:32 Freq: Status: Active Protocol: Document 07/30/18 12:00 RCC (Rec: 07/31/18 15:47 RCC [email or web address]) Special Tests Shoulder Special Tests Apprehension Test Test Results negative Belly Press Test Results negative Lift-Off Rotator Cuff Test Results negative Load and Shift Test Results negative Other Special Tests Special Tests unable to assess further due to pain and limitations of ROM PT-OP-M Strength Start: 07/30/18 13:32 Freq: Status: Active Protocol: Document 07/30/18 12:00 RCC (Rec: 07/31/18 15:52 RCC [email or web address]) Shoulder Strength Shoulder Manual Muscle Testing Left Flexion 2- Poor- Abduction (C5) 2- Poor- External Rotation 3 Fair Internal Rotation 4 Good Right Flexion 5 Normal Adduction 5 Normal External Rotation 5 Normal Internal Rotation 5 Normal Elbow/Forearm Strength Elbow and Forearm Manual Muscle Testing Left Flexion (C6) 4 Good Extension (C7) 4 Good Right Flexion (C6) 5 Normal Extension (C7) 5 Normal PT-OP-Q Treatments Start: 07/30/18 13:32 Freq: Status: Active Protocol: Document 12/14/18 15:06 EA (Rec: 12/14/18 15:10 EA [id number]) Cardio Equipment Upper Body Ergometer (UBE) Duration (Minutes) 6 RPM 70 Height 3-6 Other fwd/bwd Gym Equipment Cable Column (Body Solid) Other- 1 Details Pulldown Resistance 2-3 plates Reps/Time x 12 repsx2 Rows Details 20# Reps/Time x 12 reps x 2 sets Therapeutic Exercises Supine Exercises 3 Supine Exercise Name Internal rotation/ER Side left Resistance 1# Reps/Minutes x 10 reps Comments end range ER stretch 2 Supine Exercise Name Active L shoulder protraction Reps/Minutes 10 x 1 Supine Exercise Name Shoulder flexion Side left Resistance active Reps/Minutes x 10 reps T-bar Supine Exercise Name T-bar chest press Side bilateral Resistance 4-8# Reps/Minutes 12 reps x 2 Sidelying Exercises 4 Sidelying Exercise Name Horiz ABD at 80 deg keely Equipment Used x 10 reps 2 Sidelying Exercise Name External Rotation Resistance 1 lb Reps/Minutes 10 reps 1 Sidelying Exercise Name shoulder abduction Reps/Minutes x 12 reps Comments scaption with assist to manage impingement symptoms Sitting Exercises 4 Sitting Exercise Name above shoulder level cone stacking Reps/Minutes x 5 mins 2 Sitting Exercise Name D1, D2 F/E Side left Equipment Used manual Reps/Minutes x 10 reps each Comments supine Standing Exercises 6 Standing Exercise Name Wall slider: flexion Reps/Minutes to fatigue x 5 sets Comments AROM 5 Standing Exercise Name Table slider: flexion and scaption Reps/Minutes x 15 reps x 2 sets each Comments stretch at endrange 3 Standing Exercise Name Wall T-bar shoulder press Resistance 2 lbs Reps/Minutes x 10 reps x 2 Comments pain free range and no shoulder elevation 2 Standing Exercise Name T-bar shoulder ext Resistance 4-6 lbs Reps/Minutes x 15 reps x 2 PT-OP-R Modalities Start: 07/30/18 13:32 Freq: Status: Active Protocol: Document 12/14/18 15:06 LEONELA (Rec: 12/14/18 15:10 LEONELA [id number]) Hot Pack/Cold Pack Treatment Cold Pack Location left shoulder Patient Position Hooklying Treatment Duration (minutes) 10 Patient Tolerance Good Comments at end of treatment PT-OP-T Assessment and Plan Start: 07/30/18 13:32 Freq: Status: Active Protocol: Document 12/14/18 15:06 LEONELA (Rec: 12/14/18 15:10 EA [id number]) Physical Therapy Assessment Assessment Summary Assessment Pt able to perform shoulder wall flexion and a bit of Y form actively at end range. Overall patient is showing good progress. Physical Therapy Plan Next Visit Focus/Plan Next Note Type Re-Evaluation
--- NOTE | 2018-12-16 17:30 | PT.OPPOC ---
Current Diagnoses Unspecified rotator cuff tear or rupture of left shoulder, not specified as traumatic (12/16/18) Provider Visit Care Team Role Provider Type Gordy Shabazz MD Primary Care Provider Physician Specialty: Internal Medicine Address: [address] [place] [address], [id number] Email: Darius Henderson MD Attending Provider Non-Staff Specialty: Orthopedic Surgery Address: [address] [place] [address], [id number] Email: Plan Of Care PT-OP-T Assessment and Plan Start: 07/30/18 13:32 Freq: Status: Active Protocol: Document 12/16/18 13:39 EA (Rec: 12/16/18 13:46 EA [id number]) Physical Therapy Assessment Impairments Impairments Functional Activities Pain ROM Strength Goals pain Impairment rated 3/10 pain in L shoulder Halfway Goal (LTG) Pain rated 1/10 or less prior to d/c. LTG Duration goal reached Quick DASH Impairment Quick DASH impairment score of 50 Short Term Goal (STG) Quick DASH score of 40 or less . STG Duration 6 weeks Halfway Goal (LTG) Quick DASH score of 30 or less to demonstrate improvements with functional use of LUE with daily activities. LTG Duration 8 weeks (Improving) weakness Impairment L UE weakness Short Term Goal (STG) L shoulder 3+/5 or greater with manual muscle testing with flexion, abduction, and ER. STG Duration 6 weeks goal reached Motion Picture Director Goal (LTG) L shoulder 4/5 or greater with manual muscle testing with flexion, ER and L elbow flexion and extension to 5/5 with manual muscle testing to demonstrate improved L shoulder stability. LTG Duration 8 weeks (Improving with shoulder; elbow and hand is near to full) L shoulder ROM Impairment L shoulder ROM Short Term Goal (STG) L shoulder AROM: flexion to 90 deg, abduction to 90 deg, ER to 35 deg STG Duration goal reached Halfway Goal (LTG) L shoulder AROM: flexion to 150 deg, abduction to 150 deg, ER to 60 deg prior to d/c, with pt able reporting being able to perform light activities with LUE above 90 degree neutral position. LTG Duration 8 wks (Progressing well) Progress Towards Goals Progress Towards Goals Progressing Toward Goals Assessment Summary Assessment Patient exhibits active shoulder overhead in scaption and flexion position to 70% functional level. His shoulder strength and ROM has been improved since the initial evaluation. He is very happy and excited to gain more benefits for PT and willing to continue to PT to reach highest functional shoulder mobility. Overall patient is progressing very well and will continue to benefit with skilled PT. Physical Therapy Plan Frequency and Duration Frequency of Treatment 2x/Week Duration of Treatment 6 wks Plan of Care Start Date 12/16/18 Plan of Care End Date 01/27/19 Therapeutic Interventions Therapeutic Interventions Aquatic Therapy Coordination Training Home Exercise Program Joint Mobilizations Manual Therapy Neuromuscular Re-education Patient/Caregiver Education Self-Care/Home Management Soft Tissue Mobilization Taping Therapeutic Activities Therapeutic Exercises Modalities Cold Pack/Ice Massage Electric Stimulation Hot Packs Ultrasound Next Visit Focus/Plan Next Note Type Treatment Note Next Visit Plan Progress as tolerated Plan of Care Dates Plan of Care Start Date 12/16/18 Plan of Care End Date 01/27/19 Please Sign and Return: I have reviewed this Plan of Care and certify that the skilled therapy services above are required to meet the patient?s needs. Physician Signature Date Printed Name and Credentials Clinical Instructor Signature Printed Name and Credentials
--- NOTE | 2018-12-16 17:31 | PT.OTN ---
Current Diagnoses Unspecified rotator cuff tear or rupture of left shoulder, not specified as traumatic (12/16/18) Physical Therapy Treatment Note PT-OP-A Visit Information Start: 07/30/18 13:32 Freq: Status: Active Protocol: Document 12/16/18 13:39 EA (Rec: 12/16/18 13:46 EA [id number]) Out-Patient Physical Therapy Visit Information Visit Information Visit Type Treatment Note Visit Start Time 13:00 Visit Stop Time 13:50 Total Visit Minutes 50 Visit Number 41 PT-OP-B Current Condition Start: 07/30/18 13:32 Freq: Status: Active Protocol: Document 07/30/18 12:00 RCC (Rec: 07/31/18 09:38 RCC [email or web address]) Current Condition History of Current Condition Onset Date December 2017 Current Complaints L shoulder weakness, impaired ROM, pain History of Current Condition Pt is an 83 y/o male presenting to physical therapy with a c/o L shoulder pain, weakness, and limited ROM. Pt sustained infraspinatus and supraspinatus tears /sp traumatic dislocation in December. He had arthroscopic surgery on 01/15/18 . MRI done in April of 2018 showed that the pt had full thickness tearing of supraspinatus and infraspinatus, as well as posterior labral tear. He was consulted for a TSA, but seeked a second opinion which suggested pain management and physical therapy. 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 He admits to being primarily a L sided sleeper until this L shoulder injury, now very uncomfortable sleeping on his back or his R side. Pt has not done any formal PT since re-tearing, but did participate in PT s/p rotator cuff surgery. He is R hand dominant. Prior Treatments and Tests MRI as noted above Treatment Goals Patient/Caregiver Goals improve ROM, strength, and decrease pain Current Functional Impairments (Reported) Functional Limitations- Other unable to perform any activities with arm away from body Personal Factors Other Personal Factors That May Effect blood condition which Therapy/Recovery requires annual follow up with oncology (denies any current CA of any kind, does have past h/o prostate CA 10 yrs ago), [place] 1992 PT-OP-C Subjective Start: 07/30/18 13:32 Freq: Status: Active Protocol: Document 12/16/18 17:29 EA (Rec: 12/16/18 17:30 EA [id number]) OP-PT Subjective Patient Comments Patient Comments Pt reports that he is using his left arm overhead as mcuh as before and he has seen as lot of shoulder improvement. Pt reports pain is minimal but reports weakness and stiffness. Patient Reported Progress Improving PT-OP-F Manual Assessment Start: 07/30/18 13:32 Freq: Status: Active Protocol: Document 07/30/18 12:00 RCC (Rec: 07/31/18 15:47 RCC [email or web address]) Manual Assessments Soft Tissue Assessment Soft Tissue Mobility Assessment tenderness to palpation: L parascapular mm and posterior shoulder Joint Mobility Assessment Joint Mobility Assessment hypomobility: L shoulder with posterior and inferior glides PT-OP-K Range of Motion Start: 07/30/18 13:32 Freq: Status: Active Protocol: Document 12/16/18 13:39 EA (Rec: 12/16/18 13:46 EA [id number]) Shoulder Goniometric Range of Motion Shoulder Left Passive Testing Position Supine Flexion 125 Abduction 115 External Rotation at 90 degrees 60 Abduction External Rotation at 0 degrees Abduction 40 Left Active Testing Position Supine Flexion 105 Abduction 90 External Rotation at 0 degrees Abduction 40 Internal Rotation 65 PT-OP-L Special Tests Start: 07/30/18 13:32 Freq: Status: Active Protocol: Document 07/30/18 12:00 RCC (Rec: 07/31/18 15:47 RCC [email or web address]) Special Tests Shoulder Special Tests Apprehension Test Test Results negative Belly Press Test Results negative Lift-Off Rotator Cuff Test Results negative Load and Shift Test Results negative Other Special Tests Special Tests unable to assess further due to pain and limitations of ROM PT-OP-M Strength Start: 07/30/18 13:32 Freq: Status: Active Protocol: Document 12/16/18 13:39 EA (Rec: 12/16/18 13:46 EA [id number]) Shoulder Strength Shoulder Manual Muscle Testing Left Flexion 3+ Fair+ Extension 4+ Good+ Abduction (C5) 3+ Fair+ Adduction 4 Good External Rotation 3 Fair Internal Rotation 4 Good PT-OP-Q Treatments Start: 07/30/18 13:32 Freq: Status: Active Protocol: Document 12/14/18 15:06 EA (Rec: 12/14/18 15:10 EA [id number]) Cardio Equipment Upper Body Ergometer (UBE) Duration (Minutes) 6 RPM 70 Height 3-6 Other fwd/bwd Gym Equipment Cable Column (Body Solid) Other- 1 Details Pulldown Resistance 2-3 plates Reps/Time x 12 repsx2 Rows Details 20# Reps/Time x 12 reps x 2 sets Therapeutic Exercises Supine Exercises 3 Supine Exercise Name Internal rotation/ER Side left Resistance 1# Reps/Minutes x 10 reps Comments end range ER stretch 2 Supine Exercise Name Active L shoulder protraction Reps/Minutes 10 x 1 Supine Exercise Name Shoulder flexion Side left Resistance active Reps/Minutes x 10 reps T-bar Supine Exercise Name T-bar chest press Side bilateral Resistance 4-8# Reps/Minutes 12 reps x 2 Sidelying Exercises 4 Sidelying Exercise Name Horiz ABD at 80 deg keely Equipment Used x 10 reps 2 Sidelying Exercise Name External Rotation Resistance 1 lb Reps/Minutes 10 reps 1 Sidelying Exercise Name shoulder abduction Reps/Minutes x 12 reps Comments scaption with assist to manage impingement symptoms Sitting Exercises 4 Sitting Exercise Name above shoulder level cone stacking Reps/Minutes x 5 mins 2 Sitting Exercise Name D1, D2 F/E Side left Equipment Used manual Reps/Minutes x 10 reps each Comments supine Standing Exercises 6 Standing Exercise Name Wall slider: flexion Reps/Minutes to fatigue x 5 sets Comments AROM 5 Standing Exercise Name Table slider: flexion and scaption Reps/Minutes x 15 reps x 2 sets each Comments stretch at endrange 3 Standing Exercise Name Wall T-bar shoulder press Resistance 2 lbs Reps/Minutes x 10 reps x 2 Comments pain free range and no shoulder elevation 2 Standing Exercise Name T-bar shoulder ext Resistance 4-6 lbs Reps/Minutes x 15 reps x 2 PT-OP-R Modalities Start: 07/30/18 13:32 Freq: Status: Active Protocol: Document 12/16/18 13:39 EA (Rec: 12/16/18 13:46 EA [id number]) Hot Pack/Cold Pack Treatment Cold Pack Location left shoulder Patient Position Hooklying Treatment Duration (minutes) 10 Patient Tolerance Good Comments at end of treatment PT-OP-T Assessment and Plan Start: 07/30/18 13:32 Freq: Status: Active Protocol: Document 12/16/18 13:39 LEONELA (Rec: 12/16/18 13:46 EA [id number]) Physical Therapy Assessment Impairments Impairments Functional Activities Pain ROM Strength Goals pain Impairment rated 3/10 pain in L shoulder Fpc Goal (LTG) Pain rated 1/10 or less prior to d/c. LTG Duration goal reached Quick DASH Impairment Quick DASH impairment score of 50 Short Term Goal (STG) Quick DASH score of 40 or less . STG Duration 6 weeks Fpc Goal (LTG) Quick DASH score of 30 or less to demonstrate improvements with functional use of LUE with daily activities. LTG Duration 8 weeks (Improving) weakness Impairment L UE weakness Short Term Goal (STG) L shoulder 3+/5 or greater with manual muscle testing with flexion, abduction, and ER. STG Duration 6 weeks goal reached Fpc Goal (LTG) L shoulder 4/5 or greater with manual muscle testing with flexion, ER and L elbow flexion and extension to 5/5 with manual muscle testing to demonstrate improved L shoulder stability. LTG Duration 8 weeks (Improving with shoulder; elbow and hand is near to full) L shoulder ROM Impairment L shoulder ROM Short Term Goal (STG) L shoulder AROM: flexion to 90 deg, abduction to 90 deg, ER to 35 deg STG Duration goal reached Metal Engineering Process Worker Goal (LTG) L shoulder AROM: flexion to 150 deg, abduction to 150 deg, ER to 60 deg prior to d/c, with pt able reporting being able to perform light activities with LUE above 90 degree neutral position. LTG Duration 8 wks (Progressing well) Progress Towards Goals Progress Towards Goals Progressing Toward Goals Assessment Summary Assessment Patient exhibits active shoulder overhead in scaption and flexion position to 70% functional level. His shoulder strength and ROM has been improved since the initial evaluation. He is very happy and excited to gain more benefits for PT and willing to continue to PT to reach highest functional shoulder mobility. Overall patient is progressing very well and will continue to benefit with skilled PT. Physical Therapy Plan Frequency and Duration Frequency of Treatment 2x/Week Duration of Treatment 6 wks Plan of Care Start Date 12/16/18 Plan of Care End Date 01/27/19 Therapeutic Interventions Therapeutic Interventions Aquatic Therapy Coordination Training Home Exercise Program Joint Mobilizations Manual Therapy Neuromuscular Re-education Patient/Caregiver Education Self-Care/Home Management Soft Tissue Mobilization Taping Therapeutic Activities Therapeutic Exercises Modalities Cold Pack/Ice Massage Electric Stimulation Hot Packs Ultrasound Next Visit Focus/Plan Next Note Type Treatment Note Next Visit Plan Progress as tolerated
--- NOTE | 2018-12-21 17:17 | PT.OTN ---
Current Diagnoses Unspecified rotator cuff tear or rupture of left shoulder, not specified as traumatic (12/21/18) Physical Therapy Treatment Note PT-OP-A Visit Information Start: 07/30/18 13:32 Freq: Status: Active Protocol: Document 12/21/18 17:09 EA (Rec: 12/21/18 17:17 EA [id number]) Out-Patient Physical Therapy Visit Information Visit Information Visit Type Treatment Note Visit Start Time 13:00 Visit Stop Time 13:47 Total Visit Minutes 47 Visit Number 42 PT-OP-B Current Condition Start: 07/30/18 13:32 Freq: Status: Active Protocol: Document 07/30/18 12:00 RCC (Rec: 07/31/18 09:38 RCC [id number]) Current Condition History of Current Condition Onset Date December 2017 Current Complaints L shoulder weakness, impaired ROM, pain History of Current Condition Pt is an 83 y/o male presenting to physical therapy with a c/o L shoulder pain, weakness, and limited ROM. Pt sustained infraspinatus and supraspinatus tears /sp traumatic dislocation in December. He had arthroscopic surgery on 01/15/18 . MRI done in April of 2018 showed that the pt had full thickness tearing of supraspinatus and infraspinatus, as well as posterior labral tear. He was consulted for a TSA, but seeked a second opinion which suggested pain management and physical therapy. 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 He admits to being primarily a L sided sleeper until this L shoulder injury, now very uncomfortable sleeping on his back or his R side. Pt has not done any formal PT since re-tearing, but did participate in PT s/p rotator cuff surgery. He is R hand dominant. Prior Treatments and Tests MRI as noted above Treatment Goals Patient/Caregiver Goals improve ROM, strength, and decrease pain Current Functional Impairments (Reported) Functional Limitations- Other unable to perform any activities with arm away from body Personal Factors Other Personal Factors That May Effect blood condition which Therapy/Recovery requires annual follow up with oncology (denies any current CA of any kind, does have past h/o prostate CA 10 yrs ago), [place] 1992 PT-OP-C Subjective Start: 07/30/18 13:32 Freq: Status: Active Protocol: Document 12/21/18 17:09 EA (Rec: 12/21/18 17:17 EA [id number]) OP-PT Subjective Patient Comments Patient Comments Pt reports left arm mostly functional except reaching things over the fridge. PT-OP-F Manual Assessment Start: 07/30/18 13:32 Freq: Status: Active Protocol: Document 07/30/18 12:00 RCC (Rec: 07/31/18 15:47 RCC [email or web address]) Manual Assessments Soft Tissue Assessment Soft Tissue Mobility Assessment tenderness to palpation: L parascapular mm and posterior shoulder Joint Mobility Assessment Joint Mobility Assessment hypomobility: L shoulder with posterior and inferior glides PT-OP-K Range of Motion Start: 07/30/18 13:32 Freq: Status: Active Protocol: Document 12/16/18 13:39 EA (Rec: 12/16/18 13:46 EA [id number]) Shoulder Goniometric Range of Motion Shoulder Left Passive Testing Position Supine Flexion 125 Abduction 115 External Rotation at 90 degrees 60 Abduction External Rotation at 0 degrees Abduction 40 Left Active Testing Position Supine Flexion 105 Abduction 90 External Rotation at 0 degrees Abduction 40 Internal Rotation 65 PT-OP-L Special Tests Start: 07/30/18 13:32 Freq: Status: Active Protocol: Document 07/30/18 12:00 RCC (Rec: 07/31/18 15:47 RCC [email or web address]) Special Tests Shoulder Special Tests Apprehension Test Test Results negative Belly Press Test Results negative Lift-Off Rotator Cuff Test Results negative Load and Shift Test Results negative Other Special Tests Special Tests unable to assess further due to pain and limitations of ROM PT-OP-M Strength Start: 07/30/18 13:32 Freq: Status: Active Protocol: Document 12/16/18 13:39 EA (Rec: 12/16/18 13:46 EA [id number]) Shoulder Strength Shoulder Manual Muscle Testing Left Flexion 3+ Fair+ Extension 4+ Good+ Abduction (C5) 3+ Fair+ Adduction 4 Good External Rotation 3 Fair Internal Rotation 4 Good PT-OP-Q Treatments Start: 07/30/18 13:32 Freq: Status: Active Protocol: Document 12/21/18 17:09 EA (Rec: 12/21/18 17:17 EA [id number]) Cardio Equipment Upper Body Ergometer (UBE) Duration (Minutes) 6 RPM 70 Height 5- 7 Other fwd/bwd Gym Equipment Cable Column (Body Solid) Other- 1 Details Pulldown Resistance 2-3 plates Reps/Time x 12 repsx2 Rows Details 20# Reps/Time x 12 reps x 2 sets Therapeutic Exercises Sidelying Exercises 2 Sidelying Exercise Name External Rotation Resistance 1 lb Reps/Minutes 10 reps 1 Sidelying Exercise Name shoulder abduction Reps/Minutes x 12 reps Comments scaption with assist to manage impingement symptoms Sitting Exercises 2 Sitting Exercise Name D1, D2 F/E Side left Equipment Used manual Reps/Minutes x 10 reps each Comments supine Standing Exercises body blade Side left Resistance yellow Comments IR/ER, abd/add, flex/ext with arm @ side 6 Standing Exercise Name Wall slider: flexion Resistance 1# AW Reps/Minutes to fatigue x 5 sets Comments AROM 5 Standing Exercise Name Table slider: flexion and scaption Reps/Minutes x 15 reps x 2 sets each Comments stretch at endrange 3 Standing Exercise Name Wall T-bar shoulder press Resistance 2 lbs Reps/Minutes x 10 reps x 2 Comments pain free range and no shoulder elevation 2 Standing Exercise Name T-bar shoulder ext Resistance 4-6 lbs Reps/Minutes x 15 reps x 2 PT-OP-R Modalities Start: 07/30/18 13:32 Freq: Status: Active Protocol: Document 12/21/18 17:09 EA (Rec: 12/21/18 17:17 EA [id number]) Hot Pack/Cold Pack Treatment Cold Pack Location left shoulder Patient Position Hooklying Treatment Duration (minutes) 10 Patient Tolerance Good Comments at end of treatment PT-OP-T Assessment and Plan Start: 07/30/18 13:32 Freq: Status: Active Protocol: Document 12/21/18 17:09 EA (Rec: 12/21/18 17:17 EA [id number]) Physical Therapy Assessment Assessment Summary Assessment Pt exhibits improved past 90 deg scaption mobility with slight shoulder substitution. No discomfort noted with below shoulder exercises. Physical Therapy Plan Next Visit Focus/Plan Next Note Type Treatment Note Next Visit Plan Progress as tolerated
--- NOTE | 2018-12-23 13:55 | PT.OTN ---
Current Diagnoses Unspecified rotator cuff tear or rupture of left shoulder, not specified as traumatic (12/23/18) Physical Therapy Treatment Note PT-OP-A Visit Information Start: 07/30/18 13:32 Freq: Status: Active Protocol: Document 12/23/18 13:46 EA (Rec: 12/23/18 13:54 EA [id number]) Out-Patient Physical Therapy Visit Information Visit Information Visit Type Treatment Note Visit Start Time 13:00 Visit Stop Time 13:48 Total Visit Minutes 48 Visit Number 43 PT-OP-B Current Condition Start: 07/30/18 13:32 Freq: Status: Active Protocol: Document 07/30/18 12:00 RCC (Rec: 07/31/18 09:38 RCC [email or web address]) Current Condition History of Current Condition Onset Date December 2017 Current Complaints L shoulder weakness, impaired ROM, pain History of Current Condition Pt is an 83 y/o male presenting to physical therapy with a c/o L shoulder pain, weakness, and limited ROM. Pt sustained infraspinatus and supraspinatus tears /sp traumatic dislocation in December. He had arthroscopic surgery on 01/15/18 . MRI done in April of 2018 showed that the pt had full thickness tearing of supraspinatus and infraspinatus, as well as posterior labral tear. He was consulted for a TSA, but seeked a second opinion which suggested pain management and physical therapy. 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 He admits to being primarily a L sided sleeper until this L shoulder injury, now very uncomfortable sleeping on his back or his R side. Pt has not done any formal PT since re-tearing, but did participate in PT s/p rotator cuff surgery. He is R hand dominant. Prior Treatments and Tests MRI as noted above Treatment Goals Patient/Caregiver Goals improve ROM, strength, and decrease pain Current Functional Impairments (Reported) Functional Limitations- Other unable to perform any activities with arm away from body Personal Factors Other Personal Factors That May Effect blood condition which Therapy/Recovery requires annual follow up with oncology (denies any current CA of any kind, does have past h/o prostate CA 10 yrs ago), [place] 1992 PT-OP-C Subjective Start: 07/30/18 13:32 Freq: Status: Active Protocol: Document 12/23/18 13:54 EA (Rec: 12/23/18 13:54 EA [id number]) OP-PT Subjective Patient Comments Patient Comments Pt reports consistent with HEP and feels left arm is functioning well. Patient Reported Progress Improving PT-OP-F Manual Assessment Start: 07/30/18 13:32 Freq: Status: Active Protocol: Document 07/30/18 12:00 RCC (Rec: 07/31/18 15:47 RCC [email or web address]) Manual Assessments Soft Tissue Assessment Soft Tissue Mobility Assessment tenderness to palpation: L parascapular mm and posterior shoulder Joint Mobility Assessment Joint Mobility Assessment hypomobility: L shoulder with posterior and inferior glides PT-OP-K Range of Motion Start: 07/30/18 13:32 Freq: Status: Active Protocol: Document 12/16/18 13:39 EA (Rec: 12/16/18 13:46 EA [id number]) Shoulder Goniometric Range of Motion Shoulder Left Passive Testing Position Supine Flexion 125 Abduction 115 External Rotation at 90 degrees 60 Abduction External Rotation at 0 degrees Abduction 40 Left Active Testing Position Supine Flexion 105 Abduction 90 External Rotation at 0 degrees Abduction 40 Internal Rotation 65 PT-OP-L Special Tests Start: 07/30/18 13:32 Freq: Status: Active Protocol: Document 07/30/18 12:00 RCC (Rec: 07/31/18 15:47 RCC [email or web address]) Special Tests Shoulder Special Tests Apprehension Test Test Results negative Belly Press Test Results negative Lift-Off Rotator Cuff Test Results negative Load and Shift Test Results negative Other Special Tests Special Tests unable to assess further due to pain and limitations of ROM PT-OP-M Strength Start: 07/30/18 13:32 Freq: Status: Active Protocol: Document 12/16/18 13:39 EA (Rec: 12/16/18 13:46 EA [id number]) Shoulder Strength Shoulder Manual Muscle Testing Left Flexion 3+ Fair+ Extension 4+ Good+ Abduction (C5) 3+ Fair+ Adduction 4 Good External Rotation 3 Fair Internal Rotation 4 Good PT-OP-Q Treatments Start: 07/30/18 13:32 Freq: Status: Active Protocol: Document 12/23/18 13:46 EA (Rec: 12/23/18 13:54 EA [id number]) Cardio Equipment Upper Body Ergometer (UBE) Duration (Minutes) 10 RPM 70 Height 5- 7.5 Other fwd/bwd : 60% left effort Therapeutic Exercises Supine Exercises 1 Supine Exercise Name Flexion, press, abduction Resistance 2# AW on wrists Reps/Minutes x 10 reps each Sidelying Exercises 4 Sidelying Exercise Name Horiz ABD at 90deg keely Equipment Used x 10 reps 3 Sidelying Exercise Name scap retraction Reps/Minutes x 10 reps 2 Sidelying Exercise Name External Rotation Resistance 1 lb Reps/Minutes 10 reps 1 Sidelying Exercise Name shoulder abduction Reps/Minutes x 12 reps Comments scaption with assist to manage impingement symptoms Sitting Exercises 4 Sitting Exercise Name DB curl Reps/Minutes 5 lbs x 10 reps 3 Sitting Exercise Name Pull down: wide and close Resistance Lv2 -4 Reps/Minutes x 15 reps x 2 2 Sitting Exercise Name D1, D2 F/E Side left Resistance 1# Reps/Minutes x 10 reps each Comments supine Standing Exercises body blade Side left Resistance yellow Comments IR/ER, abd/add, flex/ext with arm @ side 6 Standing Exercise Name Wall slider: flexion Resistance 1# AW Reps/Minutes to fatigue x 5 sets Comments AROM 3 Standing Exercise Name Wall T-bar shoulder press Resistance 2 lbs Reps/Minutes x 10 reps x 2 Comments pain free range and no shoulder elevation 2 Standing Exercise Name T-bar shoulder ext Resistance 4-6 lbs Reps/Minutes x 15 reps x 2 PT-OP-R Modalities Start: 07/30/18 13:32 Freq: Status: Active Protocol: Document 12/23/18 13:46 EA (Rec: 12/23/18 13:54 EA [id number]) Hot Pack/Cold Pack Treatment Cold Pack Location left shoulder Patient Position Hooklying Treatment Duration (minutes) 10 Patient Tolerance Good Comments at end of treatment PT-OP-T Assessment and Plan Start: 07/30/18 13:32 Freq: Status: Active Protocol: Document 12/23/18 13:46 EA (Rec: 12/23/18 13:54 EA [id number]) Physical Therapy Assessment Assessment Summary Assessment Pt tolerated treatment. Noted improved SL shoulder horiz abduction. Physical Therapy Plan Next Visit Focus/Plan Next Note Type Treatment Note Next Visit Plan Progress as tolerated
--- NOTE | 2018-12-28 14:24 | PT.OTN ---
Current Diagnoses Unspecified rotator cuff tear or rupture of left shoulder, not specified as traumatic (12/28/18) Physical Therapy Treatment Note PT-OP-A Visit Information Start: 07/30/18 13:32 Freq: Status: Active Protocol: Document 12/28/18 13:43 EA (Rec: 12/28/18 13:47 EA [id number]) Out-Patient Physical Therapy Visit Information Visit Information Visit Type Treatment Note Visit Start Time 13:00 Visit Stop Time 13:48 Total Visit Minutes 48 Visit Number 43 PT-OP-B Current Condition Start: 07/30/18 13:32 Freq: Status: Active Protocol: Document 07/30/18 12:00 RCC (Rec: 07/31/18 09:38 RCC [email or web address]) Current Condition History of Current Condition Onset Date December 2017 Current Complaints L shoulder weakness, impaired ROM, pain History of Current Condition Pt is an 83 y/o male presenting to physical therapy with a c/o L shoulder pain, weakness, and limited ROM. Pt sustained infraspinatus and supraspinatus tears /sp traumatic dislocation in December. He had arthroscopic surgery on 01/15/18 . MRI done in April of 2018 showed that the pt had full thickness tearing of supraspinatus and infraspinatus, as well as posterior labral tear. He was consulted for a TSA, but seeked a second opinion which suggested pain management and physical therapy. 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 He admits to being primarily a L sided sleeper until this L shoulder injury, now very uncomfortable sleeping on his back or his R side. Pt has not done any formal PT since re-tearing, but did participate in PT s/p rotator cuff surgery. He is R hand dominant. Prior Treatments and Tests MRI as noted above Treatment Goals Patient/Caregiver Goals improve ROM, strength, and decrease pain Current Functional Impairments (Reported) Functional Limitations- Other unable to perform any activities with arm away from body Personal Factors Other Personal Factors That May Effect blood condition which Therapy/Recovery requires annual follow up with oncology (denies any current CA of any kind, does have past h/o prostate CA 10 yrs ago), [place] 1992 PT-OP-C Subjective Start: 07/30/18 13:32 Freq: Status: Active Protocol: Document 12/28/18 13:43 EA (Rec: 12/28/18 13:47 EA [id number]) OP-PT Subjective Patient Comments Patient Comments Pt reports compliant with HEP and with no complaints of pain . PT-OP-F Manual Assessment Start: 07/30/18 13:32 Freq: Status: Active Protocol: Document 07/30/18 12:00 RCC (Rec: 07/31/18 15:47 RCC [email or web address]) Manual Assessments Soft Tissue Assessment Soft Tissue Mobility Assessment tenderness to palpation: L parascapular mm and posterior shoulder Joint Mobility Assessment Joint Mobility Assessment hypomobility: L shoulder with posterior and inferior glides PT-OP-K Range of Motion Start: 07/30/18 13:32 Freq: Status: Active Protocol: Document 12/16/18 13:39 EA (Rec: 12/16/18 13:46 EA [id number]) Shoulder Goniometric Range of Motion Shoulder Left Passive Testing Position Supine Flexion 125 Abduction 115 External Rotation at 90 degrees 60 Abduction External Rotation at 0 degrees Abduction 40 Left Active Testing Position Supine Flexion 105 Abduction 90 External Rotation at 0 degrees Abduction 40 Internal Rotation 65 PT-OP-L Special Tests Start: 07/30/18 13:32 Freq: Status: Active Protocol: Document 07/30/18 12:00 RCC (Rec: 07/31/18 15:47 RCC [email or web address]) Special Tests Shoulder Special Tests Apprehension Test Test Results negative Belly Press Test Results negative Lift-Off Rotator Cuff Test Results negative Load and Shift Test Results negative Other Special Tests Special Tests unable to assess further due to pain and limitations of ROM PT-OP-M Strength Start: 07/30/18 13:32 Freq: Status: Active Protocol: Document 12/16/18 13:39 EA (Rec: 12/16/18 13:46 EA [id number]) Shoulder Strength Shoulder Manual Muscle Testing Left Flexion 3+ Fair+ Extension 4+ Good+ Abduction (C5) 3+ Fair+ Adduction 4 Good External Rotation 3 Fair Internal Rotation 4 Good PT-OP-Q Treatments Start: 07/30/18 13:32 Freq: Status: Active Protocol: Document 12/28/18 13:43 EA (Rec: 12/28/18 13:47 EA [id number]) Cardio Equipment Upper Body Ergometer (UBE) Duration (Minutes) 10 RPM 70 Height 5- 7.5 Other fwd/bwd : 70% left effort Therapeutic Exercises Sidelying Exercises 4 Sidelying Exercise Name Horiz ABD at 90deg keely Equipment Used x 10 reps 2 Sidelying Exercise Name External Rotation Resistance 1 lb Reps/Minutes 10 reps Sitting Exercises 4 Sitting Exercise Name DB curl Reps/Minutes 5 lbs x 10 reps 3 Sitting Exercise Name Pull down: wide and close Resistance Lv2 -4 Reps/Minutes x 15 reps x 2 2 Sitting Exercise Name D1, D2 F/E Side left Resistance 1# Reps/Minutes x 10 reps each Comments supine Standing Exercises 7 Standing Exercise Name 35deg inclined table push up Reps/Minutes X 10 reps x 2 6 Standing Exercise Name Wall slider: flexion Resistance 1# AW Reps/Minutes to fatigue x 5 sets Comments AROM 5 Standing Exercise Name Table slider: flexion and scaption Reps/Minutes x 15 reps x 2 sets each Comments stretch at endrange 3 Standing Exercise Name Wall T-bar shoulder press Resistance 2 lbs Reps/Minutes x 10 reps x 2 Comments pain free range and no shoulder elevation 2 Standing Exercise Name T-bar shoulder ext Resistance 4-6 lbs Reps/Minutes x 15 reps x 2 PT-OP-R Modalities Start: 07/30/18 13:32 Freq: Status: Active Protocol: Document 12/28/18 13:43 EA (Rec: 12/28/18 13:47 EA [id number]) Hot Pack/Cold Pack Treatment Cold Pack Location left shoulder Patient Position Hooklying Treatment Duration (minutes) 10 Patient Tolerance Good Comments at end of treatment PT-OP-T Assessment and Plan Start: 07/30/18 13:32 Freq: Status: Active Protocol: Document 12/28/18 13:43 EA (Rec: 12/28/18 13:47 EA [id number]) Physical Therapy Assessment Assessment Summary Assessment Improved exercises tolerance with no increased of symptoms. Ave is progressing very well. Physical Therapy Plan Next Visit Focus/Plan Next Note Type Treatment Note Next Visit Plan Progress as tolerated
--- NOTE | 2018-12-30 14:31 | PT.OTN ---
Current Diagnoses Unspecified rotator cuff tear or rupture of left shoulder, not specified as traumatic (12/30/18) Physical Therapy Treatment Note PT-OP-A Visit Information Start: 07/30/18 13:32 Freq: Status: Active Protocol: Document 12/30/18 13:40 EA (Rec: 12/30/18 13:46 EA [id number]) Out-Patient Physical Therapy Visit Information Visit Information Visit Type Treatment Note Visit Start Time 13:00 Visit Stop Time 13:45 Total Visit Minutes 49 Visit Number 43 PT-OP-B Current Condition Start: 07/30/18 13:32 Freq: Status: Active Protocol: Document 07/30/18 12:00 RCC (Rec: 07/31/18 09:38 RCC [id number]) Current Condition History of Current Condition Onset Date December 2017 Current Complaints L shoulder weakness, impaired ROM, pain History of Current Condition Pt is an 83 y/o male presenting to physical therapy with a c/o L shoulder pain, weakness, and limited ROM. Pt sustained infraspinatus and supraspinatus tears /sp traumatic dislocation in December. He had arthroscopic surgery on 01/15/18 . MRI done in April of 2018 showed that the pt had full thickness tearing of supraspinatus and infraspinatus, as well as posterior labral tear. He was consulted for a TSA, but seeked a second opinion which suggested pain management and physical therapy. 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 He admits to being primarily a L sided sleeper until this L shoulder injury, now very uncomfortable sleeping on his back or his R side. Pt has not done any formal PT since re-tearing, but did participate in PT s/p rotator cuff surgery. He is R hand dominant. Prior Treatments and Tests MRI as noted above Treatment Goals Patient/Caregiver Goals improve ROM, strength, and decrease pain Current Functional Impairments (Reported) Functional Limitations- Other unable to perform any activities with arm away from body Personal Factors Other Personal Factors That May Effect blood condition which Therapy/Recovery requires annual follow up with oncology (denies any current CA of any kind, does have past h/o prostate CA 10 yrs ago), [place] 1992 PT-OP-C Subjective Start: 07/30/18 13:32 Freq: Status: Active Protocol: Document 12/30/18 13:40 EA (Rec: 12/30/18 13:46 EA [id number]) OP-PT Subjective Patient Comments Patient Comments Pt reports he has been using his arm a lot not. PT-OP-F Manual Assessment Start: 07/30/18 13:32 Freq: Status: Active Protocol: Document 07/30/18 12:00 RCC (Rec: 07/31/18 15:47 RCC [email or web address]) Manual Assessments Soft Tissue Assessment Soft Tissue Mobility Assessment tenderness to palpation: L parascapular mm and posterior shoulder Joint Mobility Assessment Joint Mobility Assessment hypomobility: L shoulder with posterior and inferior glides PT-OP-K Range of Motion Start: 07/30/18 13:32 Freq: Status: Active Protocol: Document 12/16/18 13:39 EA (Rec: 12/16/18 13:46 EA [id number]) Shoulder Goniometric Range of Motion Shoulder Left Passive Testing Position Supine Flexion 125 Abduction 115 External Rotation at 90 degrees 60 Abduction External Rotation at 0 degrees Abduction 40 Left Active Testing Position Supine Flexion 105 Abduction 90 External Rotation at 0 degrees Abduction 40 Internal Rotation 65 PT-OP-L Special Tests Start: 07/30/18 13:32 Freq: Status: Active Protocol: Document 07/30/18 12:00 RCC (Rec: 07/31/18 15:47 RCC [email or web address]) Special Tests Shoulder Special Tests Apprehension Test Test Results negative Belly Press Test Results negative Lift-Off Rotator Cuff Test Results negative Load and Shift Test Results negative Other Special Tests Special Tests unable to assess further due to pain and limitations of ROM PT-OP-M Strength Start: 07/30/18 13:32 Freq: Status: Active Protocol: Document 12/16/18 13:39 EA (Rec: 12/16/18 13:46 EA [id number]) Shoulder Strength Shoulder Manual Muscle Testing Left Flexion 3+ Fair+ Extension 4+ Good+ Abduction (C5) 3+ Fair+ Adduction 4 Good External Rotation 3 Fair Internal Rotation 4 Good PT-OP-Q Treatments Start: 07/30/18 13:32 Freq: Status: Active Protocol: Document 12/30/18 13:40 EA (Rec: 12/30/18 13:46 EA [id number]) Cardio Equipment Upper Body Ergometer (UBE) Duration (Minutes) 10 RPM 75 Height 5- 7.5 Other fwd/bwd : 80% left effort Gym Equipment Cable Column (Body Solid) Other- 1 Details Pulldown Resistance 2-3 plates Reps/Time x 12 repsx2 Rows Details 23# Reps/Time x 12 reps x 2 sets Therapeutic Exercises Prone Exercises 3 Prone Exercise Name Shoulder push up Reps/Minutes x 10 reps Comments on elbows Sitting Exercises 4 Sitting Exercise Name DB curl Reps/Minutes 6 lbs x 10 reps 3 Sitting Exercise Name Pull down: wide and close Resistance Lv2 -4 Reps/Minutes x 15 reps x 2 2 Sitting Exercise Name D1, D2 F/E Side left Resistance 1-2# Reps/Minutes x 10 reps x 2 Comments supine Standing Exercises 8 Standing Exercise Name shoulder crossover Resistance Lv3 TB Reps/Minutes x 10 reps body blade Side left Resistance yellow Comments IR/ER, abd/add, flex/ext with arm @ side 6 Standing Exercise Name Wall slider: flexion Resistance 1-2# AW Reps/Minutes to fatigue x 5 sets Comments AROM 3 Standing Exercise Name Wall T-bar shoulder press Resistance 2-3 lbs Reps/Minutes x 10 reps x 2 Comments pain free range and no shoulder elevation 2 Standing Exercise Name T-bar shoulder ext Resistance 4-6 lbs Reps/Minutes x 15 reps x 2 PT-OP-R Modalities Start: 07/30/18 13:32 Freq: Status: Active Protocol: Document 12/28/18 13:43 EA (Rec: 12/28/18 13:47 EA [id number]) Hot Pack/Cold Pack Treatment Cold Pack Location left shoulder Patient Position Hooklying Treatment Duration (minutes) 10 Patient Tolerance Good Comments at end of treatment PT-OP-T Assessment and Plan Start: 07/30/18 13:32 Freq: Status: Active Protocol: Document 12/30/18 13:40 EA (Rec: 12/30/18 13:46 EA [id number]) Physical Therapy Assessment Assessment Summary Assessment Patient tolerated treatment very well; noted increased strength to left shoulder. Patient to see after two weeks . Physical Therapy Plan Next Visit Focus/Plan Next Note Type Treatment Note Next Visit Plan Progress as tolerated
--- NOTE | 2019-01-07 12:41 | PT.OTN ---
Current Diagnoses Unspecified rotator cuff tear or rupture of left shoulder, not specified as traumatic (01/07/19) Physical Therapy Treatment Note PT-OP-A Visit Information Start: 07/30/18 13:32 Freq: Status: Active Protocol: Document 01/07/19 12:00 DCW (Rec: 01/07/19 12:41 DCW [id number]) Out-Patient Physical Therapy Visit Information Visit Information Visit Type Treatment Note Visit Start Time 12:00 Visit Stop Time 12:50 Total Visit Minutes 50 Visit Number 46 PT-OP-B Current Condition Start: 07/30/18 13:32 Freq: Status: Active Protocol: Document 07/30/18 12:00 RCC (Rec: 07/31/18 09:38 RCC [email or web address]) Current Condition History of Current Condition Onset Date December 2017 Current Complaints L shoulder weakness, impaired ROM, pain History of Current Condition Pt is an 83 y/o male presenting to physical therapy with a c/o L shoulder pain, weakness, and limited ROM. Pt sustained infraspinatus and supraspinatus tears /sp traumatic dislocation in December. He had arthroscopic surgery on 01/15/18 . MRI done in April of 2018 showed that the pt had full thickness tearing of supraspinatus and infraspinatus, as well as posterior labral tear. He was consulted for a TSA, but seeked a second opinion which suggested pain management and physical therapy. 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 He admits to being primarily a L sided sleeper until this L shoulder injury, now very uncomfortable sleeping on his back or his R side. Pt has not done any formal PT since re-tearing, but did participate in PT s/p rotator cuff surgery. He is R hand dominant. Prior Treatments and Tests MRI as noted above Treatment Goals Patient/Caregiver Goals improve ROM, strength, and decrease pain Current Functional Impairments (Reported) Functional Limitations- Other unable to perform any activities with arm away from body Personal Factors Other Personal Factors That May Effect blood condition which Therapy/Recovery requires annual follow up with oncology (denies any current CA of any kind, does have past h/o prostate CA 10 yrs ago), [place] 1992 PT-OP-C Subjective Start: 07/30/18 13:32 Freq: Status: Active Protocol: Document 01/07/19 12:00 DCW (Rec: 01/07/19 12:41 DCW [id number]) OP-PT Subjective Patient Comments Patient Comments Still no real pain from my shoulder, just trying to improve the function of it. PT-OP-F Manual Assessment Start: 07/30/18 13:32 Freq: Status: Active Protocol: Document 07/30/18 12:00 RCC (Rec: 07/31/18 15:47 RCC [email or web address]) Manual Assessments Soft Tissue Assessment Soft Tissue Mobility Assessment tenderness to palpation: L parascapular mm and posterior shoulder Joint Mobility Assessment Joint Mobility Assessment hypomobility: L shoulder with posterior and inferior glides PT-OP-K Range of Motion Start: 07/30/18 13:32 Freq: Status: Active Protocol: Document 12/16/18 13:39 EA (Rec: 12/16/18 13:46 EA [id number]) Shoulder Goniometric Range of Motion Shoulder Left Passive Testing Position Supine Flexion 125 Abduction 115 External Rotation at 90 degrees 60 Abduction External Rotation at 0 degrees Abduction 40 Left Active Testing Position Supine Flexion 105 Abduction 90 External Rotation at 0 degrees Abduction 40 Internal Rotation 65 PT-OP-L Special Tests Start: 07/30/18 13:32 Freq: Status: Active Protocol: Document 07/30/18 12:00 RCC (Rec: 07/31/18 15:47 RCC [email or web address]) Special Tests Shoulder Special Tests Apprehension Test Test Results negative Belly Press Test Results negative Lift-Off Rotator Cuff Test Results negative Load and Shift Test Results negative Other Special Tests Special Tests unable to assess further due to pain and limitations of ROM PT-OP-M Strength Start: 07/30/18 13:32 Freq: Status: Active Protocol: Document 12/16/18 13:39 EA (Rec: 12/16/18 13:46 EA [id number]) Shoulder Strength Shoulder Manual Muscle Testing Left Flexion 3+ Fair+ Extension 4+ Good+ Abduction (C5) 3+ Fair+ Adduction 4 Good External Rotation 3 Fair Internal Rotation 4 Good PT-OP-Q Treatments Start: 07/30/18 13:32 Freq: Status: Active Protocol: Document 01/07/19 12:00 DCW (Rec: 01/07/19 12:41 DCW [id number]) Cardio Equipment Upper Body Ergometer (UBE) Duration (Minutes) 8 RPM 70 Height 5 Other fwd/bwd : 80% left effort Gym Equipment Cable Column (Body Solid) Other- 1 Details Pulldown Resistance 3 plates Reps/Time to fatigue Rows Resistance 2 plates Reps/Time to fatigue Therapeutic Exercises Supine Exercises 2 Supine Exercise Name Serratus Punch Side left Resistance 1# Sidelying Exercises 4 Sidelying Exercise Name Horiz ABD at 90deg keely Equipment Used x 10 reps 2 Sidelying Exercise Name External Rotation Resistance 1 lb Reps/Minutes 10 reps Sitting Exercises 4 Sitting Exercise Name DB curl Reps/Minutes 6 lbs x 10 reps 2 Sitting Exercise Name D1, D2 F/E Side left Resistance 1# Reps/Minutes x 10 reps x 2 Comments standing Standing Exercises body blade Side left Resistance yellow Comments IR/ER, abd/add, flex/ext with arm @ side 6 Standing Exercise Name Wall slider: flexion Resistance 1-2# AW Reps/Minutes to fatigue x 5 sets Comments AROM 2 Standing Exercise Name T-bar shoulder ext Resistance 4 lbs Reps/Minutes x 15 reps x 2 PT-OP-R Modalities Start: 07/30/18 13:32 Freq: Status: Active Protocol: Document 01/07/19 12:00 DCW (Rec: 01/07/19 12:41 [facility] [id number]) Hot Pack/Cold Pack Treatment Cold Pack Location left shoulder Patient Position Hooklying Treatment Duration (minutes) 10 Patient Tolerance Good Comments at end of treatment PT-OP-T Assessment and Plan Start: 07/30/18 13:32 Freq: Status: Active Protocol: Document 01/07/19 12:00 DCW (Rec: 01/07/19 12:41 [facility] [id number]) Physical Therapy Assessment Goals pain Impairment rated 3/10 pain in L shoulder [facility] Goal (LTG) Pain rated 1/10 or less prior to d/c. LTG Duration goal reached Quick DASH Impairment Quick DASH impairment score of 50 Short Term Goal (STG) Quick DASH score of 40 or less . STG Duration 6 weeks [facility] Goal (LTG) Quick DASH score of 30 or less to demonstrate improvements with functional use of LUE with daily activities. LTG Duration 8 weeks (Improving) weakness Impairment L UE weakness Short Term Goal (STG) L shoulder 3+/5 or greater with manual muscle testing with flexion, abduction, and ER. STG Duration 6 weeks goal reached [employer] Goal (LTG) L shoulder 4/5 or greater with manual muscle testing with flexion, ER and L elbow flexion and extension to 5/5 with manual muscle testing to demonstrate improved L shoulder stability. LTG Duration 8 weeks (Improving with shoulder; elbow and hand is near to full) L shoulder ROM Impairment L shoulder ROM Short Term Goal (STG) L shoulder AROM: flexion to 90 deg, abduction to 90 deg, ER to 35 deg STG Duration goal reached [facility] Goal (LTG) L shoulder AROM: flexion to 150 deg, abduction to 150 deg, ER to 60 deg prior to d/c, with pt able reporting being able to perform light activities with LUE above 90 degree neutral position. LTG Duration 8 wks (Progressing well) Assessment Summary Assessment Pt tolerated treatment well, reported he felt quite the workout. Pt still not reporting any real increase in pain, just difficulty raising his arm. Physical Therapy Plan Frequency and Duration Frequency of Treatment 2x/Week Duration of Treatment 6 wks Plan of Care Start Date 12/16/18 Plan of Care End Date 01/27/19 Next Visit Focus/Plan Next Note Type Treatment Note Next Visit Plan Progress as tolerated
--- NOTE | 2019-01-12 17:01 | PT.OTN ---
Current Diagnoses Unspecified rotator cuff tear or rupture of left shoulder, not specified as traumatic (01/12/19) Physical Therapy Treatment Note PT-OP-A Visit Information Start: 07/30/18 13:32 Freq: Status: Active Protocol: Document 01/12/19 16:51 EA (Rec: 01/12/19 17:01 EA [id number]) Out-Patient Physical Therapy Visit Information Visit Information Visit Type Treatment Note Visit Start Time 16:00 Visit Stop Time 16:50 Total Visit Minutes 50 Visit Number 50 PT-OP-B Current Condition Start: 07/30/18 13:32 Freq: Status: Active Protocol: Document 07/30/18 12:00 RCC (Rec: 07/31/18 09:38 RCC [email or web address]) Current Condition History of Current Condition Onset Date December 2017 Current Complaints L shoulder weakness, impaired ROM, pain History of Current Condition Pt is an 83 y/o male presenting to physical therapy with a c/o L shoulder pain, weakness, and limited ROM. Pt sustained infraspinatus and supraspinatus tears /sp traumatic dislocation in December. He had arthroscopic surgery on 01/15/18 . MRI done in April of 2018 showed that the pt had full thickness tearing of supraspinatus and infraspinatus, as well as posterior labral tear. He was consulted for a TSA, but seeked a second opinion which suggested pain management and physical therapy. 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 He admits to being primarily a L sided sleeper until this L shoulder injury, now very uncomfortable sleeping on his back or his R side. Pt has not done any formal PT since re-tearing, but did participate in PT s/p rotator cuff surgery. He is R hand dominant. Prior Treatments and Tests MRI as noted above Treatment Goals Patient/Caregiver Goals improve ROM, strength, and decrease pain Current Functional Impairments (Reported) Functional Limitations- Other unable to perform any activities with arm away from body Personal Factors Other Personal Factors That May Effect blood condition which Therapy/Recovery requires annual follow up with oncology (denies any current CA of any kind, does have past h/o prostate CA 10 yrs ago), [place] 1992 PT-OP-C Subjective Start: 07/30/18 13:32 Freq: Status: Active Protocol: Document 01/12/19 16:51 EA (Rec: 01/12/19 17:01 EA [id number]) OP-PT Subjective Patient Comments Patient Comments Pt reports compliant with HEP; states he has been using it more than before PT eval. PT-OP-F Manual Assessment Start: 07/30/18 13:32 Freq: Status: Active Protocol: Document 07/30/18 12:00 RCC (Rec: 07/31/18 15:47 RCC [email or web address]) Manual Assessments Soft Tissue Assessment Soft Tissue Mobility Assessment tenderness to palpation: L parascapular mm and posterior shoulder Joint Mobility Assessment Joint Mobility Assessment hypomobility: L shoulder with posterior and inferior glides PT-OP-K Range of Motion Start: 07/30/18 13:32 Freq: Status: Active Protocol: Document 12/16/18 13:39 EA (Rec: 12/16/18 13:46 EA [id number]) Shoulder Goniometric Range of Motion Shoulder Left Passive Testing Position Supine Flexion 125 Abduction 115 External Rotation at 90 degrees 60 Abduction External Rotation at 0 degrees Abduction 40 Left Active Testing Position Supine Flexion 105 Abduction 90 External Rotation at 0 degrees Abduction 40 Internal Rotation 65 PT-OP-L Special Tests Start: 07/30/18 13:32 Freq: Status: Active Protocol: Document 07/30/18 12:00 RCC (Rec: 07/31/18 15:47 RCC [email or web address]) Special Tests Shoulder Special Tests Apprehension Test Test Results negative Belly Press Test Results negative Lift-Off Rotator Cuff Test Results negative Load and Shift Test Results negative Other Special Tests Special Tests unable to assess further due to pain and limitations of ROM PT-OP-M Strength Start: 07/30/18 13:32 Freq: Status: Active Protocol: Document 12/16/18 13:39 EA (Rec: 12/16/18 13:46 EA [id number]) Shoulder Strength Shoulder Manual Muscle Testing Left Flexion 3+ Fair+ Extension 4+ Good+ Abduction (C5) 3+ Fair+ Adduction 4 Good External Rotation 3 Fair Internal Rotation 4 Good PT-OP-Q Treatments Start: 07/30/18 13:32 Freq: Status: Active Protocol: Document 01/12/19 16:51 EA (Rec: 01/12/19 17:01 EA [id number]) Cardio Equipment Upper Body Ergometer (UBE) Duration (Minutes) 10 RPM 75 Height 5- 7.5 Other fwd/bwd : 80% left effort Gym Equipment Cable Column (Body Solid) Other- 1 Details Pulldown Resistance 3 plates Reps/Time to fatigue Rows Resistance 2 plates Reps/Time to fatigue Therapeutic Exercises Supine Exercises 2 Supine Exercise Name Serratus Punch Side left Resistance 5# Prone Exercises 3 Prone Exercise Name Shoulder push up Reps/Minutes x 10 reps Comments on elbows 1 Prone Exercise Name Inclined push up Reps/Minutes x 8 reps Comments table Sidelying Exercises 4 Sidelying Exercise Name Horiz ABD at 90deg keely Equipment Used x 10 reps 2 Sidelying Exercise Name External Rotation Resistance 1 lb Reps/Minutes 10 reps Sitting Exercises 4 Sitting Exercise Name Cone stacking Reps/Minutes x 3 mins Comments Table overhead height 3 Sitting Exercise Name Balloon toss: overhead toss only Reps/Minutes x 2 mins Standing Exercises 6 Standing Exercise Name Wall slider: flexion Resistance 3## AW Reps/Minutes to fatigue x 5 sets Comments AROM 5 Standing Exercise Name Table slider: flexion and scaption Reps/Minutes x 15 reps x 2 sets each Comments stretch at endrange 3 Standing Exercise Name Wall T-bar shoulder press Resistance 2-3 lbs Reps/Minutes x 10 reps x 2 Comments pain free range and no shoulder elevation 2 Standing Exercise Name T-bar shoulder ext Resistance 4 lbs Reps/Minutes x 15 reps x 2 Manual Therapy Treatment Joint Mobilizations 1 Joint GH Direction Post/inf Grade II Body Position Sitting Reps/Duration x 10 mins Comments II-III Manual Techniques 2 Type Multi angle isometrics: shoulder flexors/abd/ER/IR, Horiz ABD/ADD Reps/Duration x 3SH x 4 reps each 1 Type Gentle passive stretch: flexion/ABD/ER Reps/Duration x 20SH x 3 reps Comments PNF: Pain free range/prior to pain, increased ROM with manual resistance PT-OP-R Modalities Start: 07/30/18 13:32 Freq: Status: Active Protocol: Document 01/12/19 16:51 LEONELA (Rec: 01/12/19 17:01 EA [id number]) Hot Pack/Cold Pack Treatment Cold Pack Location left shoulder Patient Position Hooklying Treatment Duration (minutes) 10 Patient Tolerance Good Comments at end of treatment PT-OP-T Assessment and Plan Start: 07/30/18 13:32 Freq: Status: Active Protocol: Document 01/12/19 16:51 EA (Rec: 01/12/19 17:01 EA [id number]) Physical Therapy Assessment Assessment Summary Assessment PT tolerated treatment well. Great strength improvement with improved functional overhead activities at this time. Physical Therapy Plan Next Visit Focus/Plan Next Note Type Treatment Note Next Visit Plan Progress as tolerated.
--- NOTE | 2019-01-14 19:10 | PT.OTN ---
Current Diagnoses Unspecified rotator cuff tear or rupture of left shoulder, not specified as traumatic (01/14/19) Physical Therapy Treatment Note PT-OP-A Visit Information Start: 07/30/18 13:32 Freq: Status: Active Protocol: Document 01/14/19 16:00 HH (Rec: 01/14/19 19:09 HH [email or web address]) Out-Patient Physical Therapy Visit Information Visit Information Visit Type Treatment Note Visit Start Time 16:00 Visit Stop Time 16:45 Total Visit Minutes 45 Visit Number 50 PT-OP-B Current Condition Start: 07/30/18 13:32 Freq: Status: Active Protocol: Document 07/30/18 12:00 RCC (Rec: 07/31/18 09:38 RCC [email or web address]) Current Condition History of Current Condition Onset Date December 2017 Current Complaints L shoulder weakness, impaired ROM, pain History of Current Condition Pt is an 83 y/o male presenting to physical therapy with a c/o L shoulder pain, weakness, and limited ROM. Pt sustained infraspinatus and supraspinatus tears /sp traumatic dislocation in December. He had arthroscopic surgery on 01/15/18 . MRI done in April of 2018 showed that the pt had full thickness tearing of supraspinatus and infraspinatus, as well as posterior labral tear. He was consulted for a TSA, but seeked a second opinion which suggested pain management and physical therapy. 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 He admits to being primarily a L sided sleeper until this L shoulder injury, now very uncomfortable sleeping on his back or his R side. Pt has not done any formal PT since re-tearing, but did participate in PT s/p rotator cuff surgery. He is R hand dominant. Prior Treatments and Tests MRI as noted above Treatment Goals Patient/Caregiver Goals improve ROM, strength, and decrease pain Current Functional Impairments (Reported) Functional Limitations- Other unable to perform any activities with arm away from body Personal Factors Other Personal Factors That May Effect blood condition which Therapy/Recovery requires annual follow up with oncology (denies any current CA of any kind, does have past h/o prostate CA 10 yrs ago), [place] 1992 PT-OP-C Subjective Start: 07/30/18 13:32 Freq: Status: Active Protocol: Document 01/14/19 16:00 HH (Rec: 01/14/19 19:10 HH [email or web address]) OP-PT Subjective Patient Comments Patient Comments my shoulder is progressing PT-OP-F Manual Assessment Start: 07/30/18 13:32 Freq: Status: Active Protocol: Document 07/30/18 12:00 RCC (Rec: 07/31/18 15:47 RCC [email or web address]) Manual Assessments Soft Tissue Assessment Soft Tissue Mobility Assessment tenderness to palpation: L parascapular mm and posterior shoulder Joint Mobility Assessment Joint Mobility Assessment hypomobility: L shoulder with posterior and inferior glides PT-OP-K Range of Motion Start: 07/30/18 13:32 Freq: Status: Active Protocol: Document 12/16/18 13:39 EA (Rec: 12/16/18 13:46 EA [id number]) Shoulder Goniometric Range of Motion Shoulder Left Passive Testing Position Supine Flexion 125 Abduction 115 External Rotation at 90 degrees 60 Abduction External Rotation at 0 degrees Abduction 40 Left Active Testing Position Supine Flexion 105 Abduction 90 External Rotation at 0 degrees Abduction 40 Internal Rotation 65 PT-OP-L Special Tests Start: 07/30/18 13:32 Freq: Status: Active Protocol: Document 07/30/18 12:00 RCC (Rec: 07/31/18 15:47 RCC [email or web address]) Special Tests Shoulder Special Tests Apprehension Test Test Results negative Belly Press Test Results negative Lift-Off Rotator Cuff Test Results negative Load and Shift Test Results negative Other Special Tests Special Tests unable to assess further due to pain and limitations of ROM PT-OP-M Strength Start: 07/30/18 13:32 Freq: Status: Active Protocol: Document 12/16/18 13:39 EA (Rec: 12/16/18 13:46 EA [id number]) Shoulder Strength Shoulder Manual Muscle Testing Left Flexion 3+ Fair+ Extension 4+ Good+ Abduction (C5) 3+ Fair+ Adduction 4 Good External Rotation 3 Fair Internal Rotation 4 Good PT-OP-Q Treatments Start: 07/30/18 13:32 Freq: Status: Active Protocol: Document 01/14/19 16:00 HH (Rec: 01/14/19 19:09 HH [email or web address]) Cardio Equipment Upper Body Ergometer (UBE) Duration (Minutes) 8 RPM 75 Height 5- 7.5 Other fwd/bwd : 80% left effort Therapeutic Exercises Supine Exercises supine passive stretch Side left Reps/Minutes 5 mins supine shoulder clock Side bilateral Equipment Used foam roll Reps/Minutes 8 x 3 Comments D1 D2 pattern. supine shoulder flexion Supine Exercise Name with foam roller Side bilateral Equipment Used foam roll Reps/Minutes 8 x 3 Comments up to 110 degrees Sitting Exercises seated thoracic extension Side bilateral Reps/Minutes 8 x2 4 Sitting Exercise Name Cone stacking Reps/Minutes x 3 mins Comments Table overhead height 2 Sitting Exercise Name D1, D2 F/E Side left Resistance 1# Reps/Minutes x 10 reps x 2 Comments standing Standing Exercises 8 Standing Exercise Name shoulder crossover Resistance Lv3 TB Reps/Minutes x 10 reps 6 Standing Exercise Name Wall slider: flexion Resistance 3## AW Reps/Minutes to fatigue x 5 sets Comments AROM Manual Therapy Treatment Joint Mobilizations 1 Joint GH Direction Post/inf Grade II Body Position Supine Reps/Duration x 10 mins Comments II-III PT-OP-R Modalities Start: 07/30/18 13:32 Freq: Status: Active Protocol: Document 01/12/19 16:51 EA (Rec: 01/12/19 17:01 EA [id number]) Hot Pack/Cold Pack Treatment Cold Pack Location left shoulder Patient Position Hooklying Treatment Duration (minutes) 10 Patient Tolerance Good Comments at end of treatment PT-OP-T Assessment and Plan Start: 07/30/18 13:32 Freq: Status: Active Protocol: Document 01/14/19 16:00 HH (Rec: 01/14/19 19:09 HH [email or web address]) Physical Therapy Assessment Assessment Summary Assessment pt maikel tx well with improved ROM and strength. Pt was able to reach ~110 degrees flexion in supine today. There's cont noticeable muscle spasm at the end range of abd and flexion. Physical Therapy Plan Next Visit Focus/Plan Next Note Type Treatment Note Next Visit Plan cont supine shd ROM ex as maikel Progress as tolerated.
--- NOTE | 2019-01-19 16:56 | PT.OTN ---
Current Diagnoses Unspecified rotator cuff tear or rupture of left shoulder, not specified as traumatic (01/19/19) Physical Therapy Treatment Note PT-OP-A Visit Information Start: 07/30/18 13:32 Freq: Status: Active Protocol: Document 01/19/19 16:43 EA (Rec: 01/19/19 16:47 EA [id number]) Out-Patient Physical Therapy Visit Information Visit Information Visit Type Treatment Note Visit Start Time 16:00 Visit Stop Time 16:48 Total Visit Minutes 48 Visit Number 51 PT-OP-B Current Condition Start: 07/30/18 13:32 Freq: Status: Active Protocol: Document 07/30/18 12:00 RCC (Rec: 07/31/18 09:38 RCC [email or web address]) Current Condition History of Current Condition Onset Date December 2017 Current Complaints L shoulder weakness, impaired ROM, pain History of Current Condition Pt is an 83 y/o male presenting to physical therapy with a c/o L shoulder pain, weakness, and limited ROM. Pt sustained infraspinatus and supraspinatus tears /sp traumatic dislocation in December. He had arthroscopic surgery on 01/15/18 . MRI done in April of 2018 showed that the pt had full thickness tearing of supraspinatus and infraspinatus, as well as posterior labral tear. He was consulted for a TSA, but seeked a second opinion which suggested pain management and physical therapy. 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 He admits to being primarily a L sided sleeper until this L shoulder injury, now very uncomfortable sleeping on his back or his R side. Pt has not done any formal PT since re-tearing, but did participate in PT s/p rotator cuff surgery. He is R hand dominant. Prior Treatments and Tests MRI as noted above Treatment Goals Patient/Caregiver Goals improve ROM, strength, and decrease pain Current Functional Impairments (Reported) Functional Limitations- Other unable to perform any activities with arm away from body Personal Factors Other Personal Factors That May Effect blood condition which Therapy/Recovery requires annual follow up with oncology (denies any current CA of any kind, does have past h/o prostate CA 10 yrs ago), [place] 1992 PT-OP-C Subjective Start: 07/30/18 13:32 Freq: Status: Active Protocol: Document 01/19/19 16:43 EA (Rec: 01/19/19 16:47 EA [id number]) OP-PT Subjective Patient Comments Patient Comments Pt reports needs abit more strengthening exercises today. PT-OP-F Manual Assessment Start: 07/30/18 13:32 Freq: Status: Active Protocol: Document 07/30/18 12:00 RCC (Rec: 07/31/18 15:47 RCC [email or web address]) Manual Assessments Soft Tissue Assessment Soft Tissue Mobility Assessment tenderness to palpation: L parascapular mm and posterior shoulder Joint Mobility Assessment Joint Mobility Assessment hypomobility: L shoulder with posterior and inferior glides PT-OP-K Range of Motion Start: 07/30/18 13:32 Freq: Status: Active Protocol: Document 12/16/18 13:39 EA (Rec: 12/16/18 13:46 EA [id number]) Shoulder Goniometric Range of Motion Shoulder Left Passive Testing Position Supine Flexion 125 Abduction 115 External Rotation at 90 degrees 60 Abduction External Rotation at 0 degrees Abduction 40 Left Active Testing Position Supine Flexion 105 Abduction 90 External Rotation at 0 degrees Abduction 40 Internal Rotation 65 PT-OP-L Special Tests Start: 07/30/18 13:32 Freq: Status: Active Protocol: Document 07/30/18 12:00 RCC (Rec: 07/31/18 15:47 RCC [email or web address]) Special Tests Shoulder Special Tests Apprehension Test Test Results negative Belly Press Test Results negative Lift-Off Rotator Cuff Test Results negative Load and Shift Test Results negative Other Special Tests Special Tests unable to assess further due to pain and limitations of ROM PT-OP-M Strength Start: 07/30/18 13:32 Freq: Status: Active Protocol: Document 12/16/18 13:39 EA (Rec: 12/16/18 13:46 EA [id number]) Shoulder Strength Shoulder Manual Muscle Testing Left Flexion 3+ Fair+ Extension 4+ Good+ Abduction (C5) 3+ Fair+ Adduction 4 Good External Rotation 3 Fair Internal Rotation 4 Good PT-OP-Q Treatments Start: 07/30/18 13:32 Freq: Status: Active Protocol: Document 01/19/19 16:43 EA (Rec: 01/19/19 16:47 EA [id number]) Cardio Equipment Upper Body Ergometer (UBE) Duration (Minutes) 8 RPM 75 Height 5- 7.5 Other fwd/bwd : 80% left effort Gym Equipment Cable Column (Body Solid) Rows Resistance 2-3plates Reps/Time to fatigue Therapeutic Exercises Supine Exercises supine passive stretch Side left Reps/Minutes 5 mins supine shoulder clock Side bilateral Equipment Used foam roll Reps/Minutes 8 x 3 Comments D1 D2 pattern. Prone Exercises 3 Prone Exercise Name Shoulder push up Reps/Minutes x 10 reps Comments on elbows 2 Prone Exercise Name T-ball: T- Y Reps/Minutes x 10 reps 1 Prone Exercise Name Inclined push up Reps/Minutes x 8 reps Comments table Sitting Exercises 4 Sitting Exercise Name Cone stacking Reps/Minutes x 3 mins Comments Table overhead height 3 Sitting Exercise Name Balloon toss: overhead toss only Reps/Minutes x 2 mins 2 Sitting Exercise Name D1, D2 F/E Side left Resistance 1# Reps/Minutes x 10 reps x 2 Comments standing Standing Exercises body blade Side left Resistance yellow Comments IR/ER, abd/add, flex/ext with arm @ side 6 Standing Exercise Name Wall slider: flexion Resistance 3## AW Reps/Minutes to fatigue x 5 sets Comments AROM 3 Standing Exercise Name Wall T-bar shoulder press Resistance 2-3 lbs Reps/Minutes x 10 reps x 2 Comments pain free range and no shoulder elevation 2 Standing Exercise Name T-bar shoulder ext Resistance 4 lbs Reps/Minutes x 15 reps x 2 PT-OP-R Modalities Start: 07/30/18 13:32 Freq: Status: Active Protocol: Document 01/19/19 16:55 EA (Rec: 01/19/19 16:56 EA [id number]) Hot Pack/Cold Pack Treatment Cold Pack Location left shoulder Patient Position Hooklying Treatment Duration (minutes) 10 Patient Tolerance Good Comments at end of treatment PT-OP-T Assessment and Plan Start: 07/30/18 13:32 Freq: Status: Active Protocol: Document 01/19/19 16:54 EA (Rec: 01/19/19 16:55 EA [id number]) Physical Therapy Assessment Assessment Summary Assessment Improved overhead movement strength in scaption position. Patient is progressing well. Physical Therapy Plan Next Visit Focus/Plan Next Note Type Treatment Note
--- NOTE | 2019-01-21 17:25 | PT.OTN ---
Current Diagnoses Unspecified rotator cuff tear or rupture of left shoulder, not specified as traumatic (01/21/19) Physical Therapy Treatment Note PT-OP-A Visit Information Start: 07/30/18 13:32 Freq: Status: Active Protocol: Document 01/21/19 17:22 EA (Rec: 01/21/19 17:23 EA [id number]) Out-Patient Physical Therapy Visit Information Visit Information Visit Type Treatment Note Visit Start Time 16:00 Visit Stop Time 16:48 Total Visit Minutes 48 Visit Number 52 PT-OP-B Current Condition Start: 07/30/18 13:32 Freq: Status: Active Protocol: Document 07/30/18 12:00 RCC (Rec: 07/31/18 09:38 RCC [email or web address]) Current Condition History of Current Condition Onset Date December 2017 Current Complaints L shoulder weakness, impaired ROM, pain History of Current Condition Pt is an 83 y/o male presenting to physical therapy with a c/o L shoulder pain, weakness, and limited ROM. Pt sustained infraspinatus and supraspinatus tears /sp traumatic dislocation in December. He had arthroscopic surgery on 01/15/18 . MRI done in April of 2018 showed that the pt had full thickness tearing of supraspinatus and infraspinatus, as well as posterior labral tear. He was consulted for a TSA, but seeked a second opinion which suggested pain management and physical therapy. 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 He admits to being primarily a L sided sleeper until this L shoulder injury, now very uncomfortable sleeping on his back or his R side. Pt has not done any formal PT since re-tearing, but did participate in PT s/p rotator cuff surgery. He is R hand dominant. Prior Treatments and Tests MRI as noted above Treatment Goals Patient/Caregiver Goals improve ROM, strength, and decrease pain Current Functional Impairments (Reported) Functional Limitations- Other unable to perform any activities with arm away from body Personal Factors Other Personal Factors That May Effect blood condition which Therapy/Recovery requires annual follow up with oncology (denies any current CA of any kind, does have past h/o prostate CA 10 yrs ago), [place] 1992 PT-OP-C Subjective Start: 07/30/18 13:32 Freq: Status: Active Protocol: Document 01/21/19 17:22 EA (Rec: 01/21/19 17:23 EA [id number]) OP-PT Subjective Patient Comments Patient Comments Pt eports compliant with HEP PT-OP-F Manual Assessment Start: 07/30/18 13:32 Freq: Status: Active Protocol: Document 07/30/18 12:00 RCC (Rec: 07/31/18 15:47 RCC [email or web address]) Manual Assessments Soft Tissue Assessment Soft Tissue Mobility Assessment tenderness to palpation: L parascapular mm and posterior shoulder Joint Mobility Assessment Joint Mobility Assessment hypomobility: L shoulder with posterior and inferior glides PT-OP-K Range of Motion Start: 07/30/18 13:32 Freq: Status: Active Protocol: Document 12/16/18 13:39 EA (Rec: 12/16/18 13:46 EA [id number]) Shoulder Goniometric Range of Motion Shoulder Left Passive Testing Position Supine Flexion 125 Abduction 115 External Rotation at 90 degrees 60 Abduction External Rotation at 0 degrees Abduction 40 Left Active Testing Position Supine Flexion 105 Abduction 90 External Rotation at 0 degrees Abduction 40 Internal Rotation 65 PT-OP-L Special Tests Start: 07/30/18 13:32 Freq: Status: Active Protocol: Document 07/30/18 12:00 RCC (Rec: 07/31/18 15:47 RCC [email or web address]) Special Tests Shoulder Special Tests Apprehension Test Test Results negative Belly Press Test Results negative Lift-Off Rotator Cuff Test Results negative Load and Shift Test Results negative Other Special Tests Special Tests unable to assess further due to pain and limitations of ROM PT-OP-M Strength Start: 07/30/18 13:32 Freq: Status: Active Protocol: Document 12/16/18 13:39 EA (Rec: 12/16/18 13:46 EA [id number]) Shoulder Strength Shoulder Manual Muscle Testing Left Flexion 3+ Fair+ Extension 4+ Good+ Abduction (C5) 3+ Fair+ Adduction 4 Good External Rotation 3 Fair Internal Rotation 4 Good PT-OP-Q Treatments Start: 07/30/18 13:32 Freq: Status: Active Protocol: Document 01/21/19 17:23 EA (Rec: 01/21/19 17:25 EA [id number]) Cardio Equipment Upper Body Ergometer (UBE) Duration (Minutes) 8 RPM 75 Height 5- 7.5 Other fwd/bwd : 80% left effort Gym Equipment Cable Column (Body Solid) Rows Resistance 2-3plates Reps/Time to fatigue Therapeutic Exercises Prone Exercises 3 Prone Exercise Name Shoulder push up Reps/Minutes x 10 reps Comments on elbows 2 Prone Exercise Name T-ball: T- Y Reps/Minutes x 10 reps 1 Prone Exercise Name Inclined push up Reps/Minutes x 8 reps Comments table Sidelying Exercises 4 Sidelying Exercise Name Horiz ABD at 90deg keely Equipment Used x 10 reps 3 Sidelying Exercise Name scap retraction Reps/Minutes x 10 reps 2 Sidelying Exercise Name External Rotation Resistance 1 lb Reps/Minutes 10 reps 1 Sidelying Exercise Name shoulder abduction Reps/Minutes x 12 reps Comments scaption with assist to manage impingement symptoms Standing Exercises 8 Standing Exercise Name shoulder crossover Resistance Lv3 TB Reps/Minutes x 10 reps body blade Side left Resistance yellow Comments IR/ER, abd/add, flex/ext with arm @ side 6 Standing Exercise Name Wall slider: flexion Resistance 3## AW Reps/Minutes to fatigue x 5 sets Comments AROM 3 Standing Exercise Name Wall T-bar shoulder press Resistance 2-3 lbs Reps/Minutes x 10 reps x 2 Comments pain free range and no shoulder elevation 2 Standing Exercise Name T-bar shoulder ext Resistance 6 lbs Reps/Minutes x 15 reps x 2 PT-OP-R Modalities Start: 07/30/18 13:32 Freq: Status: Active Protocol: Document 01/21/19 17:22 EA (Rec: 01/21/19 17:23 EA [id number]) Hot Pack/Cold Pack Treatment Cold Pack Location left shoulder Patient Position Hooklying Treatment Duration (minutes) 10 Patient Tolerance Good Comments at end of treatment PT-OP-T Assessment and Plan Start: 07/30/18 13:32 Freq: Status: Active Protocol: Document 01/21/19 17:22 EA (Rec: 01/21/19 17:23 EA [id number]) Physical Therapy Assessment Assessment Summary Assessment Improved shoulder functional strength and ROM. Physical Therapy Plan Next Visit Focus/Plan Next Note Type Treatment Note Next Visit Plan Advance as tolerated
--- NOTE | 2019-01-26 17:13 | PT.OTN ---
Current Diagnoses Unspecified rotator cuff tear or rupture of left shoulder, not specified as traumatic (01/26/19) Physical Therapy Treatment Note PT-OP-A Visit Information Start: 07/30/18 13:32 Freq: Status: Active Protocol: Document 01/26/19 16:44 EA (Rec: 01/26/19 17:06 EA [id number]) Out-Patient Physical Therapy Visit Information Visit Information Visit Type Treatment Note Visit Start Time 16:00 Visit Stop Time 16:48 Total Visit Minutes 48 Visit Number 53 PT-OP-B Current Condition Start: 07/30/18 13:32 Freq: Status: Active Protocol: Document 07/30/18 12:00 RCC (Rec: 07/31/18 09:38 RCC [id number]) Current Condition History of Current Condition Onset Date December 2017 Current Complaints L shoulder weakness, impaired ROM, pain History of Current Condition Pt is an 83 y/o male presenting to physical therapy with a c/o L shoulder pain, weakness, and limited ROM. Pt sustained infraspinatus and supraspinatus tears /sp traumatic dislocation in December. He had arthroscopic surgery on 01/15/18 . MRI done in April of 2018 showed that the pt had full thickness tearing of supraspinatus and infraspinatus, as well as posterior labral tear. He was consulted for a TSA, but seeked a second opinion which suggested pain management and physical therapy. 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 He admits to being primarily a L sided sleeper until this L shoulder injury, now very uncomfortable sleeping on his back or his R side. Pt has not done any formal PT since re-tearing, but did participate in PT s/p rotator cuff surgery. He is R hand dominant. Prior Treatments and Tests MRI as noted above Treatment Goals Patient/Caregiver Goals improve ROM, strength, and decrease pain Current Functional Impairments (Reported) Functional Limitations- Other unable to perform any activities with arm away from body Personal Factors Other Personal Factors That May Effect blood condition which Therapy/Recovery requires annual follow up with oncology (denies any current CA of any kind, does have past h/o prostate CA 10 yrs ago), [place] 1992 PT-OP-C Subjective Start: 07/30/18 13:32 Freq: Status: Active Protocol: Document 01/26/19 16:44 EA (Rec: 01/26/19 17:06 EA [id number]) OP-PT Subjective Patient Comments Patient Comments I been using my hand with most of my daily activities ; states showering is quite easier now. Pt feel consistent improvement. Patient Reported Progress Improving PT-OP-F Manual Assessment Start: 07/30/18 13:32 Freq: Status: Active Protocol: Document 07/30/18 12:00 RCC (Rec: 07/31/18 15:47 RCC [email or web address]) Manual Assessments Soft Tissue Assessment Soft Tissue Mobility Assessment tenderness to palpation: L parascapular mm and posterior shoulder Joint Mobility Assessment Joint Mobility Assessment hypomobility: L shoulder with posterior and inferior glides PT-OP-K Range of Motion Start: 07/30/18 13:32 Freq: Status: Active Protocol: Document 12/16/18 13:39 EA (Rec: 12/16/18 13:46 EA [id number]) Shoulder Goniometric Range of Motion Shoulder Left Passive Testing Position Supine Flexion 125 Abduction 115 External Rotation at 90 degrees 60 Abduction External Rotation at 0 degrees Abduction 40 Left Active Testing Position Supine Flexion 105 Abduction 90 External Rotation at 0 degrees Abduction 40 Internal Rotation 65 PT-OP-L Special Tests Start: 07/30/18 13:32 Freq: Status: Active Protocol: Document 07/30/18 12:00 RCC (Rec: 07/31/18 15:47 RCC [email or web address]) Special Tests Shoulder Special Tests Apprehension Test Test Results negative Belly Press Test Results negative Lift-Off Rotator Cuff Test Results negative Load and Shift Test Results negative Other Special Tests Special Tests unable to assess further due to pain and limitations of ROM PT-OP-M Strength Start: 07/30/18 13:32 Freq: Status: Active Protocol: Document 12/16/18 13:39 EA (Rec: 12/16/18 13:46 EA [id number]) Shoulder Strength Shoulder Manual Muscle Testing Left Flexion 3+ Fair+ Extension 4+ Good+ Abduction (C5) 3+ Fair+ Adduction 4 Good External Rotation 3 Fair Internal Rotation 4 Good PT-OP-Q Treatments Start: 07/30/18 13:32 Freq: Status: Active Protocol: Document 01/26/19 16:44 EA (Rec: 01/26/19 17:06 EA [id number]) Cardio Equipment Upper Body Ergometer (UBE) Duration (Minutes) 8 RPM 75 Height 5- 7.5 Other fwd/bwd : 90% left effort Gym Equipment Cable Column (Body Solid) Other- 1 Details Pulldown Resistance 3 plates Reps/Time to fatigue Rows Resistance 2-3plates Reps/Time 15 reps x 2 Therapeutic Exercises Prone Exercises 3 Prone Exercise Name Shoulder push up Reps/Minutes x 10 reps Comments on elbows 2 Prone Exercise Name T-ball: T- Y Reps/Minutes x 10 reps Sidelying Exercises 4 Sidelying Exercise Name Horiz ABD at 90deg keely Resistance 2# Equipment Used x 10 reps 3 Sidelying Exercise Name scap retraction Reps/Minutes x 10 reps 2 Sidelying Exercise Name External Rotation Resistance 2 lb Reps/Minutes 10 reps 1 Sidelying Exercise Name shoulder abduction Reps/Minutes x 12 reps Comments scaption with assist to manage impingement symptoms Standing Exercises 8 Standing Exercise Name shoulder crossover Resistance Lv3 TB Reps/Minutes x 10 reps 3 Standing Exercise Name Wall T-bar shoulder press Resistance 2-3 lbs Reps/Minutes x 10 reps x 2 Comments pain free range and no shoulder elevation 2 Standing Exercise Name T-bar shoulder ext Resistance 6 lbs Reps/Minutes x 15 reps x 2 PT-OP-R Modalities Start: 07/30/18 13:32 Freq: Status: Active Protocol: Document 01/26/19 16:44 EA (Rec: 01/26/19 17:06 LEONELA [id number]) Hot Pack/Cold Pack Treatment Cold Pack Location left shoulder Patient Position Hooklying Treatment Duration (minutes) 10 Patient Tolerance Good Comments at end of treatment PT-OP-T Assessment and Plan Start: 07/30/18 13:32 Freq: Status: Active Protocol: Document 01/26/19 16:44 EA (Rec: 01/26/19 17:06 LEONELA [id number]) Physical Therapy Assessment Impairments Impairments Functional Activities Pain ROM Strength Goals pain Impairment rated 3/10 pain in L shoulder [place] Operator Goal (LTG) Pain rated 1/10 or less prior to d/c. LTG Duration goal reached Quick DASH Impairment Quick DASH impairment score of 50 Short Term Goal (STG) Quick DASH score of 40 or less . Nursing Home Goal (LTG) Quick DASH score of 10 or less or less to demonstrate improvements with functional use of LUE with daily activities. LTG Duration 6 weeks (Improving) weakness Impairment L UE weakness Short Term Goal (STG) L shoulder 3+/5 or greater with manual muscle testing with flexion, abduction, and ER. STG Duration 6 weeks goal reached [place] Operator Goal (LTG) L shoulder 4/5 or greater with manual muscle testing with flexion, ER and with manual muscle testing to demonstrate improved L shoulder stability. LTG Duration 6 wks L shoulder ROM Impairment L shoulder ROM Short Term Goal (STG) L shoulder AROM: flexion to 120 deg, abduction to 90 deg, ER to 35 deg STG Duration goal reached [place] Operator Goal (LTG) L shoulder AROM: flexion to 150 deg, abduction 90 deg, ER to 70 deg prior to d/c, with pt able reporting being able to perform light activities with LUE above 90 degree neutral position. LTG Duration 6 wks (Progressing well) Assessment Summary Assessment Patient has been seen in the last 6 months and have shown slow progress in the first three months due to pain and LOM issue. Currently pain is not the issue but weakness and LOM. A history of supraspinatus rupture is less possible to regain abduction in full , therefore I discussed to patient the main overhead movement would be scaption and and as well flexion. Patient has been consistent with HEP and schedules and high motivated to improve more. Patient will continue to benefit with skilled PT. Physical Therapy Plan Frequency and Duration Frequency of Treatment 2x/Week Duration of Treatment 6 wks Plan of Care Start Date 01/26/19 Plan of Care End Date 03/12/19 Next Visit Focus/Plan Next Note Type Treatment Note
--- NOTE | 2019-01-26 17:14 | PT.OPPOC ---
Current Diagnoses Unspecified rotator cuff tear or rupture of left shoulder, not specified as traumatic (01/26/19) Provider Visit Care Team Role Provider Type Gordy Shabazz MD Primary Care Provider Physician Specialty: Internal Medicine Address: [address] [place] [address], [id number] Email: Darius Henderson MD Attending Provider Non-Staff Specialty: Orthopedic Surgery Address: [address] [place] [address], [id number] Email: Plan Of Care PT-OP-T Assessment and Plan Start: 07/30/18 13:32 Freq: Status: Active Protocol: Document 01/26/19 16:44 EA (Rec: 01/26/19 17:06 EA [id number]) Physical Therapy Assessment Impairments Impairments Functional Activities Pain ROM Strength Goals pain Impairment rated 3/10 pain in L shoulder Nursing Home Goal (LTG) Pain rated 1/10 or less prior to d/c. LTG Duration goal reached Quick DASH Impairment Quick DASH impairment score of 50 Short Term Goal (STG) Quick DASH score of 40 or less . Underwriting Support Specialist Goal (LTG) Quick DASH score of 10 or less or less to demonstrate improvements with functional use of LUE with daily activities. LTG Duration 6 weeks (Improving) weakness Impairment L UE weakness Short Term Goal (STG) L shoulder 3+/5 or greater with manual muscle testing with flexion, abduction, and ER. STG Duration 6 weeks goal reached Underwriting Support Specialist Goal (LTG) L shoulder 4/5 or greater with manual muscle testing with flexion, ER and with manual muscle testing to demonstrate improved L shoulder stability. LTG Duration 6 wks L shoulder ROM Impairment L shoulder ROM Short Term Goal (STG) L shoulder AROM: flexion to 120 deg, abduction to 90 deg, ER to 35 deg STG Duration goal reached Nursing Home Goal (LTG) L shoulder AROM: flexion to 150 deg, abduction 90 deg, ER to 70 deg prior to d/c, with pt able reporting being able to perform light activities with LUE above 90 degree neutral position. LTG Duration 6 wks (Progressing well) Assessment Summary Assessment Patient has been seen in the last 6 months and have shown slow progress in the first three months due to pain and LOM issue. Currently pain is not the issue but weakness and LOM. A history of supraspinatus rupture is less possible to regain abduction in full , therefore I discussed to patient the main overhead movement would be scaption and and as well flexion. Patient has been consistent with HEP and schedules and high motivated to improve more. Patient will continue to benefit with skilled PT. Physical Therapy Plan Frequency and Duration Frequency of Treatment 2x/Week Duration of Treatment 6 wks Plan of Care Start Date 01/26/19 Plan of Care End Date 03/12/19 Next Visit Focus/Plan Next Note Type Treatment Note Plan of Care Dates Plan of Care Start Date 01/26/19 Plan of Care End Date 03/12/19 Please Sign and Return: I have reviewed this Plan of Care and certify that the skilled therapy services above are required to meet the patient?s needs. Physician Signature Date Printed Name and Credentials Clinical Instructor Signature Printed Name and Credentials
--- NOTE | 2019-01-28 17:00 | PT.OTN ---
Current Diagnoses Unspecified rotator cuff tear or rupture of left shoulder, not specified as traumatic (01/28/19) Physical Therapy Treatment Note PT-OP-A Visit Information Start: 07/30/18 13:32 Freq: Status: Active Protocol: Document 01/28/19 16:40 EA (Rec: 01/28/19 16:47 EA [id number]) Out-Patient Physical Therapy Visit Information Visit Information Visit Type Treatment Note Visit Start Time 16:00 Visit Stop Time 16:38 Total Visit Minutes 38 Visit Number 54 PT-OP-B Current Condition Start: 07/30/18 13:32 Freq: Status: Active Protocol: Document 07/30/18 12:00 RCC (Rec: 07/31/18 09:38 RCC [email or web address]) Current Condition History of Current Condition Onset Date December 2017 Current Complaints L shoulder weakness, impaired ROM, pain History of Current Condition Pt is an 83 y/o male presenting to physical therapy with a c/o L shoulder pain, weakness, and limited ROM. Pt sustained infraspinatus and supraspinatus tears /sp traumatic dislocation in December. He had arthroscopic surgery on 01/15/18 . MRI done in April of 2018 showed that the pt had full thickness tearing of supraspinatus and infraspinatus, as well as posterior labral tear. He was consulted for a TSA, but seeked a second opinion which suggested pain management and physical therapy. 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 He admits to being primarily a L sided sleeper until this L shoulder injury, now very uncomfortable sleeping on his back or his R side. Pt has not done any formal PT since re-tearing, but did participate in PT s/p rotator cuff surgery. He is R hand dominant. Prior Treatments and Tests MRI as noted above Treatment Goals Patient/Caregiver Goals improve ROM, strength, and decrease pain Current Functional Impairments (Reported) Functional Limitations- Other unable to perform any activities with arm away from body Personal Factors Other Personal Factors That May Effect blood condition which Therapy/Recovery requires annual follow up with oncology (denies any current CA of any kind, does have past h/o prostate CA 10 yrs ago), [place] 1992 PT-OP-C Subjective Start: 07/30/18 13:32 Freq: Status: Active Protocol: Document 01/28/19 16:40 EA (Rec: 01/28/19 16:47 EA [id number]) OP-PT Subjective Patient Comments Patient Comments Pt reports shoulder is stiff but not much pain. Patient Reported Progress Improving PT-OP-F Manual Assessment Start: 07/30/18 13:32 Freq: Status: Active Protocol: Document 07/30/18 12:00 RCC (Rec: 07/31/18 15:47 RCC [email or web address]) Manual Assessments Soft Tissue Assessment Soft Tissue Mobility Assessment tenderness to palpation: L parascapular mm and posterior shoulder Joint Mobility Assessment Joint Mobility Assessment hypomobility: L shoulder with posterior and inferior glides PT-OP-K Range of Motion Start: 07/30/18 13:32 Freq: Status: Active Protocol: Document 12/16/18 13:39 EA (Rec: 12/16/18 13:46 EA [id number]) Shoulder Goniometric Range of Motion Shoulder Left Passive Testing Position Supine Flexion 125 Abduction 115 External Rotation at 90 degrees 60 Abduction External Rotation at 0 degrees Abduction 40 Left Active Testing Position Supine Flexion 105 Abduction 90 External Rotation at 0 degrees Abduction 40 Internal Rotation 65 PT-OP-L Special Tests Start: 07/30/18 13:32 Freq: Status: Active Protocol: Document 07/30/18 12:00 RCC (Rec: 07/31/18 15:47 RCC [email or web address]) Special Tests Shoulder Special Tests Apprehension Test Test Results negative Belly Press Test Results negative Lift-Off Rotator Cuff Test Results negative Load and Shift Test Results negative Other Special Tests Special Tests unable to assess further due to pain and limitations of ROM PT-OP-M Strength Start: 07/30/18 13:32 Freq: Status: Active Protocol: Document 12/16/18 13:39 EA (Rec: 12/16/18 13:46 EA [id number]) Shoulder Strength Shoulder Manual Muscle Testing Left Flexion 3+ Fair+ Extension 4+ Good+ Abduction (C5) 3+ Fair+ Adduction 4 Good External Rotation 3 Fair Internal Rotation 4 Good PT-OP-Q Treatments Start: 07/30/18 13:32 Freq: Status: Active Protocol: Document 01/28/19 16:40 EA (Rec: 01/28/19 16:47 EA [id number]) Cardio Equipment Upper Body Ergometer (UBE) Duration (Minutes) 5 RPM 75 Height 5- 7.5 Other fwd/bwd : 90% left effort Therapeutic Exercises Supine Exercises supine passive stretch Side left Reps/Minutes 5 mins supine shoulder clock Side bilateral Equipment Used foam roll Reps/Minutes 8 x 3 Comments D1 D2 pattern. 3 Supine Exercise Name Internal rotation/ER Side left Resistance 2# Reps/Minutes x 10 reps Comments end range ER stretch Prone Exercises 2 Prone Exercise Name T-ball: T- Y Reps/Minutes x 10 reps 1 Prone Exercise Name Inclined push up Reps/Minutes x 8 reps Comments table Sidelying Exercises 4 Sidelying Exercise Name Horiz ABD at 90deg keely Resistance 2# Equipment Used x 10 reps Comments AAROM 2 Sidelying Exercise Name External Rotation Resistance 2 lb Reps/Minutes 10 reps 1 Sidelying Exercise Name shoulder abduction Reps/Minutes x 12 reps Comments scaption with assist to manage impingement symptoms Manual Therapy Treatment Joint Mobilizations 1 Joint GH Direction Post/inf Grade II Body Position Supine Reps/Duration x 10 mins Comments II-III Manual Techniques 3 Type PNF: D1,D2 F/E Body Position Supine Reps/Duration x10 reps x 2 sets Comments Manual resistance 2 Type Multi angle isometrics: shoulder flexors/abd/ER/IR, Horiz ABD/ADD Reps/Duration x 3SH x 4 reps each 1 Type Gentle passive stretch: flexion/ABD/ER Reps/Duration x 20SH x 3 reps PT-OP-R Modalities Start: 07/30/18 13:32 Freq: Status: Active Protocol: Document 01/28/19 16:40 EA (Rec: 01/28/19 16:47 EA [id number]) Hot Pack/Cold Pack Treatment Cold Pack Location left shoulder Patient Position Hooklying Treatment Duration (minutes) 10 Patient Tolerance Good Comments at end of treatment PT-OP-T Assessment and Plan Start: 07/30/18 13:32 Freq: Status: Active Protocol: Document 01/28/19 16:40 EA (Rec: 01/28/19 16:47 EA [id number]) Physical Therapy Assessment Assessment Summary Assessment Improved range with PNF and after manual mobilization. Patient is progressing well. Physical Therapy Plan Next Visit Focus/Plan Next Note Type Treatment Note Next Visit Plan Advance as tolerated
--- NOTE | 2019-02-04 16:19 | PT.OTN ---
Current Diagnoses Unspecified rotator cuff tear or rupture of left shoulder, not specified as traumatic (02/04/19) Physical Therapy Treatment Note PT-OP-A Visit Information Start: 07/30/18 13:32 Freq: Status: Active Protocol: Document 02/04/19 09:45 AMB (Rec: 02/04/19 16:19 AMB [email or web address]) Out-Patient Physical Therapy Visit Information Visit Information Visit Type Treatment Note Visit Start Time 09:45 Visit Stop Time 10:30 Total Visit Minutes 48 Visit Number 55 PT-OP-B Current Condition Start: 07/30/18 13:32 Freq: Status: Active Protocol: Document 07/30/18 12:00 RCC (Rec: 07/31/18 09:38 RCC [email or web address]) Current Condition History of Current Condition Onset Date December 2017 Current Complaints L shoulder weakness, impaired ROM, pain History of Current Condition Pt is an 83 y/o male presenting to physical therapy with a c/o L shoulder pain, weakness, and limited ROM. Pt sustained infraspinatus and supraspinatus tears /sp traumatic dislocation in December. He had arthroscopic surgery on 01/15/18 . MRI done in April of 2018 showed that the pt had full thickness tearing of supraspinatus and infraspinatus, as well as posterior labral tear. He was consulted for a TSA, but seeked a second opinion which suggested pain management and physical therapy. 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 He admits to being primarily a L sided sleeper until this L shoulder injury, now very uncomfortable sleeping on his back or his R side. Pt has not done any formal PT since re-tearing, but did participate in PT s/p rotator cuff surgery. He is R hand dominant. Prior Treatments and Tests MRI as noted above Treatment Goals Patient/Caregiver Goals improve ROM, strength, and decrease pain Current Functional Impairments (Reported) Functional Limitations- Other unable to perform any activities with arm away from body Personal Factors Other Personal Factors That May Effect blood condition which Therapy/Recovery requires annual follow up with oncology (denies any current CA of any kind, does have past h/o prostate CA 10 yrs ago), [place] 1992 PT-OP-C Subjective Start: 07/30/18 13:32 Freq: Status: Active Protocol: Document 02/04/19 09:45 AMB (Rec: 02/04/19 16:19 AMB [email or web address]) OP-PT Subjective Patient Comments Patient Comments Pain is still better but weakness and stiffness continues. PT-OP-F Manual Assessment Start: 07/30/18 13:32 Freq: Status: Active Protocol: Document 07/30/18 12:00 RCC (Rec: 07/31/18 15:47 RCC [email or web address]) Manual Assessments Soft Tissue Assessment Soft Tissue Mobility Assessment tenderness to palpation: L parascapular mm and posterior shoulder Joint Mobility Assessment Joint Mobility Assessment hypomobility: L shoulder with posterior and inferior glides PT-OP-K Range of Motion Start: 07/30/18 13:32 Freq: Status: Active Protocol: Document 12/16/18 13:39 EA (Rec: 12/16/18 13:46 EA [id number]) Shoulder Goniometric Range of Motion Shoulder Left Passive Testing Position Supine Flexion 125 Abduction 115 External Rotation at 90 degrees 60 Abduction External Rotation at 0 degrees Abduction 40 Left Active Testing Position Supine Flexion 105 Abduction 90 External Rotation at 0 degrees Abduction 40 Internal Rotation 65 PT-OP-L Special Tests Start: 07/30/18 13:32 Freq: Status: Active Protocol: Document 07/30/18 12:00 RCC (Rec: 07/31/18 15:47 RCC [email or web address]) Special Tests Shoulder Special Tests Apprehension Test Test Results negative Belly Press Test Results negative Lift-Off Rotator Cuff Test Results negative Load and Shift Test Results negative Other Special Tests Special Tests unable to assess further due to pain and limitations of ROM PT-OP-M Strength Start: 07/30/18 13:32 Freq: Status: Active Protocol: Document 12/16/18 13:39 EA (Rec: 12/16/18 13:46 EA [id number]) Shoulder Strength Shoulder Manual Muscle Testing Left Flexion 3+ Fair+ Extension 4+ Good+ Abduction (C5) 3+ Fair+ Adduction 4 Good External Rotation 3 Fair Internal Rotation 4 Good PT-OP-Q Treatments Start: 07/30/18 13:32 Freq: Status: Active Protocol: Document 02/04/19 09:45 AMB (Rec: 02/04/19 16:19 AMB [email or web address]) Therapeutic Exercises Supine Exercises supine passive stretch Side left Reps/Minutes 5 mins Comments flexion, abduction, ER Rhythmic stabilization with pt at 90 deg's flex Reps/Minutes 5 min all directions 3 Supine Exercise Name Internal rotation/ER Side left Resistance 2# Reps/Minutes x 10 reps Comments end range ER stretch Sidelying Exercises 4 Sidelying Exercise Name Horiz ABD at 90deg keely Equipment Used x 10 reps Comments AAROM 2 Sidelying Exercise Name External Rotation Resistance 2 lb Reps/Minutes 10 reps 1 Sidelying Exercise Name shoulder abduction Reps/Minutes x 12 reps Comments scaption with assist to manage impingement symptoms Manual Therapy Treatment Manual Techniques 4 Type GH inferior and posterior mobs Body Location L Body Position Hooklying 2 Type Multi angle isometrics: shoulder flexors/abd/ER/IR, Horiz ABD/ADD Reps/Duration x 3SH x 4 reps each 1 Type Gentle passive stretch: flexion/ABD/ER Reps/Duration x 20SH x 3 reps PT-OP-R Modalities Start: 07/30/18 13:32 Freq: Status: Active Protocol: Document 02/04/19 09:45 AMB (Rec: 02/04/19 16:19 AMB [email or web address]) Hot Pack/Cold Pack Treatment Cold Pack Location left shoulder Patient Position Hooklying Treatment Duration (minutes) 10 Patient Tolerance Good Comments at end of treatment PT-OP-T Assessment and Plan Start: 07/30/18 13:32 Freq: Status: Active Protocol: Document 02/04/19 09:45 AMB (Rec: 02/04/19 16:19 AMB [email or web address]) Physical Therapy Assessment Assessment Summary Assessment Pt continues to have weakness in standing, but good mobility in supine. Physical Therapy Plan Next Visit Focus/Plan Next Note Type Treatment Note Next Visit Plan Progress end range into abduction and strengthen throughout ROM for improved antigravity movement.
--- NOTE | 2019-02-08 17:19 | PT.OTN ---
Current Diagnoses Unspecified rotator cuff tear or rupture of left shoulder, not specified as traumatic (02/08/19) Physical Therapy Treatment Note PT-OP-A Visit Information Start: 07/30/18 13:32 Freq: Status: Active Protocol: Document 02/08/19 17:04 AW (Rec: 02/08/19 17:19 AW [email or web address]) Out-Patient Physical Therapy Visit Information Visit Information Visit Type Treatment Note Visit Start Time 13:01 Visit Stop Time 13:48 Total Visit Minutes 47 Visit Number 56 Number of CORE WINDING OPERATOR Visits 0 PT-OP-B Current Condition Start: 07/30/18 13:32 Freq: Status: Active Protocol: Document 07/30/18 12:00 RCC (Rec: 07/31/18 09:38 RCC [email or web address]) Current Condition History of Current Condition Onset Date December 2017 Current Complaints L shoulder weakness, impaired ROM, pain History of Current Condition Pt is an 83 y/o male presenting to physical therapy with a c/o L shoulder pain, weakness, and limited ROM. Pt sustained infraspinatus and supraspinatus tears /sp traumatic dislocation in December. He had arthroscopic surgery on 01/15/18 . MRI done in April of 2018 showed that the pt had full thickness tearing of supraspinatus and infraspinatus, as well as posterior labral tear. He was consulted for a TSA, but seeked a second opinion which suggested pain management and physical therapy. 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 He admits to being primarily a L sided sleeper until this L shoulder injury, now very uncomfortable sleeping on his back or his R side. Pt has not done any formal PT since re-tearing, but did participate in PT s/p rotator cuff surgery. He is R hand dominant. Prior Treatments and Tests MRI as noted above Treatment Goals Patient/Caregiver Goals improve ROM, strength, and decrease pain Current Functional Impairments (Reported) Functional Limitations- Other unable to perform any activities with arm away from body Personal Factors Other Personal Factors That May Effect blood condition which Therapy/Recovery requires annual follow up with oncology (denies any current CA of any kind, does have past h/o prostate CA 10 yrs ago), [place] 1992 PT-OP-C Subjective Start: 07/30/18 13:32 Freq: Status: Active Protocol: Document 02/08/19 17:04 AW (Rec: 02/08/19 17:19 AW [email or web address]) OP-PT Subjective Patient Comments Patient Comments Pt feels he is moving his shoulder more freely and notes he is able to wash his hair without much difficulty. Patient Reported Progress Improving PT-OP-F Manual Assessment Start: 07/30/18 13:32 Freq: Status: Active Protocol: Document 07/30/18 12:00 RCC (Rec: 07/31/18 15:47 RCC [email or web address]) Manual Assessments Soft Tissue Assessment Soft Tissue Mobility Assessment tenderness to palpation: L parascapular mm and posterior shoulder Joint Mobility Assessment Joint Mobility Assessment hypomobility: L shoulder with posterior and inferior glides PT-OP-K Range of Motion Start: 07/30/18 13:32 Freq: Status: Active Protocol: Document 12/16/18 13:39 EA (Rec: 12/16/18 13:46 EA [id number]) Shoulder Goniometric Range of Motion Shoulder Left Passive Testing Position Supine Flexion 125 Abduction 115 External Rotation at 90 degrees 60 Abduction External Rotation at 0 degrees Abduction 40 Left Active Testing Position Supine Flexion 105 Abduction 90 External Rotation at 0 degrees Abduction 40 Internal Rotation 65 PT-OP-L Special Tests Start: 07/30/18 13:32 Freq: Status: Active Protocol: Document 07/30/18 12:00 RCC (Rec: 07/31/18 15:47 RCC [email or web address]) Special Tests Shoulder Special Tests Apprehension Test Test Results negative Belly Press Test Results negative Lift-Off Rotator Cuff Test Results negative Load and Shift Test Results negative Other Special Tests Special Tests unable to assess further due to pain and limitations of ROM PT-OP-M Strength Start: 07/30/18 13:32 Freq: Status: Active Protocol: Document 12/16/18 13:39 EA (Rec: 12/16/18 13:46 EA [id number]) Shoulder Strength Shoulder Manual Muscle Testing Left Flexion 3+ Fair+ Extension 4+ Good+ Abduction (C5) 3+ Fair+ Adduction 4 Good External Rotation 3 Fair Internal Rotation 4 Good PT-OP-Q Treatments Start: 07/30/18 13:32 Freq: Status: Active Protocol: Document 02/08/19 17:04 AW (Rec: 02/08/19 17:19 AW [email or web address]) Cardio Equipment Upper Body Ergometer (UBE) Duration (Minutes) 5 RPM 80 Height 5- 7.5 Other fwd/bwd Therapeutic Exercises Supine Exercises supine passive stretch Side left Reps/Minutes 5 mins Comments flexion, abduction, ER with long axis distraction 3 Supine Exercise Name Internal rotation/ER Side left Resistance 2# Reps/Minutes x 10 reps Comments end range ER stretch Sidelying Exercises 4 Sidelying Exercise Name Horiz ABD at 90deg keely Equipment Used x 10 reps Comments AAROM 2 Sidelying Exercise Name External Rotation Resistance 2 lb Reps/Minutes 10 reps 1 Sidelying Exercise Name shoulder abduction Reps/Minutes x 12 reps Comments scaption with assist to manage impingement symptoms Manual Therapy Treatment Manual Techniques 5 Type passive scapular glides Body Position R sidelying Reps/Duration x 4 minutes Comments inferior, superior, medial, lateral 4 Type GH inferior and posterior mobs Body Location L Body Position Hooklying 2 Type Multi angle isometrics: shoulder flexors/abd/ER/IR, Horiz ABD/ADD Reps/Duration x 3SH x 4 reps each 1 Type Gentle passive stretch: flexion/ABD/ER Reps/Duration x 20SH x 3 reps PT-OP-R Modalities Start: 07/30/18 13:32 Freq: Status: Active Protocol: Document 02/08/19 17:04 AW (Rec: 02/08/19 17:19 [email or web address]) Hot Pack/Cold Pack Treatment Cold Pack Location left shoulder Patient Position Hooklying Treatment Duration (minutes) 10 Patient Tolerance Good Comments at end of treatment PT-OP-T Assessment and Plan Start: 07/30/18 13:32 Freq: Status: Active Protocol: Document 02/08/19 17:04 AW (Rec: 02/08/19 17:19 AW [email or web address]) Physical Therapy Assessment Impairments Impairments Functional Activities Pain ROM Strength Assessment Summary Assessment Pt improving mobility in supine to ~110 degrees flexion , ~90 degrees abduction. Still lacking active external rotation. Physical Therapy Plan Frequency and Duration Frequency of Treatment 2x/Week Duration of Treatment 6 wks Plan of Care Start Date 01/26/19 Plan of Care End Date 03/12/19 Next Visit Focus/Plan Next Note Type Treatment Note Next Visit Plan Progress end range into abduction and strengthen throughout ROM for improved antigravity movement.
--- NOTE | 2019-02-10 14:49 | PT.OTN ---
Current Diagnoses Unspecified rotator cuff tear or rupture of left shoulder, not specified as traumatic (02/10/19) Physical Therapy Treatment Note PT-OP-A Visit Information Start: 07/30/18 13:32 Freq: Status: Active Protocol: Document 02/10/19 14:33 AW (Rec: 02/10/19 14:49 AW [email or web address]) Out-Patient Physical Therapy Visit Information Visit Information Visit Type Treatment Note Visit Start Time 13:01 Visit Stop Time 13:50 Total Visit Minutes 49 Visit Number 57 Number of ASSOCIATE TEACHER Visits 0 PT-OP-B Current Condition Start: 07/30/18 13:32 Freq: Status: Active Protocol: Document 07/30/18 12:00 RCC (Rec: 07/31/18 09:38 RCC [email or web address]) Current Condition History of Current Condition Onset Date December 2017 Current Complaints L shoulder weakness, impaired ROM, pain History of Current Condition Pt is an 83 y/o male presenting to physical therapy with a c/o L shoulder pain, weakness, and limited ROM. Pt sustained infraspinatus and supraspinatus tears /sp traumatic dislocation in December. He had arthroscopic surgery on 01/15/18 . MRI done in April of 2018 showed that the pt had full thickness tearing of supraspinatus and infraspinatus, as well as posterior labral tear. He was consulted for a TSA, but seeked a second opinion which suggested pain management and physical therapy. 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 He admits to being primarily a L sided sleeper until this L shoulder injury, now very uncomfortable sleeping on his back or his R side. Pt has not done any formal PT since re-tearing, but did participate in PT s/p rotator cuff surgery. He is R hand dominant. Prior Treatments and Tests MRI as noted above Treatment Goals Patient/Caregiver Goals improve ROM, strength, and decrease pain Current Functional Impairments (Reported) Functional Limitations- Other unable to perform any activities with arm away from body Personal Factors Other Personal Factors That May Effect blood condition which Therapy/Recovery requires annual follow up with oncology (denies any current CA of any kind, does have past h/o prostate CA 10 yrs ago), [place] 1992 PT-OP-C Subjective Start: 07/30/18 13:32 Freq: Status: Active Protocol: Document 02/10/19 14:33 AW (Rec: 02/10/19 14:49 AW [email or web address]) OP-PT Subjective Patient Comments Patient Comments Pt continues with less pain. Now that he can wash his hair, his new goal is to be able to change the batteries in his smoke detectors on his own. Patient Reported Progress Improving PT-OP-F Manual Assessment Start: 07/30/18 13:32 Freq: Status: Active Protocol: Document 07/30/18 12:00 RCC (Rec: 07/31/18 15:47 RCC [email or web address]) Manual Assessments Soft Tissue Assessment Soft Tissue Mobility Assessment tenderness to palpation: L parascapular mm and posterior shoulder Joint Mobility Assessment Joint Mobility Assessment hypomobility: L shoulder with posterior and inferior glides PT-OP-K Range of Motion Start: 07/30/18 13:32 Freq: Status: Active Protocol: Document 12/16/18 13:39 EA (Rec: 12/16/18 13:46 EA [id number]) Shoulder Goniometric Range of Motion Shoulder Left Passive Testing Position Supine Flexion 125 Abduction 115 External Rotation at 90 degrees 60 Abduction External Rotation at 0 degrees Abduction 40 Left Active Testing Position Supine Flexion 105 Abduction 90 External Rotation at 0 degrees Abduction 40 Internal Rotation 65 PT-OP-L Special Tests Start: 07/30/18 13:32 Freq: Status: Active Protocol: Document 07/30/18 12:00 RCC (Rec: 07/31/18 15:47 RCC [email or web address]) Special Tests Shoulder Special Tests Apprehension Test Test Results negative Belly Press Test Results negative Lift-Off Rotator Cuff Test Results negative Load and Shift Test Results negative Other Special Tests Special Tests unable to assess further due to pain and limitations of ROM PT-OP-M Strength Start: 07/30/18 13:32 Freq: Status: Active Protocol: Document 12/16/18 13:39 EA (Rec: 12/16/18 13:46 EA [id number]) Shoulder Strength Shoulder Manual Muscle Testing Left Flexion 3+ Fair+ Extension 4+ Good+ Abduction (C5) 3+ Fair+ Adduction 4 Good External Rotation 3 Fair Internal Rotation 4 Good PT-OP-Q Treatments Start: 07/30/18 13:32 Freq: Status: Active Protocol: Document 02/10/19 14:33 AW (Rec: 02/10/19 14:49 AW [email or web address]) Cardio Equipment Upper Body Ergometer (UBE) Duration (Minutes) 5 RPM 80 Height 5- 7.5 Other fwd/bwd Therapeutic Exercises Supine Exercises supine passive stretch Side left Reps/Minutes 5 mins Comments flexion, abduction, ER with long axis distraction Rhythmic stabilization with pt at 90 deg's flex Supine Exercise Name Rhythmic stab with pt at 90 degrees flexion Resistance manual Reps/Minutes 5 min all directions Sidelying Exercises 5 Sidelying Exercise Name sidelying thoracic rotation Side left Comments x 10 slow reps 1 Sidelying Exercise Name shoulder abduction Reps/Minutes x 12 reps Comments scaption with assist to manage impingement symptoms Standing Exercises 11 Standing Exercise Name reactive isometrics IR/ER Side left Resistance level 1 Reps/Minutes 2x8 reps each direction 10 Standing Exercise Name wall ball circles Side left Resistance yellow ball Reps/Minutes 10 circles each direction 9 Standing Exercise Name wall slides Side left Reps/Minutes 2x10 reps Comments flexion and scaption; flexion more limited; cues to limit shoulder elevatio Manual Therapy Treatment Manual Techniques 5 Type passive scapular glides Body Position R sidelying Reps/Duration x 4 minutes Comments inferior, superior, medial, lateral 4 Type GH inferior and posterior mobs Body Location L Body Position Hooklying Reps/Duration x4 minutes PT-OP-R Modalities Start: 07/30/18 13:32 Freq: Status: Active Protocol: Document 02/10/19 14:33 AW (Rec: 02/10/19 14:49 AW [email or web address]) Hot Pack/Cold Pack Treatment Cold Pack Location left shoulder Patient Position Hooklying Treatment Duration (minutes) 10 Patient Tolerance Good Comments at end of treatment PT-OP-T Assessment and Plan Start: 07/30/18 13:32 Freq: Status: Active Protocol: Document 02/10/19 14:33 AW (Rec: 02/10/19 14:49 AW [email or web address]) Physical Therapy Assessment Impairments Impairments Functional Activities,Pain,ROM ,Strength Assessment Summary Assessment Pt reports pain only at end range of external rotation. ROM remains limited in flexion , abduction, ER. Physical Therapy Plan Frequency and Duration Frequency of Treatment 2x/Week Duration of Treatment 6 wks Plan of Care Start Date 01/26/19 Plan of Care End Date 03/12/19 Next Visit Focus/Plan Next Visit Plan Progress ROM in all planes and continue to strengthen rotator cuff for improved stability.
--- NOTE | 2019-02-16 16:11 | PT.OTN ---
Current Diagnoses Unspecified rotator cuff tear or rupture of left shoulder, not specified as traumatic (02/16/19) Physical Therapy Treatment Note PT-OP-A Visit Information Start: 07/30/18 13:32 Freq: Status: Active Protocol: Document 02/16/19 10:37 LRN (Rec: 02/16/19 11:19 LRN [id number]) Out-Patient Physical Therapy Visit Information Visit Information Visit Type Treatment Note Visit Start Time 10:37 Visit Stop Time 11:28 Total Visit Minutes 51 Visit Number 58 Number of MESSAGE CLERK Visits 0 Evaluation Information Evaluation Date 06/29/18 PT-OP-B Current Condition Start: 07/30/18 13:32 Freq: Status: Active Protocol: Document 07/30/18 12:00 RCC (Rec: 07/31/18 09:38 RCC [email or web address]) Current Condition History of Current Condition Onset Date December 2017 Current Complaints L shoulder weakness, impaired ROM, pain History of Current Condition Pt is an 83 y/o male presenting to physical therapy with a c/o L shoulder pain, weakness, and limited ROM. Pt sustained infraspinatus and supraspinatus tears /sp traumatic dislocation in December. He had arthroscopic surgery on 01/15/18 . MRI done in April of 2018 showed that the pt had full thickness tearing of supraspinatus and infraspinatus, as well as posterior labral tear. He was consulted for a TSA, but seeked a second opinion which suggested pain management and physical therapy. 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 He admits to being primarily a L sided sleeper until this L shoulder injury, now very uncomfortable sleeping on his back or his R side. Pt has not done any formal PT since re-tearing, but did participate in PT s/p rotator cuff surgery. He is R hand dominant. Prior Treatments and Tests MRI as noted above Treatment Goals Patient/Caregiver Goals improve ROM, strength, and decrease pain Current Functional Impairments (Reported) Functional Limitations- Other unable to perform any activities with arm away from body Personal Factors Other Personal Factors That May Effect blood condition which Therapy/Recovery requires annual follow up with oncology (denies any current CA of any kind, does have past h/o prostate CA 10 yrs ago), [place] 1992 PT-OP-C Subjective Start: 07/30/18 13:32 Freq: Status: Active Protocol: Document 02/16/19 10:37 LRN (Rec: 02/16/19 11:19 LRN [id number]) OP-PT Subjective Patient Comments Patient Comments No change since last visit. Still trying to improve the reach. Better now that 1 month ago. PT-OP-F Manual Assessment Start: 07/30/18 13:32 Freq: Status: Active Protocol: Document 07/30/18 12:00 RCC (Rec: 07/31/18 15:47 RCC [email or web address]) Manual Assessments Soft Tissue Assessment Soft Tissue Mobility Assessment tenderness to palpation: L parascapular mm and posterior shoulder Joint Mobility Assessment Joint Mobility Assessment hypomobility: L shoulder with posterior and inferior glides PT-OP-K Range of Motion Start: 07/30/18 13:32 Freq: Status: Active Protocol: Document 12/16/18 13:39 EA (Rec: 12/16/18 13:46 EA [id number]) Shoulder Goniometric Range of Motion Shoulder Left Passive Testing Position Supine Flexion 125 Abduction 115 External Rotation at 90 degrees 60 Abduction External Rotation at 0 degrees Abduction 40 Left Active Testing Position Supine Flexion 105 Abduction 90 External Rotation at 0 degrees Abduction 40 Internal Rotation 65 PT-OP-L Special Tests Start: 07/30/18 13:32 Freq: Status: Active Protocol: Document 07/30/18 12:00 RCC (Rec: 07/31/18 15:47 RCC [email or web address]) Special Tests Shoulder Special Tests Apprehension Test Test Results negative Belly Press Test Results negative Lift-Off Rotator Cuff Test Results negative Load and Shift Test Results negative Other Special Tests Special Tests unable to assess further due to pain and limitations of ROM PT-OP-M Strength Start: 07/30/18 13:32 Freq: Status: Active Protocol: Document 12/16/18 13:39 EA (Rec: 12/16/18 13:46 EA [id number]) Shoulder Strength Shoulder Manual Muscle Testing Left Flexion 3+ Fair+ Extension 4+ Good+ Abduction (C5) 3+ Fair+ Adduction 4 Good External Rotation 3 Fair Internal Rotation 4 Good PT-OP-Q Treatments Start: 07/30/18 13:32 Freq: Status: Active Protocol: Document 02/16/19 10:37 LRN (Rec: 02/16/19 11:19 LRN [id number]) Cardio Equipment Upper Body Ergometer (UBE) Duration (Minutes) 7 RPM 80 Height 5- 7.5 Other fwd/bwd Therapeutic Exercises Supine Exercises Elbow curl Supine Exercise Name Elbow Curl Side left Equipment Used 3#, 2#, 1# Reps/Minutes 10x each supine passive stretch Side left Reps/Minutes 5 mins Comments flexion, abduction, ER with long axis distraction supine shoulder clock Supine Exercise Name Small Circles (CW, CCW) with straight arm Side left Resistance 1# Rhythmic stabilization with pt at 90 deg's flex Supine Exercise Name Rhythmic stab with pt at 90 degrees flexion Resistance manual Reps/Minutes 5 min all directions 3 Supine Exercise Name Internal rotation/ER Side left Resistance Manual Reps/Minutes x 10 reps Comments end range ER stretch 2 Supine Exercise Name Serratus Punch Sidelying Exercises 1 Sidelying Exercise Name shoulder abduction Reps/Minutes x 12 reps Comments scaption with assist to manage impingement symptoms Manual Therapy Treatment Manual Techniques 5 Type passive scapular glides Body Position R sidelying Reps/Duration x 4 minutes Comments inferior, superior, medial, lateral 4 Type GH inferior and posterior mobs Body Location L Body Position Hooklying Reps/Duration x4 minutes PT-OP-R Modalities Start: 07/30/18 13:32 Freq: Status: Active Protocol: Document 02/10/19 14:33 AW (Rec: 02/10/19 14:49 AW [email or web address]) Hot Pack/Cold Pack Treatment Cold Pack Location left shoulder Patient Position Hooklying Treatment Duration (minutes) 10 Patient Tolerance Good Comments at end of treatment PT-OP-T Assessment and Plan Start: 07/30/18 13:32 Freq: Status: Active Protocol: Document 02/16/19 10:37 LRN (Rec: 02/16/19 11:19 LRN [id number]) Physical Therapy Assessment Assessment Summary Assessment ROM limited, more mobilization needed. Physical Therapy Plan Frequency and Duration Frequency of Treatment 2x/Week Duration of Treatment 6 wks Plan of Care Start Date 01/26/19 Plan of Care End Date 03/12/19 Next Visit Focus/Plan Next Note Type Treatment Note Next Visit Plan Progress ROM in all planes and continue to strengthen rotator cuff for improved stability.
--- NOTE | 2019-02-18 13:00 | PT.OTN ---
Current Diagnoses Unspecified rotator cuff tear or rupture of left shoulder, not specified as traumatic (02/18/19) Physical Therapy Treatment Note PT-OP-A Visit Information Start: 07/30/18 13:32 Freq: Status: Active Protocol: Document 02/18/19 10:40 LR (Rec: 02/18/19 13:00 [facility] [id number]) Out-Patient Physical Therapy Visit Information Visit Information Visit Type Treatment Note Visit Start Time 10:35 Visit Stop Time 11:24 Total Visit Minutes 49 Visit Number 59 Number of CULINARY ARTS TEACHER Visits 0 PT-OP-B Current Condition Start: 07/30/18 13:32 Freq: Status: Active Protocol: Document 07/30/18 12:00 RCC (Rec: 07/31/18 09:38 RCC [email or web address]) Current Condition History of Current Condition Onset Date December 2017 Current Complaints L shoulder weakness, impaired ROM, pain History of Current Condition Pt is an 83 y/o male presenting to physical therapy with a c/o L shoulder pain, weakness, and limited ROM. Pt sustained infraspinatus and supraspinatus tears /sp traumatic dislocation in December. He had arthroscopic surgery on 01/15/18 . MRI done in April of 2018 showed that the pt had full thickness tearing of supraspinatus and infraspinatus, as well as posterior labral tear. He was consulted for a TSA, but seeked a second opinion which suggested pain management and physical therapy. 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 He admits to being primarily a L sided sleeper until this L shoulder injury, now very uncomfortable sleeping on his back or his R side. Pt has not done any formal PT since re-tearing, but did participate in PT s/p rotator cuff surgery. He is R hand dominant. Prior Treatments and Tests MRI as noted above Treatment Goals Patient/Caregiver Goals improve ROM, strength, and decrease pain Current Functional Impairments (Reported) Functional Limitations- Other unable to perform any activities with arm away from body Personal Factors Other Personal Factors That May Effect blood condition which Therapy/Recovery requires annual follow up with oncology (denies any current CA of any kind, does have past h/o prostate CA 10 yrs ago), [place] 1992 PT-OP-C Subjective Start: 07/30/18 13:32 Freq: Status: Active Protocol: Document 02/18/19 10:40 [facility] (Rec: 02/18/19 13:00 [facility] [id number]) OP-PT Subjective Patient Comments Patient Comments Pt reports he feels like he is improving with his ability to reach. He feels like he is doing notably better than he was a month ago. REports pain is no longer an issue, just range and strength for functional activities. Patient Reported Progress Improving PT-OP-F Manual Assessment Start: 07/30/18 13:32 Freq: Status: Active Protocol: Document 07/30/18 12:00 RCC (Rec: 07/31/18 15:47 RCC [email or web address]) Manual Assessments Soft Tissue Assessment Soft Tissue Mobility Assessment tenderness to palpation: L parascapular mm and posterior shoulder Joint Mobility Assessment Joint Mobility Assessment hypomobility: L shoulder with posterior and inferior glides PT-OP-K Range of Motion Start: 07/30/18 13:32 Freq: Status: Active Protocol: Document 12/16/18 13:39 EA (Rec: 12/16/18 13:46 EA [id number]) Shoulder Goniometric Range of Motion Shoulder Left Passive Testing Position Supine Flexion 125 Abduction 115 External Rotation at 90 degrees 60 Abduction External Rotation at 0 degrees Abduction 40 Left Active Testing Position Supine Flexion 105 Abduction 90 External Rotation at 0 degrees Abduction 40 Internal Rotation 65 PT-OP-L Special Tests Start: 07/30/18 13:32 Freq: Status: Active Protocol: Document 07/30/18 12:00 RCC (Rec: 07/31/18 15:47 RCC [email or web address]) Special Tests Shoulder Special Tests Apprehension Test Test Results negative Belly Press Test Results negative Lift-Off Rotator Cuff Test Results negative Load and Shift Test Results negative Other Special Tests Special Tests unable to assess further due to pain and limitations of ROM PT-OP-M Strength Start: 07/30/18 13:32 Freq: Status: Active Protocol: Document 12/16/18 13:39 EA (Rec: 12/16/18 13:46 EA [id number]) Shoulder Strength Shoulder Manual Muscle Testing Left Flexion 3+ Fair+ Extension 4+ Good+ Abduction (C5) 3+ Fair+ Adduction 4 Good External Rotation 3 Fair Internal Rotation 4 Good PT-OP-Q Treatments Start: 07/30/18 13:32 Freq: Status: Active Protocol: Document 02/18/19 10:40 [facility] (Rec: 02/18/19 13:00 [facility] [id number]) Cardio Equipment Upper Body Ergometer (UBE) Duration (Minutes) 6 RPM 80 Height 5 Other fwd/bwd Therapeutic Exercises Supine Exercises Rhythmic stabilization with pt at 90 deg's flex Supine Exercise Name Rhythmic stab with pt at 90 degrees flexion Resistance manual Reps/Minutes 2 min total for all directions 2 Supine Exercise Name Serratus Punch Side left Equipment Used 1# Reps/Minutes 15 T-bar Supine Exercise Name flex with focus on proper scap mechanics Reps/Minutes 20 Sitting Exercises 4 Sitting Exercise Name shoulder flex & abd table slides Side left Reps/Minutes 10ea Comments w/small hover after range improvedx3 ea Standing Exercises 7 Standing Exercise Name Tbar flex with focus on scap position Reps/Minutes 10 Manual Therapy Treatment Joint Mobilizations 1 Joint GH Direction inf, distraction Comments w/c/r Manual Techniques 1 Type Gentle passive stretch: flexion/ABD/ER Comments w/ c/r then neuro re edu at end range through traction facilitiation PT-OP-R Modalities Start: 07/30/18 13:32 Freq: Status: Active Protocol: Document 02/18/19 10:40 [facility] (Rec: 02/18/19 13:00 [facility] [id number]) Hot Pack/Cold Pack Treatment Cold Pack Location left shoulder Patient Position Hooklying Treatment Duration (minutes) 10 Patient Tolerance Good Comments at end of treatment PT-OP-T Assessment and Plan Start: 07/30/18 13:32 Freq: Status: Active Protocol: Document 02/18/19 10:40 [facility] (Rec: 02/18/19 13:00 [facility] [id number]) Physical Therapy Assessment Goals pain Impairment rated 3/10 pain in L shoulder Mcfp Goal (LTG) Pain rated 1/10 or less prior to d/c. LTG Duration goal reached Quick DASH Impairment Quick DASH impairment score of 50 Short Term Goal (STG) Quick DASH score of 40 or less . Mcfp Goal (LTG) Quick DASH score of 10 or less or less to demonstrate improvements with functional use of LUE with daily activities. LTG Duration 6 weeks (Improving) weakness Impairment L UE weakness Short Term Goal (STG) L shoulder 3+/5 or greater with manual muscle testing with flexion, abduction, and ER. STG Duration 6 weeks goal reached Glaze Sprayer Goal (LTG) L shoulder 4/5 or greater with manual muscle testing with flexion, ER and with manual muscle testing to demonstrate improved L shoulder stability. LTG Duration 6 wks L shoulder ROM Impairment L shoulder ROM Short Term Goal (STG) L shoulder AROM: flexion to 120 deg, abduction to 90 deg, ER to 35 deg STG Duration goal reached Glaze Sprayer Goal (LTG) L shoulder AROM: flexion to 150 deg, abduction 90 deg, ER to 70 deg prior to d/c, with pt able reporting being able to perform light activities with LUE above 90 degree neutral position. LTG Duration 6 wks (Progressing well) Assessment Summary Assessment Pt improved ROM with joint mobs and capsular stretching. He was educated to do some AROM strengthening after stretches to work on mm strength into range. Physical Therapy Plan Frequency and Duration Frequency of Treatment 2x/Week Duration of Treatment 6 wks Plan of Care Start Date 01/26/19 Plan of Care End Date 03/12/19 Next Visit Focus/Plan Next Note Type Treatment Note Next Visit Plan Cont to work on mobilization for range of motion w/neuro re edu after to facilitate appropriate stability
--- NOTE | 2019-02-23 17:08 | PT.OTN ---
Current Diagnoses Unspecified rotator cuff tear or rupture of left shoulder, not specified as traumatic (02/23/19) Physical Therapy Treatment Note PT-OP-A Visit Information Start: 07/30/18 13:32 Freq: Status: Active Protocol: Document 02/23/19 16:55 GGD (Rec: 02/23/19 17:08 GGD [email or web address]) Out-Patient Physical Therapy Visit Information Visit Information Visit Type Treatment Note Visit Start Time 16:00 Visit Stop Time 16:50 Total Visit Minutes 49 Visit Number 60 Number of MANAGER WELDING Visits 1 Evaluation Information Evaluation Date 06/29/18 PT-OP-B Current Condition Start: 07/30/18 13:32 Freq: Status: Active Protocol: Document 07/30/18 12:00 RCC (Rec: 07/31/18 09:38 RCC [email or web address]) Current Condition History of Current Condition Onset Date December 2017 Current Complaints L shoulder weakness, impaired ROM, pain History of Current Condition Pt is an 83 y/o male presenting to physical therapy with a c/o L shoulder pain, weakness, and limited ROM. Pt sustained infraspinatus and supraspinatus tears /sp traumatic dislocation in December. He had arthroscopic surgery on 01/15/18 . MRI done in April of 2018 showed that the pt had full thickness tearing of supraspinatus and infraspinatus, as well as posterior labral tear. He was consulted for a TSA, but seeked a second opinion which suggested pain management and physical therapy. 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 He admits to being primarily a L sided sleeper until this L shoulder injury, now very uncomfortable sleeping on his back or his R side. Pt has not done any formal PT since re-tearing, but did participate in PT s/p rotator cuff surgery. He is R hand dominant. Prior Treatments and Tests MRI as noted above Treatment Goals Patient/Caregiver Goals improve ROM, strength, and decrease pain Current Functional Impairments (Reported) Functional Limitations- Other unable to perform any activities with arm away from body Personal Factors Other Personal Factors That May Effect blood condition which Therapy/Recovery requires annual follow up with oncology (denies any current CA of any kind, does have past h/o prostate CA 10 yrs ago), [place] 1992 PT-OP-C Subjective Start: 07/30/18 13:32 Freq: Status: Active Protocol: Document 02/23/19 16:55 GGD (Rec: 02/23/19 17:08 GGD [email or web address]) OP-PT Subjective Patient Comments Patient Comments Pt states it's getting easier to get shirt on and off. PT-OP-F Manual Assessment Start: 07/30/18 13:32 Freq: Status: Active Protocol: Document 07/30/18 12:00 RCC (Rec: 07/31/18 15:47 RCC [email or web address]) Manual Assessments Soft Tissue Assessment Soft Tissue Mobility Assessment tenderness to palpation: L parascapular mm and posterior shoulder Joint Mobility Assessment Joint Mobility Assessment hypomobility: L shoulder with posterior and inferior glides PT-OP-K Range of Motion Start: 07/30/18 13:32 Freq: Status: Active Protocol: Document 12/16/18 13:39 EA (Rec: 12/16/18 13:46 EA [id number]) Shoulder Goniometric Range of Motion Shoulder Left Passive Testing Position Supine Flexion 125 Abduction 115 External Rotation at 90 degrees 60 Abduction External Rotation at 0 degrees Abduction 40 Left Active Testing Position Supine Flexion 105 Abduction 90 External Rotation at 0 degrees Abduction 40 Internal Rotation 65 PT-OP-L Special Tests Start: 07/30/18 13:32 Freq: Status: Active Protocol: Document 07/30/18 12:00 RCC (Rec: 07/31/18 15:47 RCC [email or web address]) Special Tests Shoulder Special Tests Apprehension Test Test Results negative Belly Press Test Results negative Lift-Off Rotator Cuff Test Results negative Load and Shift Test Results negative Other Special Tests Special Tests unable to assess further due to pain and limitations of ROM PT-OP-M Strength Start: 07/30/18 13:32 Freq: Status: Active Protocol: Document 12/16/18 13:39 EA (Rec: 12/16/18 13:46 EA [id number]) Shoulder Strength Shoulder Manual Muscle Testing Left Flexion 3+ Fair+ Extension 4+ Good+ Abduction (C5) 3+ Fair+ Adduction 4 Good External Rotation 3 Fair Internal Rotation 4 Good PT-OP-Q Treatments Start: 07/30/18 13:32 Freq: Status: Active Protocol: Document 02/23/19 16:55 GGD (Rec: 02/23/19 17:08 GGD [email or web address]) Cardio Equipment Upper Body Ergometer (UBE) Duration (Minutes) 6 RPM 80 Height 5 Other fwd/bwd Therapeutic Exercises Supine Exercises Rhythmic stabilization with pt at 90 deg's flex Supine Exercise Name Rhythmic stab with pt at 90 degrees flexion Resistance manual Reps/Minutes 2 min total for all directions 2 Supine Exercise Name Serratus Punch Side left Equipment Used 1# Reps/Minutes 15 T-bar Supine Exercise Name flex with focus on proper scap mechanics Reps/Minutes 20 Sitting Exercises 4 Sitting Exercise Name shoulder flex & abd table slides Side left Reps/Minutes 10ea Comments w/small hover after range improvedx3 ea Standing Exercises 7 Standing Exercise Name Tbar flex with focus on scap position Reps/Minutes 10 Manual Therapy Treatment Joint Mobilizations 1 Joint GH Direction inf, distraction Comments w/c/r Manual Techniques 5 Type passive scapular glides Body Position R sidelying Reps/Duration x 4 minutes Comments inferior, superior, medial, lateral 4 Type GH inferior and posterior mobs Body Location L Body Position Hooklying Reps/Duration x4 minutes 1 Type Gentle passive stretch: flexion/ABD/ER PT-OP-R Modalities Start: 07/30/18 13:32 Freq: Status: Active Protocol: Document 02/23/19 16:55 GGD (Rec: 02/23/19 17:08 GGD [email or web address]) Hot Pack/Cold Pack Treatment Cold Pack Location left shoulder Patient Position Hooklying Treatment Duration (minutes) 10 Patient Tolerance Good Comments at end of treatment PT-OP-T Assessment and Plan Start: 07/30/18 13:32 Freq: Status: Active Protocol: Document 02/23/19 16:55 GGD (Rec: 02/23/19 17:08 GGD [email or web address]) Physical Therapy Assessment Assessment Summary Assessment Pt had improved ROM with joint mobs. He is imrpoving with his strengthening. Physical Therapy Plan Frequency and Duration Frequency of Treatment 2x/Week Duration of Treatment 6 wks Plan of Care Start Date 01/26/19 Plan of Care End Date 03/12/19 Next Visit Focus/Plan Next Note Type Treatment Note Next Visit Plan Cont to work on mobilization for range of motion w/neuro re edu after to facilitate appropriate stability
--- NOTE | 2019-02-25 12:05 | PT.OTN ---
Current Diagnoses Unspecified rotator cuff tear or rupture of left shoulder, not specified as traumatic (02/25/19) Physical Therapy Treatment Note PT-OP-A Visit Information Start: 07/30/18 13:32 Freq: Status: Active Protocol: Document 02/25/19 10:39 LR (Rec: 02/25/19 12:05 [facility] [id number]) Out-Patient Physical Therapy Visit Information Visit Information Visit Type Treatment Note Visit Start Time 10:32 Visit Stop Time 11:23 Total Visit Minutes 51 Visit Number 60 Number of CHEMICAL ENGINEERING PROFESSOR Visits 0 PT-OP-B Current Condition Start: 07/30/18 13:32 Freq: Status: Active Protocol: Document 07/30/18 12:00 RCC (Rec: 07/31/18 09:38 RCC [email or web address]) Current Condition History of Current Condition Onset Date December 2017 Current Complaints L shoulder weakness, impaired ROM, pain History of Current Condition Pt is an 83 y/o male presenting to physical therapy with a c/o L shoulder pain, weakness, and limited ROM. Pt sustained infraspinatus and supraspinatus tears /sp traumatic dislocation in December. He had arthroscopic surgery on 01/15/18 . MRI done in April of 2018 showed that the pt had full thickness tearing of supraspinatus and infraspinatus, as well as posterior labral tear. He was consulted for a TSA, but seeked a second opinion which suggested pain management and physical therapy. 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 He admits to being primarily a L sided sleeper until this L shoulder injury, now very uncomfortable sleeping on his back or his R side. Pt has not done any formal PT since re-tearing, but did participate in PT s/p rotator cuff surgery. He is R hand dominant. Prior Treatments and Tests MRI as noted above Treatment Goals Patient/Caregiver Goals improve ROM, strength, and decrease pain Current Functional Impairments (Reported) Functional Limitations- Other unable to perform any activities with arm away from body Personal Factors Other Personal Factors That May Effect blood condition which Therapy/Recovery requires annual follow up with oncology (denies any current CA of any kind, does have past h/o prostate CA 10 yrs ago), [place] 1992 PT-OP-C Subjective Start: 07/30/18 13:32 Freq: Status: Active Protocol: Document 02/25/19 10:39 LR (Rec: 02/25/19 12:05 [facility] [id number]) OP-PT Subjective Patient Comments Patient Comments Pt reports shoulder is feeling better. He can get to the top shelf for his med & kitchen cabinets now Patient Reported Progress Improving PT-OP-F Manual Assessment Start: 07/30/18 13:32 Freq: Status: Active Protocol: Document 07/30/18 12:00 RCC (Rec: 07/31/18 15:47 RCC [email or web address]) Manual Assessments Soft Tissue Assessment Soft Tissue Mobility Assessment tenderness to palpation: L parascapular mm and posterior shoulder Joint Mobility Assessment Joint Mobility Assessment hypomobility: L shoulder with posterior and inferior glides PT-OP-K Range of Motion Start: 07/30/18 13:32 Freq: Status: Active Protocol: Document 12/16/18 13:39 EA (Rec: 12/16/18 13:46 EA [id number]) Shoulder Goniometric Range of Motion Shoulder Left Passive Testing Position Supine Flexion 125 Abduction 115 External Rotation at 90 degrees 60 Abduction External Rotation at 0 degrees Abduction 40 Left Active Testing Position Supine Flexion 105 Abduction 90 External Rotation at 0 degrees Abduction 40 Internal Rotation 65 PT-OP-L Special Tests Start: 07/30/18 13:32 Freq: Status: Active Protocol: Document 07/30/18 12:00 RCC (Rec: 07/31/18 15:47 RCC [email or web address]) Special Tests Shoulder Special Tests Apprehension Test Test Results negative Belly Press Test Results negative Lift-Off Rotator Cuff Test Results negative Load and Shift Test Results negative Other Special Tests Special Tests unable to assess further due to pain and limitations of ROM PT-OP-M Strength Start: 07/30/18 13:32 Freq: Status: Active Protocol: Document 12/16/18 13:39 EA (Rec: 12/16/18 13:46 EA [id number]) Shoulder Strength Shoulder Manual Muscle Testing Left Flexion 3+ Fair+ Extension 4+ Good+ Abduction (C5) 3+ Fair+ Adduction 4 Good External Rotation 3 Fair Internal Rotation 4 Good PT-OP-Q Treatments Start: 07/30/18 13:32 Freq: Status: Active Protocol: Document 02/25/19 10:39 LR (Rec: 02/25/19 12:05 [facility] [id number]) Therapeutic Exercises Supine Exercises Rhythmic stabilization with pt at 90 deg's flex Supine Exercise Name Rhythmic stab with pt at 90 degrees flexion Resistance manual Reps/Minutes 2 min total for all directions 3 Supine Exercise Name Tbar flex, ER Side left Reps/Minutes 20 Comments w/ end range stretch 2 Supine Exercise Name Serratus Punch Side left Equipment Used 2# Reps/Minutes 15 Sidelying Exercises 5 Sidelying Exercise Name ER Side left Reps/Minutes 30 Comments w/towel under elbow Standing Exercises 11 Standing Exercise Name isometrics: IR, ER, ext Side left Reps/Minutes 5 secx 10 ea 10 Standing Exercise Name wall slides flex Side bilateral Reps/Minutes 10 Comments focus on scap position Manual Therapy Treatment Soft Tissue Mobilization 2 Body Location pecs L Mobilization Type Rolling,Strumming,Sustained Pressure Intensity/Depth Moderate 1 Body Location subscap & lats L Mobilization Type Rolling,Strumming,Sustained Pressure Intensity/Depth Moderate Joint Mobilizations 1 Joint GH Direction inf, distraction, post Comments w/c/r then manual faciliation of neurore edu for range after mobilizaiton PT-OP-R Modalities Start: 07/30/18 13:32 Freq: Status: Active Protocol: Document 02/25/19 10:39 [facility] (Rec: 02/25/19 12:05 [facility] [id number]) Hot Pack/Cold Pack Treatment Cold Pack Location left shoulder Patient Position Hooklying Treatment Duration (minutes) 10 Patient Tolerance Good Comments at end of treatment PT-OP-T Assessment and Plan Start: 07/30/18 13:32 Freq: Status: Active Protocol: Document 02/25/19 10:39 [facility] (Rec: 02/25/19 12:05 [facility] [id number]) Physical Therapy Assessment Goals Quick DASH Impairment Quick DASH impairment score of 50 Short Term Goal (STG) Quick DASH score of 40 or less . Supervisor Harvesting Goal (LTG) Quick DASH score of 10 or less or less to demonstrate improvements with functional use of LUE with daily activities. LTG Duration 6 weeks (Improving) weakness Impairment L UE weakness Short Term Goal (STG) L shoulder 3+/5 or greater with manual muscle testing with flexion, abduction, and ER. STG Duration 6 weeks goal reached Correction Goal (LTG) L shoulder 4/5 or greater with manual muscle testing with flexion, ER and with manual muscle testing to demonstrate improved L shoulder stability. LTG Duration 6 wks L shoulder ROM Impairment L shoulder ROM Short Term Goal (STG) L shoulder AROM: flexion to 120 deg, abduction to 90 deg, ER to 35 deg STG Duration goal reached Supervisor Harvesting Goal (LTG) L shoulder AROM: flexion to 150 deg, abduction 90 deg, ER to 70 deg prior to d/c, with pt able reporting being able to perform light activities with LUE above 90 degree neutral position. LTG Duration 6 wks (Progressing well) Assessment Summary Assessment Pt was able to do well with overhead exercises, but requried cueing for scapular mechanics. He improves with joint mobs in ROM. Physical Therapy Plan Frequency and Duration Frequency of Treatment 2x/Week Duration of Treatment 6 wks Plan of Care Start Date 01/26/19 Plan of Care End Date 03/12/19 Next Visit Focus/Plan Next Note Type Treatment Note Next Visit Plan Cont to work on mobilization for range of motion w/neuro re edu after to facilitate appropriate stability
--- NOTE | 2019-03-02 16:54 | PT.OTN ---
Current Diagnoses Unspecified rotator cuff tear or rupture of left shoulder, not specified as traumatic (03/02/19) Physical Therapy Treatment Note PT-OP-A Visit Information Start: 07/30/18 13:32 Freq: Status: Active Protocol: Document 03/02/19 15:15 AR (Rec: 03/02/19 16:00 AR [email or web address]) Out-Patient Physical Therapy Visit Information Visit Information Visit Type Treatment Note Visit Start Time 15:20 Visit Stop Time 16:00 Total Visit Minutes 40 Visit Number 62 Number of MANAGER VALUATION Visits 0 PT-OP-B Current Condition Start: 07/30/18 13:32 Freq: Status: Active Protocol: Document 07/30/18 12:00 RCC (Rec: 07/31/18 09:38 RCC [email or web address]) Current Condition History of Current Condition Onset Date December 2017 Current Complaints L shoulder weakness, impaired ROM, pain History of Current Condition Pt is an 83 y/o male presenting to physical therapy with a c/o L shoulder pain, weakness, and limited ROM. Pt sustained infraspinatus and supraspinatus tears /sp traumatic dislocation in December. He had arthroscopic surgery on 01/15/18 . MRI done in April of 2018 showed that the pt had full thickness tearing of supraspinatus and infraspinatus, as well as posterior labral tear. He was consulted for a TSA, but seeked a second opinion which suggested pain management and physical therapy. 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 He admits to being primarily a L sided sleeper until this L shoulder injury, now very uncomfortable sleeping on his back or his R side. Pt has not done any formal PT since re-tearing, but did participate in PT s/p rotator cuff surgery. He is R hand dominant. Prior Treatments and Tests MRI as noted above Treatment Goals Patient/Caregiver Goals improve ROM, strength, and decrease pain Current Functional Impairments (Reported) Functional Limitations- Other unable to perform any activities with arm away from body Personal Factors Other Personal Factors That May Effect blood condition which Therapy/Recovery requires annual follow up with oncology (denies any current CA of any kind, does have past h/o prostate CA 10 yrs ago), [place] 1992 PT-OP-C Subjective Start: 07/30/18 13:32 Freq: Status: Active Protocol: Document 03/02/19 15:15 AR (Rec: 03/02/19 16:00 AR [email or web address]) OP-PT Subjective Patient Comments Patient Comments Pt has not seen much change since his last visit. He is still able to reach the top shelf of the medicine cabinet and believes he is still seeing improvements with PT. PT-OP-F Manual Assessment Start: 07/30/18 13:32 Freq: Status: Active Protocol: Document 07/30/18 12:00 RCC (Rec: 07/31/18 15:47 RCC [email or web address]) Manual Assessments Soft Tissue Assessment Soft Tissue Mobility Assessment tenderness to palpation: L parascapular mm and posterior shoulder Joint Mobility Assessment Joint Mobility Assessment hypomobility: L shoulder with posterior and inferior glides PT-OP-K Range of Motion Start: 07/30/18 13:32 Freq: Status: Active Protocol: Document 12/16/18 13:39 EA (Rec: 12/16/18 13:46 EA [id number]) Shoulder Goniometric Range of Motion Shoulder Left Passive Testing Position Supine Flexion 125 Abduction 115 External Rotation at 90 degrees 60 Abduction External Rotation at 0 degrees Abduction 40 Left Active Testing Position Supine Flexion 105 Abduction 90 External Rotation at 0 degrees Abduction 40 Internal Rotation 65 PT-OP-L Special Tests Start: 07/30/18 13:32 Freq: Status: Active Protocol: Document 07/30/18 12:00 RCC (Rec: 07/31/18 15:47 RCC [email or web address]) Special Tests Shoulder Special Tests Apprehension Test Test Results negative Belly Press Test Results negative Lift-Off Rotator Cuff Test Results negative Load and Shift Test Results negative Other Special Tests Special Tests unable to assess further due to pain and limitations of ROM PT-OP-M Strength Start: 07/30/18 13:32 Freq: Status: Active Protocol: Document 12/16/18 13:39 EA (Rec: 12/16/18 13:46 EA [id number]) Shoulder Strength Shoulder Manual Muscle Testing Left Flexion 3+ Fair+ Extension 4+ Good+ Abduction (C5) 3+ Fair+ Adduction 4 Good External Rotation 3 Fair Internal Rotation 4 Good PT-OP-Q Treatments Start: 07/30/18 13:32 Freq: Status: Active Protocol: Document 03/02/19 15:15 AR (Rec: 03/02/19 16:00 AR [email or web address]) Cardio Equipment Upper Body Ergometer (UBE) Duration (Minutes) 6 RPM 80 Height 5 Other fwd/bwd Therapeutic Exercises Supine Exercises 3 Supine Exercise Name Tbar flex, ER Side left Reps/Minutes 20 Comments w/ end range stretch 2 Supine Exercise Name Serratus Punch Side left Equipment Used 2# Reps/Minutes 2x10 reps Standing Exercises 10 Standing Exercise Name ball up wall, shoulder flex Side left Reps/Minutes 10 Comments focus on scap position 9 Standing Exercise Name rolling ball at wall, 45 deg flexion Side left Equipment Used green playground ball 8 Standing Exercise Name tbar AAROM flex, ER Reps/Minutes 15 ea Manual Therapy Treatment Joint Mobilizations scap medial glide Joint ST Direction medial glide Body Position Sidelying Comments with AROM ER scap upward rotation Joint ST Direction scap upward rotation Body Position Sidelying Comments w AROM flexion to 30 deg PT-OP-R Modalities Start: 07/30/18 13:32 Freq: Status: Active Protocol: Document 03/02/19 15:15 AR (Rec: 03/02/19 16:00 AR [email or web address]) Hot Pack/Cold Pack Treatment Cold Pack Location left shoulder Patient Position Hooklying Treatment Duration (minutes) 10 Patient Tolerance Good PT-OP-T Assessment and Plan Start: 07/30/18 13:32 Freq: Status: Active Protocol: Document 03/02/19 15:15 AR (Rec: 03/02/19 16:00 AR [email or web address]) Physical Therapy Assessment Goals Quick DASH Impairment Quick DASH impairment score of 50 Short Term Goal (STG) Quick DASH score of 40 or less . [facility] Goal (LTG) Quick DASH score of 10 or less or less to demonstrate improvements with functional use of LUE with daily activities. LTG Duration 6 weeks (Improving) weakness Impairment L UE weakness Short Term Goal (STG) L shoulder 3+/5 or greater with manual muscle testing with flexion, abduction, and ER. STG Duration 6 weeks goal reached Silhouette Artist Goal (LTG) L shoulder 4/5 or greater with manual muscle testing with flexion, ER and with manual muscle testing to demonstrate improved L shoulder stability. LTG Duration 6 wks L shoulder ROM Impairment L shoulder ROM Short Term Goal (STG) L shoulder AROM: flexion to 120 deg, abduction to 90 deg, ER to 35 deg STG Duration goal reached Silhouette Artist Goal (LTG) L shoulder AROM: flexion to 150 deg, abduction 90 deg, ER to 70 deg prior to d/c, with pt able reporting being able to perform light activities with LUE above 90 degree neutral position. LTG Duration 6 wks (Progressing well) Assessment Summary Assessment Pt was able to correct scapular positioning in sidelying with manual and verbal cues, but had difficulty maintaining it with AROM flexion. Pt has appropriate scapular ROM, but lacks neuromuscular control to stabilize scapula during shoulder AROM. Pt has made functional improvements and reports minimal to no pain regularly. Physical Therapy Plan Frequency and Duration Frequency of Treatment 2x/Week Duration of Treatment 6 wks Plan of Care Start Date 01/26/19 Plan of Care End Date 03/12/19 Next Visit Focus/Plan Next Note Type Progress Note Next Visit Plan progress note or possible d/c.
--- NOTE | 2019-03-05 11:57 | PT.OTN ---
Current Diagnoses Unspecified rotator cuff tear or rupture of left shoulder, not specified as traumatic (03/05/19) Physical Therapy Treatment Note PT-OP-A Visit Information Start: 07/30/18 13:32 Freq: Status: Active Protocol: Document 03/05/19 11:15 DCW (Rec: 03/05/19 11:57 DCW [id number]) Out-Patient Physical Therapy Visit Information Visit Information Visit Type Treatment Note Visit Start Time 11:15 Visit Stop Time 12:05 Total Visit Minutes 50 Visit Number 63 Number of COMPOSITION SIDING WORKER Visits 0 PT-OP-B Current Condition Start: 07/30/18 13:32 Freq: Status: Active Protocol: Document 07/30/18 12:00 RCC (Rec: 07/31/18 09:38 RCC [email or web address]) Current Condition History of Current Condition Onset Date December 2017 Current Complaints L shoulder weakness, impaired ROM, pain History of Current Condition Pt is an 83 y/o male presenting to physical therapy with a c/o L shoulder pain, weakness, and limited ROM. Pt sustained infraspinatus and supraspinatus tears /sp traumatic dislocation in December. He had arthroscopic surgery on 01/15/18 . MRI done in April of 2018 showed that the pt had full thickness tearing of supraspinatus and infraspinatus, as well as posterior labral tear. He was consulted for a TSA, but seeked a second opinion which suggested pain management and physical therapy. 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 He admits to being primarily a L sided sleeper until this L shoulder injury, now very uncomfortable sleeping on his back or his R side. Pt has not done any formal PT since re-tearing, but did participate in PT s/p rotator cuff surgery. He is R hand dominant. Prior Treatments and Tests MRI as noted above Treatment Goals Patient/Caregiver Goals improve ROM, strength, and decrease pain Current Functional Impairments (Reported) Functional Limitations- Other unable to perform any activities with arm away from body Personal Factors Other Personal Factors That May Effect blood condition which Therapy/Recovery requires annual follow up with oncology (denies any current CA of any kind, does have past h/o prostate CA 10 yrs ago), [place] 1992 PT-OP-C Subjective Start: 07/30/18 13:32 Freq: Status: Active Protocol: Document 03/05/19 11:15 DCW (Rec: 03/05/19 11:57 DCW [id number]) OP-PT Subjective Patient Comments Patient Comments Not much has changed. Notes that he has had much overall improvements, but recently his progress has been much more subtle. PT-OP-F Manual Assessment Start: 07/30/18 13:32 Freq: Status: Active Protocol: Document 07/30/18 12:00 RCC (Rec: 07/31/18 15:47 RCC [email or web address]) Manual Assessments Soft Tissue Assessment Soft Tissue Mobility Assessment tenderness to palpation: L parascapular mm and posterior shoulder Joint Mobility Assessment Joint Mobility Assessment hypomobility: L shoulder with posterior and inferior glides PT-OP-K Range of Motion Start: 07/30/18 13:32 Freq: Status: Active Protocol: Document 12/16/18 13:39 EA (Rec: 12/16/18 13:46 EA [id number]) Shoulder Goniometric Range of Motion Shoulder Left Passive Testing Position Supine Flexion 125 Abduction 115 External Rotation at 90 degrees 60 Abduction External Rotation at 0 degrees Abduction 40 Left Active Testing Position Supine Flexion 105 Abduction 90 External Rotation at 0 degrees Abduction 40 Internal Rotation 65 PT-OP-L Special Tests Start: 07/30/18 13:32 Freq: Status: Active Protocol: Document 07/30/18 12:00 RCC (Rec: 07/31/18 15:47 RCC [email or web address]) Special Tests Shoulder Special Tests Apprehension Test Test Results negative Belly Press Test Results negative Lift-Off Rotator Cuff Test Results negative Load and Shift Test Results negative Other Special Tests Special Tests unable to assess further due to pain and limitations of ROM PT-OP-M Strength Start: 07/30/18 13:32 Freq: Status: Active Protocol: Document 12/16/18 13:39 EA (Rec: 12/16/18 13:46 EA [id number]) Shoulder Strength Shoulder Manual Muscle Testing Left Flexion 3+ Fair+ Extension 4+ Good+ Abduction (C5) 3+ Fair+ Adduction 4 Good External Rotation 3 Fair Internal Rotation 4 Good PT-OP-Q Treatments Start: 07/30/18 13:32 Freq: Status: Active Protocol: Document 03/05/19 11:15 DCW (Rec: 03/05/19 11:57 DCW [id number]) Cardio Equipment Upper Body Ergometer (UBE) Duration (Minutes) 6 RPM 80 Height 5 Other fwd/bwd Therapeutic Exercises Supine Exercises 3 Supine Exercise Name Tbar flex Side left Reps/Minutes 20 Comments w/ end range stretch 2 Supine Exercise Name Serratus Punch Side bilateral Equipment Used 2# Reps/Minutes 2x10 reps 1 Supine Exercise Name Supine horizontal adduction Side bilateral Equipment Used 2# Reps/Minutes x15 Standing Exercises 10 Standing Exercise Name ball up wall, shoulder flex Side left Reps/Minutes 10 Comments focus on scap position 9 Standing Exercise Name rolling ball at wall, 45 deg flexion Side left Equipment Used green playground ball 8 Standing Exercise Name tbar AAROM flex, ER, abduction Reps/Minutes 15 ea Manual Therapy Treatment Soft Tissue Mobilization 2 Body Location pecs L Mobilization Type Rolling,Strumming,Sustained Pressure Intensity/Depth Moderate 1 Body Location subscap & lats L Mobilization Type Rolling,Strumming,Sustained Pressure Intensity/Depth Moderate Joint Mobilizations scap medial glide Joint ST Direction medial glide Body Position Sidelying Comments with AROM ER scap upward rotation Joint ST Direction scap upward rotation Body Position Sidelying Comments w AROM flexion to 30 deg 1 Joint GH Direction inf, distraction, post PT-OP-R Modalities Start: 07/30/18 13:32 Freq: Status: Active Protocol: Document 03/05/19 11:15 DCW (Rec: 03/05/19 11:57 MEW [id number]) Hot Pack/Cold Pack Treatment Cold Pack Location left shoulder Patient Position Hooklying Treatment Duration (minutes) 10 Patient Tolerance Good PT-OP-T Assessment and Plan Start: 07/30/18 13:32 Freq: Status: Active Protocol: Document 03/05/19 11:15 DCW (Rec: 03/05/19 11:57 MEW [id number]) Physical Therapy Assessment Goals Quick DASH Impairment Quick DASH impairment score of 50 Short Term Goal (STG) Quick DASH score of 40 or less . Senior Living Goal (LTG) Quick DASH score of 10 or less or less to demonstrate improvements with functional use of LUE with daily activities. LTG Duration 6 weeks (Improving) weakness Impairment L UE weakness Short Term Goal (STG) L shoulder 3+/5 or greater with manual muscle testing with flexion, abduction, and ER. STG Duration 6 weeks goal reached Senior Living Goal (LTG) L shoulder 4/5 or greater with manual muscle testing with flexion, ER and with manual muscle testing to demonstrate improved L shoulder stability. LTG Duration 6 wks L shoulder ROM Impairment L shoulder ROM Short Term Goal (STG) L shoulder AROM: flexion to 120 deg, abduction to 90 deg, ER to 35 deg STG Duration goal reached Director Informatics Goal (LTG) L shoulder AROM: flexion to 150 deg, abduction 90 deg, ER to 70 deg prior to d/c, with pt able reporting being able to perform light activities with LUE above 90 degree neutral position. LTG Duration 6 wks (Progressing well) Assessment Summary Assessment Pt continues to demonstrate an improvement in functional mobility, however does have restricted ROM, although does not complain of pain. Physical Therapy Plan Frequency and Duration Frequency of Treatment 2x/Week Duration of Treatment 6 wks Plan of Care Start Date 01/26/19 Plan of Care End Date 03/12/19 Next Visit Focus/Plan Next Note Type Progress Note Next Visit Plan progress note or possible d/c.
--- NOTE | 2019-03-09 19:20 | PT.OTRE ---
Current Diagnoses Unspecified rotator cuff tear or rupture of left shoulder, not specified as traumatic (03/09/19) Past Medical History (Last Updated 01/12/18 @ 14:56 by Karis Nielsen, RN) Allergic rhinitis (Acute) BPH (benign prostatic hyperplasia) (Acute) Dislocation of left shoulder joint (Acute) Gout (Acute) Hypercholesterolemia (Acute) Hypertension (Acute) Impaired vision (Acute) Left shoulder pain (Acute) MGUS (monoclonal gammopathy of unknown significance) (Acute) Myocardial infarction (Acute ~1992) Peripheral vascular disease (Acute) Prostate CA (Acute) Surgical History (Last Updated 01/12/18 @ 14:37 by Karis Nielsen, RN) History of appendectomy (Acute) History of breast biopsy (Acute) Status post bilateral cataract extraction (Acute) Status post breast biopsy Visit Care Team Role Provider Type Gordy Shabazz MD Primary Care Provider Physician Specialty: Internal Medicine Address: [address] [place] [address], [facility] Email: [email or web address] Darius Henderson MD Attending Provider Non-Staff Specialty: Orthopedic Surgery Address: [address] [place] [address], [facility] Email: Physical Therapy Re-Evaluation PT-OP-A Visit Information Start: 07/30/18 13:32 Freq: Status: Active Protocol: Document 03/09/19 16:45 HH (Rec: 03/09/19 19:20 HH [email or web address]) Out-Patient Physical Therapy Visit Information Visit Information Visit Type Re-Evaluation Visit Start Time 16:45 Visit Stop Time 17:30 Total Visit Minutes 45 Visit Number 64 Number of AUTOMATIC PRESSER Visits 0 PT-OP-B Current Condition Start: 07/30/18 13:32 Freq: Status: Active Protocol: Document 07/30/18 12:00 RCC (Rec: 07/31/18 09:38 RCC [email or web address]) Current Condition History of Current Condition Onset Date December 2017 Current Complaints L shoulder weakness, impaired ROM, pain History of Current Condition Pt is an 83 y/o male presenting to physical therapy with a c/o L shoulder pain, weakness, and limited ROM. Pt sustained infraspinatus and supraspinatus tears /sp traumatic dislocation in December. He had arthroscopic surgery on 01/15/18 . MRI done in April of 2018 showed that the pt had full thickness tearing of supraspinatus and infraspinatus, as well as posterior labral tear. He was consulted for a TSA, but seeked a second opinion which suggested pain management and physical therapy. 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 He admits to being primarily a L sided sleeper until this L shoulder injury, now very uncomfortable sleeping on his back or his R side. Pt has not done any formal PT since re-tearing, but did participate in PT s/p rotator cuff surgery. He is R hand dominant. Prior Treatments and Tests MRI as noted above Treatment Goals Patient/Caregiver Goals improve ROM, strength, and decrease pain Current Functional Impairments (Reported) Functional Limitations- Other unable to perform any activities with arm away from body Personal Factors Other Personal Factors That May Effect blood condition which Therapy/Recovery requires annual follow up with oncology (denies any current CA of any kind, does have past h/o prostate CA 10 yrs ago), [place] 1992 PT-OP-C Subjective Start: 07/30/18 13:32 Freq: Status: Active Protocol: Document 03/09/19 16:45 HH (Rec: 03/09/19 19:20 HH [email or web address]) OP-PT Subjective Patient Comments Patient Comments not much has changed but definitely progressively getting better since i am able to reach for my top shelf consistently everyday now. Patient Reported Progress Improving OP-PT Pain Assessment Location L shoulder Intensity 1 Scale Used Numeric (1 - 10) Pain Aggravating Factors Position Comments Pain Comments Pain only at end range shd abd / flexion with overpressure PT-OP-F Manual Assessment Start: 07/30/18 13:32 Freq: Status: Active Protocol: Document 07/30/18 12:00 RCC (Rec: 07/31/18 15:47 RCC [email or web address]) Manual Assessments Soft Tissue Assessment Soft Tissue Mobility Assessment tenderness to palpation: L parascapular mm and posterior shoulder Joint Mobility Assessment Joint Mobility Assessment hypomobility: L shoulder with posterior and inferior glides PT-OP-K Range of Motion Start: 07/30/18 13:32 Freq: Status: Active Protocol: Document 03/09/19 16:45 HH (Rec: 03/09/19 19:20 [email or web address]) Shoulder Goniometric Range of Motion Shoulder Measured in Degrees Left active standing Testing Position Standing Flexion 95 Extension 70 Abduction 90 Left Passive Testing Position Supine Flexion 145 Horizontal Abduction 125 External Rotation at 90 degrees 60 Abduction Internal Rotation 80 Left Active Testing Position Supine Flexion 140 Abduction 120 External Rotation at 90 degrees 40 Abduction Internal Rotation 75 PT-OP-L Special Tests Start: 07/30/18 13:32 Freq: Status: Active Protocol: Document 07/30/18 12:00 RCC (Rec: 07/31/18 15:47 RCC [email or web address]) Special Tests Shoulder Special Tests Apprehension Test Test Results negative Belly Press Test Results negative Lift-Off Rotator Cuff Test Results negative Load and Shift Test Results negative Other Special Tests Special Tests unable to assess further due to pain and limitations of ROM PT-OP-M Strength Start: 07/30/18 13:32 Freq: Status: Active Protocol: Document 03/09/19 16:45 HH (Rec: 03/09/19 19:20 [email or web address]) Shoulder Strength Shoulder Manual Muscle Testing Left Flexion 4- Good- Extension 4+ Good+ Abduction (C5) 3+ Fair+ PT-OP-Q Treatments Start: 07/30/18 13:32 Freq: Status: Active Protocol: Document 03/09/19 16:45 HH (Rec: 03/09/19 19:20 [email or web address]) Manual Therapy Treatment Soft Tissue Mobilization 2 Body Location pecs L Mobilization Type Rolling,Strumming,Sustained Pressure Intensity/Depth Moderate 1 Body Location subscap & lats L Mobilization Type Rolling,Strumming,Sustained Pressure Intensity/Depth Moderate Joint Mobilizations AC joint gapping Joint gapping Grade IV Body Position Sidelying scap upward rotation Joint ST Direction scap upward rotation Body Position Sidelying Comments w AROM flexion to 120 deg manual assistance at L scap inferior pole PT-OP-R Modalities Start: 07/30/18 13:32 Freq: Status: Active Protocol: Document 03/05/19 11:15 DCW (Rec: 03/05/19 11:57 DCW [id number]) Hot Pack/Cold Pack Treatment Cold Pack Location left shoulder Patient Position Hooklying Treatment Duration (minutes) 10 Patient Tolerance Good PT-OP-T Assessment and Plan Start: 07/30/18 13:32 Freq: Status: Active Protocol: Document 03/09/19 16:45 (Rec: 03/09/19 19:20 [email or web address]) Physical Therapy Assessment Goals Quick DASH Impairment Quick DASH impairment score of 50 Short Term Goal (STG) Did not assess 03/09/19; Quick DASH score of 40 or less . Exhibitions And Collections Manager Goal (LTG) Quick DASH score of 10 or less or less to demonstrate improvements with functional use of LUE with daily activities. LTG Duration 8 weeks (Improving) weakness Impairment L UE weakness Short Term Goal (STG) 03/09 (cont in progress)= flexion 4-, abd = 3+ L shoulder 3+/5 or greater with manual muscle testing with flexion, abduction, and ER. STG Duration 4 weeks goal reached Jail Goal (LTG) L shoulder 4/5 or greater with manual muscle testing with flexion, ER and with manual muscle testing to demonstrate improved L shoulder stability. LTG Duration 8 wks L shoulder ROM Impairment L shoulder ROM Short Term Goal (STG) New goal 03/09: L shoulder AROM in supine : flexion to 150 deg, abduction to 110 deg, ER to 40 deg STG Duration 4 weeks Exhibitions And Collections Manager Goal (LTG) New goal 03/09: L shoulder AROM in standing: flexion to 110 deg, abduction 100 deg, LTG Duration 8 weeks Progress Towards Goals Progress Towards Goals Slow Progress - Other Assessment Summary Assessment Pt cont to progress slowly but he did explain the need and benefits from skilled PT over the course of past 8 months. Pt cont to c/o movement restriction at the top of his L shd during overhead movements. However, pt was able to reach ~140 shd flexion in supine after manual therapy today (focused on assisted upward rotation at inferior pole and AC joint gapping.) Pt reports his OH movements improved instantly and felt less restricted. Pt agreed to attempt another course of 8 weeks PT with focus on scap mobilization with movement plus end range strengthening to cont progress if possible. Physical Therapy Plan Frequency and Duration Frequency of Treatment 2x/Week Duration of Treatment 8 weeks Plan of Care Start Date 03/09/19 Plan of Care End Date 05/08/19 Therapeutic Interventions Therapeutic Interventions Gait Training,Home Exercise Program,Joint Mobilizations, Manual Therapy,Neuromuscular Re-education,Patient/Caregiver Education,Self-Care/Home Management,Soft Tissue Mobilization,Taping, Therapeutic Activities, Therapeutic Exercises Modalities Cold Pack/Ice Massage,Electric Stimulation,Hot Packs, Infrared Therapy,Ultrasound Next Visit Focus/Plan Next Note Type Treatment Note Next Visit Plan Reassess pt's symptoms Manual therapy on assisted upward rotation, clavicle and scap mob mobilization with movements supine end range strengthening
--- NOTE | 2019-03-11 18:50 | PT.OTN ---
Current Diagnoses Unspecified rotator cuff tear or rupture of left shoulder, not specified as traumatic (03/11/19) Physical Therapy Treatment Note PT-OP-A Visit Information Start: 07/30/18 13:32 Freq: Status: Active Protocol: Document 03/11/19 16:50 HH (Rec: 03/11/19 18:50 HH [email or web address]) Out-Patient Physical Therapy Visit Information Visit Information Visit Type Treatment Note Visit Start Time 16:50 Visit Stop Time 17:34 Total Visit Minutes 44 Visit Number 65 Number of FACILITIES MAINTENANCE MANAGER Visits 0 PT-OP-B Current Condition Start: 07/30/18 13:32 Freq: Status: Active Protocol: Document 07/30/18 12:00 RCC (Rec: 07/31/18 09:38 RCC [email or web address]) Current Condition History of Current Condition Onset Date December 2017 Current Complaints L shoulder weakness, impaired ROM, pain History of Current Condition Pt is an 83 y/o male presenting to physical therapy with a c/o L shoulder pain, weakness, and limited ROM. Pt sustained infraspinatus and supraspinatus tears /sp traumatic dislocation in December. He had arthroscopic surgery on 01/15/18 . MRI done in April of 2018 showed that the pt had full thickness tearing of supraspinatus and infraspinatus, as well as posterior labral tear. He was consulted for a TSA, but seeked a second opinion which suggested pain management and physical therapy. 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 He admits to being primarily a L sided sleeper until this L shoulder injury, now very uncomfortable sleeping on his back or his R side. Pt has not done any formal PT since re-tearing, but did participate in PT s/p rotator cuff surgery. He is R hand dominant. Prior Treatments and Tests MRI as noted above Treatment Goals Patient/Caregiver Goals improve ROM, strength, and decrease pain Current Functional Impairments (Reported) Functional Limitations- Other unable to perform any activities with arm away from body Personal Factors Other Personal Factors That May Effect blood condition which Therapy/Recovery requires annual follow up with oncology (denies any current CA of any kind, does have past h/o prostate CA 10 yrs ago), [place] 1992 PT-OP-C Subjective Start: 07/30/18 13:32 Freq: Status: Active Protocol: Document 03/11/19 16:50 HH (Rec: 03/11/19 18:50 HH [email or web address]) OP-PT Subjective Patient Comments Patient Comments I actually feel looser at my L shoulder. I didnt feel soreness or anything. PT-OP-F Manual Assessment Start: 07/30/18 13:32 Freq: Status: Active Protocol: Document 07/30/18 12:00 RCC (Rec: 07/31/18 15:47 RCC [email or web address]) Manual Assessments Soft Tissue Assessment Soft Tissue Mobility Assessment tenderness to palpation: L parascapular mm and posterior shoulder Joint Mobility Assessment Joint Mobility Assessment hypomobility: L shoulder with posterior and inferior glides PT-OP-K Range of Motion Start: 07/30/18 13:32 Freq: Status: Active Protocol: Document 03/09/19 16:45 HH (Rec: 03/09/19 19:20 HH [email or web address]) Shoulder Goniometric Range of Motion Shoulder Left active standing Testing Position Standing Flexion 95 Extension 70 Abduction 90 Left Passive Testing Position Supine Flexion 145 Horizontal Abduction 125 External Rotation at 90 degrees 60 Abduction Internal Rotation 80 Left Active Testing Position Supine Flexion 140 Abduction 120 External Rotation at 90 degrees 40 Abduction Internal Rotation 75 PT-OP-L Special Tests Start: 07/30/18 13:32 Freq: Status: Active Protocol: Document 07/30/18 12:00 RCC (Rec: 07/31/18 15:47 RCC [email or web address]) Special Tests Shoulder Special Tests Apprehension Test Test Results negative Belly Press Test Results negative Lift-Off Rotator Cuff Test Results negative Load and Shift Test Results negative Other Special Tests Special Tests unable to assess further due to pain and limitations of ROM PT-OP-M Strength Start: 07/30/18 13:32 Freq: Status: Active Protocol: Document 03/09/19 16:45 HH (Rec: 03/09/19 19:20 HH [email or web address]) Shoulder Strength Shoulder Manual Muscle Testing Left Flexion 4- Good- Extension 4+ Good+ Abduction (C5) 3+ Fair+ PT-OP-Q Treatments Start: 07/30/18 13:32 Freq: Status: Active Protocol: Document 03/11/19 16:50 HH (Rec: 03/11/19 18:50 HH [email or web address]) Therapeutic Exercises Supine Exercises scap punch with elevation Side left Equipment Used 3 # Reps/Minutes 2x10 reps supine passive stretch Side bilateral Equipment Used manual assistance supine shoulder flexion Side bilateral Equipment Used PVC with 4 lb weight 2 Supine Exercise Name Serratus Punch Side bilateral Equipment Used 4 # Reps/Minutes 2x10 reps Manual Therapy Treatment Soft Tissue Mobilization 2 Body Location pecs L Mobilization Type Rolling,Strumming,Sustained Pressure Intensity/Depth Moderate 1 Body Location subscap & lats L Mobilization Type Rolling,Strumming,Sustained Pressure Intensity/Depth Moderate Joint Mobilizations AC joint gapping Joint gapping Grade IV Body Position Sidelying scap upward rotation Joint ST Direction scap upward rotation Body Position Sidelying Comments w AROM flexion to 120 deg manual assistance at L scap inferior pole PT-OP-R Modalities Start: 07/30/18 13:32 Freq: Status: Active Protocol: Document 03/05/19 11:15 DCW (Rec: 03/05/19 11:57 DCW [id number]) Hot Pack/Cold Pack Treatment Cold Pack Location left shoulder Patient Position Hooklying Treatment Duration (minutes) 10 Patient Tolerance Good PT-OP-T Assessment and Plan Start: 07/30/18 13:32 Freq: Status: Active Protocol: Document 03/11/19 16:50 HH (Rec: 03/11/19 18:50 HH [email or web address]) Physical Therapy Assessment Goals Quick DASH Impairment Quick DASH impairment score of 50 Short Term Goal (STG) Quick DASH score of 40 or less . Snf Goal (LTG) Quick DASH score of 10 or less or less to demonstrate improvements with functional use of LUE with daily activities. LTG Duration 6 weeks (Improving) weakness Impairment L UE weakness Short Term Goal (STG) L shoulder 3+/5 or greater with manual muscle testing with flexion, abduction, and ER. STG Duration 6 weeks goal reached Director Of Revenue Goal (LTG) L shoulder 4/5 or greater with manual muscle testing with flexion, ER and with manual muscle testing to demonstrate improved L shoulder stability. LTG Duration 6 wks L shoulder ROM Impairment L shoulder ROM Short Term Goal (STG) New goal 03/09: L shoulder AROM in supine : flexion to 150 deg, abduction to 110 deg, ER to 40 deg STG Duration 4 weeks Director Of Revenue Goal (LTG) New goal 03/09: L shoulder AROM in standing: flexion to 110 deg, abduction 100 deg, LTG Duration 8 weeks Assessment Summary Assessment Pt has less muscle guarding after supine shd flexion ER strengthening and passive stretch. However, his AROM is still very limited in standing position. Might consider lower trap strengthening to assist in overhead activities. Physical Therapy Plan Next Visit Focus/Plan Next Note Type Treatment Note Next Visit Plan Reassess pt's symptoms Manual therapy on assisted upward rotation, clavicle and scap mob mobilization with movements lower trap strengthening supine end range strengthening
--- NOTE | 2019-03-16 18:44 | PT.OTN ---
Current Diagnoses Unspecified rotator cuff tear or rupture of left shoulder, not specified as traumatic (03/16/19) Physical Therapy Treatment Note PT-OP-A Visit Information Start: 07/30/18 13:32 Freq: Status: Active Protocol: Document 03/16/19 17:30 HH (Rec: 03/16/19 18:43 HH [email or web address]) Out-Patient Physical Therapy Visit Information Visit Information Visit Type Treatment Note Visit Start Time 17:30 Visit Stop Time 18:15 Total Visit Minutes 45 Visit Number 66 Number of MANAGER MENTAL HEALTH Visits 0 PT-OP-B Current Condition Start: 07/30/18 13:32 Freq: Status: Active Protocol: Document 07/30/18 12:00 RCC (Rec: 07/31/18 09:38 RCC [email or web address]) Current Condition History of Current Condition Onset Date December 2017 Current Complaints L shoulder weakness, impaired ROM, pain History of Current Condition Pt is an 83 y/o male presenting to physical therapy with a c/o L shoulder pain, weakness, and limited ROM. Pt sustained infraspinatus and supraspinatus tears /sp traumatic dislocation in December. He had arthroscopic surgery on 01/15/18 . MRI done in April of 2018 showed that the pt had full thickness tearing of supraspinatus and infraspinatus, as well as posterior labral tear. He was consulted for a TSA, but seeked a second opinion which suggested pain management and physical therapy. 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 He admits to being primarily a L sided sleeper until this L shoulder injury, now very uncomfortable sleeping on his back or his R side. Pt has not done any formal PT since re-tearing, but did participate in PT s/p rotator cuff surgery. He is R hand dominant. Prior Treatments and Tests MRI as noted above Treatment Goals Patient/Caregiver Goals improve ROM, strength, and decrease pain Current Functional Impairments (Reported) Functional Limitations- Other unable to perform any activities with arm away from body Personal Factors Other Personal Factors That May Effect blood condition which Therapy/Recovery requires annual follow up with oncology (denies any current CA of any kind, does have past h/o prostate CA 10 yrs ago), [place] 1992 PT-OP-C Subjective Start: 07/30/18 13:32 Freq: Status: Active Protocol: Document 03/16/19 17:30 HH (Rec: 03/16/19 18:43 HH [email or web address]) OP-PT Subjective Patient Comments Patient Comments Pt has no new c/o. Stated that doing ER with wand is quite hard for him. PT-OP-F Manual Assessment Start: 07/30/18 13:32 Freq: Status: Active Protocol: Document 07/30/18 12:00 RCC (Rec: 07/31/18 15:47 RCC [email or web address]) Manual Assessments Soft Tissue Assessment Soft Tissue Mobility Assessment tenderness to palpation: L parascapular mm and posterior shoulder Joint Mobility Assessment Joint Mobility Assessment hypomobility: L shoulder with posterior and inferior glides PT-OP-K Range of Motion Start: 07/30/18 13:32 Freq: Status: Active Protocol: Document 03/09/19 16:45 HH (Rec: 03/09/19 19:20 HH [email or web address]) Shoulder Goniometric Range of Motion Shoulder Left active standing Testing Position Standing Flexion 95 Extension 70 Abduction 90 Left Passive Testing Position Supine Flexion 145 Horizontal Abduction 125 External Rotation at 90 degrees 60 Abduction Internal Rotation 80 Left Active Testing Position Supine Flexion 140 Abduction 120 External Rotation at 90 degrees 40 Abduction Internal Rotation 75 PT-OP-L Special Tests Start: 07/30/18 13:32 Freq: Status: Active Protocol: Document 07/30/18 12:00 RCC (Rec: 07/31/18 15:47 RCC [email or web address]) Special Tests Shoulder Special Tests Apprehension Test Test Results negative Belly Press Test Results negative Lift-Off Rotator Cuff Test Results negative Load and Shift Test Results negative Other Special Tests Special Tests unable to assess further due to pain and limitations of ROM PT-OP-M Strength Start: 07/30/18 13:32 Freq: Status: Active Protocol: Document 03/09/19 16:45 HH (Rec: 03/09/19 19:20 HH [email or web address]) Shoulder Strength Shoulder Manual Muscle Testing Left Flexion 4- Good- Extension 4+ Good+ Abduction (C5) 3+ Fair+ PT-OP-Q Treatments Start: 07/30/18 13:32 Freq: Status: Active Protocol: Document 03/16/19 17:30 HH (Rec: 03/16/19 18:43 HH [email or web address]) Therapeutic Exercises Supine Exercises supine AAROM Supine Exercise Name in reclined position Side left Equipment Used adjustable table Reps/Minutes 8 x2 scap punch with elevation Side left Equipment Used 3 # Reps/Minutes 2x10 reps supine shoulder flexion Side bilateral Equipment Used PVC with 5 lb weight T-bar Supine Exercise Name supine shd flexion with ER Side bilateral Reps/Minutes 8 x 2 Prone Exercises prone rows Side left Reps/Minutes 10 x2 prone horizontal abd Side left Reps/Minutes 6 x3 Comments cues on LT engagement Sidelying Exercises SL open book Side left Reps/Minutes 10 x3 PT-OP-R Modalities Start: 07/30/18 13:32 Freq: Status: Active Protocol: Document 03/16/19 17:30 HH (Rec: 03/16/19 18:44 HH [email or web address]) Hot Pack/Cold Pack Treatment Cold Pack Location left shoulder Patient Position Hooklying Treatment Duration (minutes) 10 Patient Tolerance Good PT-OP-T Assessment and Plan Start: 07/30/18 13:32 Freq: Status: Active Protocol: Document 03/16/19 17:30 HH (Rec: 03/16/19 18:43 HH [email or web address]) Physical Therapy Assessment Goals Quick DASH Impairment Quick DASH impairment score of 50 Short Term Goal (STG) Did not assess 03/09/19; Quick DASH score of 40 or less . Plumber Helper Goal (LTG) Quick DASH score of 10 or less or less to demonstrate improvements with functional use of LUE with daily activities. LTG Duration 8 weeks (Improving) weakness Impairment L UE weakness Short Term Goal (STG) 03/09 (cont in progress)= flexion 4-, abd = 3+ L shoulder 3+/5 or greater with manual muscle testing with flexion, abduction, and ER. STG Duration 4 weeks goal reached Snf Goal (LTG) L shoulder 4/5 or greater with manual muscle testing with flexion, ER and with manual muscle testing to demonstrate improved L shoulder stability. LTG Duration 8 wks L shoulder ROM Impairment L shoulder ROM Short Term Goal (STG) New goal 03/09: L shoulder AROM in supine : flexion to 150 deg, abduction to 110 deg, ER to 40 deg STG Duration 4 weeks Plumber Helper Goal (LTG) New goal 03/09: L shoulder AROM in standing: flexion to 110 deg, abduction 100 deg, LTG Duration 8 weeks Assessment Summary Assessment Added prone horizontal ab, prone row, open book and supine weight shoulder flexion . Will focus on activating and strengthening L low trap. Physical Therapy Plan Next Visit Focus/Plan Next Note Type Treatment Note Next Visit Plan Reassess pt's symptoms Manual therapy on assisted upward rotation, clavicle and scap mob mobilization with movements lower trap strengthening supine end range strengthening
--- NOTE | 2019-03-18 09:46 | PT.OTN ---
Current Diagnoses Unspecified rotator cuff tear or rupture of left shoulder, not specified as traumatic (03/18/19) Physical Therapy Treatment Note PT-OP-A Visit Information Start: 07/30/18 13:32 Freq: Status: Active Protocol: Document 03/18/19 09:01 HH (Rec: 03/18/19 09:46 HH [email or web address]) Out-Patient Physical Therapy Visit Information Visit Information Visit Type Treatment Note Visit Start Time 09:04 Visit Stop Time 09:45 Total Visit Minutes 44 Visit Number 67 Number of MARKETING INTELLIGENCE ANALYST Visits 0 PT-OP-B Current Condition Start: 07/30/18 13:32 Freq: Status: Active Protocol: Document 07/30/18 12:00 RCC (Rec: 07/31/18 09:38 RCC [email or web address]) Current Condition History of Current Condition Onset Date December 2017 Current Complaints L shoulder weakness, impaired ROM, pain History of Current Condition Pt is an 83 y/o male presenting to physical therapy with a c/o L shoulder pain, weakness, and limited ROM. Pt sustained infraspinatus and supraspinatus tears /sp traumatic dislocation in December. He had arthroscopic surgery on 01/15/18 . MRI done in April of 2018 showed that the pt had full thickness tearing of supraspinatus and infraspinatus, as well as posterior labral tear. He was consulted for a TSA, but seeked a second opinion which suggested pain management and physical therapy. 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 He admits to being primarily a L sided sleeper until this L shoulder injury, now very uncomfortable sleeping on his back or his R side. Pt has not done any formal PT since re-tearing, but did participate in PT s/p rotator cuff surgery. He is R hand dominant. Prior Treatments and Tests MRI as noted above Treatment Goals Patient/Caregiver Goals improve ROM, strength, and decrease pain Current Functional Impairments (Reported) Functional Limitations- Other unable to perform any activities with arm away from body Personal Factors Other Personal Factors That May Effect blood condition which Therapy/Recovery requires annual follow up with oncology (denies any current CA of any kind, does have past h/o prostate CA 10 yrs ago), [place] 1992 PT-OP-C Subjective Start: 07/30/18 13:32 Freq: Status: Active Protocol: Document 03/18/19 09:01 HH (Rec: 03/18/19 09:46 HH [email or web address]) OP-PT Subjective Patient Comments Patient Comments Neha been doing my new ex. Prone horizontal abd is quite hard to me. PT-OP-F Manual Assessment Start: 07/30/18 13:32 Freq: Status: Active Protocol: Document 07/30/18 12:00 RCC (Rec: 07/31/18 15:47 RCC [email or web address]) Manual Assessments Soft Tissue Assessment Soft Tissue Mobility Assessment tenderness to palpation: L parascapular mm and posterior shoulder Joint Mobility Assessment Joint Mobility Assessment hypomobility: L shoulder with posterior and inferior glides PT-OP-K Range of Motion Start: 07/30/18 13:32 Freq: Status: Active Protocol: Document 03/09/19 16:45 HH (Rec: 03/09/19 19:20 HH [email or web address]) Shoulder Goniometric Range of Motion Shoulder Left active standing Testing Position Standing Flexion 95 Extension 70 Abduction 90 Left Passive Testing Position Supine Flexion 145 Horizontal Abduction 125 External Rotation at 90 degrees 60 Abduction Internal Rotation 80 Left Active Testing Position Supine Flexion 140 Abduction 120 External Rotation at 90 degrees 40 Abduction Internal Rotation 75 PT-OP-L Special Tests Start: 07/30/18 13:32 Freq: Status: Active Protocol: Document 07/30/18 12:00 RCC (Rec: 07/31/18 15:47 RCC [email or web address]) Special Tests Shoulder Special Tests Apprehension Test Test Results negative Belly Press Test Results negative Lift-Off Rotator Cuff Test Results negative Load and Shift Test Results negative Other Special Tests Special Tests unable to assess further due to pain and limitations of ROM PT-OP-M Strength Start: 07/30/18 13:32 Freq: Status: Active Protocol: Document 03/09/19 16:45 HH (Rec: 03/09/19 19:20 HH [email or web address]) Shoulder Strength Shoulder Manual Muscle Testing Left Flexion 4- Good- Extension 4+ Good+ Abduction (C5) 3+ Fair+ PT-OP-Q Treatments Start: 07/30/18 13:32 Freq: Status: Active Protocol: Document 03/18/19 09:01 HH (Rec: 03/18/19 09:46 HH [email or web address]) Cardio Equipment Upper Body Ergometer (UBE) Duration (Minutes) 5 Therapeutic Exercises Supine Exercises scap punch with elevation Side left Equipment Used 3 # Reps/Minutes 2x10 reps supine shoulder flexion Side bilateral Equipment Used PVC with 5 lb weight Manual Therapy Treatment Joint Mobilizations post glide Joint L GH joint Direction posterior Grade III Body Position Supine AC joint gapping Joint gapping Grade IV Body Position Sidelying scap upward rotation Joint ST Direction scap upward rotation Body Position Sidelying Comments w AROM flexion to 120 deg manual assistance at L scap inferior pole PT-OP-R Modalities Start: 07/30/18 13:32 Freq: Status: Active Protocol: Document 03/18/19 09:01 (Rec: 03/18/19 09:46 [email or web address]) Hot Pack/Cold Pack Treatment Hot Pack Patient Position Sitting Treatment Duration (minutes) 8 Patient Tolerance Good PT-OP-T Assessment and Plan Start: 07/30/18 13:32 Freq: Status: Active Protocol: Document 03/18/19 09:01 (Rec: 03/18/19 09:46 [email or web address]) Physical Therapy Assessment Goals Quick DASH Impairment Quick DASH impairment score of 50 Short Term Goal (STG) Quick DASH score of 40 or less . Grievance Manager Goal (LTG) Quick DASH score of 10 or less or less to demonstrate improvements with functional use of LUE with daily activities. LTG Duration 6 weeks (Improving) weakness Impairment L UE weakness Short Term Goal (STG) L shoulder 3+/5 or greater with manual muscle testing with flexion, abduction, and ER. STG Duration 6 weeks goal reached Grievance Manager Goal (LTG) L shoulder 4/5 or greater with manual muscle testing with flexion, ER and with manual muscle testing to demonstrate improved L shoulder stability. LTG Duration 6 wks L shoulder ROM Impairment L shoulder ROM Short Term Goal (STG) New goal 03/09: L shoulder AROM in supine : flexion to 150 deg, abduction to 110 deg, ER to 40 deg STG Duration 4 weeks Intermediate Goal (LTG) New goal 03/09: L shoulder AROM in standing: flexion to 110 deg, abduction 100 deg, LTG Duration 8 weeks Assessment Summary Assessment there's noticeable elevated L clavicle on L shoulder that possibly causes stuck sensation for pt during overhead activities. Tx focused on AC joint gapping and clavicle mob. pt did feel 'looser after with shoulder flexion. Physical Therapy Plan Next Visit Focus/Plan Next Note Type Treatment Note Next Visit Plan Reassess pt's symptoms AC gapping clavicle mob Manual therapy on assisted upward rotation, clavicle and scap mob mobilization with movements lower trap strengthening supine end range strengthening
--- NOTE | 2019-03-24 17:34 | PT.OTN ---
Current Diagnoses Unspecified rotator cuff tear or rupture of left shoulder, not specified as traumatic (03/24/19) Physical Therapy Treatment Note PT-OP-A Visit Information Start: 07/30/18 13:32 Freq: Status: Active Protocol: Document 03/24/19 16:50 DCW (Rec: 03/24/19 17:34 DCW [id number]) Out-Patient Physical Therapy Visit Information Visit Information Visit Type Treatment Note Visit Note Arrived 5 min late Visit Start Time 16:50 Visit Stop Time 17:35 Total Visit Minutes 45 Visit Number 68 Number of LEARNING SUPPORT SERVICES DIRECTOR Visits 0 PT-OP-B Current Condition Start: 07/30/18 13:32 Freq: Status: Active Protocol: Document 07/30/18 12:00 RCC (Rec: 07/31/18 09:38 RCC [email or web address]) Current Condition History of Current Condition Onset Date December 2017 Current Complaints L shoulder weakness, impaired ROM, pain History of Current Condition Pt is an 83 y/o male presenting to physical therapy with a c/o L shoulder pain, weakness, and limited ROM. Pt sustained infraspinatus and supraspinatus tears /sp traumatic dislocation in December. He had arthroscopic surgery on 01/15/18 . MRI done in April of 2018 showed that the pt had full thickness tearing of supraspinatus and infraspinatus, as well as posterior labral tear. He was consulted for a TSA, but seeked a second opinion which suggested pain management and physical therapy. 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 He admits to being primarily a L sided sleeper until this L shoulder injury, now very uncomfortable sleeping on his back or his R side. Pt has not done any formal PT since re-tearing, but did participate in PT s/p rotator cuff surgery. He is R hand dominant. Prior Treatments and Tests MRI as noted above Treatment Goals Patient/Caregiver Goals improve ROM, strength, and decrease pain Current Functional Impairments (Reported) Functional Limitations- Other unable to perform any activities with arm away from body Personal Factors Other Personal Factors That May Effect blood condition which Therapy/Recovery requires annual follow up with oncology (denies any current CA of any kind, does have past h/o prostate CA 10 yrs ago), [place] 1992 PT-OP-C Subjective Start: 07/30/18 13:32 Freq: Status: Active Protocol: Document 03/24/19 16:50 DCW (Rec: 03/24/19 17:34 DCW [id number]) OP-PT Subjective Patient Comments Patient Comments I'm doing my exercises diligently, but I seem to be about the same. Patient Reported Progress Same PT-OP-F Manual Assessment Start: 07/30/18 13:32 Freq: Status: Active Protocol: Document 07/30/18 12:00 RCC (Rec: 07/31/18 15:47 RCC [email or web address]) Manual Assessments Soft Tissue Assessment Soft Tissue Mobility Assessment tenderness to palpation: L parascapular mm and posterior shoulder Joint Mobility Assessment Joint Mobility Assessment hypomobility: L shoulder with posterior and inferior glides PT-OP-K Range of Motion Start: 07/30/18 13:32 Freq: Status: Active Protocol: Document 03/09/19 16:45 HH (Rec: 03/09/19 19:20 HH [email or web address]) Shoulder Goniometric Range of Motion Shoulder Left active standing Testing Position Standing Flexion 95 Extension 70 Abduction 90 Left Passive Testing Position Supine Flexion 145 Horizontal Abduction 125 External Rotation at 90 degrees 60 Abduction Internal Rotation 80 Left Active Testing Position Supine Flexion 140 Abduction 120 External Rotation at 90 degrees 40 Abduction Internal Rotation 75 PT-OP-L Special Tests Start: 07/30/18 13:32 Freq: Status: Active Protocol: Document 07/30/18 12:00 RCC (Rec: 07/31/18 15:47 RCC [email or web address]) Special Tests Shoulder Special Tests Apprehension Test Test Results negative Belly Press Test Results negative Lift-Off Rotator Cuff Test Results negative Load and Shift Test Results negative Other Special Tests Special Tests unable to assess further due to pain and limitations of ROM PT-OP-M Strength Start: 07/30/18 13:32 Freq: Status: Active Protocol: Document 03/09/19 16:45 HH (Rec: 03/09/19 19:20 HH [email or web address]) Shoulder Strength Shoulder Manual Muscle Testing Left Flexion 4- Good- Extension 4+ Good+ Abduction (C5) 3+ Fair+ PT-OP-Q Treatments Start: 07/30/18 13:32 Freq: Status: Active Protocol: Document 03/24/19 16:50 DCW (Rec: 03/24/19 17:34 DCW [id number]) Cardio Equipment Upper Body Ergometer (UBE) Duration (Minutes) 5 RPM 60 Seat Position 13 Therapeutic Exercises Supine Exercises scap punch with elevation Side bilateral Equipment Used 3 # Reps/Minutes 2x10 reps supine shoulder flexion Side bilateral Equipment Used PVC with 5 lb weight T-bar Supine Exercise Name supine shd flexion with ER Side bilateral Reps/Minutes 8 x 2 Sidelying Exercises SL open book Side left Reps/Minutes 10 x3 Standing Exercises 7 Standing Exercise Name Resisted UE side-stepping Resistance Green Equipment Used T-band Manual Therapy Treatment Joint Mobilizations post glide Joint L GH joint Direction posterior Grade III Body Position Supine AC joint gapping Joint gapping Grade IV Body Position Sidelying scap upward rotation Joint ST Direction scap upward rotation Body Position Sidelying Comments w AROM flexion to 120 deg manual assistance at L scap inferior pole PT-OP-R Modalities Start: 07/30/18 13:32 Freq: Status: Active Protocol: Document 03/24/19 16:50 DCW (Rec: 03/24/19 17:34 DCW [id number]) Hot Pack/Cold Pack Treatment Cold Pack Location left shoulder Patient Position Hooklying Treatment Duration (minutes) 10 Patient Tolerance Good PT-OP-T Assessment and Plan Start: 07/30/18 13:32 Freq: Status: Active Protocol: Document 03/24/19 16:50 DCW (Rec: 03/24/19 17:34 DCW [id number]) Physical Therapy Assessment Goals Quick DASH Impairment Quick DASH impairment score of 50 Short Term Goal (STG) Quick DASH score of 40 or less . Brick Setter Goal (LTG) Quick DASH score of 10 or less or less to demonstrate improvements with functional use of LUE with daily activities. LTG Duration 6 weeks (Improving) weakness Impairment L UE weakness Short Term Goal (STG) L shoulder 3+/5 or greater with manual muscle testing with flexion, abduction, and ER. STG Duration 6 weeks goal reached Care Home Goal (LTG) L shoulder 4/5 or greater with manual muscle testing with flexion, ER and with manual muscle testing to demonstrate improved L shoulder stability. LTG Duration 6 wks L shoulder ROM Impairment L shoulder ROM Short Term Goal (STG) New goal 03/09: L shoulder AROM in supine : flexion to 150 deg, abduction to 110 deg, ER to 40 deg STG Duration 4 weeks Brick Setter Goal (LTG) New goal 9/24: L shoulder AROM in standing: flexion to 110 deg, abduction 100 deg, LTG Duration 8 weeks Assessment Summary Assessment Pt scapular mobility improving , pt working with his HEP, noticing some improvement with his ability to perform his home exercises, however overall not noticing much recent progress. Physical Therapy Plan Frequency and Duration Frequency of Treatment 2x/Week Duration of Treatment 8 weeks Plan of Care Start Date 03/09/19 Plan of Care End Date 05/08/19 Next Visit Focus/Plan Next Note Type Treatment Note Next Visit Plan Reassess pt's symptoms AC gapping clavicle mob Manual therapy on assisted upward rotation, clavicle and scap mob mobilization with movements lower trap strengthening supine end range strengthening
--- NOTE | 2019-03-31 18:49 | PT.OTN ---
Current Diagnoses Unspecified rotator cuff tear or rupture of left shoulder, not specified as traumatic (03/31/19) Physical Therapy Treatment Note PT-OP-A Visit Information Start: 07/30/18 13:32 Freq: Status: Active Protocol: Document 03/31/19 17:30 HH (Rec: 03/31/19 18:49 HH [email or web address]) Out-Patient Physical Therapy Visit Information Visit Information Visit Type Treatment Note Visit Start Time 17:30 Visit Stop Time 18:10 Total Visit Minutes 40 Visit Number 69 Number of GOURMET COFFEE ATTENDANT Visits 0 PT-OP-B Current Condition Start: 07/30/18 13:32 Freq: Status: Active Protocol: Document 07/30/18 12:00 RCC (Rec: 07/31/18 09:38 RCC [email or web address]) Current Condition History of Current Condition Onset Date December 2017 Current Complaints L shoulder weakness, impaired ROM, pain History of Current Condition Pt is an 83 y/o male presenting to physical therapy with a c/o L shoulder pain, weakness, and limited ROM. Pt sustained infraspinatus and supraspinatus tears /sp traumatic dislocation in December. He had arthroscopic surgery on 01/15/18 . MRI done in April of 2018 showed that the pt had full thickness tearing of supraspinatus and infraspinatus, as well as posterior labral tear. He was consulted for a TSA, but seeked a second opinion which suggested pain management and physical therapy. 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 He admits to being primarily a L sided sleeper until this L shoulder injury, now very uncomfortable sleeping on his back or his R side. Pt has not done any formal PT since re-tearing, but did participate in PT s/p rotator cuff surgery. He is R hand dominant. Prior Treatments and Tests MRI as noted above Treatment Goals Patient/Caregiver Goals improve ROM, strength, and decrease pain Current Functional Impairments (Reported) Functional Limitations- Other unable to perform any activities with arm away from body Personal Factors Other Personal Factors That May Effect blood condition which Therapy/Recovery requires annual follow up with oncology (denies any current CA of any kind, does have past h/o prostate CA 10 yrs ago), [place] 1992 PT-OP-C Subjective Start: 07/30/18 13:32 Freq: Status: Active Protocol: Document 03/31/19 17:30 HH (Rec: 03/31/19 18:49 HH [email or web address]) OP-PT Subjective Patient Comments Patient Comments It seems bringing my L arm to the side is a little easier but besides that everything is the same. Patient Reported Progress Same PT-OP-F Manual Assessment Start: 07/30/18 13:32 Freq: Status: Active Protocol: Document 07/30/18 12:00 RCC (Rec: 07/31/18 15:47 RCC [email or web address]) Manual Assessments Soft Tissue Assessment Soft Tissue Mobility Assessment tenderness to palpation: L parascapular mm and posterior shoulder Joint Mobility Assessment Joint Mobility Assessment hypomobility: L shoulder with posterior and inferior glides PT-OP-K Range of Motion Start: 07/30/18 13:32 Freq: Status: Active Protocol: Document 03/09/19 16:45 HH (Rec: 03/09/19 19:20 HH [email or web address]) Shoulder Goniometric Range of Motion Shoulder Left active standing Testing Position Standing Flexion 95 Extension 70 Abduction 90 Left Passive Testing Position Supine Flexion 145 Horizontal Abduction 125 External Rotation at 90 degrees 60 Abduction Internal Rotation 80 Left Active Testing Position Supine Flexion 140 Abduction 120 External Rotation at 90 degrees 40 Abduction Internal Rotation 75 PT-OP-L Special Tests Start: 07/30/18 13:32 Freq: Status: Active Protocol: Document 07/30/18 12:00 RCC (Rec: 07/31/18 15:47 RCC [email or web address]) Special Tests Shoulder Special Tests Apprehension Test Test Results negative Belly Press Test Results negative Lift-Off Rotator Cuff Test Results negative Load and Shift Test Results negative Other Special Tests Special Tests unable to assess further due to pain and limitations of ROM PT-OP-M Strength Start: 07/30/18 13:32 Freq: Status: Active Protocol: Document 03/09/19 16:45 HH (Rec: 03/09/19 19:20 HH [email or web address]) Shoulder Strength Shoulder Manual Muscle Testing Left Flexion 4- Good- Extension 4+ Good+ Abduction (C5) 3+ Fair+ PT-OP-Q Treatments Start: 07/30/18 13:32 Freq: Status: Active Protocol: Document 03/31/19 17:30 HH (Rec: 03/31/19 18:49 HH [email or web address]) Cardio Equipment Upper Body Ergometer (UBE) Duration (Minutes) 5 RPM 60 Seat Position 13 Gym Equipment Cable Column (Body Solid) pull down Details 10 Reps/Time OH to chest level Therapeutic Exercises Supine Exercises scap punch with elevation Side left Equipment Used 3 # Reps/Minutes 2x10 reps supine shoulder flexion Side bilateral Equipment Used PVC with 5 lb weight Sitting Exercises jose Side bilateral Comments warm up reclined shoulder flexion Sitting Exercise Name 30 degrees reclined position Side left Reps/Minutes 5 mins Standing Exercises passive shd flexion Standing Exercise Name UEs on rails from stair Side bilateral Comments use hip hinge to generate shoulder flexion Manual Therapy Treatment Joint Mobilizations L clavicle Direction multidirectional Grade II Body Position Supine post glide Joint L GH joint Direction posterior Grade III Body Position Supine AC joint gapping Joint gapping Grade IV Body Position Sidelying PT-OP-R Modalities Start: 07/30/18 13:32 Freq: Status: Active Protocol: Document 03/24/19 16:50 DCW (Rec: 03/24/19 17:34 DCW [id number]) Hot Pack/Cold Pack Treatment Cold Pack Location left shoulder Patient Position Hooklying Treatment Duration (minutes) 10 Patient Tolerance Good PT-OP-T Assessment and Plan Start: 07/30/18 13:32 Freq: Status: Active Protocol: Document 03/31/19 17:30 HH (Rec: 03/31/19 18:49 HH [email or web address]) Physical Therapy Assessment Goals Quick DASH Impairment Quick DASH impairment score of 50 Short Term Goal (STG) Quick DASH score of 40 or less . Mcfp Goal (LTG) Quick DASH score of 10 or less or less to demonstrate improvements with functional use of LUE with daily activities. LTG Duration 6 weeks (Improving) weakness Impairment L UE weakness Short Term Goal (STG) L shoulder 3+/5 or greater with manual muscle testing with flexion, abduction, and ER. STG Duration 6 weeks goal reached Mcfp Goal (LTG) L shoulder 4/5 or greater with manual muscle testing with flexion, ER and with manual muscle testing to demonstrate improved L shoulder stability. LTG Duration 6 wks L shoulder ROM Impairment L shoulder ROM Short Term Goal (STG) New goal 03/09: L shoulder AROM in supine : flexion to 150 deg, abduction to 110 deg, ER to 40 deg STG Duration 4 weeks Fishing Worker Goal (LTG) New goal 9/24: L shoulder AROM in standing: flexion to 110 deg, abduction 100 deg, LTG Duration 8 weeks Assessment Summary Assessment Pt cont to have PROM/AAROM > AROM for shoulder abduction and flexion. Educated pt to practice supine flexion from reclined position. Physical Therapy Plan Next Visit Focus/Plan Next Note Type Treatment Note Next Visit Plan Reassess pt's symptoms cont strengthening as maikel from reclined position AC gapping clavicle mob Manual therapy on assisted upward rotation, clavicle and scap mob mobilization with movements lower trap strengthening supine end range strengthening
--- NOTE | 2019-04-02 15:14 | PT.OTN ---
Current Diagnoses Unspecified rotator cuff tear or rupture of left shoulder, not specified as traumatic (04/02/19) Physical Therapy Treatment Note PT-OP-A Visit Information Start: 07/30/18 13:32 Freq: Status: Active Protocol: Document 04/02/19 14:30 DCW (Rec: 04/02/19 15:14 DCW [id number]) Out-Patient Physical Therapy Visit Information Visit Information Visit Type Treatment Note Visit Start Time 14:30 Visit Stop Time 15:15 Total Visit Minutes 45 Visit Number 70 Number of SKILL TRAINING PROGRAM COORDINATOR Visits 0 PT-OP-B Current Condition Start: 07/30/18 13:32 Freq: Status: Active Protocol: Document 07/30/18 12:00 RCC (Rec: 07/31/18 09:38 RCC [email or web address]) Current Condition History of Current Condition Onset Date December 2017 Current Complaints L shoulder weakness, impaired ROM, pain History of Current Condition Pt is an 83 y/o male presenting to physical therapy with a c/o L shoulder pain, weakness, and limited ROM. Pt sustained infraspinatus and supraspinatus tears /sp traumatic dislocation in December. He had arthroscopic surgery on 01/15/18 . MRI done in April of 2018 showed that the pt had full thickness tearing of supraspinatus and infraspinatus, as well as posterior labral tear. He was consulted for a TSA, but seeked a second opinion which suggested pain management and physical therapy. 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 He admits to being primarily a L sided sleeper until this L shoulder injury, now very uncomfortable sleeping on his back or his R side. Pt has not done any formal PT since re-tearing, but did participate in PT s/p rotator cuff surgery. He is R hand dominant. Prior Treatments and Tests MRI as noted above Treatment Goals Patient/Caregiver Goals improve ROM, strength, and decrease pain Current Functional Impairments (Reported) Functional Limitations- Other unable to perform any activities with arm away from body Personal Factors Other Personal Factors That May Effect blood condition which Therapy/Recovery requires annual follow up with oncology (denies any current CA of any kind, does have past h/o prostate CA 10 yrs ago), [place] 1992 PT-OP-C Subjective Start: 07/30/18 13:32 Freq: Status: Active Protocol: Document 04/02/19 14:30 DCW (Rec: 04/02/19 15:14 DCW [id number]) OP-PT Subjective Patient Comments Patient Comments Pt notes he is actually feeling pretty good today. PT-OP-F Manual Assessment Start: 07/30/18 13:32 Freq: Status: Active Protocol: Document 07/30/18 12:00 RCC (Rec: 07/31/18 15:47 RCC [email or web address]) Manual Assessments Soft Tissue Assessment Soft Tissue Mobility Assessment tenderness to palpation: L parascapular mm and posterior shoulder Joint Mobility Assessment Joint Mobility Assessment hypomobility: L shoulder with posterior and inferior glides PT-OP-K Range of Motion Start: 07/30/18 13:32 Freq: Status: Active Protocol: Document 03/09/19 16:45 HH (Rec: 03/09/19 19:20 HH [email or web address]) Shoulder Goniometric Range of Motion Shoulder Left active standing Testing Position Standing Flexion 95 Extension 70 Abduction 90 Left Passive Testing Position Supine Flexion 145 Horizontal Abduction 125 External Rotation at 90 degrees 60 Abduction Internal Rotation 80 Left Active Testing Position Supine Flexion 140 Abduction 120 External Rotation at 90 degrees 40 Abduction Internal Rotation 75 PT-OP-L Special Tests Start: 07/30/18 13:32 Freq: Status: Active Protocol: Document 07/30/18 12:00 RCC (Rec: 07/31/18 15:47 RCC [email or web address]) Special Tests Shoulder Special Tests Apprehension Test Test Results negative Belly Press Test Results negative Lift-Off Rotator Cuff Test Results negative Load and Shift Test Results negative Other Special Tests Special Tests unable to assess further due to pain and limitations of ROM PT-OP-M Strength Start: 07/30/18 13:32 Freq: Status: Active Protocol: Document 03/09/19 16:45 HH (Rec: 03/09/19 19:20 HH [email or web address]) Shoulder Strength Shoulder Manual Muscle Testing Left Flexion 4- Good- Extension 4+ Good+ Abduction (C5) 3+ Fair+ PT-OP-Q Treatments Start: 07/30/18 13:32 Freq: Status: Active Protocol: Document 04/02/19 14:30 DCW (Rec: 04/02/19 15:14 DCW [id number]) Cardio Equipment Upper Body Ergometer (UBE) Duration (Minutes) 6 RPM 60 Seat Position 12 Gym Equipment Cable Column (Body Solid) pull down Details 10 Reps/Time OH to chest level Therapeutic Exercises Supine Exercises scap punch with elevation Side left Equipment Used 3 # Reps/Minutes 2x10 reps supine shoulder flexion Side bilateral Equipment Used PVC with 5 lb weight Sitting Exercises reclined shoulder flexion Sitting Exercise Name 30 degrees reclined position / c T-bar Side bilateral Resistance 4# Standing Exercises 7 Standing Exercise Name Resisted UE side-stepping Resistance Green Equipment Used T-band Manual Therapy Treatment Joint Mobilizations L clavicle Direction multidirectional Grade II Body Position Supine post glide Joint L GH joint Direction posterior Grade III Body Position Supine AC joint gapping Joint gapping Grade IV Body Position Sidelying scap upward rotation Joint ST Direction scap upward rotation Body Position Sidelying Comments w AROM flexion to 120 deg manual assistance at L scap inferior pole PT-OP-R Modalities Start: 07/30/18 13:32 Freq: Status: Active Protocol: Document 03/24/19 16:50 DCW (Rec: 03/24/19 17:34 DCW [id number]) Hot Pack/Cold Pack Treatment Cold Pack Location left shoulder Patient Position Hooklying Treatment Duration (minutes) 10 Patient Tolerance Good PT-OP-T Assessment and Plan Start: 07/30/18 13:32 Freq: Status: Active Protocol: Document 04/02/19 14:30 DCW (Rec: 04/02/19 15:14 DCW [id number]) Physical Therapy Assessment Goals Quick DASH Impairment Quick DASH impairment score of 50 Short Term Goal (STG) Quick DASH score of 40 or less . [facility] Goal (LTG) Quick DASH score of 10 or less or less to demonstrate improvements with functional use of LUE with daily activities. LTG Duration 6 weeks (Improving) weakness Impairment L UE weakness Short Term Goal (STG) L shoulder 3+/5 or greater with manual muscle testing with flexion, abduction, and ER. STG Duration 6 weeks goal reached [facility] Goal (LTG) L shoulder 4/5 or greater with manual muscle testing with flexion, ER and with manual muscle testing to demonstrate improved L shoulder stability. LTG Duration 6 wks L shoulder ROM Impairment L shoulder ROM Short Term Goal (STG) New goal 03/09: L shoulder AROM in supine : flexion to 150 deg, abduction to 110 deg, ER to 40 deg STG Duration 4 weeks [facility] Goal (LTG) New goal 03/09: L shoulder AROM in standing: flexion to 110 deg, abduction 100 deg, LTG Duration 8 weeks Assessment Summary Assessment Focus today on strengthening shoulder complex and stretching into end-range abduction and flexion to increase ROM. Physical Therapy Plan Frequency and Duration Frequency of Treatment 2x/Week Duration of Treatment 8 weeks Plan of Care Start Date 03/09/19 Plan of Care End Date 05/08/19 Next Visit Focus/Plan Next Note Type Treatment Note Next Visit Plan Reassess pt's symptoms AC gapping clavicle mob Manual therapy on assisted upward rotation, clavicle and scap mob mobilization with movements lower trap strengthening supine end range strengthening
--- NOTE | 2019-04-07 17:54 | PT.OTN ---
Current Diagnoses Unspecified rotator cuff tear or rupture of left shoulder, not specified as traumatic (04/07/19) Physical Therapy Treatment Note PT-OP-A Visit Information Start: 07/30/18 13:32 Freq: Status: Active Protocol: Document 04/07/19 16:04 HH (Rec: 04/07/19 16:48 HH [id number]) Out-Patient Physical Therapy Visit Information Visit Information Visit Type Treatment Note Visit Start Time 16:04 Visit Stop Time 14:48 Total Visit Minutes 44 Visit Number 71 Number of SPORTS MEDICINE TRAINER Visits 0 PT-OP-B Current Condition Start: 07/30/18 13:32 Freq: Status: Active Protocol: Document 07/30/18 12:00 RCC (Rec: 07/31/18 09:38 RCC [email or web address]) Current Condition History of Current Condition Onset Date December 2017 Current Complaints L shoulder weakness, impaired ROM, pain History of Current Condition Pt is an 83 y/o male presenting to physical therapy with a c/o L shoulder pain, weakness, and limited ROM. Pt sustained infraspinatus and supraspinatus tears /sp traumatic dislocation in December. He had arthroscopic surgery on 01/15/18 . MRI done in April of 2018 showed that the pt had full thickness tearing of supraspinatus and infraspinatus, as well as posterior labral tear. He was consulted for a TSA, but seeked a second opinion which suggested pain management and physical therapy. 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 He admits to being primarily a L sided sleeper until this L shoulder injury, now very uncomfortable sleeping on his back or his R side. Pt has not done any formal PT since re-tearing, but did participate in PT s/p rotator cuff surgery. He is R hand dominant. Prior Treatments and Tests MRI as noted above Treatment Goals Patient/Caregiver Goals improve ROM, strength, and decrease pain Current Functional Impairments (Reported) Functional Limitations- Other unable to perform any activities with arm away from body Personal Factors Other Personal Factors That May Effect blood condition which Therapy/Recovery requires annual follow up with oncology (denies any current CA of any kind, does have past h/o prostate CA 10 yrs ago), [place] 1992 PT-OP-C Subjective Start: 07/30/18 13:32 Freq: Status: Active Protocol: Document 04/07/19 16:04 HH (Rec: 04/07/19 16:48 HH [id number]) OP-PT Subjective Patient Comments Patient Comments Seems to be about the same since last visit. Patient Reported Progress Same PT-OP-F Manual Assessment Start: 07/30/18 13:32 Freq: Status: Active Protocol: Document 07/30/18 12:00 RCC (Rec: 07/31/18 15:47 RCC [email or web address]) Manual Assessments Soft Tissue Assessment Soft Tissue Mobility Assessment tenderness to palpation: L parascapular mm and posterior shoulder Joint Mobility Assessment Joint Mobility Assessment hypomobility: L shoulder with posterior and inferior glides PT-OP-K Range of Motion Start: 07/30/18 13:32 Freq: Status: Active Protocol: Document 03/09/19 16:45 HH (Rec: 03/09/19 19:20 HH [email or web address]) Shoulder Goniometric Range of Motion Shoulder Left active standing Testing Position Standing Flexion 95 Extension 70 Abduction 90 Left Passive Testing Position Supine Flexion 145 Horizontal Abduction 125 External Rotation at 90 degrees 60 Abduction Internal Rotation 80 Left Active Testing Position Supine Flexion 140 Abduction 120 External Rotation at 90 degrees 40 Abduction Internal Rotation 75 PT-OP-L Special Tests Start: 07/30/18 13:32 Freq: Status: Active Protocol: Document 07/30/18 12:00 RCC (Rec: 07/31/18 15:47 RCC [email or web address]) Special Tests Shoulder Special Tests Apprehension Test Test Results negative Belly Press Test Results negative Lift-Off Rotator Cuff Test Results negative Load and Shift Test Results negative Other Special Tests Special Tests unable to assess further due to pain and limitations of ROM PT-OP-M Strength Start: 07/30/18 13:32 Freq: Status: Active Protocol: Document 03/09/19 16:45 HH (Rec: 03/09/19 19:20 HH [email or web address]) Shoulder Strength Shoulder Manual Muscle Testing Left Flexion 4- Good- Extension 4+ Good+ Abduction (C5) 3+ Fair+ PT-OP-Q Treatments Start: 07/30/18 13:32 Freq: Status: Active Protocol: Document 04/07/19 16:04 HH (Rec: 04/07/19 16:48 HH [id number]) Therapeutic Exercises Supine Exercises scap punch with elevation Side left Equipment Used 3 # Reps/Minutes 2x10 reps Prone Exercises prone Y Side left Reps/Minutes 3 min prone W Side left Reps/Minutes 5 min prone horizontal abd Side left Reps/Minutes 3 min Sitting Exercises reclined shoulder abduction Sitting Exercise Name 30 degrees reclined positoin Reps/Minutes 5 mins reclined shoulder flexion Sitting Exercise Name 30 degrees reclined position Side bilateral Reps/Minutes 5 mins Manual Therapy Treatment Joint Mobilizations inf glide Joint L GH joint Direction inferior Grade III Body Position Supine L clavicle Direction multidirectional Grade II Body Position Supine post glide Joint L GH joint Direction posterior Grade III Body Position Supine Manual Techniques PROM Type Scaption, ER Body Location L GH Reps/Duration 5 min Comments reclined 30dg PT-OP-R Modalities Start: 07/30/18 13:32 Freq: Status: Active Protocol: Document 03/24/19 16:50 DCW (Rec: 03/24/19 17:34 DCW [email or web address]) Hot Pack/Cold Pack Treatment Cold Pack Location left shoulder Patient Position Hooklying Treatment Duration (minutes) 10 Patient Tolerance Good PT-OP-T Assessment and Plan Start: 07/30/18 13:32 Freq: Status: Active Protocol: Document 04/07/19 16:04 HH (Rec: 04/07/19 16:48 HH [id number]) Physical Therapy Assessment Goals Quick DASH Impairment Quick DASH impairment score of 50 Short Term Goal (STG) Quick DASH score of 40 or less . [facility] Goal (LTG) Quick DASH score of 10 or less or less to demonstrate improvements with functional use of LUE with daily activities. LTG Duration 6 weeks (Improving) weakness Impairment L UE weakness Short Term Goal (STG) L shoulder 3+/5 or greater with manual muscle testing with flexion, abduction, and ER. STG Duration 6 weeks goal reached [facility] Goal (LTG) L shoulder 4/5 or greater with manual muscle testing with flexion, ER and with manual muscle testing to demonstrate improved L shoulder stability. LTG Duration 6 wks L shoulder ROM Impairment L shoulder ROM Short Term Goal (STG) New goal 03/09: L shoulder AROM in supine : flexion to 150 deg, abduction to 110 deg, ER to 40 deg STG Duration 4 weeks Hydroelectric Plant Mechanical Engineer Goal (LTG) New goal 03/09: L shoulder AROM in standing: flexion to 110 deg, abduction 100 deg, LTG Duration 8 weeks Assessment Summary Assessment Pt reports stable function and cont to demonstrate PROM/ AAROM>AROM. Pt demonstrated improved AROM after MT. Progressed prone strengthening exercises to include W and Y exercises to target deltoids and inferior trap. Discussed potential for d/c with maintenance program due to plateau in progress. Physical Therapy Plan Next Visit Focus/Plan Next Note Type Treatment Note Next Visit Plan Reassess pt's symptoms review W and Y ex AC gapping clavicle mob Manual therapy on assisted upward rotation, clavicle and scap mob mobilization with movements lower trap strengthening supine end range strengthening
--- NOTE | 2019-04-09 15:11 | PT.OTN ---
Current Diagnoses Unspecified rotator cuff tear or rupture of left shoulder, not specified as traumatic (04/09/19) Physical Therapy Treatment Note PT-OP-A Visit Information Start: 07/30/18 13:32 Freq: Status: Active Protocol: Document 04/09/19 14:30 HH (Rec: 04/09/19 15:10 HH [email or web address]) Out-Patient Physical Therapy Visit Information Visit Information Visit Type Treatment Note Visit Start Time 14:30 Visit Stop Time 15:10 Total Visit Minutes 40 Visit Number 72 Number of LASER PRINT OPERATOR Visits 0 PT-OP-B Current Condition Start: 07/30/18 13:32 Freq: Status: Active Protocol: Document 07/30/18 12:00 RCC (Rec: 07/31/18 09:38 RCC [email or web address]) Current Condition History of Current Condition Onset Date December 2017 Current Complaints L shoulder weakness, impaired ROM, pain History of Current Condition Pt is an 83 y/o male presenting to physical therapy with a c/o L shoulder pain, weakness, and limited ROM. Pt sustained infraspinatus and supraspinatus tears /sp traumatic dislocation in December. He had arthroscopic surgery on 01/15/18 . MRI done in April of 2018 showed that the pt had full thickness tearing of supraspinatus and infraspinatus, as well as posterior labral tear. He was consulted for a TSA, but seeked a second opinion which suggested pain management and physical therapy. 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 He admits to being primarily a L sided sleeper until this L shoulder injury, now very uncomfortable sleeping on his back or his R side. Pt has not done any formal PT since re-tearing, but did participate in PT s/p rotator cuff surgery. He is R hand dominant. Prior Treatments and Tests MRI as noted above Treatment Goals Patient/Caregiver Goals improve ROM, strength, and decrease pain Current Functional Impairments (Reported) Functional Limitations- Other unable to perform any activities with arm away from body Personal Factors Other Personal Factors That May Effect blood condition which Therapy/Recovery requires annual follow up with oncology (denies any current CA of any kind, does have past h/o prostate CA 10 yrs ago), [place] 1992 PT-OP-C Subjective Start: 07/30/18 13:32 Freq: Status: Active Protocol: Document 04/09/19 14:30 HH (Rec: 04/09/19 15:10 HH [email or web address]) OP-PT Subjective Patient Comments Patient Comments Its been the same but the w exercise is not easy to do. Patient Reported Progress Same PT-OP-F Manual Assessment Start: 07/30/18 13:32 Freq: Status: Active Protocol: Document 07/30/18 12:00 RCC (Rec: 07/31/18 15:47 RCC [email or web address]) Manual Assessments Soft Tissue Assessment Soft Tissue Mobility Assessment tenderness to palpation: L parascapular mm and posterior shoulder Joint Mobility Assessment Joint Mobility Assessment hypomobility: L shoulder with posterior and inferior glides PT-OP-K Range of Motion Start: 07/30/18 13:32 Freq: Status: Active Protocol: Document 03/09/19 16:45 HH (Rec: 03/09/19 19:20 HH [email or web address]) Shoulder Goniometric Range of Motion Shoulder Left active standing Testing Position Standing Flexion 95 Extension 70 Abduction 90 Left Passive Testing Position Supine Flexion 145 Horizontal Abduction 125 External Rotation at 90 degrees 60 Abduction Internal Rotation 80 Left Active Testing Position Supine Flexion 140 Abduction 120 External Rotation at 90 degrees 40 Abduction Internal Rotation 75 PT-OP-L Special Tests Start: 07/30/18 13:32 Freq: Status: Active Protocol: Document 07/30/18 12:00 RCC (Rec: 07/31/18 15:47 RCC [email or web address]) Special Tests Shoulder Special Tests Apprehension Test Test Results negative Belly Press Test Results negative Lift-Off Rotator Cuff Test Results negative Load and Shift Test Results negative Other Special Tests Special Tests unable to assess further due to pain and limitations of ROM PT-OP-M Strength Start: 07/30/18 13:32 Freq: Status: Active Protocol: Document 03/09/19 16:45 HH (Rec: 03/09/19 19:20 HH [email or web address]) Shoulder Strength Shoulder Manual Muscle Testing Left Flexion 4- Good- Extension 4+ Good+ Abduction (C5) 3+ Fair+ PT-OP-Q Treatments Start: 07/30/18 13:32 Freq: Status: Active Protocol: Document 04/09/19 14:30 HH (Rec: 04/09/19 15:10 HH [email or web address]) Cardio Equipment Upper Body Ergometer (UBE) Duration (Minutes) 6 RPM 60 Seat Position 12 Therapeutic Exercises Supine Exercises supine AAROM Side bilateral Equipment Used bar and 5lbs weight Comments IR x 10 x 2, ER x 10 x2 scap punch with elevation Side left Equipment Used 3# Reps/Minutes 2x10 reps Sitting Exercises shoulder flexion 2 Sitting Exercise Name reclined 30 degrees position Side left Equipment Used 2# seated shoulder flexion Sitting Exercise Name AAROM Side left Equipment Used with golf club Reps/Minutes 6 mins Comments use body weight to reach shoulder flexion PT-OP-R Modalities Start: 07/30/18 13:32 Freq: Status: Active Protocol: Document 04/09/19 14:30 HH (Rec: 04/09/19 15:11 HH [email or web address]) Hot Pack/Cold Pack Treatment Cold Pack Location L shd Patient Position Sitting Treatment Duration (minutes) 8 Patient Tolerance Good PT-OP-T Assessment and Plan Start: 07/30/18 13:32 Freq: Status: Active Protocol: Document 04/09/19 14:30 HH (Rec: 04/09/19 15:10 [email or web address]) Physical Therapy Assessment Goals Quick DASH Impairment Quick DASH impairment score of 50 Short Term Goal (STG) Quick DASH score of 40 or less . Barrel Filler Head Goal (LTG) Quick DASH score of 10 or less or less to demonstrate improvements with functional use of LUE with daily activities. LTG Duration 6 weeks (Improving) weakness Impairment L UE weakness Short Term Goal (STG) L shoulder 3+/5 or greater with manual muscle testing with flexion, abduction, and ER. STG Duration 6 weeks goal reached Barrel Filler Head Goal (LTG) L shoulder 4/5 or greater with manual muscle testing with flexion, ER and with manual muscle testing to demonstrate improved L shoulder stability. LTG Duration 6 wks L shoulder ROM Impairment L shoulder ROM Short Term Goal (STG) New goal 03/09: L shoulder AROM in supine : flexion to 150 deg, abduction to 110 deg, ER to 40 deg STG Duration 4 weeks [facility] Goal (LTG) New goal 03/09: L shoulder AROM in standing: flexion to 110 deg, abduction 100 deg, LTG Duration 8 weeks Assessment Summary Assessment Pt cont to have limitations for AROM in gravity position. Pt understands his progress has been plateaued and agreed to d/c plan in a week with HEP for maintainence Physical Therapy Plan Next Visit Focus/Plan Next Note Type Treatment Note Next Visit Plan Reassess pt's symptoms review W and Y ex AC gapping clavicle mob Manual therapy on assisted upward rotation, clavicle and scap mob mobilization with movements lower trap strengthening supine end range strengthening
--- NOTE | 2019-04-13 17:48 | PT.OTN ---
Current Diagnoses Unspecified rotator cuff tear or rupture of left shoulder, not specified as traumatic (04/13/19) Physical Therapy Treatment Note PT-OP-A Visit Information Start: 07/30/18 13:32 Freq: Status: Active Protocol: Document 04/13/19 16:04 HH (Rec: 04/13/19 17:47 HH [id number]) Out-Patient Physical Therapy Visit Information Visit Information Visit Type Treatment Note Visit Start Time 16:04 Visit Stop Time 16:47 Total Visit Minutes 43 Visit Number 73 Number of SHEARER SCREEN MEASURER AND TRIMMER Visits 0 PT-OP-B Current Condition Start: 07/30/18 13:32 Freq: Status: Active Protocol: Document 07/30/18 12:00 RCC (Rec: 07/31/18 09:38 RCC [email or web address]) Current Condition History of Current Condition Onset Date December 2017 Current Complaints L shoulder weakness, impaired ROM, pain History of Current Condition Pt is an 83 y/o male presenting to physical therapy with a c/o L shoulder pain, weakness, and limited ROM. Pt sustained infraspinatus and supraspinatus tears /sp traumatic dislocation in December. He had arthroscopic surgery on 01/15/18 . MRI done in April of 2018 showed that the pt had full thickness tearing of supraspinatus and infraspinatus, as well as posterior labral tear. He was consulted for a TSA, but seeked a second opinion which suggested pain management and physical therapy. 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 He admits to being primarily a L sided sleeper until this L shoulder injury, now very uncomfortable sleeping on his back or his R side. Pt has not done any formal PT since re-tearing, but did participate in PT s/p rotator cuff surgery. He is R hand dominant. Prior Treatments and Tests MRI as noted above Treatment Goals Patient/Caregiver Goals improve ROM, strength, and decrease pain Current Functional Impairments (Reported) Functional Limitations- Other unable to perform any activities with arm away from body Personal Factors Other Personal Factors That May Effect blood condition which Therapy/Recovery requires annual follow up with oncology (denies any current CA of any kind, does have past h/o prostate CA 10 yrs ago), [place] 1992 PT-OP-C Subjective Start: 07/30/18 13:32 Freq: Status: Active Protocol: Document 04/09/19 14:30 HH (Rec: 04/09/19 15:10 HH [email or web address]) OP-PT Subjective Patient Comments Patient Comments Its been the same but the w exercise is not easy to do. Patient Reported Progress Same PT-OP-F Manual Assessment Start: 07/30/18 13:32 Freq: Status: Active Protocol: Document 07/30/18 12:00 RCC (Rec: 07/31/18 15:47 RCC [email or web address]) Manual Assessments Soft Tissue Assessment Soft Tissue Mobility Assessment tenderness to palpation: L parascapular mm and posterior shoulder Joint Mobility Assessment Joint Mobility Assessment hypomobility: L shoulder with posterior and inferior glides PT-OP-K Range of Motion Start: 07/30/18 13:32 Freq: Status: Active Protocol: Document 03/09/19 16:45 HH (Rec: 03/09/19 19:20 HH [email or web address]) Shoulder Goniometric Range of Motion Shoulder Left active standing Testing Position Standing Flexion 95 Extension 70 Abduction 90 Left Passive Testing Position Supine Flexion 145 Horizontal Abduction 125 External Rotation at 90 degrees 60 Abduction Internal Rotation 80 Left Active Testing Position Supine Flexion 140 Abduction 120 External Rotation at 90 degrees 40 Abduction Internal Rotation 75 PT-OP-L Special Tests Start: 07/30/18 13:32 Freq: Status: Active Protocol: Document 07/30/18 12:00 RCC (Rec: 07/31/18 15:47 [facility] [email or web address]) Special Tests Shoulder Special Tests Apprehension Test Test Results negative Belly Press Test Results negative Lift-Off Rotator Cuff Test Results negative Load and Shift Test Results negative Other Special Tests Special Tests unable to assess further due to pain and limitations of ROM PT-OP-M Strength Start: 07/30/18 13:32 Freq: Status: Active Protocol: Document 03/09/19 16:45 HH (Rec: 03/09/19 19:20 HH [email or web address]) Shoulder Strength Shoulder Manual Muscle Testing Left Flexion 4- Good- Extension 4+ Good+ Abduction (C5) 3+ Fair+ PT-OP-Q Treatments Start: 07/30/18 13:32 Freq: Status: Active Protocol: Document 04/13/19 16:04 HH (Rec: 04/13/19 17:47 HH [id number]) Cardio Equipment Upper Body Ergometer (UBE) Duration (Minutes) 6 RPM 60 Seat Position 12 Therapeutic Exercises Supine Exercises Resisted shoulder flexion Supine Exercise Name end range shoulder flexion Side left Equipment Used Level 1 band Reps/Minutes x20 Comments 30 degrees HOB supine AAROM Side bilateral Equipment Used bar and 5lbs weight Comments IR x 10 x 2, ER x 10 x3 scap punch with elevation Side left Equipment Used 3# Reps/Minutes 2x10 reps supine shoulder flexion Side left Equipment Used 1 lb ball Reps/Minutes 2x15 Comments 30 dg elevation Standing Exercises Table walks Standing Exercise Name Lateral hand walks Side bilateral Comments B UE support on table, cuing for forward weight shift Open book Side bilateral Reps/Minutes 5 min Comments single UE support on table Ball rolls Side bilateral Equipment Used 55 cm ex ball Reps/Minutes 3 min Comments cuing for trunk stability and arm reach Shoulder taps Side bilateral Reps/Minutes 5 min Comments UE support on table Manual Therapy Treatment Soft Tissue Mobilization L shoulder Body Location L supraspinatus, upper trap Mobilization Type Strain/Counterstrain,Strumming ,Sustained Pressure Intensity/Depth Moderate Body Position Supine Joint Mobilizations post glide Joint L GH joint Direction posterior Grade III Body Position Supine Manual Techniques PROM Type Flexion Body Location L GH Reps/Duration 5 min PT-OP-R Modalities Start: 07/30/18 13:32 Freq: Status: Active Protocol: Document 04/09/19 14:30 HH (Rec: 04/09/19 15:11 [email or web address]) Hot Pack/Cold Pack Treatment Cold Pack Location L shd Patient Position Sitting Treatment Duration (minutes) 8 Patient Tolerance Good PT-OP-T Assessment and Plan Start: 07/30/18 13:32 Freq: Status: Active Protocol: Document 04/13/19 16:04 HH (Rec: 04/13/19 17:47 [email or web address]) Physical Therapy Assessment Goals Quick DASH Impairment Quick DASH impairment score of 50 Short Term Goal (STG) Quick DASH score of 40 or less . Kindergartner Goal (LTG) Quick DASH score of 10 or less or less to demonstrate improvements with functional use of LUE with daily activities. LTG Duration 6 weeks (Improving) weakness Impairment L UE weakness Short Term Goal (STG) L shoulder 3+/5 or greater with manual muscle testing with flexion, abduction, and ER. STG Duration 6 weeks goal reached Longterm Goal (LTG) L shoulder 4/5 or greater with manual muscle testing with flexion, ER and with manual muscle testing to demonstrate improved L shoulder stability. LTG Duration 6 wks L shoulder ROM Impairment L shoulder ROM Short Term Goal (STG) New goal 03/09: L shoulder AROM in supine : flexion to 150 deg, abduction to 110 deg, ER to 40 deg STG Duration 4 weeks Kindergartner Goal (LTG) New goal 03/09: L shoulder AROM in standing: flexion to 110 deg, abduction 100 deg, LTG Duration 8 weeks Assessment Summary Assessment Pt cont to demonstrate decreased AROM against gravity > supine. Pt fatigued with upper body support exercises. Focused on dynamic scap stability in closed chained ex . Added supine resisted shoulder flexoin in supine today. Physical Therapy Plan Next Visit Focus/Plan Next Note Type Treatment Note Next Visit Plan supine resisted shoulder flexoin Reassess pt's symptoms review W and Y ex AC gapping clavicle mob Manual therapy on assisted upward rotation, clavicle and scap mob mobilization with movements lower trap strengthening supine end range strengthening
--- NOTE | 2019-04-15 17:05 | PT.OTN ---
Current Diagnoses Unspecified rotator cuff tear or rupture of left shoulder, not specified as traumatic (04/15/19) Physical Therapy Treatment Note PT-OP-A Visit Information Start: 07/30/18 13:32 Freq: Status: Active Protocol: Document 04/15/19 16:03 HH (Rec: 04/15/19 17:04 HH [email or web address]) Out-Patient Physical Therapy Visit Information Visit Information Visit Type Discharge Summary Visit Start Time 16:03 Visit Stop Time 16:45 Total Visit Minutes 42 Visit Number 74 Number of ELECTRIC METER REPAIRER APPRENTICE Visits 0 PT-OP-B Current Condition Start: 07/30/18 13:32 Freq: Status: Active Protocol: Document 07/30/18 12:00 RCC (Rec: 07/31/18 09:38 RCC [email or web address]) Current Condition History of Current Condition Onset Date December 2017 Current Complaints L shoulder weakness, impaired ROM, pain History of Current Condition Pt is an 83 y/o male presenting to physical therapy with a c/o L shoulder pain, weakness, and limited ROM. Pt sustained infraspinatus and supraspinatus tears /sp traumatic dislocation in December. He had arthroscopic surgery on 01/15/18 . MRI done in April of 2018 showed that the pt had full thickness tearing of supraspinatus and infraspinatus, as well as posterior labral tear. He was consulted for a TSA, but seeked a second opinion which suggested pain management and physical therapy. 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 He admits to being primarily a L sided sleeper until this L shoulder injury, now very uncomfortable sleeping on his back or his R side. Pt has not done any formal PT since re-tearing, but did participate in PT s/p rotator cuff surgery. He is R hand dominant. Prior Treatments and Tests MRI as noted above Treatment Goals Patient/Caregiver Goals improve ROM, strength, and decrease pain Current Functional Impairments (Reported) Functional Limitations- Other unable to perform any activities with arm away from body Personal Factors Other Personal Factors That May Effect blood condition which Therapy/Recovery requires annual follow up with oncology (denies any current CA of any kind, does have past h/o prostate CA 10 yrs ago), [place] 1992 PT-OP-C Subjective Start: 07/30/18 13:32 Freq: Status: Active Protocol: Document 04/15/19 16:03 HH (Rec: 04/15/19 17:04 HH [email or web address]) OP-PT Subjective Patient Comments Patient Comments Its been the same. Prone Ws cont to be challenging. Patient Reported Progress Same PT-OP-F Manual Assessment Start: 07/30/18 13:32 Freq: Status: Active Protocol: Document 07/30/18 12:00 RCC (Rec: 07/31/18 15:47 RCC [email or web address]) Manual Assessments Soft Tissue Assessment Soft Tissue Mobility Assessment tenderness to palpation: L parascapular mm and posterior shoulder Joint Mobility Assessment Joint Mobility Assessment hypomobility: L shoulder with posterior and inferior glides PT-OP-K Range of Motion Start: 07/30/18 13:32 Freq: Status: Active Protocol: Document 03/09/19 16:45 HH (Rec: 03/09/19 19:20 HH [email or web address]) Shoulder Goniometric Range of Motion Shoulder Left active standing Testing Position Standing Flexion 95 Extension 70 Abduction 90 Left Passive Testing Position Supine Flexion 145 Horizontal Abduction 125 External Rotation at 90 degrees 60 Abduction Internal Rotation 80 Left Active Testing Position Supine Flexion 140 Abduction 120 External Rotation at 90 degrees 40 Abduction Internal Rotation 75 PT-OP-L Special Tests Start: 07/30/18 13:32 Freq: Status: Active Protocol: Document 07/30/18 12:00 RCC (Rec: 07/31/18 15:47 RCC [email or web address]) Special Tests Shoulder Special Tests Apprehension Test Test Results negative Belly Press Test Results negative Lift-Off Rotator Cuff Test Results negative Load and Shift Test Results negative Other Special Tests Special Tests unable to assess further due to pain and limitations of ROM PT-OP-M Strength Start: 07/30/18 13:32 Freq: Status: Active Protocol: Document 03/09/19 16:45 HH (Rec: 03/09/19 19:20 HH [email or web address]) Shoulder Strength Shoulder Manual Muscle Testing Left Flexion 4- Good- Extension 4+ Good+ Abduction (C5) 3+ Fair+ PT-OP-Q Treatments Start: 07/30/18 13:32 Freq: Status: Active Protocol: Document 04/15/19 16:03 HH (Rec: 04/15/19 17:04 HH [email or web address]) Therapeutic Exercises Supine Exercises Resisted shoulder flexion Supine Exercise Name end range shoulder flexion Side left Equipment Used Level 1 band Reps/Minutes x20 Comments 30 degrees HOB supine AAROM Side bilateral Equipment Used bar and 5lbs weight Comments IR x 10 x 2, ER x 10 x3 scap punch with elevation Side left Equipment Used 3# Reps/Minutes 2x10 reps supine shoulder flexion Side left Equipment Used 1 lb ball Reps/Minutes 2x15 Comments 30 dg elevation Sidelying Exercises SL open book Equipment Used with 1 lb DB Reps/Minutes 6 x 4 Sitting Exercises reclined shoulder flexion Side left Resistance 2.2lbs ball Reps/Minutes 8 x4 Comments from 90 to 110 degrees flexion Manual Therapy Treatment Soft Tissue Mobilization L shoulder Body Location L supraspinatus, upper trap Mobilization Type Strain/Counterstrain,Strumming ,Sustained Pressure Intensity/Depth Moderate Body Position Supine Joint Mobilizations post glide Joint L GH joint Direction posterior Grade III Body Position Supine Manual Techniques PROM Type Flexion Body Location L GH Reps/Duration 5 min PT-OP-R Modalities Start: 07/30/18 13:32 Freq: Status: Active Protocol: Document 04/09/19 14:30 HH (Rec: 04/09/19 15:11 [email or web address]) Hot Pack/Cold Pack Treatment Cold Pack Location L shd Patient Position Sitting Treatment Duration (minutes) 8 Patient Tolerance Good PT-OP-T Assessment and Plan Start: 07/30/18 13:32 Freq: Status: Active Protocol: Document 04/15/19 16:03 HH (Rec: 04/15/19 17:04 [email or web address]) Physical Therapy Assessment Goals Quick DASH Impairment Quick DASH impairment score of 50 Short Term Goal (STG) Quick DASH score of 40 or less . Curtain Hemmer Automatic Goal (LTG) 04/15 did not assess Quick DASH score of 10 or less or less to demonstrate improvements with functional use of LUE with daily activities. LTG Duration 6 weeks (Improving) weakness Impairment L UE weakness Short Term Goal (STG) L shoulder 3+/5 or greater with manual muscle testing with flexion, abduction, and ER. STG Duration 6 weeks goal reached Retirement Goal (LTG) 04/15: pt remains at 4-/5 to 4 /5 at 90 degrees flexion and abduction L shoulder 4/5 or greater with manual muscle testing with flexion, ER and with manual muscle testing to demonstrate improved L shoulder stability. LTG Duration 6 wks L shoulder ROM Impairment L shoulder ROM Short Term Goal (STG) New goal 03/09: L shoulder AROM in supine : flexion to 150 deg, abduction to 110 deg, ER to 40 deg STG Duration 4 weeks Retirement Goal (LTG) plateau 04/15 : PROM flexion = 125, ABD = 125 in supine. AROM= 90 and 85 New goal 03/09: L shoulder AROM in standing: flexion to 110 deg, abduction 100 deg, LTG Duration 8 weeks Progress Towards Goals Progress Towards Goals Slow Progress due to Medical Issues Assessment Summary Assessment Pt has not been progressing and his AROM/ PROM remains the same. Educated pt to cont his daily HEP to maintain his ROM and strength. pt does feel taht he is making great progress through his rehab. He is now able to reach for his medication from upper shelf. Added sidelying horizontal abduction and supine resisted flexion with level 1 band. D/C from Pt due to plateau in progress. Physical Therapy Plan Discharge Physical Therapy Discharge Reasons Plateau in Progress
== END 2019-04-15 17:00 ==
LOC: PHYS 16:00
PROVIDERS: PCP Internal Medicine; Visit Provider Orthopaedic Surgery
DX: M75.102 Unspecified rotator cuff tear or rupture of left shoulder, not specified as traumatic (principal)
CPT/HCPCS: 97010; 97035; 97110; 97112; 97140; 97162; 97164; 97535

== ENCOUNTER → 2019-06-08 10:50 | Outpatient (CLI) | payer MEDICARE, OTHER, SELFPAY ==
[2019-06-08 12:42] LABS: Prostate Specific Antigen < 0.064 ng/mL (0.10-4.00)
== END ==
PROVIDERS: PCP Internal Medicine; Visit Provider Urology
DX: Z12.5 Encounter for screening for malignant neoplasm of prostate (principal)
CPT/HCPCS: 36415; 84153

== ENCOUNTER → 2020-07-12 14:17 | Outpatient (CLI) | payer MEDICARE, OTHER, SELFPAY ==
[2020-07-12] MEDS: COVID-19 VACC #1, MRNA(MOD) 100 MCG/0.5 ML VIAL IM (14:23)
== END ==
PROVIDERS: PCP Internal Medicine; Visit Provider Internal Medicine
DX: Z23 Encounter for immunization (principal)
CPT/HCPCS: 0011A; 91301

== ENCOUNTER → 2020-08-09 13:35 | Outpatient (CLI) | payer MEDICARE, OTHER, SELFPAY ==
[2020-08-09] MEDS: COVID-19 VACC #2, MRNA(MOD) 100 MCG/0.5 ML VIAL IM (13:42)
== END ==
PROVIDERS: PCP Internal Medicine; Visit Provider Internal Medicine
DX: Z23 Encounter for immunization (principal)
CPT/HCPCS: 0012A; 91301

== ENCOUNTER → 2020-09-21 11:10 | Outpatient (CLI) | payer MEDICARE, OTHER, SELFPAY ==
[2020-09-21 12:10] LABS: Add Manual Diff / Slide Review NO; Basophils Absolute Auto 0 /uL (0-100); Basophils Percent Auto 0.3 % (0-2); Eosinophils Absolute Auto 100 /uL (0-450); Eosinophils Percent Auto 2.7 % (2-4); Hematocrit 37.2 % (41-53); Hemoglobin 12.6 g/dL (13.5-17.5); Lymphocytes Absolute Auto 1600 /uL (1100-4500); Lymphocytes Percent Auto 30.2 % (25-40); Mean Corpuscular HGB Conc 33.9 % (30-36); Mean Corpuscular Hemoglobin 33.6 PG (26-34); Mean Corpuscular Volume 99.2 fL (80-100); Monocytes Absolute Auto 500 /uL (0-900); Monocytes Percent Auto 9.1 % (3-14); Neutrophils Absolute Auto 3100 /uL (1500-7000); Neutrophils Percent Auto 57.7 % (50-75); Platelet Count 226 X10^3/uL (150-400); Red Blood Cell Count 3.75 X10^6/uL (4.5-5.9); White Blood Cell Count 5.4 X10^3/uL (4.5-11.0)
[2020-09-21 12:18] LABS: Reticulocyte Count, Percent 0.9 % (0.87-2.60)
[2020-09-21 12:32] LABS: HEMOLYSIS < 15 (0-50); Iron 94 ug/dL (49-181)
[2020-09-21 12:36] LABS: INR 1.1 (0.9-1.3); Prothrombin Time 12.4 SECONDS (10.1-12.7)
[2020-09-21 12:37] LABS: Fibrinogen 292 mg/dL (211-428)
[2020-09-21 12:39] LABS: PTT Partial Thromboplastin Tim 36 SECONDS (26.4-36.2)
[2020-09-21 12:45] LABS: Percent Iron Saturation 41 % (20-50); Total Iron Binding Capacity 230 ug/dL (261-462); Transferrin 181 mg/dL (206-381)
[2020-09-21 12:57] LABS: Ferritin 218 ng/mL (18-464)
[2020-09-23 19:47] LABS: Thrombin Time 16.3 sec (0.0-23.0)
== END ==
PROVIDERS: PCP Internal Medicine; Referring Provider Physician Assistant; Visit Provider Physician Assistant
DX: Z48.817 Encounter for surgical aftercare following surgery on the skin and subcutaneous tissue (principal); D47.2 Monoclonal gammopathy; L76.22 Postprocedural hemorrhage of skin and subcutaneous tissue following other procedure; D64.9 Anemia, unspecified
CPT/HCPCS: 36415; 82728; 83540; 83550; 85025; 85045; 85384; 85610; 85670; 85730

== ENCOUNTER → 2020-09-27 09:18 | Outpatient (CLI) | payer MEDICARE, OTHER, SELFPAY ==
[2020-09-27 10:15] LABS: Add Manual Diff / Slide Review NO; Basophils Absolute Auto 0 /uL (0-100); Basophils Percent Auto 0.4 % (0-2); Eosinophils Absolute Auto 300 /uL (0-450); Eosinophils Percent Auto 4.3 % (2-4); Hematocrit 38.8 % (41-53); Lymphocytes Absolute Auto 1800 /uL (1100-4500); Lymphocytes Percent Auto 30.1 % (25-40); Mean Corpuscular HGB Conc 33.4 % (30-36); Mean Corpuscular Hemoglobin 33.2 PG (26-34); Mean Corpuscular Volume 99.2 fL (80-100); Monocytes Absolute Auto 400 /uL (0-900); Neutrophils Absolute Auto 3500 /uL (1500-7000); Neutrophils Percent Auto 59.2 % (50-75); Platelet Count 235 X10^3/uL (150-400); Red Blood Cell Count 3.91 X10^6/uL (4.5-5.9); Red Cell Distribution Width 13.6 % (11.6-14.8)
[2020-09-27 10:53] LABS: Alanine Aminotransferase 16 IU/L (<50); Albumin 4.5 g/dL (3.5-5.0); Albumin Globulin Ratio 1.6 (1.0-2.8); Alkaline Phosphatase 73 U/L (38-126); Aspartate Aminotransferase 26 IU/L (17-59); BUN Creatinine Ratio 18.3 (6-22); Bilirubin Total 1.3 mg/dL (0.2-1.3); Blood Urea Nitrogen 20 mg/dL (9-20); Calcium 9.8 mg/dL (8.4-10.2); Carbon Dioxide 27 mmol/L (22-32); Chloride 104 mmol/L (98-107); Cholesterol 128 mg/dL (140-199); Estimated Glomerular Filt Rate > 60.0 mL/min (>60); Globulin 2.8 g/dL (1.7-4.1); Glucose 90 mg/dL (80-110); HDL Cholesterol 89 mg/dL (40-60); HEMOLYSIS < 15 (0-50); LDL Cholesterol Calculated 26 mg/dL (<100); Potassium 5.2 mmol/L (3.4-5.1); Sodium 138 mmol/L (137-145); Total Protein 7.3 g/dL (6.3-8.2); Triglycerides 67 mg/dL (35-150)
[2020-09-27 11:20] LABS: Prostate Specific Antigen 0.078 ng/mL (0.10-4.00)
== END ==
PROVIDERS: PCP Internal Medicine; Referring Provider Internal Medicine; Visit Provider Internal Medicine
DX: I10 Essential (primary) hypertension (principal); D48.5 Neoplasm of uncertain behavior of skin; E78.00 Pure hypercholesterolemia, unspecified; D64.9 Anemia, unspecified; C61 Malignant neoplasm of prostate
CPT/HCPCS: 36415; 80053; 80061; 84153; 85025

== ENCOUNTER 2020-10-10 09:19 | Emergency (ER) | payer MEDICARE, OTHER, SELFPAY ==
--- NOTE | 2020-10-10 09:21 | ED.GENADULT ---
HPI - General Adult General Chief complaint: Hypertension Stated complaint: high blood pressure Time Seen by Provider: 10/10/20 09:21 Source: patient Mode of arrival: Ambulatory Limitations: no limitations History of Present Illness HPI narrative: 85-year-old male with a history of hypertension who states he did not take his losartan this morning who recently had a Mohs procedure done was at his surveyor hydrographic office this morning to have the bandage changed and it was noticed that he was hypertensive. I received a call from the surveyor hydrographic stating that his systolic blood pressure was greater than 200. He was not reporting any symptoms however she recommend that he come to the emergency department for an evaluation. He presents here because of that. He continues to deny any chest pain or shortness of breath. He stated that he has had a heart attack before but that was approximately 20 years ago. He again confirmed that he did not take his blood pressure medicine this morning. Related Data Home Medications Medication Instructions Recorded Confirmed aspirin 81 mg PO DAILY #0 09/05/11 03/10/19 allopurinol 300 mg PO DAILY 12/10/17 03/10/19 atorvastatin 40 mg PO DAILY 12/10/17 03/10/19 diltiazem HCl 1 cap PO QAM 12/10/17 03/10/19 losartan 25 mg PO DAILY 12/10/17 03/10/19 zolpidem 5 mg PO BEDTIME 12/10/17 03/10/19 cholecalciferol (vitamin D3) 1,000 unit PO DAILY 01/12/18 03/10/19 [Vitamin D3] terazosin 2 mg PO BEDTIME 03/11/18 03/10/19 zolpidem [Ambien] 5 mg PO BEDTIME PRN 03/11/18 03/11/18 ascorbic acid (vitamin C) [Vitamin 1,000 mg DAILY 03/10/19 03/10/19 C] cholecalciferol (vitamin D3) 2,000 unit DAILY 03/10/19 03/10/19 [Vitamin D3] Allergies Allergy/AdvReac Type Severity Reaction Status Date / Time No Known Drug Allergies Allergy Verified 01/12/18 14:33 Review of Systems Constitutional Constitutional: Denies fever(s) and Denies headache(s) Eyes Eyes: Denies change in vision ENT Ears, Nose, Mouth, and Throat: Denies headache(s) and Denies sore throat Cardiovascular Cardiovascular: Denies chest pain and Denies dyspnea Respiratory Respiratory: Denies dyspnea Gastrointestinal Gastrointestinal: Denies abdominal pain, Denies nausea and Denies vomiting Genitourinary Genitourinary: Denies dysuria Genitourinary: Denies dysuria Musculoskeletal Musculoskeletal: Denies arthralgias and Denies myalgias Integumentary/Breasts Comments: Mohs surgery wounds do scalp Neurologic Neurologic: Denies behavioral changes, Denies confusion and Denies headache(s) Psychiatric Psychiatric: Denies behavioral changes and Denies confusion Hematologic/Lymphatic On Anticoagulants: No Allergic/Immunologic Allergic/Immunologic: Denies urticaria Patient History Medical History Allergic rhinitis BPH (benign prostatic hyperplasia) Dislocation of left shoulder joint Gout Hypercholesterolemia Hypertension Impaired vision Left shoulder pain MGUS (monoclonal gammopathy of unknown significance) Myocardial infarction (~1992) Peripheral vascular disease Prostate CA Surgical History (Updated 03/11/18 @ 16:17 by Jose Raul Brown MD) History of appendectomy History of breast biopsy Status post bilateral cataract extraction Status post breast biopsy Social History household members: spouse Smoking Status: Former smoker alcohol intake: current Smoking Status: Former smoker Exam Initial Vital Signs Initial Vital Signs: Vital Signs Temperature 97.6 F 10/10/20 09:28 Pulse Rate 81 10/10/20 09:28 Respiratory Rate 15 10/10/20 09:28 Blood Pressure 180/86 H 10/10/20 09:28 Pulse Oximetry 98 10/10/20 09:28 Const General: cooperative, healthy appearing, comfortable and well developed Limitations: mental status not altered HENMT Head: normal to inspection and normocephalic Eyes General: appearance normal, both eyes and all related structures Resp Effort & Inspection: normal respiratory effort Auscultation: clear to auscultation bilaterally Cardio Rate: regular rate Rhythm: regular rhythm GI Inspection: non-distended Palpation: soft and No tender Skin Lesions: no lesions Rashes: no rashes Neuro General: patient alert, patient awake and patient oriented x3 Cognition: normal cognition Speech: speech normal Extrem General: normal to inspection, capillary refill normal and No edema Psych Appearance: grossly normal and well kempt Course Orders Ordered: ED Orders 10/10/20 09:27 EKG-12 Lead Stat Discontinued Medications Losartan Potassium (Losartan 25 Mg Tablet) 25 mg PO NOW ONE Stop: 10/10/20 09:27 Last Admin: 10/10/20 09:59 Dose: 25 mg Documented by: JUAN LUIS Vital Signs Vital signs: Vital Signs - 8 hr 10/10/20 09:28 10/10/20 09:59 Temperature 97.6 F Pulse Rate 81 75 Respiratory Rate 15 Blood Pressure 180/86 H 186/80 H Pulse Oximetry 98 Medical Decision Making ECG Data Attestation: I personally reviewed and interpreted this ECG as follows: Prior ECG tracings: not available for review Interpretation: Sinus rhythm Normal axis Ventricular rate of 70 for Normal QRS Normal QTC No ST T wave changes MDM Narrative Medical decision making narrative: Patient asymptomatic. Initial blood pressure here to systolic of 180. After giving him his morning blood pressure medicines and also time here in the ER blood pressure improved to 162/82. He continues to be asymptomatic. I feel no further workup needed here in the emergency department. He was instructed not to take his blood pressure medicine at home because he was given here. He was given return precautions. Expressed understanding and agreement. Discharge Plan Departure Patient Disposition: Home Clinical Impression: Hypertension Instructions: DI for High Blood Pressure Activity Restrictions/Additional Instructions: We gave you your losartan here in the emergency department so do not take this medicine when you return home but I recommend you take the rest of your morning medicines. Continue all of the postprocedure instructions given to you by the surveyor hydrographic. Return to the emergency department for any new or worsening symptoms Prescriptions: No Action aspirin 81 mg Tablet,Delayed Release (Dr/Ec) 81 mg PO DAILY Qty: 0 RF: 0 terazosin 2 mg Capsule 2 mg PO BEDTIME RF: 0 zolpidem [Ambien] 5 mg Tablet 5 mg PO BEDTIME PRN (Reason: Anxiety) RF: 0 losartan 50 mg tablet 25 mg PO DAILY RF: 0 atorvastatin 40 mg tablet 40 mg PO DAILY RF: 0 diltiazem HCl 120 mg capsule,ext.rel 24h degradable 1 cap PO QAM RF: 0 allopurinol 300 mg tablet 300 mg PO DAILY RF: 0 zolpidem 5 mg tablet 5 mg PO BEDTIME RF: 0 cholecalciferol (vitamin D3) [Vitamin D3] 1,000 unit Capsule 1,000 unit PO DAILY RF: 0 ascorbic acid (vitamin C) [Vitamin C] 1,000 mg Tablet 1,000 mg DAILY RF: 0 cholecalciferol (vitamin D3) [Vitamin D3] 2,000 unit Capsule 2,000 unit DAILY RF: 0 Referrals: Gordy Shabazz MD [Primary Care Provider] -
[2020-10-10 09:28] VITALS: BP 180/86; PULSE 81; RESP 15; TEMP 36.4; O2SAT 98; BMI 20.9
[2020-10-10 09:59] VITALS: BP 186/80; PULSE 75
[2020-10-10] MEDS: LOSARTAN 25 MG TABLET PO (09:59)
[2020-10-10 10:23] VITALS: BP 162/72; PULSE 69; RESP 20; O2SAT 99
[2020-10-10 10:35] VITALS: BP 162/72; PULSE 74; RESP 16; O2SAT 100
== END 2020-10-10 11:12 | disposition home or self-care (01) ==
PROVIDERS: Emergency Provider Emergency Medicine; PCP Internal Medicine
DX: I10 Essential (primary) hypertension (principal)
CPT/HCPCS: 93005; 99283

== ENCOUNTER → 2020-11-01 14:45 | Outpatient (CLI) | payer MEDICARE, OTHER, SELFPAY ==
--- NOTE | 2020-11-01 14:51 | DI.CT.S_ITS ---
PROCEDURE: CT KIDNEY URETER BLADDER (KUB) INDICATIONS: Hematuria, unspecified TECHNIQUE: Noncontrast 5 mm thick sections acquired from the diaphragms to the symphysis. 5 mm thick coronal and sagittal reformats were then performed. For radiation dose reduction, the following was used: automated exposure control, adjustment of mA and/or kV according to patient size. COMPARISON: [facility], CT, KIDNEY/ URETER/BLADDER, 07/09/2013, 10:44. FINDINGS: ABDOMEN: Lung bases: Scattered subsegmental atelectasis and/or scarring. No focal consolidation. 1 mm nodule seen in the left lung base is unchanged dating back to 2013, therefore benign Heart: No significant findings. Partially visualized coronary artery calcifications. Liver: Normal. Gallbladder: Contracted otherwise unremarkable Bile ducts: Normal. Pancreas: Normal. Spleen: Normal. Adrenals: Left adrenal hypertrophy versus adenoma, grossly unchanged since 07/09/13. Right adrenal gland unremarkable. Kidneys and Ureters: Bilateral nephrolithiasis measuring up to 2 mm on the left and 1 mm on the right. The ureters appear decompressed Stomach and duodenum: Normal. Bowel: Large amount of stool. No specific evidence of bowel obstruction. Surgical clips in the right lower quadrant. Other: No free fluid or air. Abdominal nodes: Normal. Aorta and IVC: Normal in size. Extensive vascular calcifications are noted. Ventral wall: Normal. PELVIS: Bladder: Decompressed otherwise unremarkable. Numerous prostate brachytherapy seeds are seen. Inguinal region: Fat containing left inguinal hernia. Pelvic nodes: Normal. Bones: Diffuse spondylosis and facet arthropathy. IMPRESSION: Bilateral sub 5 mm nephrolithiasis, although some of these could be vascular in origin. No evidence of urinary obstruction. Additional chronic and incidental findings as above. Dictated by: Albin Posada M.D. on 11/01/2020 at 16:16 Approved by: Albin Posada M.D. on 11/01/2020 at 16:22
== END ==
PROVIDERS: PCP Internal Medicine; Referring Provider Student in an Organized Health Care Education/Training Program; Visit Provider Student in an Organized Health Care Education/Training Program
DX: R31.9 Hematuria, unspecified (principal); N20.0 Calculus of kidney; K40.90 Unilateral inguinal hernia, without obstruction or gangrene, not specified as recurrent
CPT/HCPCS: 74176; 87086

== ENCOUNTER → 2020-11-01 18:10 | Outpatient (ROUT) | payer MEDICARE, OTHER, SELFPAY | PROVIDERS: PCP Internal Medicine; Visit Provider Internal Medicine | DX: R31.9 Hematuria, unspecified (principal) | CPT/HCPCS: 87086 ==

== ENCOUNTER → 2021-01-04 09:21 | Outpatient (CLI) | payer MEDICARE, OTHER, SELFPAY ==
[2021-01-04 10:04] LABS: Alanine Aminotransferase 18 IU/L (<50); Albumin 4.3 g/dL (3.5-5.0); Albumin Globulin Ratio 1.3 (1.0-2.8); Alkaline Phosphatase 68 U/L (38-126); Aspartate Aminotransferase 29 IU/L (17-59); BUN Creatinine Ratio 23.3 (6-22); Bilirubin Total 1.4 mg/dL (0.2-1.3); Blood Urea Nitrogen 24 mg/dL (9-20); Calcium 9.6 mg/dL (8.4-10.2); Carbon Dioxide 26 mmol/L (22-32); Chloride 108 mmol/L (98-107); Cholesterol 122 mg/dL (140-199); Estimated Glomerular Filt Rate > 60.0 mL/min (>60); Globulin 3.3 g/dL (1.7-4.1); Glucose 88 mg/dL (80-110); HDL Cholesterol 81 mg/dL (40-60); HEMOLYSIS < 15 (0-50); LDL Cholesterol Calculated 32 mg/dL (<100); Potassium 4.3 mmol/L (3.4-5.1); Sodium 141 mmol/L (137-145); Total Protein 7.6 g/dL (6.3-8.2); Triglycerides 46 mg/dL (35-150)
== END ==
PROVIDERS: PCP Internal Medicine; Referring Provider Internal Medicine Cardiovascular Disease; Visit Provider Internal Medicine Cardiovascular Disease
DX: E78.5 Hyperlipidemia, unspecified (principal)
CPT/HCPCS: 36415; 80053; 80061

== ENCOUNTER → 2021-02-12 16:00 | Outpatient (CLI) | payer MEDICARE, OTHER, SELFPAY ==
[2021-02-12 17:02] LABS: COVID19 -Nasal RAPID Negative (Negative)
== END ==
PROVIDERS: PCP Internal Medicine; Visit Provider Surgery
DX: Z01.812 Encounter for preprocedural laboratory examination (principal); Z20.822 Contact with and (suspected) exposure to COVID-19
CPT/HCPCS: 87635; C9803

== ENCOUNTER 2021-02-13 13:27 | Day surgery (SDC) | payer MEDICARE, OTHER, SELFPAY ==
[2021-02-07 08:31] VITALS: BMI 20.2
[2021-02-13] VITALS (7 sets, daily range): BP systolic 103–145; BP diastolic 44–64; PULSE 44–63; RESP 10–16; TEMP 36.4–36.8; O2SAT 98–100; BMI 20.2
[2021-02-13] MEDS: LACTATED RINGERS 1,000 ML 42 ML IV (14:28)
--- NOTE | 2021-02-13 14:32 | PM.PREOP ---
Pre-operative Note Interval Note History & Physical reviewed/Exam performed by Physician: Yes Changes to H&P: No
[2021-02-13] MEDS: CEFAZOLIN 1 GM VIAL 2 GM IV (14:45)
[2021-02-13] MEDS: BUPIVACAINE 0.25% (PF) VIAL 30 ML INJ (15:04)
--- NOTE | 2021-02-13 16:01 | PM.OP.1 ---
Operative Date/Time/Diagnoses Date of procedure: 02/13/21 Time of procedure: 16:01 Pre-op diagnosis: left inguinal hernia Post-op diagnosis: same Procedure & Clinicians Procedure: open left inguinal hernia repair Same procedure as scheduled: Yes Indications: left inguinal hernia Surgeon: Donaldo Iraheta Click Yes if Unassisted: Yes Anesthesia Type: General Operative Notes Findings: large indirect hernia containing omentum Estimated Blood Loss (mL): 20 Procedure in detail: The patient was placed supine on the table and bilateral lower extremity compression devices were applied. Anesthesia was induced they were intubated with an LMA and received 2g of Ancef. A time-out was performed. They were prepped and draped in sterile fashion. The left external inguinal ring and the anterior superior iliac crest were identified and marked. 1 finger breath above the inguinal ligament the skin was infiltrated with 0.25% bupivacaine. The skin incision was made here and the subcutaneous tissues were divided with electrocautery exposing the external oblique aponeurosis which was then opened along the direction of its fibers. Using blunt dissection the internal oblique aporneurosis was from the external oblique upper leaflet to identify the iliohypogastric nerve. Using a kittner the cord was carefully dissected away from the inguinal canal adjacent to the pubic tubercle. The cord including the vas deferens, testicular bloody supply, ilioguinal and genital nerve were encircled with a Marengo drain. No direct floor defect was identified. The cremasteric fibers surrounding the cord were divided using electrocautery adjacent to the internal ring.. The vas deferens and the testicular vessels were preserved and protected. There was a large omentum containing indirect hernia on the anterior medial aspect of the cord which was skeletonized away from the vas deferens and testicular blood supply. The indirect hernia was skeletonized back to the internal ring. Because of the large size I skeletonized the sac ligated it with 2-0 silk and transected it. I placed a plug of mesh into the internal ring and secured it with Vicryl. I selected a 7x 15 cm lightweight Pro Loop hernia mesh. The inferior medial aspect of the mesh was anchored to insertion of the rectus muscle to the pubic tubercle such that there was approximately 2 cm of tubercle overlap with Ethibond and then was run continuously along the inferior edge of the mesh to the shelving edge of the inguinal ligament. Interrupted 3 0 Vicryl suture was used to anchor the superior aspect of the mesh to the conjoined tendon in several places. The tails were then reapproximated loosely around the spermatic cord. The tails of the mesh were then tucked under the external oblique aponeurosis. The repair was checked for hemostasis. The wound was irrigated with sterile saline. The external oblique aponeurosis was reapproximated in a running fashion using 3 0 Vicryl. The subcutaneous tissues were reapproximated with 3 0 Vicryl skin closed with 4 0 Monocryl followed by the application of Dermabond. At the end of the operation I ensured that both testicles were within the scrotum. The sponge instrument count at the end operation was correct. The patient emerged from anesthesia was extubated and transferred to the postoperative care unit in stable condition. A total of 30 ml of of 0.25% bupivicaine was used to infiltrate the skin. Complications: none Post-operative Condition: stable Disposition: same day surgery
[2021-02-13] MEDS: ACETAMINOPHEN 325 MG TABLET PO (16:36)
[2021-02-13] MEDS: OXYCODONE IR 5 MG TABLET PO (16:37)
--- NOTE | 2021-02-13 16:49 | SUR.PHASEII ---
Assumed care from BROOKE Bryson, L groin site c/d/i. Pt c/o pain 09/23 medicated with tylenol and oxycodone after applesauce tolerated. Report to BROOKE Guzman
--- NOTE | 2021-02-13 17:09 | SUR.PHASEII ---
Discharged patient home with son in stable condition. All instructions reviewed with patient and family.
== END 2021-02-13 17:09 | disposition home or self-care (01) ==
PROVIDERS: PCP Internal Medicine; Referring Provider Surgery; Visit Provider Surgery
PROC: (CPT 49505; principal; 2021-02-13 14:45)
DX: K40.90 Unilateral inguinal hernia, without obstruction or gangrene, not specified as recurrent (principal); I10 Essential (primary) hypertension; E78.5 Hyperlipidemia, unspecified; I73.9 Peripheral vascular disease, unspecified; I25.2 Old myocardial infarction
CPT/HCPCS: 49505; 82962; C1781; J0690; J2405; J2704; J3010

== ENCOUNTER 2021-02-15 19:42 | Emergency (ER) | payer MEDICARE, OTHER, SELFPAY ==
[2021-02-15 19:48] VITALS: BP 145/65; PULSE 76; RESP 15; TEMP 36.8; O2SAT 100; BMI 20.2
[2021-02-15 21:56] VITALS: PULSE 71; O2SAT 100
[2021-02-15 22:00] VITALS: BP 150/64; PULSE 74; O2SAT 99
[2021-02-15 22:30] VITALS: BP 145/66; PULSE 70; O2SAT 97
--- NOTE | 2021-02-15 22:52 | DI.US.S_ITS ---
PROCEDURE: US ABDOMEN LIMITED INDICATIONS: POST-OP LUMP AT INCISION TECHNIQUE: Real-time focused scanning was performed of the abdomen, with image documentation. COMPARISON: None. FINDINGS: 5.2 x 2.6 x 6.9 centimeter complex mass noted at the operative incision site. Color Doppler evaluation demonstrates no internal vascularity. IMPRESSION: 5.2 x 2.6 x 6.9 centimeter complex mass without internal vascularity corresponds to palpable lesion. Lesion likely reflective of small postsurgical hematoma. Dictated by: Mehnaz Momin MD, PhD on 02/16/2021 at 7:34 Approved by: Mehnaz Momin MD, PhD on 02/16/2021 at 7:35
[2021-02-15 23:00] VITALS: BP 168/77; PULSE 65; O2SAT 99
[2021-02-15 23:30] VITALS: BP 159/74; PULSE 68; O2SAT 98
--- NOTE | 2021-02-16 04:32 | ED.ABDPAIN ---
HPI - Abdominal Pain General Chief Complaint: Abdominal Pain Stated Complaint: swelling s/p surgery 2 days ago Time Seen by Provider: 02/15/21 21:53 Source: patient Mode of arrival: Ambulatory Limitations: no limitations History of Present Illness HPI narrative: 85-year-old male former smoker with history of hypertension presents with his son and a chief complaint of a concerning ?lump? in the region of a recently repaired left inguinal hernia. He had been seen and evaluated at our hospital earlier in the week with our surgical team for the repair of a hernia. He has done quite well and has had very little pain. He still is having trouble moving his bowels but passes gas without difficulty and denies any abdominal pain, nausea or vomiting. He has had no fever or chills. He denies difficulty with urination nor any numbness, tingling or weakness. He complains of some bruising in his left groin and a lump presenting over the course of the day. Related Data Home Medications Medication Instructions Recorded Confirmed aspirin 81 mg tablet,delayed 81 mg PO DAILY #0 09/05/11 02/13/21 release allopurinol 300 mg tablet 300 mg PO DAILY 12/10/17 02/13/21 atorvastatin 40 mg tablet 40 mg PO DAILY 12/10/17 02/13/21 diltiazem HCl 120 mg 1 cap PO QAM 12/10/17 02/13/21 capsule,extended release 24 hr, controlled losartan 50 mg tablet 25 mg PO DAILY 12/10/17 02/13/21 cholecalciferol (vitamin D3) 25 1,000 unit PO DAILY 01/12/18 02/13/21 mcg (1,000 unit) capsule (Vitamin D3) ascorbic acid (vitamin C) 1,000 mg 500 mg PO DAILY 03/10/19 02/13/21 tablet (Vitamin C) zolpidem 5 mg tablet 5 mg PO BEDTIME PRN 01/31/21 02/13/21 Previous Rx's Medication Instructions Recorded acetaminophen 325 mg capsule 650 mg PO QID PRN #60 cap 02/13/21 (Tylenol) oxycodone 5 mg tablet See Rx Instructions .ROUTE 02/13/21 .COMPLEX PRN #30 tab Allergies Allergy/AdvReac Type Severity Reaction Status Date / Time No Known Drug Allergies Allergy Verified 02/15/21 19:50 Review of Systems Review of Systems Narrative: GENERAL: Denies chills, fatigue, malaise, fever, sweats. HEENT: Denies sinus pain, ear pain, sore throat, difficulty swallowing, dizziness. RESPIRATORY: Denies dyspnea, cough, wheezing, hemoptysis, sputum. CARDIOVASCULAR: Denies chest pain, palpitations, orthopnea, edema, GASTROINTESTINAL: See HPI. : Denies dysuria, frequency, incontinence, hematuria, urinary retention. MUSCULOSKELETAL: denies weakness, joint pain, or bony pain SKIN: See HP NEUROLOGIC: Denies weakness, headache, numbness, change in speech, confusion, seizures, incoordination. PSYCHIATRIC: No concerning psychosocial issues. 12 point review of systems is negative except for those stated above Patient History Medical History Allergic rhinitis BPH (benign prostatic hyperplasia) Dislocation of left shoulder joint Gout Hematospermia History of brachytherapy History of hematuria History of Mohs micrographic surgery for skin cancer (09/2020) Hypercholesterolemia Hypertension Impaired vision Left inguinal hernia Left shoulder pain MGUS (monoclonal gammopathy of unknown significance) Myocardial infarction (~1987) Peripheral vascular disease Prostate CA Skin cancer Surgical History History of appendectomy (2014) History of breast biopsy History of surgery (2010) Hx of angioplasty (~1987) Hx of repair of left rotator cuff (01/15/18) Status post bilateral cataract extraction (2013) Status post breast biopsy Social History marital status: household members: spouse Smoking Status: Former smoker alcohol intake: current Smoking Status: Former smoker alcohol intake frequency: holidays/special occasions only Substance Use Type: does not use Exam Narrative Exam Narrative: GEN: AOx3 and in mild distress EYES: Pupils are equal, round, and reactive to light and accommodation. Extraoccular muscles are intact bilaterally. There is no subconjunctival hemorrhage or exudate. CHEST: Lungs are clear to auscultation bilaterally and free of wheezes, rales, or rhonchi. Heart rate is regular rhythm, there are no murmurs, clicks, rubs, or gallops. There is no chest wall tenderness. ABD: Incision is clean, dry and intact. There is some induration underlying the incision without fluctuance. There is surrounding dark purple ecchymosis and little to no erythema or lymphangitis. Abdomen is soft and nontender. There is no guarding or rebound. Bowel sounds are normal in all 4 quadrants. There is no mass or organomegaly. EXT: Full painless ROM of all extremities with no loss of sensation or strength. SKIN: Warm, pink, and dry. No erythema or rash Initial Vital Signs Initial Vital Signs: Vital Signs Temperature 98.2 F 02/15/21 19:48 Pulse Rate 76 02/15/21 19:48 Respiratory Rate 15 02/15/21 19:48 Blood Pressure 145/65 H 02/15/21 19:48 Pulse Oximetry 100 02/15/21 19:48 Course Orders Ordered: ED Orders 02/15/21 22:52 US abdomen limited Stat Consultations Consultation #1: Discussed with Dr. Iraheta, recommends ultrasound, without significant findings patient is appropriate to return to previous postoperative discharge instructions and follow-up as planned Vital Signs Vital signs: Vital Signs - 8 hr 02/15/21 21:56 02/15/21 22:00 02/15/21 22:30 Pulse Rate 71 74 70 Blood Pressure 150/64 H 145/66 H Pulse Oximetry 100 99 97 02/15/21 23:00 02/15/21 23:30 Pulse Rate 65 68 Blood Pressure 168/77 H 159/74 H Pulse Oximetry 99 98 MDM - Abdominal Pain Imaging Data US - abdomen: Radiologist's Impression: fluid collection under incision most likely hematoma MDM Narrative Medical decision making narrative: Patient with very reassuring story and exam. Incision is clean, dry and intact without dehiscence or tenderness. Presence of dark purple ecchymosis and nonfluctuant, indurated region most consistent with hematoma. Ultrasound is very reassuring and suggests hematoma, low likelihood of active bleeding. Return precautions given and questions answered to his apparent satisfaction Discharge Plan Departure Patient Disposition: Home Clinical Impression: Postoperative hematoma Qualifiers: Surgical complication system/body Area: subcutaneous tissue Instructions: DI for Hematoma (Bruise) Activity Restrictions/Additional Instructions: *You have been diagnosed with [post surgical hematoma ] *What to do: *Please continue to take your regular medications as directed. [ ] New medication prescriptions sent to your pharmacy: [ ] [ ] New medication written as a paper prescription [ x] No new medications given *Please follow up with Dr. Iraheta as previously planned. I did call him tonight. Let them know you were seen in the Emergency Department and that we ask that you be seen in follow up. We will electronically transmit a record of today's note if your PCP is in our system *Return to Emergency Department if you should have any new, worsening or concerning symptoms, such as [fever greater than 101 F, shaking chills, worsening pain, persistent vomiting or other bothersome symptoms] Prescriptions: No Action aspirin 81 mg Tablet,Delayed Release (Dr/Ec) 81 mg PO DAILY Qty: 0 RF: 0 zolpidem 5 mg tablet 5 mg PO BEDTIME PRN (Reason: Sleep) RF: 0 oxycodone 5 mg tablet See Rx Instructions .ROUTE .COMPLEX PRN (Reason: pain) Qty: 30 RF: 0 acetaminophen [Tylenol] 325 mg capsule 650 mg PO QID PRN (Reason: pain) Qty: 60 RF: 0 losartan 50 mg tablet 25 mg PO DAILY RF: 0 atorvastatin 40 mg tablet 40 mg PO DAILY RF: 0 diltiazem HCl 120 mg capsule,ext.rel 24h degradable 1 cap PO QAM RF: 0 allopurinol 300 mg tablet 300 mg PO DAILY RF: 0 cholecalciferol (vitamin D3) [Vitamin D3] 1,000 unit Capsule 1,000 unit PO DAILY RF: 0 ascorbic acid (vitamin C) [Vitamin C] 1,000 mg Tablet 500 mg PO DAILY RF: 0 Referrals: Donaldo Iraheta MD [Physician] - Gordy Shabazz MD [Primary Care Provider] -
== END 2021-02-15 23:53 | disposition home or self-care (01) ==
PROVIDERS: Emergency Provider Emergency Medicine; PCP Internal Medicine
DX: L76.32 Postprocedural hematoma of skin and subcutaneous tissue following other procedure (principal)
CPT/HCPCS: 76705; 99281; 99283

== ENCOUNTER → 2021-04-17 12:43 | Outpatient (CLI) | payer MEDICARE, OTHER, SELFPAY ==
[2021-04-17 14:02] LABS: Add Manual Diff / Slide Review NO; Basophils Absolute Auto 0 /uL (0-100); Basophils Percent Auto 0.3 % (0-2); Eosinophils Absolute Auto 100 /uL (0-450); Eosinophils Percent Auto 1.9 % (2-4); Hematocrit 37.4 % (41-53); Hemoglobin 12.4 g/dL (13.5-17.5); Lymphocytes Absolute Auto 1300 /uL (1100-4500); Lymphocytes Percent Auto 23.8 % (25-40); Mean Corpuscular HGB Conc 33.3 % (30-36); Mean Corpuscular Volume 99.3 fL (80-100); Monocytes Absolute Auto 500 /uL (0-900); Monocytes Percent Auto 8.4 % (3-14); Neutrophils Absolute Auto 3700 /uL (1500-7000); Neutrophils Percent Auto 65.6 % (50-75); Platelet Count 236 X10^3/uL (150-400); Red Blood Cell Count 3.77 X10^6/uL (4.5-5.9); Red Cell Distribution Width 13.9 % (11.6-14.8); White Blood Cell Count 5.6 X10^3/uL (4.5-11.0)
[2021-04-19 12:36] LABS: Albumin 3.8 g/dL (2.9-4.4); Alpha-1-Globulin 0.2 g/dL (0.0-0.4); Alpha-2-Globulin 0.6 g/dL (0.4-1.0); Gamma Globulin 1.5 g/dL (0.4-1.8); Globulin Total 3.1 g/dL (2.2-3.9); Protein, Total 6.9 g/dL (6.0-8.5)
== END ==
PROVIDERS: PCP Internal Medicine; Referring Provider Internal Medicine; Visit Provider Internal Medicine
DX: D47.2 Monoclonal gammopathy (principal)
CPT/HCPCS: 36415; 84155; 84165; 85025

== ENCOUNTER 2021-12-04 20:28 | Emergency (ER) | payer MEDICARE, OTHER, SELFPAY ==
[2021-12-04 20:31] VITALS: BP 169/70; PULSE 64; RESP 18; TEMP 36.9; O2SAT 100
--- NOTE | 2021-12-04 21:56 | ED_ITS ---
HPI - Recheck/Abnormal Lab/Rx General Chief Complaint: Recheck/Abnormal Lab/Rx Stated Complaint: head wound won't stop bleeding Time Seen by Provider: 12/04/21 21:31 Source: patient Mode of arrival: Ambulatory History of Present Illness HPI narrative: Patient is a layla 86-year-old with history of MGUS, hypertension presents today with son. He had a dermatologic procedure earlier today on his scalp. He has had bleeding ever since and soaked through many bandages. Related Data Home Medications Medication Instructions Recorded Confirmed aspirin 81 mg tablet,delayed 81 mg PO DAILY ##0 09/05/11 05/01/21 release allopurinol 300 mg tablet 300 mg PO DAILY 12/10/17 05/01/21 atorvastatin 40 mg tablet 40 mg PO DAILY 12/10/17 05/01/21 diltiazem HCl 120 mg 1 cap PO QAM 12/10/17 05/01/21 capsule,extended release 24 hr, controlled losartan 50 mg tablet 25 mg PO DAILY 12/10/17 05/01/21 cholecalciferol (vitamin D3) 25 1,000 unit PO DAILY 01/12/18 05/01/21 mcg (1,000 unit) capsule (Vitamin D3) ascorbic acid (vitamin C) 1,000 mg 500 mg PO DAILY 03/10/19 05/01/21 tablet (Vitamin C) zolpidem 5 mg tablet 5 mg PO BEDTIME PRN Sleep 01/31/21 05/01/21 Allergies Allergy/AdvReac Type Severity Reaction Status Date / Time No Known Drug Allergies Allergy Verified 04/09/21 13:19 Review of Systems Review of Systems Narrative: GENERAL: Denies chills,fever HEENT: Denies throat pain RESPIRATORY: Denies dyspnea, cough, wheezing CARDIOVASCULAR: Denies chest pain, palpitations GASTROINTESTINAL: Denies nausea, vomiting MUSCULOSKELETAL: Denies extremity pain, injury SKIN: See HPI NEUROLOGIC: Denies weakness, dizziness, headache, numbness 8 point review of systems is negative except for those stated above and HPI Patient History Medical History Allergic rhinitis BPH (benign prostatic hyperplasia) Dislocation of left shoulder joint Gout Hematospermia History of brachytherapy History of hematuria History of Mohs micrographic surgery for skin cancer (09/2020) Hypercholesterolemia Hypertension Impaired vision Left inguinal hernia Left shoulder pain MGUS (monoclonal gammopathy of unknown significance) Myocardial infarction (~1987) Peripheral vascular disease Prostate CA Skin cancer Surgical History History of appendectomy (2014) History of breast biopsy History of surgery (2010) Hx of angioplasty (~1987) Hx of repair of left rotator cuff (01/15/18) Status post bilateral cataract extraction (2013) Status post breast biopsy Social History marital status: household members: spouse Smoking Status: Former smoker alcohol intake: current Smoking Status: Former smoker alcohol intake frequency: holidays/special occasions only Substance Use Type: does not use Exam Initial Vital Signs Initial Vital Signs: Vital Signs Temperature 98.5 F 12/04/21 20:31 Pulse Rate 64 12/04/21 20:31 Respiratory Rate 18 12/04/21 20:31 Blood Pressure 169/70 H 12/04/21 20:31 Pulse Oximetry 100 12/04/21 20:31 Oxygen Delivery Method 12/04/21 20:31 GENERAL: Alert pleasant 86-year-old male no acute distress CARDIOVASCULAR: peripheral pulses in tact, cap refill <2 sec RESPIRATORY: No respiratory distress, speaks in full sentences without diff iculty EXTREMITIES: Normal range of motion, no clubbing or edema. Neurovascularly intact NEUROLOGICAL: Cranial nerves II through XII grossly intact. Normal gait and speech. SKIN: To wound on the top of his scalp that are bleeding is not pulsatile Course Orders Ordered: Discontinued Medications Lidocaine/Epinephrine (Lidocaine 1% W/Epi) 1 ml SUBCUT NOW ONE Stop: 12/04/21 22:00 Last Admin: 12/04/21 22:38 Dose: 1 ml Documented By: IVÁN Silver Nitrate/Potassium Nitrate (Silver Nitrate Stick) 1 each TOP NOW ONE Stop: 12/04/21 22:00 Last Admin: 12/04/21 22:39 Dose: 1 each Documented By: IVÁN Vital Signs Vital signs: Vital Signs - 8 hr 12/04/21 20:31 12/04/21 22:39 Temperature 98.5 F Pulse Rate 64 70 Respiratory Rate 18 Blood Pressure 169/70 H 164/71 H Pulse Oximetry 100 99 Oxygen Delivery Method Room Air Room Air MDM - Recheck/Abnormal Lab/Rx MDM Narrative Medical decision making narrative: Wounds are bleeding. Attempted sore alert nitrate to cauterize. Also use lidocaine with epinephrine. Bleeding is stopped. Surgicel bandage placed Discharge Plan Departure Patient Disposition: Home Clinical Impression: Postoperative hemorrhage of subcutaneous tissue following dermatologic procedure Instructions: Minor Wounds (Alternative Therapy) Activity Restrictions/Additional Instructions: *You have been diagnosed with bleeding wound postprocedure *What to do: Please keep bandage on. The bleeding seems to have stopped now. Please follow dermatology GI recommendations. *Continue to take medications as directed *Follow up with your primary care provider in 2-3 days or call [phone] *Return to ER if you should have increased bleeding redness drainage or any new, worsening or concerning symptoms Prescriptions: No Action aspirin 81 mg Tablet,Delayed Release (Dr/Ec) 81 mg PO DAILY Qty: 0 zolpidem 5 mg tablet 5 mg PO BEDTIME PRN (Reason: Sleep) losartan 50 mg tablet 25 mg PO DAILY Label Comments: TAKE ONE TABLET BY MOUTH EVERY DAY atorvastatin 40 mg tablet 40 mg PO DAILY Label Comments: TAKE ONE TABLET BY MOUTH EVERY DAY diltiazem HCl 120 mg capsule,ext.rel 24h degradable 1 cap PO QAM Label Comments: TAKE ONE CAPSULE BY MOUTH ON AN EMPTY STOMACH IN THE MORNING allopurinol 300 mg tablet 300 mg PO DAILY Label Comments: TAKE 1 TABLET BY MOUTH ONCE A DAY cholecalciferol (vitamin D3) [Vitamin D3] 1,000 unit Capsule 1,000 unit PO DAILY ascorbic acid (vitamin C) [Vitamin C] 1,000 mg Tablet 500 mg PO DAILY Referrals: Georgina Reid MD [Primary Care Provider] - Visit Report Forms: Patient Portal/API
[2021-12-04] MEDS: LIDOCAINE 1% W/EPI 1 ML SUBCUT (22:38)
[2021-12-04 22:39] VITALS: BP 164/71; PULSE 70; O2SAT 99
[2021-12-04] MEDS: SILVER NITRATE STICK 1 EACH TOP (22:39)
== END 2021-12-04 22:41 | disposition home or self-care (01) ==
PROVIDERS: Emergency Provider Emergency Medicine; PCP Internal Medicine
DX: L76.21 Postprocedural hemorrhage of skin and subcutaneous tissue following a dermatologic procedure (principal)
CPT/HCPCS: 99282

== ENCOUNTER → 2022-01-22 09:13 | Outpatient (CLI) | payer MEDICARE, OTHER, SELFPAY ==
[2022-01-22 11:21] LABS: Alanine Aminotransferase 15 IU/L (<50); Albumin 4.4 g/dL (3.5-5.0); Albumin Globulin Ratio 1.5 (1.0-2.8); Alkaline Phosphatase 75 U/L (38-126); Aspartate Aminotransferase 30 IU/L (17-59); BUN Creatinine Ratio 26.1 (6-22); Bilirubin Total 1.1 mg/dL (0.2-1.3); Blood Urea Nitrogen 30 mg/dL (9-20); Carbon Dioxide 25 mmol/L (22-32); Chloride 105 mmol/L (98-107); Cholesterol 129 mg/dL (140-199); Estimated Glomerular Filt Rate > 60 mL/min (>60); Glucose 74 mg/dL (80-110); HDL Cholesterol 102 mg/dL (40-60); HEMOLYSIS 24 (0-50); LDL Cholesterol Calculated 18 mg/dL (<100); Potassium 5.3 mmol/L (3.4-5.1); Sodium 138 mmol/L (137-145); Total Protein 7.4 g/dL (6.3-8.2); Triglycerides 43 mg/dL (35-150)
== END ==
PROVIDERS: PCP Internal Medicine; Referring Provider Internal Medicine Cardiovascular Disease; Visit Provider Internal Medicine Cardiovascular Disease
DX: E78.5 Hyperlipidemia, unspecified (principal)
CPT/HCPCS: 36415; 80053; 80061

== ENCOUNTER → 2022-01-30 10:07 | Outpatient (CLI) | payer MEDICARE, OTHER, SELFPAY ==
[2022-01-30 11:39] LABS: Add Manual Diff / Slide Review NO; Basophils Absolute Auto 0 /uL (0-100); Basophils Percent Auto 0.4 % (0-2); Eosinophils Absolute Auto 200 /uL (0-450); Eosinophils Percent Auto 4.7 % (2-4); Hematocrit 35.8 % (41-53); Hemoglobin 12.2 g/dL (13.5-17.5); Lymphocytes Absolute Auto 1900 /uL (1100-4500); Lymphocytes Percent Auto 36.7 % (25-40); Mean Corpuscular HGB Conc 34.1 % (30-36); Mean Corpuscular Hemoglobin 34.1 PG (26-34); Mean Corpuscular Volume 99.9 fL (80-100); Monocytes Absolute Auto 400 /uL (0-900); Monocytes Percent Auto 7.1 % (3-14); Neutrophils Absolute Auto 2600 /uL (1500-7000); Neutrophils Percent Auto 51.1 % (50-75); Platelet Count 214 X10^3/uL (150-400); Red Blood Cell Count 3.59 X10^6/uL (4.5-5.9); Red Cell Distribution Width 13.7 % (11.6-14.8); White Blood Cell Count 5.1 X10^3/uL (4.5-11.0)
[2022-01-30 12:05] LABS: Alanine Aminotransferase 18 IU/L (<50); Albumin 4.3 g/dL (3.5-5.0); Albumin Globulin Ratio 1.4 (1.0-2.8); Alkaline Phosphatase 73 U/L (38-126); Aspartate Aminotransferase 35 IU/L (17-59); BUN Creatinine Ratio 21.8 (6-22); Bilirubin Total 1.4 mg/dL (0.2-1.3); Blood Urea Nitrogen 24 mg/dL (9-20); Carbon Dioxide 27 mmol/L (22-32); Chloride 103 mmol/L (98-107); Estimated Glomerular Filt Rate > 60 mL/min (>60); Globulin 3.1 g/dL (1.7-4.1); Glucose 84 mg/dL (80-110); HEMOLYSIS < 15 (0-50); Potassium 4.7 mmol/L (3.4-5.1); Sodium 139 mmol/L (137-145); Total Protein 7.4 g/dL (6.3-8.2)
[2022-02-01 21:07] LABS: Alpha 1 Globulin 0.2 g/dL (0.0-0.4); Alpha 2 Globulin 0.6 g/dL (0.4-1.0); Beta 1 Globulin 0.8 g/dL (0.7-1.3); Gamma Globulin 1.5 g/dL (0.4-1.8); Immunoglobulin A 112 mg/dL (61-437); Immunoglobulin G 1409 mg/dL (603-1613); Immunoglobulin M 161 mg/dL (15-143)
== END ==
PROVIDERS: Internal Medicine Medical Oncology; PCP Internal Medicine; Referring Provider Internal Medicine Cardiovascular Disease; Visit Provider Internal Medicine Cardiovascular Disease
DX: D47.2 Monoclonal gammopathy (principal); I10 Essential (primary) hypertension
CPT/HCPCS: 36415; 80053; 84155; 84165; 85025

== ENCOUNTER 2023-01-15 01:02 | Emergency (ER) | payer MEDICARE, OTHER, SELFPAY ==
[2023-01-15 01:10] VITALS: BP 201/86; PULSE 86; RESP 18; TEMP 37.5; O2SAT 100; BMI 23.3
--- NOTE | 2023-01-15 05:15 | ED.GENADULT ---
HPI - General Adult <Samantha Rooney MD - Last Filed: 01/15/23 18:05> General Chief complaint: Upper Respiratory Symptoms Stated complaint: something stuck in throat Time Seen by Provider: 01/15/23 04:54 Source: patient Mode of arrival: Ambulatory History of Present Illness HPI narrative: 87-year-old gentleman with a history of hypertension hyperlipidemia MGUS who was having difficulty getting to sleep around midnight tonight feeling like there is something stuck in his throat. No tongue or lip swelling. Had not had anything to eat for a couple of hours. His son notes that earlier in the evening he has not had any complaints. The patient is continuing to clear his throat and indicates that it is sensation just behind his cricoid cartilage. He is able to drink without difficulties. Able to speak without any abnormalities. His son notes that he had dinner around 7:00 p.m.. There has been no recent fissure chicken that has been consumed dinner was lasagna this evening. He did not have anything to eat after that. Symptoms started around midnight and there are no complaints of chest pain, dyspnea, orthopnea. Related Data Home Medications Medication Instructions Recorded Confirmed aspirin 81 mg tablet,delayed 81 mg PO DAILY ##0 09/05/11 05/01/21 release allopurinol 300 mg tablet 300 mg PO DAILY 12/10/17 05/01/21 atorvastatin 40 mg tablet 40 mg PO DAILY 12/10/17 05/01/21 diltiazem HCl 120 mg 1 cap PO QAM 12/10/17 05/01/21 capsule,extended release 24 hr, controlled losartan 50 mg tablet 25 mg PO DAILY 12/10/17 05/01/21 cholecalciferol (vitamin D3) 25 1,000 unit PO DAILY 01/12/18 05/01/21 mcg (1,000 unit) capsule (Vitamin D3) ascorbic acid (vitamin C) 1,000 mg 500 mg PO DAILY 03/10/19 05/01/21 tablet (Vitamin C) zolpidem 5 mg tablet 5 mg PO BEDTIME PRN Sleep 01/31/21 05/01/21 Previous Rx's Medication Instructions Recorded pantoprazole 40 mg tablet,delayed 40 mg PO DAILY #30 tabs 01/15/23 release (Protonix) Allergies Allergy/AdvReac Type Severity Reaction Status Date / Time No Known Drug Allergies Allergy Verified 04/09/21 13:19 Review of Systems <Samantha Rooney MD - Last Filed: 01/15/23 18:05> Review of Systems Narrative: Pertinent positive and negative findings as per HPI Patient History <Samantha Rooney MD - Last Filed: 01/15/23 18:05> Medical History Allergic rhinitis BPH (benign prostatic hyperplasia) Dislocation of left shoulder joint Gout Hematospermia History of brachytherapy History of hematuria History of Mohs micrographic surgery for skin cancer (09/2020) Hypercholesterolemia Hypertension Impaired vision Left inguinal hernia Left shoulder pain MGUS (monoclonal gammopathy of unknown significance) Myocardial infarction (~1987) Peripheral vascular disease Prostate CA Skin cancer Surgical History History of appendectomy (2014) History of breast biopsy History of surgery (2010) Hx of angioplasty (~1987) Hx of repair of left rotator cuff (01/15/18) Status post bilateral cataract extraction (2013) Status post breast biopsy Social History marital status: household members: spouse Smoking Status: Former smoker alcohol intake: current Smoking Status: Former smoker alcohol intake frequency: holidays/special occasions only Substance Use Type: does not use Exam <Samantha Rooney MD - Last Filed: 01/15/23 18:05> Initial Vital Signs Initial Vital Signs: Vital Signs Temperature 99.5 F 01/15/23 01:10 Pulse Rate 86 01/15/23 01:10 Respiratory Rate 18 01/15/23 01:10 Blood Pressure 201/86 H 01/15/23 01:10 Pulse Oximetry 100 01/15/23 01:10 Oxygen Delivery Method Room Air 01/15/23 01:10 General: Healthy appearing, coughing as if he has something caught in the back of his throat. Able to give a complete and coherent history. Well-nourished well-developed Neck: No cervical adenopathy, supple. Posterior pharynx is unremarkable. Palpation of anterior neck is reassuring Respiratory: Lungs are clear to auscultation, no wheezing no rales no rhonchi. Full and symmetrical air movement Cardiac: Regular rate and rhythm no murmurs no bruits Skin: Warm and dry, no rashes Neurologic: Grossly neurologically intact with no obvious asymmetries or abnormalities Extremities: No trauma, well perfused Psych: Cooperative, appropriate insight and affect <Darius Lopez MD - Last Filed: 01/15/23 13:54> Initial Vital Signs Initial Vital Signs: Vital Signs Temperature 99.5 F 01/15/23 01:10 Pulse Rate 86 01/15/23 01:10 Respiratory Rate 18 01/15/23 01:10 Blood Pressure 201/86 H 01/15/23 01:10 Pulse Oximetry 100 01/15/23 01:10 Oxygen Delivery Method Room Air 01/15/23 01:10 Course <Samantha Rooney MD - Last Filed: 01/15/23 18:05> Orders Ordered: Discontinued Medications Benzocaine/Butamben/Tetracaine HCl (Tetracaine/Benzocaine/Butamben (Cetacaine) Bottle) 1 spray TOP NOW ONE Stop: 01/15/23 05:23 Last Admin: 01/15/23 05:37 Dose: 1 spray Documented By: JANUARY Lorazepam (Lorazepam 0.5 Mg Tablet) 0.5 mg PO NOW ONE Stop: 01/15/23 06:53 Last Admin: 01/15/23 07:29 Dose: Not Given Documented By: MPO Pantoprazole Sodium (Pantoprazole Dr 20 Mg Tablet) 40 mg PO NOW ONE Stop: 01/15/23 09:18 Last Admin: 01/15/23 09:46 Dose: 40 mg Documented By: DICK Vital Signs Vital signs: Vital Signs - 8 hr 01/15/23 09:10 01/15/23 09:51 01/15/23 09:11 Pulse Rate 83 89 Respiratory Rate Blood Pressure 188/87 H 172/99 H Pulse Oximetry 98 98 Oxygen Delivery Method 01/15/23 09:11 01/15/23 09:25 Pulse Rate 96 H Respiratory Rate 16 Blood Pressure 188/87 H Pulse Oximetry 97 Oxygen Delivery Method Room Air <Daruis Lopez MD - Last Filed: 01/15/23 13:54> Orders Ordered: Discontinued Medications Benzocaine/Butamben/Tetracaine HCl (Tetracaine/Benzocaine/Butamben (Cetacaine) Bottle) 1 spray TOP NOW ONE Stop: 01/15/23 05:23 Last Admin: 01/15/23 05:37 Dose: 1 spray Documented By: JANUARY Lorazepam (Lorazepam 0.5 Mg Tablet) 0.5 mg PO NOW ONE Stop: 01/15/23 06:53 Last Admin: 01/15/23 07:29 Dose: Not Given Documented By: DICK Pantoprazole Sodium (Pantoprazole Dr 20 Mg Tablet) 40 mg PO NOW ONE Stop: 01/15/23 09:18 Last Admin: 01/15/23 09:46 Dose: 40 mg Documented By: DICK Vital Signs Vital signs: Vital Signs - 8 hr 01/15/23 09:10 01/15/23 09:51 01/15/23 09:11 Pulse Rate 83 89 Respiratory Rate Blood Pressure 188/87 H 172/99 H Pulse Oximetry 98 98 Oxygen Delivery Method 01/15/23 09:11 01/15/23 09:25 Pulse Rate 96 H Respiratory Rate 16 Blood Pressure 188/87 H Pulse Oximetry 97 Oxygen Delivery Method Room Air Medical Decision Making <Samantha Rooney MD - Last Filed: 01/15/23 18:05> [facility] Narrative Medical decision making narrative: CC: Complaint that something is caught in the back his throat, this is acute with uncertain prognosis Complicating co-morbidities: Hypertension Data collected from: patient, son Differential considered: Foreign body in the posterior pharynx, upper respiratory infection, globus hystericus Exam documented above, pertinent findings include: No findings on direct visualization. Imaging studies independently reviewed: X-ray soft tissue neck does not show any obvious foreign bodies Consultations: Treatments: Using Cetacaine spray the posterior pharynx was anesthetized and the glide scope was used to see if there were any obvious abnormalities to be visualized. I was able to get fairly good view of the entire posterior pharynx, aryepiglottic folds and did not see anything significantly abnormal Re-evaluations: Discussed options with patient and his son. I believe talking to ENT physician during daylight hours to see if he may be able to be evaluated this morning in clinic would be most appropriate. Patient would prefer to wait in the emergency department until the ENT as he feels that the sensation is far too irritating for him to possibly go home. Is able to speak in full sentences, there is no respiratory issues he is able to eat and drink. As he will likely be a 2-3 hour weight, he is given 0.5 mg of Ativan to see if reducing some of his anxiety may make a difference in the sensation that he is experiencing. Care is turned over to Dr. Dewayne Rankin at change of shift Discussion: <Darius Lopez MD - Last Filed: 01/15/23 13:54> [facility] Narrative Medical decision making narrative: CC: Complaint that something is caught in the back his throat, this is acute with uncertain prognosis Complicating co-morbidities: Hypertension Data collected from: patient, son Differential considered: Foreign body in the posterior pharynx, upper respiratory infection, globus hystericus Exam documented above, pertinent findings include: No findings on direct visualization. Imaging studies independently reviewed: X-ray soft tissue neck does not show any obvious foreign bodies Consultations: 8:[address] Paul Salgado, otolaryngology, he is not in the office today his out of the office this week. He would like Dr. Gay contacted in [place] 9:10 a.m., spoke with Dr. Gabriele Gay with otolaryngology in [place], he has a impression that patient likely has acid reflux. Recommends patient not eat within 4 hours of going to bed. Start omeprazole or proton pump inhibitor. He would like patient to have the option to come to see him in the office today or try the medication and then call for follow up in a few days. Treatments: Using Cetacaine spray the posterior pharynx was anesthetized and the glide scope was used to see if there were any obvious abnormalities to be visualized. I was able to get fairly good view of the entire posterior pharynx, aryepiglottic folds and did not see anything significantly abnormal Re-evaluations: Discussed options with patient and his son. I believe talking to ENT physician during daylight hours to see if he may be able to be evaluated this morning in clinic would be most appropriate. Patient would prefer to wait in the emergency department until the ENT as he feels that the sensation is far too irritating for him to possibly go home. Is able to speak in full sentences, there is no respiratory issues he is able to eat and drink. As he will likely be a 2-3 hour weight, he is given 0.5 mg of Ativan to see if reducing some of his anxiety may make a difference in the sensation that he is experiencing. Care is turned over to Dr. Dewayne Rankin at change of shift January 15, 2023 at 7:00 a.m.. Sign out from Dr. Bailey. Patient airway intact. Patient in no distress but does not want to be discharged until has contact with Otolaryngology on-call. At this time, will need to contact Dr. Paul Salgado, office is next door. To try to get patient to the clinic this morning. 8:00 a.m.. Patient resting comfortably. No distress. Not ?clearing his throat? or coughing or drooling. No trouble breathing 9:15 a.m.. Spoke with patient my discussion with Dr. Paul Salgado as well as Gabriele Gay. He does not want to go to their office, he would like to try proton pump inhibitor and dietary changes and he will call their office in a few days for checkup. Discussion: Appropriate for discharge home. Patient not toxic. At time of discharge patient in no respiratory distress. No coughing or clearing of his throat. Return precautions reviewed with patient. He desires to go home this morning and not go to ENT office. I will give referral to ENT as well. I will start proton pump inhibitor. Patient desires discharge home. No blood work indicated this time. No fever. Patient not toxic. Likely not infectious process. Discharge Plan Departure Patient Disposition: Home Clinical Impression: Throat pain in adult Instructions: Sore Throat, DI for Gastroesophageal Reflux Disease (GERD) Activity Restrictions/Additional Instructions: No driving or operating machinery today Please continue Protonix acid reduction medication tomorrow. Prescription has been sent to pharmacy to picker / packer today. If you choose to see Dr. Gabriele Gay in [place], he is on [address] [place] [address] and [facility], they will be expecting you today if you choose to go today. Otherwise, call the office for follow up in a week. Be sure not to eat any food products within 4 hours of going to bed. No spicy foods. Do try to use more pillows to prop yourself up to reduce acid going to the throat. Return if worse if any questions or concerns Prescriptions: New pantoprazole [Protonix] 40 mg tablet,delayed release (DR/EC) 40 mg PO DAILY Qty: 30 0RF No Action aspirin 81 mg Tablet,Delayed Release (Dr/Ec) 81 mg PO DAILY Qty: 0 zolpidem 5 mg tablet 5 mg PO BEDTIME PRN (Reason: Sleep) losartan 50 mg tablet 25 mg PO DAILY Patient Comments: TAKE ONE TABLET BY MOUTH EVERY DAY atorvastatin 40 mg tablet 40 mg PO DAILY Patient Comments: TAKE ONE TABLET BY MOUTH EVERY DAY diltiazem HCl 120 mg capsule,ext.rel 24h degradable 1 cap PO QAM Patient Comments: TAKE ONE CAPSULE BY MOUTH ON AN EMPTY STOMACH IN THE MORNING allopurinol 300 mg tablet 300 mg PO DAILY Patient Comments: TAKE 1 TABLET BY MOUTH ONCE A DAY cholecalciferol (vitamin D3) [Vitamin D3] 1,000 unit Capsule 1,000 unit PO DAILY ascorbic acid (vitamin C) [Vitamin C] 1,000 mg Tablet 500 mg PO DAILY Referrals: Gabriele Gay MD [Physician] - Georgina Reid MD [Primary Care Provider] - Stand Alone Forms: Patient Portal/API
[2023-01-15] MEDS: TETRACAINE/BENZOCAINE/BUTAMBEN (CETACAINE) BOTTLE 1 SPRAY TOP (05:37)
--- NOTE | 2023-01-15 06:11 | DI.RAD.S_ITS ---
PROCEDURE: XR SOFT TISSUE NECK INDICATIONS: foreign body sensation in back of throat TECHNIQUE: 2 views of the neck were acquired. COMPARISON: None. FINDINGS: Airway: The airway appears patent. Soft tissues: Prevertebral soft tissues are normal in thickness. The epiglottis and aryepiglottic folds appear normal. No soft tissue gas. Bones: No suspicious bony lesions. Visualized cervical spine is normally aligned. 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 IMPRESSION: 1. No foreign bodies identified. If clinical suspicion persists, consider CT for further evaluation. Dictated by: Huy Lennon M.D. on 01/15/2023 at 9:14 Approved by: Huy Lennon M.D. on 01/15/2023 at 9:16
[2023-01-15 09:10] VITALS: BP 188/87; PULSE 83; O2SAT 98
[2023-01-15 09:11] VITALS: BP 188/87; PULSE 89; O2SAT 98
[2023-01-15 09:25] VITALS: PULSE 96; RESP 16; O2SAT 97
[2023-01-15] MEDS: PANTOPRAZOLE DR 20 MG TABLET 40 MG PO (09:46)
[2023-01-15 09:51] VITALS: BP 172/99
== END 2023-01-15 09:47 | disposition home or self-care (01) ==
PROVIDERS: Emergency Provider Emergency Medicine; PCP Internal Medicine
DX: R07.0 Pain in throat (principal)
CPT/HCPCS: 70360; 99283

== ENCOUNTER → 2023-08-18 14:03 | Outpatient (CLI) | payer MEDICARE, OTHER, SELFPAY ==
[2023-08-18 15:56] LABS: Alanine Aminotransferase 16 IU/L (<50); Albumin 4.3 g/dL (3.5-5.0); Albumin Globulin Ratio 1.4 (1.0-2.8); Alkaline Phosphatase 80 U/L (38-126); Aspartate Aminotransferase 29 IU/L (17-59); BUN Creatinine Ratio 23.7 (6-22); Bilirubin Total 1.4 mg/dL (0.2-1.3); Blood Urea Nitrogen 31 mg/dL (9-20); Calcium 9.2 mg/dL (8.4-10.2); Carbon Dioxide 25 mmol/L (22-32); Chloride 108 mmol/L (98-107); Estimated Glomerular Filt Rate 52 mL/min (>60); Glucose 88 mg/dL (80-110); HEMOLYSIS < 15 (0-50); Potassium 4.9 mmol/L (3.4-5.1); Sodium 139 mmol/L (137-145); Total Protein 7.3 g/dL (6.3-8.2)
== END ==
PROVIDERS: PCP Internal Medicine; Referring Provider Nurse Practitioner; Visit Provider Nurse Practitioner
DX: I10 Essential (primary) hypertension (principal)
CPT/HCPCS: 36415; 80053

== ENCOUNTER → 2023-09-05 13:36 | Outpatient (CLI) | payer MEDICARE, OTHER, SELFPAY ==
[2023-09-05 14:26] LABS: Appearance Urine UA CLEAR; Bilirubin Urine UA NEGATIVE (NEGATIVE); Color Urine UA YELLOW; Glucose Urine UA NEGATIVE (Negative); Ketones Urine UA TRACE (NEGATIVE); Leukocyte Esterase Urine UA NEGATIVE (NEGATIVE); Nitrite Urine UA NEGATIVE (Negative); Occult Blood Urine UA NEGATIVE (Negative); Protein Urine UA 2+ (Negative); Specific Gravity Urine UA >=1.030 (1.000-1.035)
[2023-09-05 14:46] LABS: Bacteria Urine None Seen; Culture Indicated Urine Cult Not Indicated; RBC Urine None Seen (0-5/HPF); Squamous Epithelial Cell Urine None Seen (0-5/HPF); Urine Volume 10mL (spun); WBC Urine None Seen (0-5/HPF)
== END ==
LOC: LAB 13:44
PROVIDERS: PCP Internal Medicine; Referring Provider Internal Medicine; Visit Provider Internal Medicine
DX: R35.0 Frequency of micturition (principal)
CPT/HCPCS: 81001

== ENCOUNTER → 2024-04-19 13:05 | Outpatient (CLI) | payer MEDICARE, OTHER, SELFPAY ==
[2024-04-19 14:17] LABS: Prostate Specific Antigen 0.067 ng/mL (0.10-4.00)
== END ==
PROVIDERS: PCP Internal Medicine; Referring Provider Urology; Visit Provider Urology
DX: C61 Malignant neoplasm of prostate (principal); R31.21 Asymptomatic microscopic hematuria; Z87.891 Personal history of nicotine dependence; R33.9 Retention of urine, unspecified
CPT/HCPCS: 36415; 84153